=== PATIENT | female | born 1930 | race Caucasian/White ===

== ENCOUNTER 2018-03-07 09:37 | Inpatient (IN) | payer OTHER ==
--- OUTSIDE RECORDS SUMMARY | 2018-03-07 09:40 | XMS REPORT | Clinical Summary ---
:[address] [facility] Address [address] [place] [address] Phone Care Team Providers Name Role Phone Unavailable Primary Care Provider Unavailable Allergies Active Allergy Reactions Severity Noted Date Comments Codeine 03/01/2016 Current Medications Prescription Sig. Disp. Refills Start Date End Date Status gabapentin (NEURONTIN) Take 300 mg by Active 300 MG capsule mouth 2 (two) times daily. metoprolol (LOPRESSOR) Take 100 mg by Active 100 MG tablet mouth daily. simvastatin (ZOCOR) 20 Take 20 mg by Active MG tablet mouth nightly. furosemide (LASIX) 40 Take 40 mg by Active MG tablet mouth daily. rivaroxaban (XARELTO) Take 15 mg by Active 15 mg Tab tablet mouth daily with dinner. levothyroxine Take 1 tablet 30 tablet 1 03/06/2016 03/06/2017 (SYNTHROID, (125 mcg total) LEVOTHROID) 125 MCG by mouth Every tablet morning on an empty stomach. Active Problems Problem Noted Date Cat bite 03/01/2016 Hypertension Hyperlipidemia Immunizations Name Dates Previously Given Next Due Tdap 03/03/2016 Family History Medical History Relation Name Comments Asthma Daughter Relation Name Status Comments Daughter Social History Tobacco Use Types Packs/Day Years Used Date Never Smoker Alcohol Use Drinks/Week oz/Week Comments No Sex Assigned at Date Recorded Not on file Last Filed Vital Signs Not on file Plan of Treatment Not on file Results Not on fileafter 03/06/2017
--- OUTSIDE RECORDS SUMMARY | 2018-03-07 09:42 | XMS REPORT | Continuity of Care Document ---
:1930 Author Organization Interface Problems Problem Status Onset Classification Date Comments Source Date Reported S06.5X9A - TRAUM Active 02/29/20 OPID SUBDR HEM W LOC 17 [place] OF [facility]SP SUBDURAL HEMATOMA Active 02/16/[address] TRAUMATIC SAH Active 02/16/[address] ARCELIA BILLING Active 02/16/20 [facility] LFLT #[id number] [place] [address] Atrial Resolved Problem 03/25/2017 OPID fibrillation [place],[facility] CHF (<span Resolved Problem 03/25/2017 OPID ID="[id number]" [facility] >Confirmed</span> [place] ) [facility] CVA (<span Resolved Problem 03/25/2017 OPID ID="[id number]" [facility] >Confirmed</span> [place] ) [facility] Gout Resolved Problem 03/25/2017 JOSÉ MIGUEL [place],[facility] Hyperlipidemia Resolved Problem 03/25/2017 JOSÉ MIGUEL [place],[facility] Hypertension [facility] Simple obesity Active Problem 03/25/2017 JOSÉ MIGUEL [place] NONTRAUMATIC Active [facility] SUBDURAL [facility] HEMORRHAGE, Center UNSPEC Medications Medication Details Route Status Patient Ordering Order Source Instructions Provider Date Simvastatin 20 mg, 1 tab, Inactive [facility] Route: PO, Drug 2017 Medical form: TAB, [place] Bedtime, Dosing Weight 77.273, kg, Start date: 02/17/17 21:00:00 CDT, Duration: 30 day, Stop date: 03/18/17 21:00:00 CDTNotes: (Same as: Zocor) Levetiracetam 500 mg=1 tab, Active [facility] 500 MG Oral PO, BID, # 12 2017 Medical Tablet [Keppra] tab, 0 Center Refill(s) Thyroxine 137 microgram, Inactive [facility] 1 tab, Route: 2017 Medical PO, Drug form: Center TAB, Daily, Dosing Weight 77.273, kg, Start date: 02/17/17 9:00:00 CDT, Duration: 30 day, Stop date: 03/18/17 9:00:00 CDTNotes: Take 1 hour before or 2 hours after meal; Enteral feeds may interefere with the absorption of this medication. (Same as:Levothroid) Furosemide 20 MG 20 mg, 1 tab, Inactive [facility] Oral Tablet Route: PO, Drug 2016 Medical form: TAB, BID, Center Dosing Weight 77.273, kg, Start date: 02/17/17 9:00:00 CDT, Duration: 30 day, Stop date: 03/18/17 17:00:00 CDTNotes: (Same as: Lasix) May cause GI upset. Give with food or milk. gabapentin 300 300 mg, 1 cap, Inactive [place] MG Oral Capsule Route: PO, Drug 2016 Medical form: CAP, TID, Center Dosing Weight 77.273, kg, Start date: 02/17/17 9:00:00 CDT, Duration: 30 day, Stop date: 03/18/17 17:00:00 CDTNotes: (Same as: Neurontin) potassium 20 mEq, 1 tab, Inactive [facility] chloride 20 mEq Route: PO, 2017 Medical oral tablet, ONCE, Dosing Center extended release Weight 77.273, kg, Start date: 02/17/17 8:23:00 CDT, Stop date: 02/17/17 8:23:00 CDT Cipro 250 mg, 1 tab, Inactive [facility] Route: PO, Drug 2016 Medical form: TAB, Center [id number], Dosing Weight 77.273, kg, Priority: NOW, Start date: 02/17/17 0:50:00 CDT, Duration: 3 day, Stop date: 02/19/17 12:50:00 CDT, ABX Indication: Urinary Tract InfectionNotes: May interfere w/enteral feedings - Take 1 hr before or 2 hrs after antacids, dairy pdt & minerals. On empty stomach. Melatonin 3 mg, 1 tab, Inactive [facility] Route: PO, Drug 2016 Medical form: TAB, Center ONCE, Dosing Weight 77.273, kg, Priority: NOW, Start date: 02/17/17 0:44:00 CDT, Stop date: 02/17/17 0:44:00 CDT, ..Notes: (Same as: Melatonin) Albuterol 0.833 3 mL, Route: Inactive [place] MG/ML / NEB, Drug Form: 2017 Medical Ipratropium SOLN, Dosing Center [place] 0.167 Weight 77.273, MG/ML Inhalant kg, RQID, PRN Solution Shortness of [DuoNeb] breath, NOW, Start date: 02/17/17 0:44:00 CDT, Duration: 30 day, Stop date: 03/19/17 0:43:00 CDTNotes: (Same as: Duoneb) Metoprolol 2.5 mg, 2.5 mL, Inactive [place] Route: IV, Drug 2016 Medical form: INJ, Center ONCE, Dosing Weight 77.273, kg, Start date: 02/17/17 0:43:00 CDT, Stop date: 02/17/17 0:43:00 CDTNotes: (Same as: Lopressor) Push over 2 minutes heparin 5,000 unit, 1 No Longer [place] mL, Route: Active 2017 Medical SUB-Q, Drug Center form: INJ, Q8H, Dosing Weight 77.273, kg, Start date: 02/16/17 16:00:00 CDT, Duration: 30 day, Stop date: 03/18/17 8:00:00 CDTNotes: porcine heparin Simethicone 80 mg, 1 tab, No Longer [facility] Route: PO, Drug Active 2016 Medical form: [place], Center Q6H, Dosing Weight 77.273, kg, PRN Gas, Start date: 02/16/17 9:22:00 CDT, Duration: 30 day, Stop date: 03/18/17 9:21:00 CDTNotes: (Same as: Mylicon) Zofran 4 mg, 2 mL, No Longer [facility] Route: IVP, Active 2017 Medical Drug form: INJ, Center Q8H, Dosing Weight 77.273, kg, PRN Nausea, Start date: 02/16/17 9:10:00 CDT, Duration: 30 day, Stop date: 03/18/17 9:09:00 CDTNotes: (Same as: Sebas) MEDICATION WASTE Product Size: 4 mg Product Wasted: ___ mg metoprolol 50 mg, 1 tab, No Longer [place] tartrate Route: PO, Drug Active 2016 Medical form: TAB, Q6H, Center Dosing Weight 77.273, kg, Priority: NOW, Start date: 02/16/17 6:59:00 CDT, Duration: 30 day, Stop date: 03/18/17 6:00:00 CDTNotes: (Same as: Lopressor) rivaroxaban 15 15 mg=1 tab, No Longer [place] MG Oral Tablet PO, Daily, # 90 Active 2017 Medical [Xarelto] tab, 3 Center Refill(s) simvastatin 20 20 mg=1 tab, Active [place] mg oral tablet PO, Bedtime, # 2017 Medical 30 tab, 1 Center Refill(s) Colchicine 0.6 0.6 mg=1 cap, No Longer [place] MG Oral Capsule PO, Daily, PRN Active 2017 Medical pain, 0 Center Refill(s) levothyroxine 137 microgram=1 Active [place] 137 mcg (0.137 tab, PO, Daily, 2017 Medical mg) oral tablet # 90 tab, 0 Center Refill(s) gabapentin 300 300 mg=1 cap, Active [place] MG Oral Capsule PO, TID, # 90 2017 Medical cap, 1 Center Refill(s) Furosemide 20 MG 20 mg=1 tab, Active [place] Oral Tablet PO, BID, # 90 2017 Medical tab, 0 Center Refill(s) metoprolol 100 100 mg=1 tab, Active [place] mg oral tablet, PO, Daily, # 30 2017 Medical extended release tab, 0 Center Refill(s) Levetiracetam 500 mg, 1 tab, No Longer [place] 500 MG Oral Route: PO, Drug Active 2017 Medical Tablet [Keppra] form: TAB, BID, Center Dosing Weight 77.273, kg, Start date: 02/15/17 21:00:00 CDT, Duration: 30 day, Stop date: 03/17/17 9:00:00 CDTNotes: (Same as:Ketaera) Saline Flush 10 ml, Route: No Longer [place] 0.9% IVP, Drug Form: Active 2017 Medical INJ, Dosing Center Weight 77.273, kg, Q12H, Start date: 02/15/17 21:00:00 CDT, Duration: 30 day, Stop date: 03/17/17 9:00:00 CDTNotes: (Same as: BD Posiflush) Labetalol 10 mg, 2 mL, No Longer [place] Route: IVP, Active 2016 Medical Drug form: INJ, Center Q10Min, Dosing Weight 77.273, kg, PRN Other -See Comment, Start date: 02/15/17 20:03:00 CDT, Duration: 30 day, Stop date: 03/17/17 20:02:00 CDT Hydralazine 10 mg, 0.5 mL, No Longer [place] Route: IVP, Active 2016 Medical Drug form: INJ, Center Q2H, Dosing Weight 77.273, kg, PRN Hypertension, Start date: 02/15/17 20:02:00 CDT, Duration: 30 day, Stop date: 03/17/17 20:01:00 CDTNotes: (Same as: Apresoline) Push over 5 minutes Vitamin K1 + 10 mg, 1 mL, No Longer [place] sodium chloride Route: IVPB, Active 2016 Medical 0.9% INJ 50 mL Daily, Dosing Center Weight 77.273, kg, Priority: NOW, Start date: 02/15/17 19:59:00 CDT, Duration: 3 doses or times, Stop date: 02/17/17 9:00:00 CDTNotes: (Same as: Aqua-Mephyton, Vitamin K) MEDICATION WASTE Product Size: 10 mg Product Wasted: ___ mg Docusate 50 mg, 1 cap, No Longer [place] Route: PO, Drug Active 2016 Medical form: CAP, BID, Center Dosing Weight 77.273, kg, PRN Constipation, Start date: 02/15/17 17:04:00 CDT, Duration: 30 day, Stop date: 03/17/17 17:03:00 CDTNotes: (Same as: Colace) Tylenol 325 mg, 1 tab, No Longer [place] Route: PO, Drug Active 2016 Medical form: TAB, Q4H, Center Dosing Weight 77.273, kg, PRN Pain Score 1-3, Start date: 02/15/17 16:31:00 CDT, Duration: 30 day, Stop date: 03/17/17 16:30:00 CDTNotes: Do not exceed 4 gm/day. (Same as: Tylenol) Tylenol 1,000 mg, 2 Inactive [place] tab, Route: PO, 2016 Medical Drug form: TAB, Center ONCE, Dosing Weight 77.273, kg, Start date: 02/15/17 16:30:00 CDT, Stop date: 02/15/17 16:30:00 CDTNotes: Max acetaminophen 4000 mg/day (4 gm/day). (Same as: Tylenol Extra Strength) Calcium 1,000 mg, 2 No Longer [place] Carbonate 500 MG tab, Route: PO, Active 2016 Medical Chewable Tablet Drug form: Center [place], PRN, Dosing Weight 77.273, kg, PRN Abnormal Lab Result, FOR ICU USE ONLY, Start date: 02/15/17 16:09:00 CDT, Duration: 30 day, Stop date: 03/17/17 16:08:00 CDTNotes: (Same As: Tums) Calcium Carbonate 500 tp=684 mg elemental calcium Dose= mg calcium carbonate ( mg elemental calcium) Calcium 1 gm, 10 mL, No Longer [place] Gluconate Route: IVPB, Active 2016 Medical PRN, Dosing Center Weight 77.273, kg, PRN Abnormal Lab Result, Start date: 02/15/17 16:09:00 CDT, Duration: 30 day, Stop date: 03/17/17 16:08:00 CDT, FOR ICU USE ONLYNotes: WASTE: F/P - Sink; E - Municipal Trash Bin Magnesium Oxide 800 mg, 2 tab, No Longer [place] Route: PO, Drug Active 2016 Medical form: TAB, PRN, Center Dosing Weight 77.273, kg, PRN Abnormal Lab Result, FOR ICU USE ONLY, Start date: 02/15/17 16:09:00 CDT, Duration: 30 day, Stop date: 03/17/17 16:08:00 CDTNotes: (Same as: Mag-Ox 400) Magnesium oxide [id number] elemental magnesium Dose=____mg magnesium oxide (___mg elemental magnesium) sodium phosphate 45 mmol, 15 mL, No Longer [place] Route: IVPB, Active 2016 Medical PRN, Dosing Center Weight 77.273, kg, PRN Abnormal Lab Result, Start date: 02/15/17 16:09:00 CDT, Duration: 30 day, Stop date: 03/17/17 16:08:00 CDT, FOR ICU USE ONLY potassium 30 mmol, 10 mL, No Longer [place] phosphate Route: IVPB, Active 2016 Medical PRN, Dosing Center Weight 77.273, kg, PRN Abnormal Lab Result, Start date: 02/15/17 16:09:00 CDT, Duration: 30 day, Stop date: 03/17/17 16:08:00 CDT, FOR ICU USE ONLYNotes: (Same as: K Phosphate.) 1 mMol phoshate has 1.47 mEq potassium Infuse over 4 hours Magnesium 2 gm, 50 mL, No Longer [place] Sulfate Route: IVPB, Active 2016 Medical Drug form: INJ, Center PRN, Dosing Weight 77.273, kg, PRN Abnormal Lab Result, Start date: 02/15/17 16:09:00 CDT, Duration: 30 day, Stop date: 03/17/17 16:08:00 CDT, FOR ICU USE ONLYNotes: WASTE: F/P - Sink; E - Municipal Trash Bin potassium 2 pkt, Route: No Longer [place] phosphate-sodium PO, Drug Form: Active 2017 Medical phosphate 250 PDR/REC, Dosing Center mg-280 mg-160 mg Weight 77.273, oral powder for kg, PRN, PRN reconstitution Abnormal Lab Result, FOR ICU USE ONLY, Start date: 02/15/17 16:09:00 CDT, Duration: 30 day, Stop date: 03/17/17 16:08:00 CDTNotes: (Same as: Phos-NaK) Each 1.5 gm pkt has 250mg phosphorous. Mix w/2.5oz water and stir. Potassium 10 mEq, 50 mL, No Longer [place] Chloride Route: IVPB, Active 2016 Medical Drug form: INJ, Center PRN, Dosing Weight 77.273, kg, PRN Abnormal Lab Result, Via peripheral line, Start date: 02/15/17 16:09:00 CDT, Duration: 30 day, Stop date: 03/17/17 16:08:00 CDT, FOR ICU USE ONLYNotes: (Same as: KCL) Infuse over 2 hours. chlorhexidine 15 mL, Route: Inactive [facility] gluconate 1.2 Swab Mouth, 2017 Medical MG/ML Mouthwash Q4H, Drug form: Center LIQ, Start date: 02/15/17 16:00:00 CDT, Duration: 30 day, Stop date: 03/17/17 12:00:00 CDTNotes: (Same As: Peridex) Insulin regular 10 unit, 0.1 No Longer [place] mL, Route: Active 2016 Medical SUB-Q, Drug Center form: SOLN, Sliding Scale, Dosing Weight 77.273, kg, PRN Blood Glucose Results, Start date: 02/15/17 13:27:00 CDT, Duration: 30 day, Stop date: 03/17/17 13:26:00 CDTNotes: (Same as: Humulin R) Roll in palms of hands gently; Do not shake vigorously. "single patient use only" (Restricted to patients requiring a dose > 60 units) WASTE: F/P - Black; E - Municipal Trash Bin Stable for 28 days at room temperature Expires in days from D ate Saline Flush 10 ml, Route: No Longer [place] 0.9% IVP, Drug Form: Active 2016 Medical INJ, Dosing Center Weight 77.273, kg, PRN, PRN Line Flush, Start date: 02/15/17 13:27:00 CDT, Duration: 30 day, Stop date: 03/17/17 13:26:00 CDTNotes: (Same as: BD Posiflush) sodium chloride 1,000 mL, Rate: No Longer [place] 0.9% 1000 ml INJ 75 ml/hr, Active 2017 Medical 1,000 mL Infuse over: Center 13.3 hr, Route: IV, Dosing Weight 77.273 kg, Total Volume: 1,000, Start date: 02/15/17 13:27:00 CDT, Duration: 30 day, Stop date: 03/17/17 13:26:00 CDT Levetiracetam 1,000 mg, 2 Inactive [facility] 1000 MG Oral tab, Route: PO, 2017 Medical Tablet [Keppra] Drug form: TAB, Center ONCE, Dosing Weight 77.273, kg, Start date: 02/15/17 12:56:00 CDT, Stop date: 02/15/17 12:56:00 CDTNotes: (Same as:Ilianara) metoprolol 25 mg, Route: Inactive [facility] tartrate PO, Drug form: 2016 Medical TAB, ONCE, Center Dosing Weight 77.273, kg, Priority: STAT, Start date: 02/15/17 12:26:00 CDT, Stop date: 02/15/17 12:26:00 CDT Ondansetron 4 mg, Route: Inactive [facility] IVP, Drug form: 2016 Medical INJ, ONCE, Center Dosing Weight 77.273, kg, Priority: STAT, Start date: 02/15/17 12:25:00 CDT, Stop date: 02/15/17 12:25:00 CDT Fentanyl 50 microgram, Inactive [facility] Route: IVP, 2017 Medical ONCE, Dosing Center Weight 77.273, kg, Priority: STAT, Start date: 02/15/17 12:25:00 CDT, Stop date: 02/15/17 12:25:00 CDT Factor 2-7-9-10 Route: IVPB, Inactive [facility] Prothrombin Drug form: INJ, 2017 Medical Complex ONCE, kg, ; Use Center Concentrate 100kg max 2,707 unit + IV dosing weight bag 1 ea for pt >100kg. Max. cumulative dose=50 units/kg/day., Priority: STAT, Start date: 02/15/17 12:24:00 CDT, Stop date: 02/15/17 12:24:00 CDTNotes: Same as: Saima WASTE: F/P - Red; E -Red Maximum giho=2494 units; Round down dose to the nearest vial size Hematology clinical pharmacist consult required Factor 2-7-9-10 Route: IVPB, Inactive [facility] Prothrombin Drug form: INJ, 2017 Medical Complex ONCE, kg, ; Use Center Concentrate 100kg max 2,700 unit + IV dosing weight bag 1 ea for pt >100kg. Max. cumulative dose=50 units/kg/day., Priority: STAT, Start date: 02/15/17 12:22:00 CDT, Stop date: 02/15/17 12:22:00 CDTNotes: Same as: Kcentra WASTE: F/P - Red; E -Red Maximum lguh=5785 units; Round down dose to the nearest vial size Hematology clinical pharmacist consult required Potassium 40 mEq, Route: Inactive [facility] Chloride PO, Drug form: 2016 Medical LIQ, ONCE, Center Dosing Weight 77.273, kg, Priority: STAT, Start date: 02/15/17 12:09:00 CDT, Stop date: 02/15/17 12:09:00 CDT Factor 2-7-9-10 Route: IVPB, Inactive [facility] Prothrombin Drug form: INJ, 2017 Medical Complex ONCE, kg, ; Use Center Concentrate 100kg max 2,700 unit + IV dosing weight bag 1 ea for pt >100kg. Max. cumulative dose=50 units/kg/day., Priority: STAT, Start date: 02/15/17 11:07:00 CDT, Stop date: 02/15/17 11:07:00 CDTNotes: Same as: Kcentra WASTE: F/P - Red; E -Red Maximum notd=5700 units; Round down dose to the nearest vial size Hematology clinical pharmacist consult required Saline Flush 10 mL, Route: No Longer [facility] 0.9% MISC, Drug Active 2016 Medical Form: INJ, kg, Center PRN, PRN Line Flush, Start date: 02/15/17 11:05:00 CDT, Duration: 30 day, Stop date: 03/17/17 11:04:00 CDTNotes: (Same as: BD Posiflush) Allergies, Adverse Reactions, Alerts Substance Category Reaction Severity Reaction Status Date Comments Source type Reported Codeine Assertion Drug Active OPID Sulfate allergy Sharif eucalyptus Assertion Drug Active OPID topical allergy Sharif NKDA Assertion Drug Active MH OPID allergy [place] Immunizations Immunization Date Given Site Status Last Updated Comments Source Results Order Name Results Value Reference Date Interpretation Comments Source Range Brain wo Brain wo EXAM: CT BRAIN WITHOUT CONTRAST 03/22 - OPID contrast CT contrast CT [place] DATE: 03/22/2017 1:29 PM CDT Read by: Larry Chavez MD Dictated Date/time: 03/22/17 14:01 Electronically Signed by: Larry Chavez MD 03/22/17 14:04 FINAL REPORT INDICATION: Subarachnoid hemorrhage COMPARISON: CT brain 02/15/2017 and 03/01/2017 TECHNIQUE: Noncontrast axial imaging of the brain was acquired from the vertex to the skull base. DLP: 1040mGy-cm FINDINGS: Subarachnoid hemorrhage has resolved with no acute intracranial hemorrhage. Stable ventricular size and appearance of the brain parenchyma. Imaged portions of the paranasal sinuses and tympanomastoid cavities are clear. IMPRESSION: Resolution of subarachnoid hemorrhage. Stable chronic changes. Brain wo Brain wo EXAM: CT BRAIN WITHOUT CONTRAST 03/01 - OPID contrast CT contrast CT This report was dictated by a Dye Tank Tender/Fellow. I have personally reviewed the images as well as the Resident's interpretation and agree with the findings. DATE: 03/01/2017 1046 AM CDT Read by: Helio Nettles MD Resident: Helio Nettles MD Dictated Date/time: 03/01/17 11:22 Electronically Signed by: Jose Elias Hickman MD 03/01/17 19:44 FINAL REPORT INDICATION: Follow-up intracranial hemorrhage. COMPARISON: CT brain without contrast from 02/15/2017. TECHNIQUE: Axial CT images of the brain were obtained. Sagittal and coronal reformats. IV contrast: None. DLP: 1040 mGy-cm FINDINGS: Encephalomalacia within the left basal ganglia is seen communicating with the frontal horn of the left lateral ventricle. The previously described subarachnoid hemorrhage along the left temporal lobe jenkins s almost resolved. No new hemorrhage or infarction is seen. Significant mucosal thickening of the right maxillary sinus and small left maxillary mucus retention cyst versus polyp. Global age-related volume loss. Bilateral atherosclerotic calcifications of the carotid siphons. Periventricular white matter hypodensities likely represent chronic microvascular ischemic changes. Senescent calcifications of the bilateral sclera. IMPRESSION: 1. Previously identified subarachnoid hemorrhage over the left temporal lobe has near completely resolved. 2. Encephalomalacia within the left basal ganglia causing compensatory dilation of the left lateral ventricle frontal horn. 3. Significant mucosal thickening of the right maxillary sinus. CHEM PANEL Phosphorus 2.6 mg/dL 2.5 - 4.5 02/[address] CHEM PANEL Magnesium Lvl 2.0 mg/dL 1.8 - 2.4 02/[address] ELECTROLYTE AGAP 12.3 meq/L 10.0 - 02/17 [facility] 20.0 [facility] ELECTROLYTE eGFR 75 02/17 Result Comment: The eGFR is calculated using the CKD-EPI formula. In most young, healthy individuals the eGFR will be >90 mL/ min/1.73m2. The eGFR declines with age. An eGFR of 60-89 may be normal in [facility] mL/min/1.7 some populations, particularly the elderly, for whom the CKD-EPI formula has not been extensively validated. Use of the eGFR is not recommended in the following populations: [address] Individuals with unstable creatinine concentrations, including patients and those with serious co-morbid conditions. Patients with extremes in muscle mass or diet. The data above are obtained from the National Kidney Disease Education Program (NKDEP) which additionally recommends that when the eGFR is used in patients with extremes of body mass index for purposes of drug dosing, the eGFR should be multiplied by the estimated BMI. ELECTROLYTE CO2 28 meq/L 24 - 32 02/[address] ELECTROLYTE Chloride Lvl 107 meq/L 95 - 109 02/[address] ELECTROLYTE Calcium Lvl 9.3 mg/dL 8.5 - 10.5 02/[address] ELECTROLYTE Potassium Lvl 4.3 meq/L 3.5 - 5.1 02/[address] ELECTROLYTE Sodium Lvl 143 meq/L 135 - 145 02/[address] ELECTROLYTE Creatinine 0.74 mg/dL 0.50 - 02/17 [facility] Lvl 1.[address] [place] [address] ELECTROLYTE BUN 10 mg/dL 7 - 22 02/[address] ELECTROLYTE Glucose Lvl 129 mg/dL 70 - 99 02/[address] HEMATOLOGY RDW 16.1 % 11.5 - 02/17 14.5 /2016 [facility] HEMATOLOGY Platelet 186 K/CMM 133 - 450 09 [facility] HEMATOLOGY MCHC 33.3 g/dL 32.0 - 02/17 36.0 [facility] HEMATOLOGY RBC 4.66 M/CMM 4.20 - 02/17 [facility] 5.40 /2016 [facility] HEMATOLOGY Hct 38.1 % 36.0 - 02/17 48.0 [facility] HEMATOLOGY Hgb 12.7 g/dL 12.0 - 02/17 [facility] 16.0 [facility] HEMATOLOGY MCH 27.3 pg 27.0 - 02/17 [facility] 31.0 [facility] HEMATOLOGY MCV 81.7 fL 80.0 - 02/17 [facility] 98.0 [facility] HEMATOLOGY MPV 10.3 fL 7.4 - 10.4 02/[address] [place] [address] HEMATOLOGY WBC 10.0 K/CMM 3.7 - 10.4 02/[address] [place] [address] HEMATOLOGY Segs 77.7 % 45.0 - 02/17 [facility] 75.0 [facility] HEMATOLOGY Lymphocytes 14.4 % 20.0 - 02/17 [facility] 40.0 [facility] HEMATOLOGY Monocytes 3.7 % 2.0 - 12.0 02/[address] [place] [address] HEMATOLOGY Lymphocytes # 1.4 K/CMM 1.0 - 5.5 02/[address] [place] [address] HEMATOLOGY Eosinophils # 0.4 K/CMM 0.0 - 0.5 02/[address] [place] [address] HEMATOLOGY Monocytes # 0.4 K/CMM 0.0 - 0.8 02/[address] [place] [address] HEMATOLOGY Eosinophils 3.8 % 0.0 - 4.0 02/[address] [place] [address] HEMATOLOGY Segs-Bands # 7.8 K/CMM 1.5 - 8.1 02/[address] [place] [address] HEMATOLOGY Basophils 0.4 % 0.0 - 1.0 02/[address] [place] [address] PARATHYROID Ca Norm WB 1.11 1.05 - 02/17 [facility] PROFILE mMol/L 1. [facility] PARATHYROID Ca Ion WB 1.16 1.05 - 02/17 [facility] PROFILE mMol/L 1. [facility] CARDIAC Troponin-T null 0.000 - 02/16 [facility] ENZYMES 0.100 /2017 [facility] CARDIAC Troponin-I null 0.00 - 02/16 [facility] ENZYMES 0.40 /2016 [facility] CARDIAC Total CK 47 unit/L - 02/16 [place] ENZYMES /2017 [facility] CARDIAC Total CK 51 unit/L 12 - 191 02/16 [facility] ENZYMES /2017 [facility] CARDIAC Troponin-I null 0.00 - 02/16 [facility] ENZYMES 0.40 /2016 [facility] CARDIAC Troponin-T null 0.000 - 02/16 [facility] ENZYMES 0.100 /2016 [facility] CHEM PANEL Lactic Acid 1.1 mMol/L 0.5 - 2.2 02/16 [facility] Lvl /2016 [facility] HEMATOLOGY D-Dimer 2.92 ug/mL 02/16 [facility] FEU [facility] HEMATOLOGY PTT 31.7 s 22.9 - 02/16 [facility] 35.8 /2016 [facility] HEMATOLOGY INR 1.23 0.85 - 02/16 [facility] 1.17 [facility] HEMATOLOGY PT 15.8 s 12.0 - 02/16 [facility] 14.7 /2016 [facility] Ext Upper & Ext Upper & EXAM: US BILATERAL UPPER EXTREMITY VENOUS DOPPLER 02/16 - [facility] Lower Lower Venous /2016 - [facility] Venous Doppler Viet EXAM: US BILATERAL LOWER EXTREMITY VENOUS DOPPLER This report was dictated by a Dye Tank Tender/Fellow. I have personally reviewed the images as Center Doppler Viet US well as the Resident's interpretation and agree with the findings. 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 TECHNIQUE: Multiplanar grayscale, color Doppler and spectral Doppler ultrasound of the bilateral upper and lower extremity veins. FINDINGS: Right Upper Extremity Veins: Internal Jugular: Patent. Subclavian: Patent. Axillary: Patent. Brachial: Patent. Basilic: Patent. Cephalic: Patent. Left Upper Extremity Veins: Internal Jugular: Patent. Subclavian: Patent. Axillary: Patent. Brachial: Patent. Basilic: Patent. Cephalic: Patent. Right Thigh Veins: Common Femoral: Patent. Femoral (SFV): Patent. Popliteal: Patent. Proximal Greater Saphenous: Patent. Deep Femoral Veins: Patent. Left Thigh Veins: Common Femoral: Patent. Femoral (SFV): Patent. Popliteal: Patent. Proximal Greater Saphenous: Patent. Deep Femoral Veins: Patent. Other: None. IMPRESSION: No deep venous thrombosis (DVT). CHEM PANEL Phosphorus 2.9 mg/dL 2.5 - 4.5 02/16 [facility] CHEM PANEL eGFR 73 02/16 Result Comment: The eGFR is calculated using the CKD-EPI formula. In most young, healthy individuals the eGFR will be >90 mL/ min/1.73m2. The eGFR declines with age. An eGFR of 60-89 may be normal in [facility] mL/min/1. some populations, particularly the elderly, for whom the CKD-EPI formula has not been extensively validated. Use of the eGFR is not recommended in the following populations: [address] Individuals with unstable creatinine concentrations, including patients and those with serious co-morbid conditions. Patients with extremes in muscle mass or diet. The data above are obtained from the National Kidney Disease Education Program (NKDEP) which additionally recommends that when the eGFR is used in patients with extremes of body mass index for purposes of drug dosing, the eGFR should be multiplied by the estimated BMI. CHEM PANEL Chloride Lvl 110 meq/L 95 - 109 02/[address] [place] [address] CHEM PANEL Potassium Lvl 3.4 meq/L 3.5 - 5.1 02/16 [facility] CHEM PANEL CO2 31 meq/L 24 - 32 02/16 [facility] CHEM PANEL Calcium Lvl 8.5 mg/dL 8.5 - 10.5 02/16 [facility]2016 [facility] CHEM PANEL Glucose Lvl 105 mg/dL 70 - 99 02/16 [facility] CHEM PANEL Sodium Lvl 147 meq/L 135 - 145 02/16 [facility]2016 [facility] CHEM PANEL Creatinine 0.75 mg/dL 0.50 - 02/16 [facility] Lvl 1.40 [facility] CHEM PANEL BUN 15 mg/dL 7 - 22 02/16 [facility] CHEM PANEL AGAP 9.4 meq/L 10.0 - 02/16 [facility] 20.0 [facility] CHEM PANEL Magnesium Lvl 1.9 mg/dL 1.8 - 2.4 02/16 [facility] HEMATOLOGY Segs 61.1 % 45.0 - 09/08 75.0 /2016 [facility] HEMATOLOGY Monocytes 4.8 % 2.0 - 12.0 02/16 [facility] HEMATOLOGY Lymphocytes 28.4 % 20.0 - 09/08 40.0 /2016 [facility] HEMATOLOGY Eosinophils 5.2 % 0.0 - 4.0 09 [facility] HEMATOLOGY Basophils 0.5 % 0.0 - 1.0 09 [facility] HEMATOLOGY Segs-Bands # 2.8 K/CMM 1.5 - 8.1 02/16 [facility] HEMATOLOGY Monocytes # 0.2 K/CMM 0.0 - 0.8 02/16 [facility] HEMATOLOGY Lymphocytes # 1.3 K/CMM 1.0 - 5.5 02/[address] [place] [address] HEMATOLOGY Eosinophils # 0.2 K/CMM 0.0 - 0.5 02/16 [facility] HEMATOLOGY WBC 4.5 K/CMM 3.7 - 10.4 02/16 [facility] HEMATOLOGY MCV 82.1 fL 80.0 - 02/16 [facility] 98.0 [facility] HEMATOLOGY Hct 33.8 % 36.0 - 02/16 48.0 [facility] HEMATOLOGY Hgb 11.1 g/dL 12.0 - 09 16.0 [facility] HEMATOLOGY RBC 4.11 M/CMM 4.20 - 02/16 5.40 [facility] HEMATOLOGY RDW 15.9 % 11.5 - 09 14.5 [facility] HEMATOLOGY MCHC 32.8 g/dL 32.0 - 09 36.0 [facility] HEMATOLOGY MCH 26.9 pg 27.0 - 02/16 31.0 [facility] HEMATOLOGY MPV 9.5 fL 7.4 - 10.4 02/[address] [place] [address] HEMATOLOGY Platelet 137 K/CMM 133 - [address] [place] [address] CHEM PANEL Magnesium Lvl 1.8 mg/dL 1.8 - 2.4 02/16 [facility] ELECTROLYTE Potassium l 3.2 meq/L 3.5 - 5.1 02/16 [facility] S /2016 [facility] HEMATOLOGY Anti-Xa Low 1.70 02/16 Result [facility] Molecular [iU]/mL /2016 Comment: Medical Heparin "Significant Center Findings called to miller munoz at 02/15/2017 22:27 [facility]. Read Back OK." HEMATOLOGY Fibrinogen 341 mg/dL 230 - 510 02/15 [facility] Lvl /2016 [facility] HEMATOLOGY PT 19.2 s 12.0 - 02/15 [place] 14.7 /2016 [facility] HEMATOLOGY INR 1.58 0.85 - 02/15 [place] 1. [facility] HEMATOLOGY PTT 34.9 s 22.9 - 02/15 [facility] 35.8 [facility] BACTERIAL - MRSA by PCR Negative 02/15 [facility] SEROLOGY [facility] (02/15/17 4:59 PM) Center DRUG SCREEN UDS Note See Note 02/15 [facility]* [place] (02/15/17 4:59 PM) DRUG SCREEN U Phencyc Scr Negative Negative 02/15 [facility] [place] (02/15/17 4:59 PM) DRUG SCREEN U Opiate Scr Negative Negative 02/15 [facility] [place] (02/15/17 4:59 PM) DRUG SCREEN U Cannab Scr Negative Negative 02/15 [facility] [place] (02/15/17 4:59 PM) DRUG SCREEN U Cocaine Scr Negative Negative 02/15 [facility] [place] (02/15/17 4:59 PM) DRUG SCREEN U Benzodia Negative Negative 02/15 [facility]* [place] (02/15/17 4:59 PM) DRUG SCREEN U Chantal Scr Negative Negative 02/15 [facility] [place] (02/15/17 4:59 PM) DRUG SCREEN U Amph Scr Negative Negative 02/15 [facility] [place] (02/15/17 4:59 PM) URINE AND UA <=1.0 0.1 - 1.0 02/15 [facility] STOOL Urobilinogen mg/dL /2016 [facility] URINE AND UA Ketones Negative Negative 02/15 [facility] STOOL mg/dL mg/dL /2016 [facility] URINE AND UA pH 5.5 5.0 - 8.0 02/15 [facility] URINE AND UA Protein 50 mg/dL Negative 02/15 [facility] mg/dL [facility] URINE AND UA Turbidity Marked Clear 02/15 [facility] *ABN* [place] (02/15/17 4:59 PM) URINE AND UA Spec Grav 1.020 <=1.030 02/[address] URINE AND UA Color Yellow Yellow 02/15 [facility] *NA* [place] (02/15/17 4:59 PM) URINE AND UA Mucus Few /LPF None Seen 02/15 [facility] /LPF /2016 [facility] URINE AND UA Bacteria Moderate None Seen 02/15 [facility] /HPF /HPF /2016 [facility] URINE AND UA Sq Epi Moderate Few /LPF 02/15 [facility] /LPF [facility] URINE AND UA RBC 4 /HPF 0 - 2 02/[address] URINE AND UA Blood Small Negative 02/15 [facility] *[facility]* [place] (02/15/17 4:59 PM) URINE AND UA Leuk Est Large Negative 02/15 [facility] *[facility] (02/15/17 4:59 PM) URINE AND UA WBC 58 /HPF 0 - 5 02/[address] URINE AND UA Glucose Negative Negative 02/15 [facility] mg/dL mg/dL [facility] URINE AND UA Bili Negative Negative 02/15 [facility] *NA* [place] (02/15/17 4:59 PM) URINE AND UA Nitrite Negative Negative 02/15 [facility] (02/15/17 4:59 PM) [place] Wrist Wrist EXAM: XR LEFT WRIST 3 VIEWS 02/15 - [facility] complete DX complete DX /2016 - Medical This report was dictated by a Dye Tank Tender/Fellow. I have personally reviewed the images as Center well as the Resident's interpretation and agree with the findings. DATE: 02/15/2017 9:43 PM CDT Read by: Devendra Baird DO Resident: Devendra Baird DO Dictated Date/time: 02/16/17 08:18 Electronically Signed by: Karen Fall MD 02/16/17 16:21 FINAL REPORT INDICATION: trauma, pain COMPARISON: Radiographs of the right wrist performed same day TECHNIQUE: PA, oblique and lateral view of left wrist FINDINGS: Diffuse osteopenia of the bone is present. Degenerative changes are noted at the left 1st carpometacarpal joint with narrowed joint space and osteophytes. No acute fracture or malalignment is identified. No soft tissue abnormality is identified. No radiopaque foreign bodies are present. IMPRESSION: 1. 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 2. Diffuse osteopenia of the bone. Wrist Wrist EXAM: XR RIGHT WRIST 3 VIEWS 02/15 - [facility] complete DX complete DX /2016 - [facility] This report was dictated by a Dye Tank Tender/Fellow. I have personally reviewed the images as Center well as the Resident's interpretation and agree with the findings. DATE: 02/15/2017 9:59 PM CDT Read by: Devendra Baird DO Resident: Devendra Baird DO Dictated Date/time: 02/16/17 08:13 Electronically Signed by: Karen Fall MD 02/16/17 16:21 FINAL REPORT INDICATION: Right wrist pain COMPARISON: None TECHNIQUE: PA, oblique and lateral views of right wrist UT SECTION: MSK FINDINGS: Diffuse osteopenia of the bone is present. Degenerative changes of the 1st carpometacarpal joint and intercarpal joints present. No acute fracture or malalignment is identified. No soft tissue abnormality is identified. No radiopaque foreign bodies are present. IMPRESSION: 1. Moderate osteoarthritis of the 1st carpometacarpal joint. 2. Diffuse osteopenia. 3. No acute fracture or malalignment. HEMATOLOGY PTT 38.5 s 22.9 - 02/15 [place] 35.8 /2017 [facility] HEMATOLOGY INR 1.71 0.85 - 02/15 [place] 1.17 [facility] HEMATOLOGY PT 20.4 s 12.0 - 02/15 [place] 14.7 /2017 [facility] BLOOD BANK ABO/Rh A POS 02/15 [place] RESULTS /2016 [facility] BLOOD BANK Antibody Scrn Negative 02/15 [facility] RESULTS /2016 Medical (02/15/17 11:10 AM) Center CHEM PANEL eGFR 55 02/15 Result Comment: The eGFR is calculated using the CKD-EPI formula. In most young, healthy individuals the eGFR will be >90 mL/ min/1.73m2. The eGFR declines with age. An eGFR of 60-89 may be normal in [facility] mL/min/1.7 /2016 some populations, particularly the elderly, for whom the CKD-EPI formula has not been extensively validated. Use of the eGFR is not recommended in the following populations: [address] Individuals with unstable creatinine concentrations, including patients and those with serious co-morbid conditions. Patients with extremes in muscle mass or diet. The data above are obtained from the National Kidney Disease Education Program (NKDEP) which additionally recommends that when the eGFR is used in patients with extremes of body mass index for purposes of drug dosing, the eGFR should be multiplied by the estimated BMI. CHEM PANEL CO2 30 meq/L 24 - 32 02/[address] CHEM PANEL Calcium Lvl 9.2 mg/dL 8.5 - 10.5 02/[address] CHEM PANEL AGAP 12.9 meq/L 10.0 - 09 [facility] 20.0 [facility] CHEM PANEL Creatinine 0.95 mg/dL 0.50 - 02/15 [facility] Lvl 1.40 [facility] CHEM PANEL Sodium Lvl 143 meq/L 135 - 145 02/[address] CHEM PANEL Chloride Lvl 103 meq/L 95 - 109 02/[address] CHEM PANEL Glucose Lvl 144 mg/dL 70 - 99 02/[address] CHEM PANEL BUN 16 mg/dL 7 - 22 02/[address] CHEM PANEL Lactic Acid 1.0 mMol/L 0.5 - 2.2 02/15 [facility] HEMATOLOGY Segs-Bands # 5.6 K/CMM 1.5 - 8.1 02/[address] HEMATOLOGY Lymphocytes # 1.4 K/CMM 1.0 - 5.5 02/[address] HEMATOLOGY Monocytes # 0.2 K/CMM 0.0 - 0.8 02/[address] HEMATOLOGY Eosinophils # 0.2 K/CMM 0.0 - 0.5 02/[address] HEMATOLOGY Basophils 0.3 % 0.0 - 1.0 02/[address] HEMATOLOGY Eosinophils 2.6 % 0.0 - 4.0 02/15 [facility] HEMATOLOGY Lymphocytes 18.7 % 20.0 - 02/15 40.0 [facility] HEMATOLOGY Segs 75.3 % 45.0 - 02/15 [facility] 75.0 [facility] HEMATOLOGY Monocytes 3.1 % 2.0 - 12.0 02/15 [facility] HEMATOLOGY G-value Rapid 12.4 K 5.0 - 11.6 02/15 [facility] d/sc /2016 [facility] HEMATOLOGY Estimated % 0.0 % 0.0 - 7.5 02/15 [facility] Lysis [facility] HEMATOLOGY Max Amplitude 71 mm 52 - 71 02/15 [facility] HEMATOLOGY Angle Rapid 80 degrees 64 - 80 02/15 [facility] HEMATOLOGY K-time Rapid 0.8 min 0.6 - 2.3 02/15 [facility] HEMATOLOGY [place] 0.6 min 02/15 [facility] HEMATOLOGY R-time Rapid 0.7 min 0.4 - 0.7 02/15 [facility] HEMATOLOGY ACT (TEG) 113 s 86 - 118 02/15 [facility] HEMATOLOGY MCHC 32.1 g/dL 32.0 - 02/15 36.0 [facility] HEMATOLOGY RDW 16.3 % 11.5 - 02/15 14.5 [facility] HEMATOLOGY Platelet 178 K/CMM 133 - 450 02/15 [facility] HEMATOLOGY MPV 9.3 fL 7.4 - 10.4 02/15 [facility] HEMATOLOGY RBC 4.62 M/CMM 4.20 - 02/15 5.40 [facility] HEMATOLOGY Hgb 12.1 g/dL 12.0 - 02/15 [facility] 16.0 [facility] HEMATOLOGY Hct 37.6 % 36.0 - 02/15 48.0 [facility] HEMATOLOGY WBC 7.4 K/CMM 3.7 - 10.4 02/15 [facility] HEMATOLOGY MCV 81.5 fL 80.0 - 02/15 [facility] 98.0 [facility] HEMATOLOGY MCH 26.1 pg 27.0 - 02/15 31.0 [facility] Brain wo Brain wo EXAM: CT BRAIN 02/15 - [facility] contrast CT contrast CT /2016 [facility] DATE: 02/15/2017 at 14:35 Read by: Hannah Quarles MD Dictated Date/time: 02/15/17 15:44 Electronically Signed by: Hannah Quarles MD 02/15/17 15:48 FINAL REPORT CLINICAL INFORMATION: - reevaluate hemorrhage COMPARISON: None TECHNIQUE: Axial images of the brain were obtained from the skull base through the vertex without contrast material administration. DLP: [id number] mGycm DISCUSSION: There is subarachnoid hemorrhage in the left temporoparietal region. No parenchymal hematoma. No intraventricular hemorrhage, hydrocephalus or midline shift. 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 Compensatory dilatation of the left lateral ventricle. No acute bony lesions; however, examination is limited by motion artifact. Air-fluid level within the right maxillary sinus. IMPRESSION: Subarachnoid hemorrhage in the left temporoparietal region. Volume loss and remote ischemic changes. Elbow 3 Elbow 3 views EXAM: XR RIGHT ELBOW 3 VIEWS 02/15 - [place] views DX DX [facility] DATE: 02/15/2017 2:14 PM CDT. Read by: Sapphire Obrien MD Dictated Date/time: 02/15/17 15:06 Electronically Signed by: Sapphire Obrien MD 02/15/17 15:07 FINAL REPORT INDICATION: Possible fx olecranon. COMPARISON: Same day right humerus radiograph at 1321 hours post TECHNIQUE: AP, lateral and oblique radiographs of the elbow. FINDINGS: No acute fracture or malalignment is identified. No elbow joint effusion is detected. No soft tissue abnormality is identified. IMPRESSION: No acute abnormality of the right elbow. Humerus 2 Humerus 2 EXAM: XR RIGHT HUMERUS 2 VIEWS 02/15 - [place] views DX views DX [facility] DATE: 02/15/2017 12:27 PM CDT. Read by: Sapphire Obrien MD Dictated Date/time: 02/15/17 13:48 Electronically Signed by: Sapphire Obrien MD 02/15/17 13:56 FINAL REPORT INDICATION: Right arm pain. COMPARISON: None. TECHNIQUE: AP and lateral radiographs of the right humerus. FINDINGS: No acute fracture or malalignment of the humerus is identified. However, a linear lucency overlies the medial aspect of the olecranon process. No focal soft tissue abnormality is identified. IMPRESSION: 1. However, a linear lucency overlies the medial aspect of the olecranon process. This is suspicious for a minimally displaced fracture versus overlying skinfold. Recommend further evaluation with a dedicated right elbow radiograph. 2. No acute fracture or malalignment of the right humerus. Findings were discussed with TAWANA Hood, via phone, on 02/15/2017 at 0149 hours. Torso-Outsi Torso-Outside EXAM: Torso-Outside Consult CT 02/15 [facility] de Consult Consult CT /2016 [facility] DATE: 02/15/2017 8:50 Read by: Hannah Quarles MD Dictated Date/time: 02/15/17 14:56 Electronically Signed by: Hannah Quarles MD 02/15/17 15:31 FINAL REPORT INDICATION: - outside study ct facial bones COMPARISON: None TECHNIQUE: Routine axial images of the face were obtained without contrast administration DISCUSSION: No fracture dislocation. No lytic or blastic lesions. Degenerative changes of the temporomandibular joints. Air-fluid level within the right maxillary sinus. Secretions within the nasopharynx. IMPRESSION: No acute fracture or dislocation. Air-fluid level within the right maxillary sinus presumably due to inflammatory mucosal disease. Soft tissue injury in the right cheek. Right lower lid swelling Spine-Outsi Spine-Outside EXAM: CT CERVICAL SPINE WITHOUT CONTRAST 2ND OPINION INTERPRETATION 02/15 - [facility] de Consult Consult CT [facility] CT [place] DATE: 02/15/2017 12:00 PM CDT Read by: Nish Hope MD Dictated Date/time: 02/15/17 15:29 Electronically Signed by: Nish Hope MD 02/15/17 15:39 FINAL REPORT INDICATION: Trip, fall. COMPARISON: None available TECHNIQUE: Axial images through the cervical spine were obtained. Sagittal and coronal reformatted images were performed. Second opinion interpretation of CT cervical spine obtained at [facility] 02/15/2017 0850 hours FINDINGS: Atherosclerotic calcifications of the carotid bulbs and proximal internal carotid arteries present. Blood present within the right maxillary sinus. Grade 1 degenerative anterolisthesis present at C3-C4, C4-C5. Vertebral body heights are normal. No cervical spine fracture is identified. No prevertebral soft tissue edema or hematoma is observed. Mild degenerative disease present at C3-C4, C4-C5. Moderate degenerative disc disease present at C5-C6, C6-C7. Disc osteophyte complex bulge and uncovertebral joint hypertrophy present at C3-C4, C4-C5, C5-C6, C6-C7. Mild-moderate right-sided facet arthropathy present most pronounced at C3- C4. Mild left-sided facet arthropathy present. Right-sided neural frontal stenosis present at C3-C4, C4-C5, C5-C6. Left-sided neural foraminal stenosis present at C5-C6. IMPRESSION: No cervical spine fracture is identified. Grade 1 degenerative anterolisthesis at C3-C4, C4-C5. Multilevel degenerative disc disease, uncovertebral joint hypertrophy, disc -osteophyte complex bulge, and facet joint arthropathy with central canal and neural foraminal stenosis as described. Blood within the right maxillary sinus. Chest 1view Chest 1view EXAM: XR CHEST 1 VIEW 02/15 - [facility] /2016 - [facility] DATE: 02/15/2017 11:05 AM CDT. Read by: Sapphire Obrien MD Dictated Date/time: 02/15/17 12:24 Electronically Signed by: Sapphire Obrien MD 02/15/17 12:29 FINAL REPORT INDICATION: Fall. COMPARISON: Same day, outside chest radiograph at 0916 hours. TECHNIQUE: AP chest. FINDINGS: Lines, tubes and hardware: None. Lungs and pleura: Linear atelectasis of the left midlung. No focal consolidation, pleural effusion, or pneumothorax is clearly identified on this semierect portable radiograph. Mild diffuse interstitial prominence is again seen, nonspecific. Heart and mediastinum: The cardiomediastinal silhouette is accentuated by AP portable technique. The thoracic aorta is tortuous. There are mild atherosclerotic calcifications of the aortic arch. Bones: No acute skeletal abnormality is identified. There is evidence of prior vertebral body augmentation about the lower thoracic spine. IMPRESSION: No acute cardiopulmonary abnormality is identified. Vital Signs Vital Sign Value Date Comments Source Systolic (mm Hg) 147 02/17/2017 [facility] Diastolic (mm Hg) 88 02/17/2017 [facility] Respitory Rate 20 02/17/2017 [facility] Heart Rate 105 02/17/2017 [facility] Systolic (mm Hg) 144 02/17/2017 [facility] Diastolic (mm Hg) 91 02/17/2017 [facility] Heart Rate 98 02/17/2017 [facility] Respitory Rate 18 02/17/2017 [facility] Systolic (mm Hg) 146 02/17/2017 [facility] Diastolic (mm Hg) 84 02/17/2017 [facility] Respitory Rate 18 02/17/2017 [facility] Heart Rate 111 02/17/2017 [facility] Temperature Oral (F) 98.4 F 02/17/2017 [facility] Temperature Oral (F) 97.7 F 02/17/2017 [facility] Weight 77.273 02/15/2017 [facility] BMI Calculated 30.18 02/15/2017 [facility] Height 160.02 cm 02/15/2017 [facility] Temperature Oral (F) 98.0 F 02/15/2017 [facility] Weight 77.273 02/15/2017 [facility] BMI Calculated 28.35 02/15/2017 [facility] Height 165.1 cm 02/15/2017 [facility] Encounters Location Location Encounter Encounter Reason Attending ADM DC Status Source Details Type Number For Provider Date Date Visit [facility] [id number] [facility] 02/15 02/17 [facility] 7 [facility] Outpatient [id number] TRAUMA 03/[address] [facility] 0 [facility] Outpt Diag [id number] Juan 03/01 03/02 [facility] 0 [facility] [id number] TRAUMA 03/[address] [facility] 1 [facility] Outpt Diag [id number] Familia 03/22 03/23 [facility] 1 [facility] Procedure Code Date Perfomer Comments Source Cholecystostomy [id number] 06/11/2006 [facility] Cholecystostomy [id number] 06/11/2006 [facility] Tonsillectomy [id number] 06/11/1946 [facility] [place] Tonsillectomy [id number] 06/11/1946 [facility]
--- OUTSIDE RECORDS SUMMARY | 2018-03-07 09:42 | XMS REPORT | Summary of Care ---
:1930 Author Organization [facility] [place] Address [address] [place], [place] [address]- Encounter HQ Encntr_alias(FIN) [id number] Date(s): 03/22/17 - 03/22/17 [facility] [place] [address] [place] [address]- [phone] Discharge Disposition: Home or Self Care Attending Physician: Familia Celaya MD Vital Signs No data available for this section Problem List Condition Effective Dates Status Health Status Informant Atrial fibrillation(Confirmed) Resolved CHF (congestive heart Resolved failure)(Confirmed) CVA (cerebral vascular Resolved accident)(Confirmed) Gout(Confirmed) Resolved Hyperlipidemia(Confirmed) Resolved Hypertension(Confirmed) Resolved Simple obesity(Confirmed) Active Allergies, Adverse Reactions, Alerts Substance Reaction Severity Status Codeine Sulfate Active eucalyptus topical Active NKDA Active Medications No data available for this section Results No data available for this section Immunizations No data available for this section Procedures Procedure Date Related Diagnosis Body Site Cholecystostomy 2006 Tonsillectomy 194 Social History Social History Type Response Smoking Status Never smoker; Exposure to Tobacco Smoke None; Cigarette Smoking Last 365 Days No; Reg Smoking Cessation Counseling No Assessment and Plan No data available for this section
--- OUTSIDE RECORDS SUMMARY | 2018-03-07 09:43 | XMS REPORT | Summary of Care ---
:1930 Author Organization [facility] Address [address] [place] [id number] Encounter HQ Encntr_alikvng(FIN) [id number] Date(s): 02/15/17 - 02/17/17 [facility] [address] [place] [address] Professional Services provided by The [facility] [place] [address]- Discharge Disposition: Home or Self Care Attending Physician: Alexandra Cooper MD Admitting Physician: Fmailia Celaya MD Vital Signs Most recent to oldest [Reference 1 2 3 Range]: Height 160.02 cm 165.1 cm (02/15/17 4:11 PM) (02/15/17 11:10 AM) Temperature Oral [96.4-99.1 98.4 DegF 97.7 DegF 98.0 DegF DegF] (02/16/17 10:36 PM) (02/16/17 8:00 PM) (02/15/17 3:32 PM) Blood Pressure [90-140/60-90 147/88 mmHg 144/91 mmHg 146/84 mmHg mmHg] *HI* *HI* *HI* (02/17/17 12:00 PM) (02/17/17 7:00 AM) (02/17/17 6:28 AM) Respiratory Rate [14-20 BRMIN] 20 BRMIN 18 BRMIN 18 BRMIN (02/17/17 12:00 PM) (02/17/17 7:00 AM) (02/17/17 6:28 AM) Peripheral Pulse Rate [60-100 105 bpm 98 bpm 111 bpm bpm] *HI* (02/17/17 7:00 AM) *HI* (02/17/17 12:00 PM) (02/17/17 6:28 AM) Weight 77.273 kg 77.273 kg (02/15/17 4:11 PM) (02/15/17 11:10 AM) Body Mass Index 30.18 m2 28.35 m2 (02/15/17 4:11 PM) (02/15/17 11:10 AM) Problem List Condition Effective Dates Status Health Status Informant Atrial fibrillation(Confirmed) Resolved CHF (congestive heart Resolved failure)(Confirmed) CVA (cerebral vascular Resolved accident)(Confirmed) Gout(Confirmed) Resolved Hyperlipidemia(Confirmed) Resolved Hypertension(Confirmed) Resolved Allergies, Adverse Reactions, Alerts Substance Reaction Severity Status Codeine Sulfate Active eucalyptus topical Active NKDA Active Medications calcium carbonate 500 mg (200 mg elemental calcium) oral tablet 1,000 mg, 2 tab, Route: PO, Drug form: CHEWTAB, PRN, Dosing Weight 77.273, kg, PRN Abnormal Lab Result, FOR ICU USE ONLY, Start date: 02/15/17 16:09:00 CDT, Duration: 30 day, Stop date: 03/17/17 16:08:00 CDT Notes: (Same As: Tums)Calcium Carbonate 500 jb=464 mg elemental calcium Dose=_ mg calcium carbonate ( mg elemental calcium) Start Date: 02/15/17 Stop Date: 02/17/17 Status: Discontinuedcalcium carbonate 500 mg (200 mg elemental calcium) oral tablet 500 mg, 1 tab, Route: PO, Drug form: CHEWTAB, PRN, Dosing Weight 77.273, kg, PRN Abnormal Lab Result, FOR ICU USE ONLY, Start date: 02/15/17 16:09:00 CDT, Duration: 30 day, Stop date: 03/17/17 16:08:00CDT Notes: (Same As: Tums)Calcium Carbonate 500 ki=249 mg elemental calcium Dose=_ mg calcium carbonate ( mg elemental calcium) Start Date: 02/15/17 Stop Date: 02/17/17 Status: Discontinuedcalcium gluconate + sodium chloride 0.9% INJ 50 mL 1 gm, 10 mL, Route: IVPB, PRN, Dosing Weight 77.273, kg, PRN Abnormal Lab Result , Start date: 02/15/17 16:09:00 CDT, Duration: 30 day, Stop date: 03/17/17 16:08 :00 CDT, FOR ICU USE ONLY Notes: WASTE: F/P - Sink; E - Municipal Trash Bin Start Date: 02/15/17 Stop Date: 02/17/17 Status: Discontinuedchlorhexidine topical 0.12% liquid 15 mL, Route: Swab Mouth, Q4H, Drug form: LIQ, Start date: 02/15/17 16:00:00 CDT , Duration: 30 day, Stop date: 03/17/17 12:00:00 CDT Notes: (Same As: Peridex) Start Date: 02/15/17 Stop Date: 02/15/17 Status: DiscontinuedCipro 250 mg, 1 tab, Route: PO, Drug form: TAB, [id number], Dosing Weight 77.273, kg, Priority: NOW, Start date: 02/17/17 0:50:00 CDT, Duration: 3 day, Stop date: 04/27 12:50:00 CDT, ABX Indication: Urinary Tract Infection Notes: May interfere w/enteral feedings - Take 1 hr before or 2 hrs after antacids, dairy pdt &minerals. On empty stomach. Start Date: 02/17/17 Stop Date: 02/17/17 Status: Discontinuedcolchicine 0.6 mg oral capsule 0.6 mg=1 cap, PO, Daily, PRN pain, 0 Refill(s) Start Date: 02/15/17 Stop Date: 02/17/17 Status: Discontinueddocusate 50 mg, 1 cap, Route: PO, Drug form: CAP, BID, Dosing Weight 77.273, kg, PRN Constipation, Start date: 02/15/17 17:04:00 CDT, Duration: 30 day, Stop date: 17:03:00 CDT Notes: (Same as: Colace) Start Date: 02/15/17 Stop Date: 02/17/17 Status: DiscontinuedDuoNeb inhalation solution 3 mL, Route: NEB, Drug Form: SOLN, Dosing Weight 77.273, kg, RQID, PRN Shortness of breath, NOW, Start date: 02/17/17 0:44:00 CDT, Duration: 30 day, Stop date: 03/19/17 0:43:00 CDT Notes: (Same as: Mariob) Start Date: 02/17/17 Stop Date: 02/17/17 Status: DiscontinuedFactor 2-7-9-10 Prothrombin Complex Concentrate 2,700 unit + IV bag 1 ea Route: IVPB, Drug form: INJ, ONCE, kg, ; Use 100kg max dosing weight for pt > 100kg. Max. cumulative dose=50 units/kg/day., Priority: STAT, Start date: 12:22:00 CDT, Stop date: 02/15/17 12:22:00 CDT Notes: Same as: ChinoE: F/P - Red; E -Red Maximum ucmw=4740 units; Round down dose to the nearest vial size Hematology clinical pharmacist consult required Start Date: 02/15/17 Stop Date: 02/15/17 Status: DeletedFactor 2-7-9-10 Prothrombin Complex Concentrate 2,700 unit + IV bag 1 ea Route: IVPB, Drug form: INJ, ONCE, kg, ; Use 100kg max dosing weight for pt > 100kg. Max. cumulative dose=50 units/kg/day., Priority: STAT, Start date: 11:07:00 CDT, Stop date: 02/15/17 11:07:00 CDT Notes: Same as: ChinoE: F/P - Red; E -Red Maximum rxqy=0102 units; Round down dose to the nearest vial size Hematology clinical pharmacist consult required Start Date: 02/15/17 Stop Date: 02/15/17 Status: DeletedFactor 2-7-9-10 Prothrombin Complex Concentrate 2,707 unit + IV bag 1 ea Route: IVPB, Drug form: INJ, ONCE, kg, ; Use 100kg max dosing weight for pt > 100kg. Max. cumulative dose=50 units/kg/day., Priority: STAT, Start date: 12:24:00 CDT, Stop date: 02/15/17 12:24:00 CDT Notes: Same as: MicSTE: F/P - Red; E -Red Maximum kwjj=0645 units; Round down dose to the nearest vial size Hematology clinical pharmacist consult required Start Date: 02/15/17 Stop Date: 02/15/17 Status: CompletedfentaNYL 50 microgram, Route: IVP, ONCE, Dosing Weight 77.273, kg, Priority: STAT, Start date: 02/15/17 12:25:00 CDT, Stop date: 02/15/17 12:25:00 CDT Start Date: 02/15/17 Stop Date: 02/15/17 Status: Completedfurosemide 20 mg oral tablet 20 mg, 1 tab, Route: PO, Drug form: TAB, BID, Dosing Weight 77.273, kg, Start date: 02/17/17 9:00:00CDT, Duration: 30 day, Stop date: 03/18/17 17:00:00 CDT Notes: (Same as: Lasix) May cause GI upset. Give with food or milk. Start Date: 02/17/17 Stop Date: 02/17/17 Status: Discontinuedfurosemide 20 mg oral tablet 20 mg=1 tab, PO, BID, # 90 tab, 0 Refill(s) Start Date: 02/15/17 Status: Orderedgabapentin 300 mg oral capsule 300 mg=1 cap, PO, TID, # 90 cap, 1 Refill(s) Start Date: 02/15/17 Status: Orderedgabapentin 300 mg oral capsule 300 mg, 1 cap, Route: PO, Drug form: CAP, TID, Dosing Weight 77.273, kg, Start date: 02/17/17 9:00:00 CDT, Duration: 30 day, Stop date: 03/18/17 17:00:00 CDT Notes: (Same as: Neurontin) Start Date: 02/17/17 Stop Date: 02/17/17 Status: Discontinuedheparin 5,000 unit, 1 mL, Route: SUB-Q, Drug form: INJ, Q8H, Dosing Weight 77.273, kg, Start date: 02/16/17 16:00:00 CDT, Duration: 30 day, Stop date: 03/18/17 8:00: 00 CDT Notes: porcine heparin Start Date: 02/16/17 Stop Date: 02/17/17 Status: DiscontinuedhydrALAZINE 10 mg, 0.5 mL, Route: IVP, Drug form: INJ, Q2H, Dosing Weight 77.273, kg, PRN Hypertension, Start date: 02/15/17 20:02:00 CDT, Duration: 30 day, Stop date: 20:01:00 CDT Notes: (Same as: Apresoline)Push over 5 minutes Start Date: 02/15/17 Stop Date: 02/17/17 Status: DiscontinuedInsulin regular 10 unit, 0.1 mL, Route: SUB-Q, Drug form: SOLN, Sliding Scale, Dosing Weight 77.273, kg, PRN Blood Glucose Results, Start date: 02/15/17 13:27:00 CDT, Duration: 30 day, Stop date: 03/17/17 13:26:00 CDT Notes: (Same as: Humulin R) Roll in palms of hands gently; Do not shake vigorously. "single patientuse only"(Restricted to patients requiring a dose > 60 units)WASTE: F/P - Black; E - Municipal Trash Bin Stable for 28 days at room temperatureExpires in days from Date Start Date: 02/15/17 Stop Date: 02/17/17 Status: DiscontinuedInsulin regular 8 unit, 0.08 mL, Route: SUB-Q, Drug form: SOLN, Sliding Scale, Dosing Weight 77.273, kg, PRN Blood Glucose Results, Start date: 02/15/17 13:27:00 CDT, Duration: 30 day, Stop date: 03/17/17 13:26:00 CDT Notes: (Same as: Humulin R) Roll in palms of hands gently; Do not shake vigorously. "single patientuse only"(Restricted to patients requiring a dose > 60 units)WASTE: F/P - Black; E - Municipal Trash Bin Stable for 28 days at room temperatureExpires in days from Date Start Date: 02/15/17 Stop Date: 02/17/17 Status: DiscontinuedInsulin regular 2 unit, 0.02 mL, Route: SUB-Q, Drug form: SOLN, Sliding Scale, Dosing Weight 77.273, kg, PRN Blood Glucose Results, Start date: 02/15/17 13:27:00 CDT, Duration: 30 day, Stop date: 03/17/17 13:26:00 CDT Notes: (Same as: Humulin R)(Restricted to patients requiring a dose > 60 units) Start Date: 02/15/17 Stop Date: 02/17/17 Status: DiscontinuedInsulin regular 4 unit, 0.04 mL, Route: SUB-Q, Drug form: SOLN, Sliding Scale, Dosing Weight 77.273, kg, PRN Blood Glucose Results, Start date: 02/15/17 13:27:00 CDT, Duration: 30 day, Stop date: 03/17/17 13:26:00 CDT Notes: (Same as: Humulin R) Roll in palms of hands gently; Do not shake vigorously. "single patientuse only"(Restricted to patients requiring a dose > 60 units)WASTE: F/P - Black; E - Municipal Trash Bin Stable for 28 days at room temperatureExpires in days from Date Start Date: 02/15/17 Stop Date: 02/17/17 Status: DiscontinuedInsulin regular 6 unit, 0.06 mL, Route: SUB-Q, Drug form: SOLN, Sliding Scale, Dosing Weight 77.273, kg, PRN Blood Glucose Results, Start date: 02/15/17 13:27:00 CDT, Duration: 30 day, Stop date: 03/17/17 13:26:00 CDT Notes: (Same as: Humulin R) Roll in palms of hands gently; Do not shake vigorously. "single patientuse only"(Restricted to patients requiring a dose > 60 units)WASTE: F/P - Black; E - Municipal Trash Bin Stable for 28 days at room temperatureExpires in days from Date Start Date: 02/15/17 Stop Date: 02/17/17 Status: DiscontinuedKeppra 1000 mg oral tablet 1,000 mg, 2 tab, Route: PO, Drug form: TAB, ONCE, Dosing Weight 77.273, kg, Start date: 02/15/17 12:56:00 CDT, Stop date: 02/15/17 12:56:00 CDT Notes: (Same as:Keppra) Start Date: 02/15/17 Stop Date: 02/15/17 Status: DiscontinuedKeppra 500 mg oral tablet 500 mg=1 tab, PO, BID, # 12 tab, 0 Refill(s) Start Date: 02/17/17 Stop Date: 02/23/17 Status: OrderedKeppra 500 mg oral tablet 500 mg, 1 tab, Route: PO, Drug form: TAB, BID, Dosing Weight 77.273, kg, Start date: 02/15/17 21:00:00 CDT, Duration: 30 day, Stop date: 03/17/17 9:00:00 CDT Notes: (Same as:Keppra) Start Date: 02/15/17 Stop Date: 02/17/17 Status: Discontinuedlabetalol 10 mg, 2 mL, Route: IVP, Drug form: INJ, Q10Min, Dosing Weight 77.273, kg, PRN Other -See Comment, Start date: 02/15/17 20:03:00 CDT, Duration: 30 day, Stop date: 03/17/17 20:02:00 CDT Start Date: 02/15/17 Stop Date: 02/17/17 Status: Discontinuedlevothyroxine 137 microgram, 1 tab, Route: PO, Drug form: TAB, Daily, Dosing Weight 77.273, kg , Start date: 02/17/17 9:00:00 CDT, Duration: 30 day, Stop date: 03/18/17 9:00: 00 CDT Notes: Take 1 hour before or 2 hours after meal; Enteral feeds may interefere with the absorption ofthis medication. (Same as:Levothroid) Start Date: 02/17/17 Stop Date: 02/17/17 Status: Discontinuedlevothyroxine 137 mcg (0.137 mg) oral tablet 137 microgram=1 tab, PO, Daily, # 90 tab, 0 Refill(s) Start Date: 02/15/17 Status: Orderedmagnesium oxide 800 mg, 2 tab, Route: PO, Drug form: TAB, PRN, Dosing Weight 77.273, kg, PRN Abnormal Lab Result, FOR ICU USE ONLY, Start date: 02/15/17 16:09:00 CDT, Duration: 30 day, Stop date: 03/17/17 16:08:00 CDT Notes: (Same as: Mag-Ox 400)Magnesium oxide 400vg=013iy elemental magnesiumDose= ____mg magnesium oxide (___mg elemental magnesium) Start Date: 02/15/17 Stop Date: 02/17/17 Status: Discontinuedmagnesium sulfate 2 gm, 50 mL, Route: IVPB, Drug form: INJ, PRN, Dosing Weight 77.273, kg, PRN Abnormal Lab Result, Start date: 02/15/17 16:09:00 CDT, Duration: 30 day, Stop date: 03/17/17 16:08:00 CDT, FOR ICU USE ONLY Notes: WASTE: F/P - Sink; E - Municipal Trash Bin Start Date: 02/15/17 Stop Date: 02/17/17 Status: Discontinuedmelatonin 3 mg, 1 tab, Route: PO, Drug form: TAB, ONCE, Dosing Weight 77.273, kg, Priority : NOW, Start date: 02/17/17 0:44:00 CDT, Stop date: 02/17/17 0:44:00 CDT, .. Notes: (Same as: Melatonin) Start Date: 02/17/17 Stop Date: 02/17/17 Status: Completedmetoprolol 100 mg oral tablet, extended release 100 mg=1 tab, PO, Daily, # 30 tab, 0 Refill(s) Start Date: 02/15/17 Status: Orderedmetoprolol 5 mg/5 ml INJ 2.5 mg, 2.5 mL, Route: IV, Drug form: INJ, ONCE, Dosing Weight 77.273, kg, Start date: 02/17/17 0:43:00 CDT, Stop date: 02/17/17 0:43:00 CDT Notes: (Same as: Lopressor)Push over 2 minutes Start Date: 02/17/17 Stop Date: 02/17/17 Status: Completedmetoprolol tartrate 25 mg, Route: PO, Drug form: TAB, ONCE, Dosing Weight 77.273, kg, Priority: STAT , Start date: 02/15/17 12:26:00 CDT, Stop date: 02/15/17 12:26:00 CDT Start Date: 02/15/17 Stop Date: 02/15/17 Status: Completedmetoprolol tartrate 50 mg, 1 tab, Route: PO, Drug form: TAB, Q6H, Dosing Weight 77.273, kg, Priority : NOW, Start date: 02/16/17 6:59:00 CDT, Duration: 30 day, Stop date: 03/18/17 6 :00:00 CDT Notes: (Same as: Lopressor) Start Date: 02/16/17 Stop Date: 02/17/17 Status: Discontinuedondansetron 4 mg, Route: IVP, Drug form: INJ, ONCE, Dosing Weight 77.273, kg, Priority: STAT , Start date: 02/15/17 12:25:00 CDT, Stop date: 02/15/17 12:25:00 CDT Start Date: 02/15/17 Stop Date: 02/15/17 Status: Completedpotassium chloride 40 mEq, Route: PO, Drug form: LIQ, ONCE, Dosing Weight 77.273, kg, Priority: STAT, Start date: 02/15/17 12:09:00 CDT, Stop date: 02/15/17 12:09:00 CDT Start Date: 02/15/17 Stop Date: 02/15/17 Status: Completedpotassium chloride 10 mEq, 50 mL, Route: IVPB, Drug form: INJ, PRN, Dosing Weight 77.273, kg, PRN Abnormal Lab Result, Via peripheral line, Start date: 02/15/17 16:09:00 CDT, Duration: 30 day, Stop date: 03/17/17 16:08:00 CDT, FOR ICU USE ONLY Notes: (Same as: KCL) Infuse over 2 hours. Start Date: 02/15/17 Stop Date: 02/17/17 Status: Discontinuedpotassium chloride 20 mEq, 100 mL, Route: IVPB, Drug form: INJ, PRN, Dosing Weight 77.273, kg, PRN Abnormal Lab Result,Via central line, Start date: 02/15/17 16:09:00 CDT, Duration: 30 day, Stop date: 03/17/17 16:08:00 CDT, FOR ICU USE ONLY Notes: (Same as: KCL) Infuse no faster than 10 mEq/hr if given peripherally. Start Date: 02/15/17 Stop Date: 02/17/17 Status: Discontinuedpotassium chloride 20 mEq, 15 mL, Route: NJ, Drug form: LIQ, PRN, Dosing Weight 77.273, kg, PRN Abnormal Lab Result, Start date: 02/15/17 16:09:00 CDT, Duration: 30 day, Stop date: 03/17/17 16:08:00 CDT, FOR ICU USE ONLY Notes: (Same as: Potassium Chloride) Start Date: 02/15/17 Stop Date: 02/17/17 Status: Discontinuedpotassium chloride 20 mEq, 1 tab, Route: PO, Drug form: ERTAB, PRN, Dosing Weight 77.273, kg, PRN Abnormal Lab Result, Start date: 02/15/17 16:09:00 CDT, Duration: 30 day, Stop date: 03/17/17 16:08:00 CDT, FOR ICU USE ONLY Notes: (Same as: K-Dur 20)"Do Not Crush" With food and full glass of water Start Date: 02/15/17 Stop Date: 02/17/17 Status: Discontinuedpotassium chloride 20 mEq oral tablet, extended release 20 mEq, 1 tab, Route: PO, ONCE, Dosing Weight 77.273, kg, Start date: 02/17/17 8 :23:00 CDT, Stop date: 02/17/17 8:23:00 CDT Start Date: 02/17/17 Stop Date: 02/17/17 Status: Discontinuedpotassium phosphate + sodium chloride 0.9% INJ 250 mL 30 mmol, 10 mL, Route: IVPB, PRN, Dosing Weight 77.273, kg, PRN Abnormal Lab Result, Start date: 02/15/17 16:09:00 CDT, Duration: 30 day, Stop date: 16:08:00 CDT, FOR ICU USE ONLY Notes: (Same as: K Phosphate.) 1 mMol phoshate has 1.47 mEq potassium Infuse over 4 hours Start Date: 02/15/17 Stop Date: 02/17/17 Status: Discontinuedpotassium phosphate + sodium chloride 0.9% INJ 250 mL 15 mmol, 5 mL, Route: IVPB, PRN, Dosing Weight 77.273, kg, PRN Abnormal Lab Result, Start date: 02/15/17 16:09:00 CDT, Duration: 30 day, Stop date: 16:08:00 CDT, FOR ICU USE ONLY Notes: (Same as: K Phosphate.) 1 mMol phoshate has 1.47 mEq potassium Infuse over 4 hours Start Date: 02/15/17 Stop Date: 02/17/17 Status: Discontinuedpotassium phosphate + sodium chloride 0.9% INJ 250 mL 45 mmol, 15 mL, Route: IVPB, PRN, Dosing Weight 77.273, kg, PRN Abnormal Lab Result, Start date: 02/15/17 16:09:00 CDT, Duration: 30 day, Stop date: 16:08:00 CDT, FOR ICU USE ONLY Notes: (Same as: K Phosphate.) 1 mMol phoshate has 1.47 mEq potassium Infuse over 4 hours Start Date: 02/15/17 Stop Date: 02/17/17 Status: Discontinuedpotassium phosphate-sodium phosphate 250 mg-280 mg-160 mg oral powder for reconstitution 2 pkt, Route: PO, Drug Form: PDR/REC, Dosing Weight 77.273, kg, PRN, PRN Abnormal Lab Result, FOR ICU USE ONLY, Start date: 02/15/17 16:09:00 CDT, Duration: 30 day, Stop date: 03/17/17 16:08:00 CDT Notes: (Same as: Phos-NaK) Each 1.5 gm pkt has 250mg phosphorous. Mix w/2.5oz water and stir. Start Date: 02/15/17 Stop Date: 02/17/17 Status: DiscontinuedSaline Flush 0.9% 10 mL, Route: MISC, Drug Form: INJ, kg, PRN, PRN Line Flush, Start date: 11:05:00 CDT, Duration: 30 day, Stop date: 03/17/17 11:04:00 CDT Notes: (Same as: BD Posiflush) Start Date: 02/15/17 Stop Date: 02/17/17 Status: DiscontinuedSaline Flush 0.9% 10 ml, Route: IVP, Drug Form: INJ, Dosing Weight 77.273, kg, Q12H, Start date: 02/15/17 21:00:00 CDT, Duration: 30 day, Stop date: 03/17/17 9:00:00 CDT Notes: (Same as: BD Posiflush) Start Date: 02/15/17 Stop Date: 02/17/17 Status: DiscontinuedSaline Flush 0.9% 10 ml, Route: IVP, Drug Form: INJ, Dosing Weight 77.273, kg, PRN, PRN Line Flush , Start date: 02/15/17 13:27:00 CDT, Duration: 30 day, Stop date: 03/17/17 13:26 :00 CDT Notes: (Same as: BD Posiflush) Start Date: 02/15/17 Stop Date: 02/17/17 Status: Discontinuedsimethicone 80 mg, 1 tab, Route: PO, Drug form: CHEWTAB, Q6H, Dosing Weight 77.273, kg, PRN Gas, Start date: 02/16/17 9:22:00 CDT, Duration: 30 day, Stop date: 03/18/17 9: 21:00 CDT Notes: (Same as: Mylicon) Start Date: 02/16/17 Stop Date: 02/17/17 Status: Discontinuedsimvastatin 20 mg, 1 tab, Route: PO, Drug form: TAB, Bedtime, Dosing Weight 77.273, kg, Start date: 02/17/17 21:00:00 CDT, Duration: 30 day, Stop date: 03/18/17 21:00: 00 CDT Notes: (Same as: Zocor) Start Date: 02/17/17 Stop Date: 02/17/17 Status: Canceledsimvastatin 20 mg oral tablet 20 mg=1 tab, PO, Bedtime, # 30 tab, 1 Refill(s) Start Date: 02/15/17 Status: Orderedsodium chloride 0.9% 1000 ml INJ 1,000 mL 1,000 mL, Rate: 75 ml/hr, Infuse over: 13.3 hr, Route: IV, Dosing Weight 77.273 kg, Total Volume: 1,000, Start date: 02/15/17 13:27:00 CDT, Duration: 30 day, Stop date: 03/17/17 13:26:00 CDT Start Date: 02/15/17 Stop Date: 02/17/17 Status: Discontinuedsodium phosphate + sodium chloride 0.9% INJ 250 mL 45 mmol, 15 mL, Route: IVPB, PRN, Dosing Weight 77.273, kg, PRN Abnormal Lab Result, Start date: 02/15/17 16:09:00 CDT, Duration: 30 day, Stop date: 16:08:00 CDT, FOR ICU USE ONLY Start Date: 02/15/17 Stop Date: 02/17/17 Status: Discontinuedsodium phosphate + sodium chloride 0.9% INJ 250 mL 30 mmol, 10 mL, Route: IVPB, PRN, Dosing Weight 77.273, kg, PRN Abnormal Lab Result, Start date: 02/15/17 16:09:00 CDT, Duration: 30 day, Stop date: 16:08:00 CDT, FOR ICU USE ONLY Start Date: 02/15/17 Stop Date: 02/17/17 Status: Discontinuedsodium phosphate + sodium chloride 0.9% INJ 250 mL 15 mmol, 5 mL, Route: IVPB, PRN, Dosing Weight 77.273, kg, PRN Abnormal Lab Result, Start date: 02/15/17 16:09:00 CDT, Duration: 30 day, Stop date: 16:08:00 CDT, FOR ICU USE ONLY Start Date: 02/15/17 Stop Date: 02/17/17 Status: DiscontinuedTylenol 325 mg, 1 tab, Route: PO, Drug form: TAB, Q4H, Dosing Weight 77.273, kg, PRN Pain Score 1-3, Start date: 02/15/17 16:31:00 CDT, Duration: 30 day, Stop date: 03/17/17 16:30:00 CDT Notes: Do not exceed 4 gm/day. (Same as: Tylenol) Start Date: 02/15/17 Stop Date: 02/17/17 Status: DiscontinuedTylenol 1,000 mg, 2 tab, Route: PO, Drug form: TAB, ONCE, Dosing Weight 77.273, kg, Start date: 02/15/17 16:30:00 CDT, Stop date: 02/15/17 16:30:00 CDT Notes: Max acetaminophen 4000 mg/day (4 gm/day). (Same as: Tylenol Extra Strength) Start Date: 02/15/17 Stop Date: 02/15/17 Status: CompletedVitamin K1 + sodium chloride 0.9% INJ 50 mL 10 mg, 1 mL, Route: IVPB, Daily, Dosing Weight 77.273, kg, Priority: NOW, Start date: 02/15/17 19:59:00 CDT, Duration: 3 doses or times, Stop date: 02/17/17 9: 00:00 CDT Notes: (Same as: Aqua-Mephyton, Vitamin K) MEDICATION WASTE Product Size : 10 mgProduct Wasted: ___ mg Start Date: 02/15/17 Stop Date: 02/16/17 Status: DiscontinuedXarelto 15 mg oral tablet 15 mg=1 tab, PO, Daily, # 90 tab, 3 Refill(s) Start Date: 02/15/17 Stop Date: 02/17/17 Status: DiscontinuedZofran 4 mg, 2 mL, Route: IVP, Drug form: INJ, Q8H, Dosing Weight 77.273, kg, PRN Nausea, Start date: 02/16/17 9:10:00 CDT, Duration: 30 day, Stop date: 03/18/17 9:09:00 CDT Notes: (Same as: Zofran) MEDICATION WASTE Product Size: 4 mgProduct Wasted: ___ mg Start Date: 02/16/17 Stop Date: 02/17/17 Status: Discontinued Results BLOOD BANK RESULTS Most recent to oldest [Reference Range]: 1 2 3 ABO/Rh A POS *Unknown* (02/15/17 11:10 AM) Antibody Scrn Negative (02/15/17 11:10 AM) ELECTROLYTES Most recent to oldest 1 2 3 [Reference Range]: Sodium Lvl [135-145 mEq/L] 143 mEq/L 147 mEq/L 143 mEq/L (02/17/17 2:47 AM) *HI* (02/15/17 11:10 AM) (02/16/17 1:25 AM) Potassium Lvl [3.5-5.1 mEq/L] 4.3 mEq/L 3.4 mEq/L 3.2 mEq/L (02/17/17 2:47 AM) *LOW* *LOW* (02/16/17 1:25 AM) (02/15/17 9:51 PM) Chloride Lvl [95-109 mEq/L] 107 mEq/L 110 mEq/L 103 mEq/L (02/17/17 2:47 AM) *HI* (02/15/17 11:10 AM) (02/16/17 1:25 AM) CO2 [24-32 mEq/L] 28 mEq/L 31 mEq/L 30 mEq/L (02/17/17 2:47 AM) (02/16/17 1:25 AM) (02/15/17 11:10 AM) AGAP [10.0-20.0 mEq/L] 12.3 mEq/L 9.4 mEq/L 12.9 mEq/L (02/17/17 2:47 AM) *LOW* (02/15/17 11:10 AM) (02/16/17 1:25 AM) CHEM PANEL Most recent to oldest 1 2 3 [Reference Range]: Creatinine Lvl [0.50-1.40 0.74 mg/dL 0.75 mg/dL 0.95 mg/dL mg/dL] (02/17/17 2:47 AM) (02/16/17 1:25 AM) (02/15/17 11:10 AM) eGFR 75 mL/min/1.73m2 1 73 mL/min/1.73m2 2 55 mL/min/1.73m2 3 *NA* *NA* *NA* (02/17/17 2:47 AM) (02/16/17 1:25 AM) (02/15/17 11:10 AM) BUN [7-22 mg/dL] 10 mg/dL 15 mg/dL 16 mg/dL (02/17/17 2:47 AM) (02/16/17 1:25 AM) (02/15/17 11:10 AM) Glucose Lvl [70-99 mg/dL] 129 mg/dL 105 mg/dL 144 mg/dL *HI* *HI* *HI* (02/17/17 2:47 AM) (02/16/17 1:25 AM) (02/15/17 11:10 AM) Calcium Lvl [8.5-10.5 mg/dL] 9.3 mg/dL 8.5 mg/dL 9.2 mg/dL (02/17/17 2:47 AM) (02/16/17 1:25 AM) (02/15/17 11:10 AM) Phosphorus [2.5-4.5 mg/dL] 2.6 mg/dL 2.9 mg/dL (02/17/17 2:47 AM) (02/16/17 1:25 AM) Magnesium Lvl [1.8-2.4 2.0 mg/dL 1.9 mg/dL 1.8 mg/dL mg/dL] (02/17/17 2:47 AM) (02/16/17 1:25 AM) (02/15/17 9:51 PM) Lactic Acid Lvl [0.5-2.2 1.1 mMol/L 1.0 mMol/L mMol/L] (02/16/17 7:49 AM) (02/15/17 11:10 AM) 1Result Comment: The eGFR is calculated using the CKD-EPI formula. In most young , healthy individualsthe eGFR will be >90 mL/min/1.73m2. The eGFR declines with age. An eGFR of 60-89 may be normal in some populations, particularly the elderly, for whom the CKD-EPI formula has not been extensively validated. Use of the eGFR is not recommended in the following populations: Individuals with unstable creatinine concentrations, including patients and those with serious co-morbid conditions. Patients with extremes in muscle mass or diet. The data above are obtained from the [employer] ( [employer]) which additionally recommends that when the eGFR is used in patients with extremes of body mass index for purposesof drug dosing, the eGFR should be multiplied by the estimated BMI.2Result Comment: The eGFR is calculated using the CKD-EPI formula. In most young, healthy individualsthe eGFR will be >90 mL/ min/1.73m2. The eGFR declines with age. An eGFR of 60-89 may be normal in some populations, particularly the elderly, for whom the CKD-EPI formula has not been extensively validated. Use of the eGFR is not recommended in the following populations: Individuals with unstable creatinine concentrations, including patients and those with serious co-morbid conditions. Patients with extremes in muscle mass or diet. The data above are obtained from the National Kidney Disease Education Program ( NKDEP) which additionally recommends that when the eGFR is used in patients with extremes of body mass index for purposesof drug dosing, the eGFR should be multiplied by the estimated BMI.3Result Comment: The eGFR is calculated using the CKD-EPI formula. In most young, healthy individualsthe eGFR will be >90 mL/ min/1.73m2. The eGFR declines with age. An eGFR of 60-89 may be normal in some populations, particularly the elderly, for whom the CKD-EPI formula has not been extensively validated. Use of the eGFR is not recommended in the following populations: Individuals with unstable creatinine concentrations, including patients and those with serious co-morbid conditions. Patients with extremes in muscle mass or diet. The data above are obtained from the National Kidney Disease Education Program ( NKDEP) which additionally recommends that when the eGFR is used in patients with extremes of body mass index for purposesof drug dosing, the eGFR should be multiplied by the estimated BMI.CARDIAC ENZYMES Most recent to oldest [Reference Range]: 1 2 3 Total CK [12-191 unit/L] 47 unit/L 51 unit/L (02/16/17 11:33 AM) (02/16/17 7:49 AM) Troponin-T [0.000-0.100 ng/mL] <0.010 ng/mL <0.010 ng/mL (02/16/17 11:33 AM) (02/16/17 7:49 AM) Troponin-I [0.00-0.40 ng/mL] <0.02 ng/mL <0.02 ng/mL (02/16/17 11:33 AM) (02/16/17 7:49 AM) PARATHYROID PROFILE Most recent to oldest [Reference Range]: 1 2 3 Ca Ion WB [1.05-1.25 mMol/L] 1.16 mMol/L (02/17/17 2:47 AM) Ca Norm WB [1.05-1.25 mMol/L] 1.11 mMol/L (02/17/17 2:47 AM) DRUG SCREEN Most recent to oldest [Reference Range]: 1 2 3 U Amph Scr [Negative] Negative *NA* (02/15/17 4:59 PM) U Chantal Scr [Negative] Negative *NA* (02/15/17 4:59 PM) U Benzodia Scr [Negative] Negative *NA* (02/15/17 4:59 PM) U Cocaine Scr [Negative] Negative *NA* (02/15/17 4:59 PM) U Opiate Scr [Negative] Negative *NA* (02/15/17 4:59 PM) U Phencyc Scr [Negative] Negative *NA* (02/15/17 4:59 PM) U Cannab Scr [Negative] Negative *NA* (02/15/17 4:59 PM) UDS Note See Note *NA* (02/15/17 4:59 PM) TOXICOLOGY Most recent to oldest [Reference Range]: 1 2 3 Etoh (%) <.003 % *NA* (02/15/17 11:10 AM) Ethanol Lvl <3 mg/dL *NA* (02/15/17 11:10 AM) URINE AND STOOL Most recent to oldest [Reference Range]: 1 2 3 UA Turbidity [Clear] Marked *ABN* (02/15/17 4:59 PM) UA Color [Yellow] Yellow *NA* (02/15/17 4:59 PM) UA pH [5.0-8.0] 5.5 (02/15/17 4:59 PM) UA Spec Grav [<=1.030] 1.020 (02/15/17 4:59 PM) UA Glucose [Negative mg/dL] Negative mg/dL *NA* (02/15/17 4:59 PM) UA Blood [Negative] Small *ABN* (02/15/17 4:59 PM) UA Ketones [Negative mg/dL] Negative mg/dL *NA* (02/15/17 4:59 PM) UA Protein [Negative mg/dL] 50 mg/dL *ABN* (02/15/17 4:59 PM) UA Urobilinogen [0.1-1.0 mg/dL] <=1.0 mg/dL *NA* (02/15/17 4:59 PM) UA Bili [Negative] Negative *NA* (02/15/17 4:59 PM) UA Leuk Est [Negative] Large *ABN* (02/15/17 4:59 PM) UA Nitrite [Negative] Negative (02/15/17 4:59 PM) UA WBC [0-5 /HPF] 58 /HPF *HI* (02/15/17 4:59 PM) UA RBC [0-2 /HPF] 4 /HPF *HI* (02/15/17 4:59 PM) UA Bacteria [None Seen /HPF] Moderate /HPF *ABN* (02/15/17 4:59 PM) UA Sq Epi [Few /LPF] Moderate /LPF *ABN* (02/15/17 4:59 PM) UA Mucus [None Seen /LPF] Few /LPF *NA* (02/15/17 4:59 PM) HEMATOLOGY Most recent to oldest 1 2 3 [Reference Range]: WBC [3.7-10.4 K/CMM] 10.0 K/CMM 4.5 K/CMM 7.4 K/CMM (02/17/17 2:47 AM) (02/16/17 1:25 AM) (02/15/17 11:10 AM) RBC [4.20-5.40 M/CMM] 4.66 M/CMM 4.11 M/CMM 4.62 M/CMM (02/17/17 2:47 AM) *LOW* (02/15/17 11:10 AM) (02/16/17 1:25 AM) Hgb [12.0-16.0 g/dL] 12.7 g/dL 11.1 g/dL 12.1 g/dL (02/17/17 2:47 AM) *LOW* (02/15/17 11:10 AM) (02/16/17 1:25 AM) Hct [36.0-48.0 %] 38.1 % 33.8 % 37.6 % (02/17/17 2:47 AM) *LOW* (02/15/17 11:10 AM) (02/16/17 1:25 AM) MCV [80.0-98.0 fL] 81.7 fL 82.1 fL 81.5 fL (02/17/17 2:47 AM) (02/16/17 1:25 AM) (02/15/17 11:10 AM) MCH [27.0-31.0 pg] 27.3 pg 26.9 pg 26.1 pg (02/17/17 2:47 AM) *LOW* *LOW* (02/16/17 1:25 AM) (02/15/17 11:10 AM) MCHC [32.0-36.0 g/dL] 33.3 g/dL 32.8 g/dL 32.1 g/dL (02/17/17 2:47 AM) (02/16/17 1:25 AM) (02/15/17 11:10 AM) RDW [11.5-14.5 %] 16.1 % 15.9 % 16.3 % *HI* *HI* *HI* (02/17/17 2:47 AM) (02/16/17 1:25 AM) (02/15/17 11:10 AM) Platelet [133-450 K/CMM] 186 K/CMM 137 K/CMM 178 K/CMM (02/17/17 2:47 AM) (02/16/17 1:25 AM) (02/15/17 11:10 AM) MPV [7.4-10.4 fL] 10.3 fL 9.5 fL 9.3 fL (02/17/17 2:47 AM) (02/16/17 1:25 AM) (02/15/17 11:10 AM) Segs [45.0-75.0 %] 77.7 % 61.1 % 75.3 % *HI* (02/16/17 1:25 AM) *HI* (02/17/17 2:47 AM) (02/15/17 11:10 AM) Lymphocytes [20.0-40.0 %] 14.4 % 28.4 % 18.7 % *LOW* (02/16/17 1:25 AM) *LOW* (02/17/17 2:47 AM) (02/15/17 11:10 AM) Monocytes [2.0-12.0 %] 3.7 % 4.8 % 3.1 % (02/17/17 2:47 AM) (02/16/17 1:25 AM) (02/15/17 11:10 AM) Eosinophils [0.0-4.0 %] 3.8 % 5.2 % 2.6 % (02/17/17 2:47 AM) *HI* (02/15/17 11:10 AM) (02/16/17 1:25 AM) Basophils [0.0-1.0 %] 0.4 % 0.5 % 0.3 % (02/17/17 2:47 AM) (02/16/17 1:25 AM) (02/15/17 11:10 AM) Segs-Bands # [1.5-8.1 K/CMM] 7.8 K/CMM 2.8 K/CMM 5.6 K/CMM (02/17/17 2:47 AM) (02/16/17 1:25 AM) (02/15/17 11:10 AM) Lymphocytes # [1.0-5.5 K/CMM] 1.4 K/CMM 1.3 K/CMM 1.4 K/CMM (02/17/17 2:47 AM) (02/16/17 1:25 AM) (02/15/17 11:10 AM) Monocytes # [0.0-0.8 K/CMM] 0.4 K/CMM 0.2 K/CMM 0.2 K/CMM (02/17/17 2:47 AM) (02/16/17 1:25 AM) (02/15/17 11:10 AM) Eosinophils # [0.0-0.5 K/CMM] 0.4 K/CMM 0.2 K/CMM 0.2 K/CMM (02/17/17 2:47 AM) (02/16/17 1:25 AM) (02/15/17 11:10 AM) PT [12.0-14.7 seconds] 15.8 seconds 19.2 seconds 20.4 seconds *HI* *HI* *HI* (02/16/17 7:49 AM) (02/15/17 6:54 PM) (02/15/17 1:40 PM) INR [0.85-1.17] 1.23 1.58 1.71 *HI* *HI* *HI* (02/16/17 7:49 AM) (02/15/17 6:54 PM) (02/15/17 1:40 PM) Fibrinogen Lvl [230-510 341 mg/dL mg/dL] (02/15/17 6:54 PM) D-Dimer 2.92 ug/mL FEU *NA* (02/16/17 7:49 AM) PTT [22.9-35.8 seconds] 31.7 seconds 34.9 seconds 38.5 seconds (02/16/17 7:49 AM) (02/15/17 6:54 PM) *HI* (02/15/17 1:40 PM) Anti-Xa Low Molecular Heparin 1.70 IU/mL 1 *NA* (02/15/17 9:51 PM) ACT (TEG) Rapid [86-118 113 seconds seconds] (02/15/17 11:10 AM) Split Point Rapid 0.6 minutes *NA* (02/15/17 11:10 AM) R-time Rapid [0.4-0.7 0.7 minutes minutes] (02/15/17 11:10 AM) K-time Rapid [0.6-2.3 0.8 minutes minutes] (02/15/17 11:10 AM) Angle Rapid [64-80 degrees] 80 degrees (02/15/17 11:10 AM) Max Amplitude Rapid [52-71 71 mm mm] (02/15/17 11:10 AM) G-value Rapid [5.0-11.6 K 12.4 K d/sc d/sc] *HI* (02/15/17 11:10 AM) Estimated % Lysis Rapid 0.0 % [0.0-7.5 %] (02/15/17 11:10 AM) 1Result Comment: "Significant Findings called to miller munoz at 02/15/2017 22:27 by [facility]. Read Back OK."BACTERIAL - SEROLOGY Most recent to oldest [Reference Range]: 1 2 3 MRSA by PCR Negative (02/15/17 4:59 PM) Immunizations No data available for this section Procedures Procedure Date Related Diagnosis Body Site Cholecystostomy 2006 Tonsillectomy 1947 Social History Social History Type Response Smoking Status Never smoker; Exposure to Tobacco Smoke None; Cigarette Smoking Last 365 Days No; Reg Smoking Cessation Counseling No Assessment and Plan No data available for this section
--- OUTSIDE RECORDS SUMMARY | 2018-03-07 09:43 | XMS REPORT | Summary of Care ---
:1930 Author Organization [facility] [place] Address [address] [place], [place] [address]- Encounter HQ Encntr_alias(FIN) [id number] Date(s): 03/01/17 - 03/01/17 [facility] [place] [address] [place] [address]- [phone] Discharge Disposition: Home or Self Care Attending Physician: Juan Valenzuela MD Vital Signs No data available for [...]
--- OUTSIDE RECORDS SUMMARY | 2018-03-07 09:43 | XMS REPORT ---
:1930 [facility] Address [address] [place] [address] Care Team Providers Name Role Phone VANE SINGH Primary Care Provider Unavailable VANE SINGH Unavailable Unavailable Problems This patient has no known problems. Allergies, Adverse Reactions, Alerts This patient has no known allergies or adverse reactions. Medications This patient has no known medications. Results Test Description Test Time Test Comments Text Results Atomic Results Result Comments Basic Metabolic Panel 2017-01-10 20:44:00 Test Item Value Reference Range Comments Sodium (test code=NA) 144 mmol/L 135-145 Potassium (test code=K) 3.8 mmol/L 3.5-5.1 Chloride (test code=CL) 103 mmol/L 98-105 Carbon Dioxide (test 28 mmol/L 22-29 code=CO2) Glucose (test code=GLU) 110 mg/dL 70-115 Blood Urea Nitrogen (test 19 mg/dL 8-23 code=BUN) Creatinine (test code=CREAT) 1.2 mg/dL 0.5-0.9 Calcium (test code=CA) 9.4 mg/dL 8.3-10.5 BUN/Creatinine Ratio (test 15.8 code=BCRATIO) Anion Gap (test code=AGAP) 13 mmol/L 7-16 Estimated GFR (test 45 mL/min/1.73m2 eGFR (estimated Glomerular code=GFR) Filtration Rate) is an estimated value,calculated from the patient's serum creatinine using the MDRD equation.It is NOT the patient's actual GFR. The eGFR provides a more clinicallyuseful measure of kidney disease than serum creatinine alone.This calculation takes sex and race into account, if the informationis provided. If the race is not provided, and the patient isAfrican-Bangladeshi, multiply by 1.212. If sex is not provided, and thepatient is female, multiply by 0.742. Results for patients <18 years ofage have not been validated by the MDRD study and should be interpretedwith caution.eGFR Result Interpretation:eGFR > or=60 is in the Normal RangeeGFR < 60 may mean kidney diseaseeGFR < 15 may mean kidney failureRanges recommended by the National Kidney Foundation,http://nkdep.nih.gov [id number] 20:38:00 Test Item Value Reference Range Comments NT ProBnp (test code=PBNP) 775 pg/mL 0-449
[2018-03-07] MEDS ORDERED: NA CHLORIDE 0.9% 0 ML ONE (10:15)
[2018-03-07] MEDS ORDERED: LEVALBUTEROL 1.25 MG/3 ML NEB ONE ×2 (10:15→10:16)
[2018-03-07] MEDS ORDERED: METHYLPREDNISOLONE 125 MG INJ ONE (10:15)
[2018-03-07] MEDS ORDERED: IPRATROPIUM BROM 0.5MG/2.5ML ONE (10:16)
[2018-03-07 10:26] LABS: Absolute Lymphocytes (CBC) 1.6 K/uL (0.7-4.9); Absolute Monocytes 0.4 K/uL (0.1-1.3); Absolute Neutrophil 9.3 K/uL (1.8-8.0); Basophils % 0.6 % (0-1.3); Eosinophils % 2.4 % (0-4.4); Hematocrit 41.3 % (36.0-45.0); Lymphocytes % 13.6 % (15.3-44.8); MCH 27.6 pg (27.0-35.0); MCV 84.3 fL (80-100); MPV 9.7 fL (7.6-11.3); Monocytes % 3.8 % (3.3-12.3)
[2018-03-07 10:34] LABS: BUN Blood Urea Nitrogen 19 mg/dL (7-18); Bicarbonate 33 mmol/L (21-32); Glucose Level 153 mg/dL (74-106); NT PRO-BNP 924 pg/mL (<450); Potassium 3.5 mmol/L (3.5-5.1); Sodium Level 142 mmol/L (136-145); Troponin (Emerg Dept Use Only) < 0.02 ng/mL (0.0-0.045)
--- NOTE | 2018-03-07 11:42 | RAD REPORT ---
EXAM DESCRIPTION: [facility] Single View03/07/2018 11:30 am CLINICAL HISTORY: Cough October 2016 COMPARISON: none FINDINGS: Bilateral interstitial opacities are without obvious change and probably are chronic. The heart is borderline enlarged
--- NOTE | 2018-03-07 12:02 | ER ---
Nurse's Notes [facility] Name: Rowan Pompa Age: 87 yrs Sex: Female : 1930 Arrival Date: 03/07/2018 Time: 09:41 Bed 5 Private MD: Elliott Harrison Diagnosis: Chronic obstructive pulmonary disease with acute lower respiratory infection;Unspecified atrial fibrillation Presentation: 03/07 09:45 Presenting complaint: Patient states: productive cough, chest congestion and shortness ss of breath x 2-3 days. Transition of care: patient was not received from another setting of care. Onset of symptoms was March 04, 2018. Risk Assessment: Do you want to hurt yourself or someone else? Patient reports no desire to harm self or others. Initial Sepsis Screen: Does the patient meet any 2 criteria? RR > 20 per min. HR > 90 bpm. Does the patient have a suspected source of infection? Yes: Productive cough/pneumonia. Care prior to arrival: None. 09:45 Method Of Arrival: Ambulatory ss 09:45 Acuity: EUFEMIA 2 ss Triage Assessment: 10:00 Respiratory: the patient has mild shortness of breath. sv Historical: - Allergies: 09:47 Codeine; ss 09:47 EUCALYPTUS CONTAINING PRODUCTS; ss - PMHx: 09:47 Atrial Fib; CHF; COPD; CVA; Gout; Hyperlipidemia; Hypertension; ss - Immunization history:: Adult Immunizations up to date, Flu vaccine status is unknown. - Social history:: Smoking status: Patient/guardian denies using tobacco. - Ebola Screening: : Patient denies exposure to infectious person Patient denies travel to an Ebola-affected area in the 21 days before illness onset. - Family history:: not pertinent. - Hospitalizations: : No recent hospitalization is reported. Screenin:00 Abuse screen: Denies threats or abuse. Denies injuries from another. Nutritional sv screening: No deficits noted. Tuberculosis screening: No symptoms or risk factors identified. Fall Risk None identified. Assessment: 10:00 General: Appears in no apparent distress. comfortable, Behavior is calm, cooperative, sv appropriate for age. Pain: Complains of pain in chest Pain currently is 9 out of 10 on a pain scale. Pain began 2-3 days ago. Is intermittent. Neuro: Level of Consciousness is awake, alert, obeys commands, Oriented to person, place, time, situation, Moves all extremities. Full function. Cardiovascular: Patient's skin is warm and dry. Pulses are 3+ in right radial artery and left radial artery Rhythm is atrial fibrillation. Respiratory: Airway is patent Respiratory effort is even, unlabored, Respiratory pattern is regular, symmetrical. Respiratory: Reports shortness of breath on exertion cough that is productive. Derm: Skin is normal. 11:45 Reassessment: Patient appears in no apparent distress at this time. Patient and/or sv family updated on plan of care and expected duration. Pain level reassessed. Patient is alert, oriented x 3, equal unlabored respirations, skin warm/dry/pink. Patient states symptoms have improved. 13:15 Reassessment: Patient appears in no apparent distress at this time. Patient and/or sv family updated on plan of care and expected duration. Pain level reassessed. Patient is alert, oriented x 3, equal unlabored respirations, skin warm/dry/pink. Patient states symptoms have improved. Vital Signs: 09:44 BP 156 / 88; Pulse 111; Resp 27; Temp 98.3(O); Pulse Ox 94% on R/A; Weight 81.65 kg; Height 5 ft. 3 in. (160.02 cm); Pain 9/10; 10:33 BP 144 / 57; Pulse 102; Resp 21; Pulse Ox 99% ; sv 11:00 BP 132 / 61; Pulse 111; Resp 21; Pulse Ox 98% ; sv 13:08 BP 125 / 70; Pulse 105; Resp 20; Pulse Ox 95% on 3 lpm NC; sv 09:44 Body Mass Index 31.89 (81.65 kg, 160.02 cm) ED Course: 09:41 Patient arrived in ED. sb2 09:42 Elliott Harrison DO is Private Physician. sb2 09:44 Arm band placed on right wrist. ss 09:46 Triage completed. ss 09:48 Garcia Julian MD is Attending Physician. rn 09:50 Pramod Stafford, KEMAR is Primary Nurse. sg 10:00 Patient has correct armband on for positive identification. Placed in gown. Bed in low sv position. Call light in reach. Side rails up X2. Adult w/ patient. biofuels production technician on. Pulse ox on. NIBP on. Door closed. Warm blanket given. Head of bed elevated. 10:00 Initial lab(s) drawn, by nd, sent to lab. First set of blood cultures drawn by me. sv Inserted saline lock: 20 gauge in right antecubital area, using aseptic technique. Blood collected. Flushed right antecubital with 5 ml normal saline. 10:11 EKG done, by surgical technology instructor. reviewed by Garcia Julian MD. at1 10:15 Second set of blood cultures drawn by me. sv 10:21 Primary Nurse role handed off by Pramod Stafford, KEMAR sv 10:21 Lolis Sanchez, KEMAR is Primary Nurse. sv 11:20 Assisted to bathroom. via wheelchair. sg 11:29 X-ray completed. Portable x-ray completed in exam room. Patient tolerated procedure mh1 well. 11:30 XRAY CXR (1 view) In Process Unspecified. EDMS 12:01 Lia Dent MD is Hospitalizing Provider. rn 13:15 No provider procedures requiring assistance completed. Patient admitted, IV remains in sv place. intact. 19:20 Primary Nurse role handed off by Lolis Sanchez RN sv Administered Medications: 10:20 Drug: SOLU-Medrol 125 mg Route: IVP; Site: right antecubital; sg 10:20 Drug: Xopenex (3) 1.25 mg Route: Inhalation; sg 10:21 Drug: AtroVENT Aerosol 0.5 mg Route: Inhalation; sg Outcome: 12:01 Decision to Hospitalize by Provider. rn 13:15 Admitted to Tele accompanied by tech, family with patient, via stretcher, room 425, sv with oxygen, with chart, Report called to Eric RN 13:15 Condition: stable 13:15 Instructed on the need for admit. 13:33 Patient left the ED. sv Signatures: Dispatcher [employer] EDMS Lolis Sanchez, RN KEMAR Pramod Stafford, RN RN Lyric Dykes 1 Garcia Julian MD MD rn Smirch, Shelby, RN RN ss Gonzales, Amanda, [place] EKG Tat1 Solange Meade sb2
--- NOTE | 2018-03-07 12:02 | EDPHYS ---
Physician Documentation [facility] Name: Rowan Pompa Age: 87 yrs Sex: Female : 1930 Arrival Date: 03/07/2018 Time: 09:41 Bed 5 Private MD: Elliott Harrison ED Physician Garcia Julian HPI: 03/07 10:00 This 87 yrs old Female presents to ER via Ambulatory with complaints of rn Cough, Shortness Of Breath. 10:00 The patient or guardian reports cough, that is intermittent, described as moderate, rn with productive sputum. Onset: The symptoms/episode began/occurred 2 day(s) ago. Severity of symptoms: At their worst the symptoms were moderate, in the emergency department the symptoms are unchanged. Modifying factors: The symptoms are alleviated by nothing, the symptoms are aggravated by exertion. The patient has experienced similar episodes in the past. Reports 2 days of cough and increased sob. no fever. family with similar symptoms minus the sob. . Historical: - Allergies: 09:47 Codeine; ss 09:47 EUCALYPTUS CONTAINING PRODUCTS; ss - PMHx: 09:47 Atrial Fib; CHF; COPD; CVA; Gout; Hyperlipidemia; Hypertension; ss - Immunization history:: Adult Immunizations up to date, Flu vaccine status is unknown. - Social history:: Smoking status: Patient/guardian denies using tobacco. - Ebola Screening: : Patient denies exposure to infectious person Patient denies travel to an Ebola-affected area in the 21 days before illness onset. - Family history:: not pertinent. - Hospitalizations: : No recent hospitalization is reported. ROS: 10:00 Constitutional: Negative for fever, chills, and weight loss, Eyes: Negative for injury, rn pain, redness, and discharge, Neck: Negative for injury, pain, and swelling, Cardiovascular: Negative for chest pain, palpitations, and edema, Respiratory: + sob and cough Abdomen/GI: Negative for abdominal pain, nausea, vomiting, diarrhea, and constipation, MS/Extremity: Negative for injury and deformity, Skin: Negative for injury, rash, and discoloration, Neuro: Negative for headache, numbness, tingling, and seizure. Exam: 10:00 Constitutional: This is a well developed, well nourished patient who is awake, alert, rn and in no acute distress. Head/Face: Normocephalic, atraumatic. Eyes: Pupils equal round and reactive to light, extra-ocular motions intact. Lids and lashes normal. Conjunctiva and sclera are non-icteric and not injected. Cornea within normal limits. Periorbital areas with no swelling, redness, or edema. ENT: MMM, no stridor Neck: Trachea midline, no thyromegaly or masses palpated, and no cervical lymphadenopathy. Supple, full range of motion without nuchal rigidity, or vertebral point tenderness. No Meningismus. Cardiovascular: tachycardic, no murmur Respiratory: mild tachypnea, no retractions, + wheezing bilateral Abdomen/GI: soft, non-tender MS/ Extremity: Pulses equal, no cyanosis. Neurovascular intact. Full, normal range of motion. Equal circumference. Neuro: Awake and alert, GCS 15, oriented to person, place, time, and situation. Cranial nerves II-XII grossly intact. Motor strength 5/5 in all extremities. Sensory grossly intact. Vital Signs: 09:44 BP 156 / 88; Pulse 111; Resp 27; Temp 98.3(O); Pulse Ox 94% on R/A; Weight 81.65 kg; ss Height 5 ft. 3 in. (160.02 cm); Pain 9/10; 10:33 BP 144 / 57; Pulse 102; Resp 21; Pulse Ox 99% ; sv 11:00 BP 132 / 61; Pulse 111; Resp 21; Pulse Ox 98% ; sv 13:08 BP 125 / 70; Pulse 105; Resp 20; Pulse Ox 95% on 3 lpm NC; sv 09:44 Body Mass Index 31.89 (81.65 kg, 160.02 cm) ss MDM: 09:48 Patient medically screened. rn 12:00 Differential Diagnosis: Bronchitis Upper Respiratory Infection Sinusitis Viral Syndrome rn Pneumonia. Data reviewed: vital signs, nurses notes, lab test result(s), EKG, radiologic studies, plain films, and as a result, I will admit patient. Counseling: I had a detailed discussion with the patient and/or guardian regarding: the historical points, exam findings, and any diagnostic results supporting the discharge/admit diagnosis, lab results, radiology results, the need for further work-up and treatment in the hospital. Response to treatment: the patient's symptoms have mildly improved after treatment, and as a result, I will admit patient. Admission orders: after a detailed discussion of the patient's condition and case, the admit orders are written by me. ED course: Will admit for COPD exacerbation, most likely viral syndrome, improved but not back to baseline, no change in CXR, HR elevated, still tachypneic, non-toxic. . 03/07 09:59 Order name: Blood Culture Adult (2) rn 03/07 09:59 Order name: BMP; Complete Time: 10:35 rn 03/07 09:59 Order name: CBC with Diff; Complete Time: 10:35 rn 03/07 09:59 Order name: NT PRO-BNP; Complete Time: 10:35 rn 03/07 09:59 Order name: Troponin (emerg Dept Use Only); Complete Time: 10:35 rn 03/07 12:38 Order name: Flu rn 03/07 09:59 Order name: XRAY CXR (1 view); Complete Time: 11:47 rn 03/07 09:59 Order name: EKG; Complete Time: 10:00 rn 03/07 09:59 Order name: Cardiac monitoring; Complete Time: 10:11 rn 03/07 09:59 Order name: EKG - Nurse/Tech; Complete Time: 10:11 rn 03/07 09:59 Order name: IV Saline Lock; Complete Time: 10:11 rn 03/07 09:59 Order name: Labs collected and sent; Complete Time: 10:11 rn 03/07 09:59 Order name: O2 Per Protocol; Complete Time: 10:11 rn 03/07 09:59 Order name: O2 Sat Monitoring; Complete Time: 10:12 rn Administered Medications: 10:20 Drug: SOLU-Medrol 125 mg Route: IVP; Site: right antecubital; sg 10:20 Drug: Xopenex (3) 1.25 mg Route: Inhalation; sg 10:21 Drug: AtroVENT Aerosol 0.5 mg Route: Inhalation; sg Disposition: 03/07/18 12:01 Hospitalization ordered by Lia Dent for Inpatient Admission. Preliminary diagnosis are Chronic obstructive pulmonary disease with acute lower respiratory infection, Unspecified atrial fibrillation. - Bed requested for Telemetry/MedSurg (Inpatient). - Status is Inpatient Admission. sv - Condition is Stable. - Problem is new. - Symptoms have improved. UTI on Admission? No Signatures: Dispatcher [employer] EDMS Lolis Sanchez, RN RN sv Lindsey Hernandez, RN KEMAR dw Pramod Stafford, Garcia Corbett RN, MD MD rn Smirch, Shelby, RN RN ss Botello, Elizabeth eb Corrections: (The following items were deleted from the chart) 12: 12:01 Hospitalization Ordered by Lia Dent MD for Inpatient Admission. Preliminary eb diagnosis is Chronic obstructive pulmonary disease with acute lower respiratory infection; Unspecified atrial fibrillation. Bed requested for Telemetry/MedSurg (Inpatient). Status is Inpatient Admission. Condition is Stable. Problem is new. Symptoms have improved. UTI on Admission? No. rn 13:03 12:27 03/07/2018 12:01 Hospitalization Ordered by Lia Dent MD for Inpatient dw Admission. Preliminary diagnosis is Chronic obstructive pulmonary disease with acute lower respiratory infection; Unspecified atrial fibrillation. Bed requested for Telemetry/MedSurg (Inpatient). Status is Inpatient Admission. Condition is Stable. Problem is new. Symptoms have improved. UTI on Admission? No. eb 13:33 13:03 03/07/2018 12:01 Hospitalization Ordered by Lia Dent MD for Inpatient sv Admission. Preliminary diagnosis is Chronic obstructive pulmonary disease with acute lower respiratory infection; Unspecified atrial fibrillation. Bed requested for Telemetry/MedSurg (Inpatient). Status is Inpatient Admission. Condition is Stable. Problem is new. Symptoms have improved. UTI on Admission? No. dw
[2018-03-07] MEDS ORDERED: ONDANSETRON 4 MG/2 ML VIAL IV PRN (13:06)
[2018-03-07] MEDS ORDERED: METOPROLOL TARTRATE 5 MG/5 ML INJ IV PRN (13:06)
[2018-03-07] MEDS ORDERED: ACETAMINOPHEN 500 MG TAB PO PRN (13:06)
[2018-03-07] MEDS ORDERED: Levofloxacin 750mg IV 750 MG/150 ML BAG IV SCH (14:00)
[2018-03-07] MEDS ORDERED: COLCHICINE 0.6 MG TAB PO PRN (14:12)
--- NOTE | 2018-03-07 14:32 | EKG ---
Test Date: 2018-03-07 Test Time: 10:10:47 Director Energy: AG/S MEASUREMENT RESULTS: Intervals: Rate: 99 AR: QRSD: 86 QT: 314 QTc: 402 [place]: P: AR: QRS: 32 T: 70 INTERPRETIVE STATEMENTS: Atrial fibrillation Nonspecific T wave abnormality, probably digitalis effect Abnormal ECG Compared to ECG 07/10/2017 00:03:14 T-wave abnormality now present ST (T wave) deviation no longer present Possible ischemia no longer present Electronically Signed On 03-07-18 14:31:12 CDT by Armando Villeda
[2018-03-07] MEDS ORDERED: INFLUENZA VACCINE (for 3y+) 0.5 ML DOSE IMVAC ONE (15:00)
[2018-03-07] MEDS: LEVALBUTEROL 0.63 MG/3 ML NEB NEB PRN (15:03)
[2018-03-07] MEDS: IPRATROPIUM BROM 0.5MG/2.5ML NEB PRN (15:03)
[2018-03-07] MEDS: METHYLPREDNISOLONE 40 MG INJ IV SCH (17:30)
[2018-03-07] MEDS: FUROSEMIDE 40 MG TABLET PO SCH (17:30)
[2018-03-07] MEDS: GABAPENTIN 300 MG CAP PO SCH (21:12)
[2018-03-07] MEDS: ATORVASTATIN 10 MG TAB PO SCH (21:13)
[2018-03-08 00:37] LABS: Urine Appearance CLEAR; Urine Bilirubin NEGATIVE (NEG); Urine Blood NEGATIVE (NEG); Urine Color YELLOW; Urine Glucose NEGATIVE (NEG); Urine Microscopic Reflex NO UMIC; Urine Protein NEGATIVE (NEG); Urine Urobilinogen 0.2 mg/dL (0.2-1.0)
[2018-03-08] MEDS: METHYLPREDNISOLONE 40 MG INJ IV SCH ×2 (00:47→10:16)
--- NOTE | 2018-03-08 01:06 | HP ---
Date of Admission: 03/07/2018 The patient's primary care physician is Dr. Harrison. Code status is full. Chief Complaint: Shortness of breath, cough. History Of Present Illness: The patient is an 87-year-old female with past medical history of conges tive heart failure; COPD, on oxygen at night; atrial fibrillation, on Xarelto; hypertension; history of CVA; gout; hyperlipidemia. Comes in with 2-day history of shortness of breath, worse than her bas mraia, having to use oxygen all the time, along with some cough and white clear sputum production. T he patient does report ill contacts, daughter who was also sick with similar symptoms. The patient h as not had the flu shot this year. The patient's symptoms are constant, moderate, progressively wors ening. Comes in for further evaluation. Upon arrival, her vital signs showed somewhat tachypneic, r espiratory rate 27. She was tachycardic in the 110s. Her workup revealed a white count of 11.6. He r chest x-ray did show some bilateral interstitial opacities, probably chronic. The patient was then referred for admission. When seen in the ER, she was awake, alert, oriented x3, in some mild distre ss, cognitive female. Past Medical History: Hypertension, atrial fibrillation on Xarelto, CVA, CHF, gout, hyperlipidemia, COPD. Past Surgical History: Hysterectomy, cholecystectomy, tonsillectomy, right knee surgery. Allergies: TO CODEINE AND TO EUCALYPTUS. Medications: List reviewed. Social History: The patient is independent. Lives at home by herself. Does not use any assistive a mbulatory devices. She denies any smoking, alcohol, or illicit drug use. Family History: Mother had heart disease, hypertension, and diabetes. Review of Systems: An 11-point system reviewed, negative except as per HPI. Physical Examination: Vital Signs: Temperature 98.3, heart rate 111, respiratory rate 27, blood pressure 156/88, O2 94% on 2 L via nasal cannula. General: Awake, alert, oriented x3. Elderly female, ill appearing, in some mild respiratory distres s, obese. HEENT: Normocephalic, atraumatic. PERRLA. EOMI. Moist mucous membranes. Oropharynx is clear. Po or dentition. Conjunctivae anicteric. Neck: Supple. No JVD. Trachea midline. CV: S1, S2. Irregularly irregular. Peripheral pulses present. No murmurs. Respiratory: Diminished breath sounds bilateral bases. Some mild wheezing. No rhonchi. The patien t is tachypneic, using accessory muscles. GASTROINTESTINAL: Abdomen is soft, nontender, nondistended. Positive bowel sounds. No guarding, rig idity. Bowel sounds are positive. No hepatomegaly. Extremities: No clubbing, cyanosis, or edema. No calf tenderness. Neuro: Cranial nerves 2 through 12 intact grossly. No focal neurological deficit. Speech is normal . Skin: No rashes. Normal skin turgor. Psych: Mood is okay. Affect is full. Insight and judgment are good. Laboratory Data: Sodium 142, potassium 3.5, chloride 102, CO2 33, BUN 19, creatinine 1.1, glucose 12 3, calcium 9.1. Troponin less than 0.02. BNP 924. Procalcitonin pending. WBC 11.6, H and H 13.5/4 1.3, platelets 208, neutrophils 79%. Chest x-ray personally reviewed shows bilateral interstitial op acities without obvious change and probably chronic heart borderline enlarged. Influenza screen is n egative. Assessment: An 87-year-old female with: 1.Acute respiratory distress. The patient is tachypneic requiring supplemental oxygen, likely secon myron to chronic obstructive pulmonary disease, possible viral or bacterial bronchitis. We will sb nue with supplemental oxygen. Start on antibiotics and obtain blood cultures and sputum cultures emp irically. We will discontinue antibiotics once blood cultures negative. 2.Acute chronic obstructive pulmonary disease exacerbation. We will continue with IV steroids and n ebulizer treatment with Xopenex due to her atrial fibrillation. 3.Chronic respiratory failure. The patient uses home O2 at night due to her chronic obstructive pul monary disease and congestive heart failure. 4.Congestive heart failure, chronic. Last ejection fraction is 60% from 2017. 5.Mild pulmonary hypertension. 6.Atrial fibrillation chronic with controlled ventricular rate. We will continue home medications. 7.History of cerebrovascular accident. No residual weakness. 8.Gout. 9.Hyperlipidemia. 10.We will continue statin. 11.Essential hypertension. Resume home medications. 12.Gastrointestinal and deep venous thrombosis prophylaxis with PPI and patient is already on Xarelt o for atrial fibrillation. Plan: Admit the patient to Med-Surg, place as inpatient. Daughter is medical power of patent prosecution attorney. Co de status is full. /NELLY Voice ID: [id number]
[2018-03-08 05:16] LABS: Absolute Lymphocytes (CBC) 0.9 K/uL (0.7-4.9); Absolute Monocytes 0.1 K/uL (0.1-1.3); Absolute Neutrophil 12.2 K/uL (1.8-8.0); Basophils % 0.1 % (0-1.3); Hematocrit 37.9 % (36.0-45.0); Lymphocytes % 6.7 % (15.3-44.8); MCH 27.6 pg (27.0-35.0); MCV 83.9 fL (80-100); MPV 10.2 fL (7.6-11.3); Monocytes % 0.9 % (3.3-12.3); RBC Red Blood Cell Count 4.51 M/uL (3.86-4.86)
[2018-03-08 05:45] LABS: Potassium 3.5 mmol/L (3.5-5.1)
[2018-03-08] MEDS: LEVOTHYROXINE SOD 0.025 MG TAB PO SCH (05:45)
[2018-03-08] MEDS: LEVOTHYROXINE SOD 0.112 MG TAB PO SCH (05:45)
[2018-03-08] MEDS ORDERED: HOME MED 1 EA UNK (Levothyroxine Sodium [Levothyroxine Sodium] 137 MCG) PO SCH (09:00)
[2018-03-08 09:25] LABS: Platelet Estimate ADEQ
[2018-03-08 09:26] LABS: Blood Morphology Comment NOT SEEN (NOT SEEN)
[2018-03-08] MEDS: VITAMIN D 1000 UNIT TAB PO SCH (10:10)
[2018-03-08] MEDS: GABAPENTIN 300 MG CAP PO SCH ×2 (10:10→21:09)
[2018-03-08] MEDS: RIVAROXABAN 15 MG TABLET PO SCH (10:16)
[2018-03-08] MEDS ORDERED: GUAIFENESIN/CODEINE 5ML UCUP PO PRN (10:31)
[2018-03-08] MEDS ORDERED: ZOLPIDEM TARTRATE 5 MG TABLET PO PRN (10:34)
[2018-03-08] MEDS: METOPROLOL TAR 50 MG TAB PO SCH (10:53)
[2018-03-08] MEDS: FUROSEMIDE 40 MG TABLET PO SCH ×2 (10:53→17:32)
[2018-03-08] MEDS ORDERED: BENZONATATE 100 MG CAP PO PRN (10:58)
[2018-03-08] MEDS: GUAIFENESIN/DM 5 ML UCUP PO PRN ×2 (11:53→21:09)
[2018-03-08] MEDS: predniSONE 20 MG TAB PO SCH (21:09)
[2018-03-08] MEDS: ATORVASTATIN 10 MG TAB PO SCH (21:10)
[2018-03-08] MEDS: IPRATROPIUM BROM 0.5MG/2.5ML NEB PRN (21:24)
[2018-03-08] MEDS: LEVALBUTEROL 0.63 MG/3 ML NEB NEB PRN (21:24)
--- NOTE | 2018-03-08 21:30 | PN ---
Date of Progress Note: 03/08/2018 Subjective: The patient seen and examined. Chart reviewed and case discussed with RN. The patient is still having some shortness of breath and productive cough. Review of Systems: Negative except as above. Medications: List reviewed. Physical Examination: Vital Signs: Temperature 99, heart rate 109, blood pressure 129/73, respirations 20, O2 93% on 2 L v ia nasal cannula. General: Awake, alert, oriented x3, elderly female, obese, somewhat ill-appearing. CV: S1, S2. Irregularly irregular. Peripheral pulses present. Respiratory: Diminished breath sounds. No wheezing. No crackles. Gastrointestinal: Abdomen is soft, nontender, nondistended. Positive bowel sounds. Extremities: No clubbing, cyanosis. Trace pedal edema. Neurologic: Nonfocal. Laboratory Data: Sodium 138, potassium 3.5, chloride 102, CO2 28, BUN 27, creatinine 1.1, glucose 20 1, calcium 8.6. WBC 13.3, H and H 12.5/37.9, platelets 195, neutrophils 92%. UA negative. Blood cu ltures, no growth to date. Influenza screen is negative. Sputum cultures are pending as is a urine culture. Assessment: An 87-year-old female with: 1.Acute respiratory distress, improving, still on supplemental oxygen. The patient normally uses ox ygen at night due to her chronic obstructive pulmonary disease. 2.Acute chronic obstructive pulmonary disease exacerbation. Continue steroids. We will wean as opal erated and continue Xopenex inhaled and Atrovent. 3.Chronic respiratory failure. The patient on home oxygen at night and sometimes during the day. 4.Congestive heart failure, chronic. Ejection fraction is 60%. Diastolic dysfunction. 5.Mild pulmonary hypertension. 6.Atrial fibrillation with controlled ventricular rate. We will continue home medications. 7.History of cerebrovascular accident, no residual weakness, stable. 8.Gout, stable. 9.Mixed hyperlipidemia. Continue statin. 10.Essential hypertension, stable. Continue current treatment. 11.Gastrointestinal and deep venous thrombosis prophylaxis with PPI. The patient already on Xarelto for atrial fibrillation. Plan: Repeat chest x-ray in a.m. If continues to improve, we will discharge. Cultures were no grow th to date. We will add cough suppressant. Continue IV antibiotics. /MODWil Voice ID: [id number] Report ID: [id number]
[2018-03-09] MEDS: LEVOTHYROXINE SOD 0.112 MG TAB PO SCH (06:10)
[2018-03-09] MEDS: LEVOTHYROXINE SOD 0.025 MG TAB PO SCH (06:10)
[2018-03-09 06:33] LABS: Absolute Lymphocytes (CBC) 0.9 K/uL (0.7-4.9); Absolute Monocytes 0.4 K/uL (0.1-1.3); Absolute Neutrophil 14.4 K/uL (1.8-8.0); Basophils % 0.1 % (0-1.3); Hematocrit 37.4 % (36.0-45.0); Lymphocytes % 5.9 % (15.3-44.8); MCH 27.9 pg (27.0-35.0); MCV 82.8 fL (80-100); MPV 9.8 fL (7.6-11.3); Monocytes % 2.4 % (3.3-12.3); RBC Red Blood Cell Count 4.51 M/uL (3.86-4.86)
[2018-03-09 06:55] LABS: Albumin 3.2 g/dL (3.4-5.0); Bilirubin Total 0.3 mg/dL (0.2-1.0); Potassium 3.9 mmol/L (3.5-5.1)
--- NOTE | 2018-03-09 07:48 | RAD REPORT ---
EXAM DESCRIPTION: RAD - Chest Pa And Lat (2 Views) - 03/09/2018 6:50 am CLINICAL HISTORY: Shortness of breath COMPARISON: March 07, July 09 TECHNIQUE: PA and lateral views of the chest were obtained. FINDINGS: The lungs are normal volume. Chronic interstitial lung disease is present and stable from comparison. No focal consolidation, mass or significant failure finding. Heart size is normal and c entral vasculature is within normal limits. No pleural effusion or pneumothorax seen. No acute bony finding noted. No aortic abnormality. IMPRESSION: Chronic interstitial lung disease. No new or progressive finding.
[2018-03-09] MEDS: RIVAROXABAN 15 MG TABLET PO SCH (08:31)
[2018-03-09] MEDS: VITAMIN D 1000 UNIT TAB PO SCH (08:32)
[2018-03-09] MEDS: FUROSEMIDE 40 MG TABLET PO SCH (08:32)
[2018-03-09] MEDS: METOPROLOL TAR 50 MG TAB PO SCH (08:33)
[2018-03-09] MEDS: GABAPENTIN 300 MG CAP PO SCH (08:33)
[2018-03-09] MEDS: predniSONE 20 MG TAB PO SCH (08:34)
--- NOTE | 2018-03-09 16:33 | P.DS ---
Admission Date: 03/07/18 Discharge Date: 03/09/18 Disposition: ROUTINE DISCHARGE Discharge Condition: FAIR - Problems (1) COPD with acute exacerbation Onset Date: 07/10/17 Status: Acute (2) Chronic congestive heart failure Status: Acute Qualifiers: Heart failure type: diastolic Qualified Code(s): I50.32 - Chronic diastolic (congestive) heart failure (3) Chronic a-fib Onset Date: 10/23/16 Status: Chronic (4) Hypoxemia Status: Acute (5) COPD (chronic obstructive pulmonary disease) Status: Acute (6) Respiratory failure Status: Acute Qualifiers: Chronicity: acute on chronic Respiratory failure complication: hypoxia and hypercapnia Qualified Code(s): J96.21 - Acute and chronic respiratory failure with hypoxia; J96.22 - Acute and chronic respiratory failure with hypercapnia Brief History of Present Illness: The patient is an 87-year-old female with past medical history of congestive heart failure; COPD, on oxygen at night; atrial fibrillation, on Xarelto; hypertension; history of CVA; gout; hyperlipidemia. Comes in with 2-day history of shortness of breath, worse than her baseline, having to use oxygen all the time, along with some cough and white clear sputum production. The patient does report ill contacts, daughter who was also sick with similar symptoms. The patient has not had the flu shot this year. The patient's symptoms are constant, moderate, progressively worsening. Comes in for further evaluation. Upon arrival, her vital signs showed somewhat tachypneic, respiratory rate 27. She was tachycardic in the 110s. Her workup revealed a white count of 11.6. Her chest x-ray did show some bilateral interstitial opacities, probably chronic. The patient was then referred for admission. When seen in the ER, she was awake, alert, oriented x3, in some mild distress, cognitive female. Hospital Course: She was admitted to hospital. She was treated with steroid, nebs. No evidence of infection, She is much better. Baseline hypoxemia. Vital Signs/Physical Exam: Temp Pulse Resp BP Pulse Ox 97.5 F 96 H 18 124/67 96 03/09/18 12:00 03/09/18 12:00 03/09/18 12:00 03/09/18 12:00 03/09/18 12:00 General: Alert, In no apparent distress HEENT: Atraumatic, PERRLA, EOMI Neck: Supple, JVD not distended Respiratory: Clear to auscultation bilaterally, Normal air movement Cardiovascular: Regular rate/rhythm, Normal S1 S2 Gastrointestinal: Normal bowel sounds, No tenderness Musculoskeletal: No tenderness Integumentary: No rashes Neurological: Normal speech, Normal tone, Normal affect Lymphatics: No axilla or inguinal lymphadenopathy Laboratory Data at Discharge: WBC 15.7 K/uL (4.3-10.9) H D 03/09/18 06:05 Hgb 12.6 g/dL (12.0-15.0) 03/09/18 06:05 Hct 37.4 % (36.0-45.0) 03/09/18 06:05 Plt Count 211 K/uL (152-406) 03/09/18 06:05 Sodium 142 mmol/L (136-145) 03/09/18 06:05 Potassium 3.9 mmol/L (3.5-5.1) 03/09/18 06:05 BUN 43 mg/dL (7-18) H 03/09/18 06:05 Creatinine 1.10 mg/dL (0.55-1.3) 03/09/18 06:05 Glucose 190 mg/dL (74-106) H 03/09/18 06:05 Total Bilirubin 0.3 mg/dL (0.2-1.0) 03/09/18 06:05 AST 19 U/L (15-37) 03/09/18 06:05 ALT 22 U/L (12-78) 03/09/18 06:05 Alkaline Phosphatase 90 U/L (45-117) 03/09/18 06:05 Home Medications: Colchicine 0.6 mg PO DAILY PRN 10/21/16 Gabapentin [Neurontin*] 300 mg PO BID 10/21/16 Levothyroxine Sodium 137 mcg PO DAILY 10/21/16 Metoprolol Tartrate 100 mg PO DAILY 10/21/16 Rivaroxaban [Xarelto*] 15 mg PO DAILY 10/21/16 Simvastatin 20 mg PO BEDTIME 10/21/16 Cholecalciferol (Vitamin D3) [Vitamin D 5,000 IU Cap*] 2,000 iu PO DAILY Furosemide [Lasix] 40 mg PO BID 03/07/18 Benzonatate [Tessalon Perle*] 100 mg PO TIDP PRN #30 cap 03/09/18 predniSONE [Prednisone*] 20 mg PO BID #20 tab 03/09/18 New Medications: Benzonatate [Tessalon Perle*] 100 mg PO TIDP PRN #30 cap PRN Reason: Cough predniSONE [Prednisone*] 20 mg PO BID #20 tab Diet: Low sodium Activity: Ad jerry Followup: Elliott Harrison DO [Primary Care Provider] - 1-2 Weeks (Call to schedule an appointment) Time spent managing pt's care (in minutes): 35
== END 2018-03-09 12:50 | disposition home or self-care (01) | DRG 190 ==
LOC: ER 09:37 → ERHOLD 12:40 → 4TH 13:19
PROVIDERS: ADMIT Family Medicine; ATTEND Family Medicine
DX: J44.1 Chronic obstructive pulmonary disease with (acute) exacerbation (principal); J96.22 Acute and chronic respiratory failure with hypercapnia; J96.21 Acute and chronic respiratory failure with hypoxia; I50.32 Chronic diastolic (congestive) heart failure; I11.0 Hypertensive heart disease with heart failure; I27.20 Pulmonary hypertension, unspecified; E78.2 Mixed hyperlipidemia; Z86.73 Personal history of transient ischemic attack (TIA), and cerebral infarction without residual deficits; I48.91 Unspecified atrial fibrillation; Z79.01 Long term (current) use of anticoagulants; M10.9 Gout, unspecified
CPT/HCPCS: 36415; 71045; 71046; 80048; 80053; 81003; 83880; 84145; 84484; 85025; 87040; 87070; 87086; 87088; 87205; 87804; 93005; 94640; 94760; 96374; 99285; J2920; J2930; J7512; Q2035

== ENCOUNTER 2019-03-23 10:32 | Emergency (ER) | payer OTHER ==
--- NOTE | 2019-03-23 11:57 | RAD REPORT ---
EXAM DESCRIPTION: RAD - Humerus Right - 03/23/2019 11:40 am CLINICAL HISTORY: Fall, trauma, right arm pain COMPARISON: None. FINDINGS: No fracture is identified. There is no dislocation or periosteal reaction noted. No foreig n body or other soft tissue abnormality. Patient has mild degenerative change in the at the AC joint. IMPRESSION: Negative right humerus examination for fracture or acute finding.
[2019-03-23 12:26] LABS: Urine Blood NEGATIVE (NEG); Urine Glucose NEGATIVE (NEG); Urine Protein NEGATIVE (NEG); Urine Specific Gravity 1.015 (1.005-1.030); Urine pH 5.5 (5.0-7.0)
--- NOTE | 2019-03-23 12:33 | ER ---
Nurse's Notes [facility] Name: Rowan Pompa Age: 88 yrs Sex: Female : 1930 Arrival Date: 03/23/2019 Time: 10:35 Bed 7 Private MD: Elliott Harrison Diagnosis: Diarrhea, unspecified;Hematoma to right upper extremity Presentation: 03/23 10:43 Risk Assessment: Do you want to hurt yourself or someone else? Patient reports no ph desire to harm self or others. 10:43 Method Of Arrival: Ambulatory ph 10:47 Presenting complaint: Patient states: fell against her mailbox the other day, denies iw falling to ground, has bruising to right elbow area, on xarelto, also started having diarrhea last night, denies vomiting, denies abd pain or cramping. Transition of care: patient was not received from another setting of care. Onset of symptoms was March 22, 2019. Initial Sepsis Screen: Does the patient meet any 2 criteria? No. Patient's initial sepsis screen is negative. Does the patient have a suspected source of infection? No. Patient's initial sepsis screen is negative. Care prior to arrival: None. 10:47 Acuity: EUFEMIA 3 iw Historical: - Allergies: 10:43 Codeine; ph 10:43 EUCALYPTUS CONTAINING PRODUCTS; ph - Home Meds: 10:52 furosemide 40 mg Oral tab 1 tab 2 times per day [Active]; gabapentin 300 mg Oral cap 1 iw cap twice a day [Active]; metoprolol succinate 100 mg oral Tb24 1 tab once daily [Active]; Xarelto 15 mg Oral tab daily [Active]; simvastatin 20 mg Oral tab 1 tab once daily [Active]; - PMHx: 10:43 Atrial Fib; CHF; COPD; CVA; Gout; Hyperlipidemia; Hypertension; ph - PSHx: 10:45 Cholecystectomy; Hysterectomy; Knee surgery; Tonsillectomy; ph - Immunization history:: Adult Immunizations up to date. - Social history:: Smoking status: Patient/guardian denies using tobacco. - Ebola Screening: : No symptoms or risks identified at this time. Screenin:44 Abuse screen: Denies threats or abuse. Denies injuries from another. Nutritional ph screening: No deficits noted. Tuberculosis screening: No symptoms or risk factors identified. Fall Risk None identified. Assessment: 11:12 General: Appears in no apparent distress. comfortable, Behavior is calm, cooperative. ph Pain: Complains of pain in right elbow Quality of pain is described as pressure, Pain began 2-3 days ago. Neuro: Level of Consciousness is awake, alert, obeys commands, Oriented to person, place, time, situation. Cardiovascular: Capillary refill < 3 seconds Patient's skin is warm and dry. Respiratory: Airway is patent Respiratory effort is even, unlabored, Respiratory pattern is regular, symmetrical. GI: Abdomen is flat, non-distended, Abd is soft and non tender X 4 quads. Reports diarrhea, since last night Patient currently denies vomiting. EENT: No signs and/or symptoms were reported regarding the EENT system. Derm: Skin is intact, is healthy with good turgor, is fragile, Skin is pink, warm \T\ dry. Bruising that is dark purple, on right elbow. Musculoskeletal: Circulation, motion, and sensation intact. 12:00 Reassessment: Patient appears in no apparent distress at this time. Patient and/or ph family updated on plan of care and expected duration. Pain level reassessed. Patient is alert, oriented x 3, equal unlabored respirations, skin warm/dry/pink. Vital Signs: 10:49 BP 140 / 78; Pulse 94; Resp 16; Temp 97.5; Pulse Ox 93% on R/A; Weight 77.11 kg; Height iw 5 ft. 8 in. (172.72 cm); 11:27 BP 100 / 84; Pulse 95; Resp 18; Pulse Ox 91% on R/A; ph 12:30 BP 115 / 78; Pulse 87; Resp 18; Temp 97.6; Pulse Ox 94% on R/A; ph 10:49 Body Mass Index 25.85 (77.11 kg, 172.72 cm) iw ED Course: 10:35 Patient arrived in ED. mr 10:35 Elliott Harrison DO is Private Physician. mr 10:40 Kayley Chino, KEMAR is Primary Nurse. ph 10:44 Patient has correct armband on for positive identification. Placed in gown. Bed in low ph position. Call light in reach. Side rails up X 1. Pulse ox on. NIBP on. Door closed. Noise minimized. Warm blanket given. 10:45 Mel [facility]C [facility]. snw 10:45 Ced Cerrato MD is Attending Physician. snw 10:49 Triage completed. iw 10:49 Arm band placed on. iw 11:36 Humerus Right XRAY In Process Unspecified. EDMS 12:13 Urine collected: clean catch specimen, clear. kj1 12:31 Elliott Harrison DO is Referral Physician. snw 12:59 Lorenzo wrap to right elbow. ph 13:00 No provider procedures requiring assistance completed. Patient did not have IV access ph during this emergency room visit. Administered Medications: No medications were administered Outcome: 12:33 Discharge ordered by . snw 13:00 Patient left the ED. ph 13:00 Discharged to home ambulatory. ph 13:00 Condition: good 13:00 Discharge instructions given to patient, Instructed on discharge instructions, follow up and referral plans. Demonstrated understanding of instructions, follow-up care. Signatures: Dispatcher [employer] EDMA Mel Jain FNP-C GYM INSTRUCTOR-Csnw Jaimie Guerrero Irene, RN RN iw Kayley Chino RN RN Lizeth Roger kj1
--- NOTE | 2019-03-23 12:34 | EDPHYS ---
Physician Documentation [facility] Name: Rowan Pompa Age: 88 yrs Sex: Female : 1930 Arrival Date: 03/23/2019 Time: 10:35 Bed 7 Private MD: Elliott Harrison ED Physician Ced Cerrato HPI: 03/23 11:16 This 88 yrs old Female presents to ER via Ambulatory with complaints of snw Diarrhea, Arm Injury. 11:16 The patient presents to the emergency department with diarrhea, since last night. snw Onset: The symptoms/episode began/occurred suddenly. The symptoms are aggravated by nothing. The symptoms are alleviated by nothing. Severity of symptoms: At their worst the symptoms were moderate in the emergency department the symptoms have resolved. It is unknown whether or not the patient has had similar symptoms in the past. It is unknown whether or not the patient has recently seen a physician. Pt states she fell against the mailbox and struck her elbow, noted a bruise. Pt states she had diarrhea all through the night last pm. Historical: - Allergies: 10:43 Codeine; ph 10:43 EUCALYPTUS CONTAINING PRODUCTS; ph - Home Meds: 10:52 furosemide 40 mg Oral tab 1 tab 2 times per day [Active]; gabapentin 300 mg Oral cap 1 iw cap twice a day [Active]; metoprolol succinate 100 mg oral Tb24 1 tab once daily [Active]; Xarelto 15 mg Oral tab daily [Active]; simvastatin 20 mg Oral tab 1 tab once daily [Active]; - PMHx: 10:43 Atrial Fib; CHF; COPD; CVA; Gout; Hyperlipidemia; Hypertension; ph - PSHx: 10:45 Cholecystectomy; Hysterectomy; Knee surgery; Tonsillectomy; ph - Immunization history:: Adult Immunizations up to date. - Social history:: Smoking status: Patient/guardian denies using tobacco. - Ebola Screening: : No symptoms or risks identified at this time. ROS: 11:13 Constitutional: Negative for fever, chills, and weight loss, Eyes: Negative for injury, snw pain, redness, and discharge, ENT: Negative for injury, pain, and discharge, Neck: Negative for injury, pain, and swelling, Cardiovascular: Negative for chest pain, palpitations, and edema, Respiratory: Negative for shortness of breath, cough, wheezing, and pleuritic chest pain, Abdomen/GI: Negative for abdominal pain, nausea, vomiting, and constipation, + diarrhea x 12 hours Back: Negative for injury and pain, : Negative for injury, bleeding, discharge, and swelling, Skin: Negative for injury, rash, and discoloration, Neuro: Negative for headache, weakness, numbness, tingling, and seizure. 11:13 MS/extremity: Positive for injury or acute deformity, ecchymosis, tenderness, of the right arm. Exam: 11:13 Constitutional: This is a well developed, well nourished patient who is awake, alert, snw and in no acute distress. Head/Face: Normocephalic, atraumatic. Eyes: Pupils equal round and reactive to light, extra-ocular motions intact. Lids and lashes normal. Conjunctiva and sclera are non-icteric and not injected. Cornea within normal limits. Periorbital areas with no swelling, redness, or edema. ENT: Nares patent. No nasal discharge, no septal abnormalities noted. Tympanic membranes are normal and external auditory canals are clear. Oropharynx with no redness, swelling, or masses, exudates, or evidence of obstruction, uvula midline. Mucous membranes moist. Neck: Trachea midline, no thyromegaly or masses palpated, and no cervical lymphadenopathy. Supple, full range of motion without nuchal rigidity, or vertebral point tenderness. No Meningismus. Chest/axilla: Normal chest wall appearance and motion. Nontender with no deformity. No lesions are appreciated. Cardiovascular: Regular rate and rhythm with a normal S1 and S2. No gallops, murmurs, or rubs. Normal PMI, no JVD. No pulse deficits. Respiratory: Lungs have equal breath sounds bilaterally, clear to auscultation and percussion. No rales, rhonchi or wheezes noted. No increased work of breathing, no retractions or nasal flaring. Abdomen/GI: Soft, non-tender, with normal bowel sounds. No distension or tympany. No guarding or rebound. No evidence of tenderness throughout. Back: No spinal tenderness. No costovertebral tenderness. Full range of motion. MS/ Extremity: Pulses equal, no cyanosis. Neurovascular intact. Full, normal range of motion. Neuro: Awake and alert, GCS 15, oriented to person, place, time, and situation. Cranial nerves II-XII grossly intact. Motor strength 5/5 in all extremities. Sensory grossly intact. Cerebellar exam normal. Normal gait. Psych: Awake, alert, with orientation to person, place and time. Behavior, mood, and affect are within normal limits. 11:13 Skin: Appearance: normal except for affected area, injury, contusion(s), that are superficial, of the right antecubital area, Hematoma. Vital Signs: 10:49 BP 140 / 78; Pulse 94; Resp 16; Temp 97.5; Pulse Ox 93% on R/A; Weight 77.11 kg; Height iw 5 ft. 8 in. (172.72 cm); 11:27 BP 100 / 84; Pulse 95; Resp 18; Pulse Ox 91% on R/A; ph 12:30 BP 115 / 78; Pulse 87; Resp 18; Temp 97.6; Pulse Ox 94% on R/A; ph 10:49 Body Mass Index 25.85 (77.11 kg, 172.72 cm) iw MDM: 11:06 Patient medically screened. snw 12:34 Data reviewed: vital signs, nurses notes. Data interpreted: Pulse oximetry: on room air snw is 91 %. Interpretation: pt with hx of COPD, uses oxygen prn. 03/23 11:13 Order name: Urine Microscopic Only snw 03/23 12:22 Order name: Urine Dipstick--Ancillary (enter results); Complete Time: 12:28 eb 03/23 11:13 Order name: Humerus Right XRAY; Complete Time: 12:01 snw 03/23 11:13 Order name: Urine Dipstick-Ancillary (obtain specimen); Complete Time: 12:24 snw Administered Medications: No medications were administered Disposition: 16:38 Co-signature as Attending Physician, Ced Cerrato MD I agree with the assessment and kdr plan of care. Disposition: 03/23/19 12:33 Discharged to Home. Impression: Diarrhea, unspecified, Hematoma to right upper extremity. - Condition is Stable. - Discharge Instructions: Diarrhea, Adult, Hematoma, Food Choices to Help Relieve Diarrhea, Pediatric, [id number], Rehydration, Elderly. - Medication Reconciliation Form, Thank You Letter, Antibiotic Education, Prescription Opioid Use form. - Follow up: Elliott Harrison DO; When: 1 - 2 days; Reason: Recheck today's complaints, Continuance of care, Re-evaluation by your physician. Follow up: Emergency Department; When: As needed; Reason: Worsening of condition. Signatures: Dispatcher [employer] EDMS Ced Cerrato MD MD [facility] Mel Jain, PERFUME MAKER-C PERFUME MAKER-Csnw Rosanna Flores, KEMAR RN iw Kayley Chino RN RN ph Corrections: (The following items were deleted from the chart) 13:00 12:33 03/23/2019 12:33 Discharged to Home. Impression: Diarrhea, unspecified; Hematoma ph to right upper extremity. Condition is Stable. Forms are Medication Reconciliation Form, Thank You Letter, Antibiotic Education, Prescription Opioid Use. Follow up: Elliott Harrison; When: 1 - 2 days; Reason: Recheck today's complaints, Continuance of care, Re-evaluation by your physician. Follow up: Emergency Department; When: As needed; Reason: Worsening of condition. snw
[2019-03-23 12:58] LABS: Urine RBC <5 /HPF (NONE SEEN)
[2019-03-23 12:59] LABS: Urine Bacteria 20-50 /HPF (<20); Urine Culture Reflex Order REFLEXED
[2019-03-23 13:10] VITALS: BP 100/84; TEMP 97.5; O2SAT 91
== END 2019-03-23 13:00 | disposition home or self-care (01) ==
LOC: ER 10:32
DX: R19.7 Diarrhea, unspecified (principal); S50.01XA Contusion of right elbow, initial encounter; W22.8XXA Striking against or struck by other objects, initial encounter; Y93.89 Activity, other specified; Y92.9 Unspecified place or not applicable; Z88.6 Allergy status to analgesic agent
CPT/HCPCS: 81003; 81015; 87086; 87088; 99284

== ENCOUNTER 2019-09-09 09:19 | Observation (INO) | payer OTHER ==
--- NOTE | 2019-09-09 10:20 | RAD REPORT ---
EXAM DESCRIPTION: [facility] Single View09/09/2019 10:04 am CLINICAL HISTORY: Chest pain COMPARISON: 2017 FINDINGS: The lungs appear clear of acute infiltrate. The heart is mildly enlarged IMPRESSION: No acute abnormalities displayed
--- NOTE | 2019-09-09 10:28 | EKG ---
Test Date: 2019-09-09 Test Time: 09:18:36 Lingo Cleaner: MARGARETTE MEASUREMENT RESULTS: Intervals: Rate: 99 [place]: QRSD: 84 QT: 338 QTc: 433 [place]: P: [place]: QRS: 46 T: 117 INTERPRETIVE STATEMENTS: Atrial fibrillation with premature ventricular or aberrantly conducted complexes Septal infarct, age undetermined ST & T wave abnormality, consider lateral ischemia or digitalis effect Abnormal ECG Compared to ECG 03/07/2018 10:10:47 Ventricular premature complex(es) now present Myocardial infarct finding now present ST (T wave) deviation now present Possible ischemia now present T-wave abnormality no longer present Electronically Signed On 09-09-19 10:27:42 CDT by Armando Villeda
[2019-09-09 10:34] LABS: Absolute Lymphocytes (CBC) 1.5 K/uL (0.7-4.9); Hematocrit 40.3 % (36.0-45.0); Lymphocytes % 24.4 % (15.3-44.8); MPV 9.6 fL (7.6-11.3); RBC Red Blood Cell Count 4.74 M/uL (3.86-4.86)
[2019-09-09 10:38] LABS: Protime INR 2.04
[2019-09-09 11:02] LABS: ALT/SGPT 16 U/L (12-78); AST/SGOT 19 U/L (15-37); Albumin 3.5 g/dL (3.4-5.0); Alkaline Phosphatase 92 U/L (45-117); BUN Blood Urea Nitrogen 19 mg/dL (7-18); Bicarbonate 28 mmol/L (21-32); Bilirubin Direct 0.3 mg/dL (0-0.2); Bilirubin Total 1.2 mg/dL (0.2-1.0); Glucose Level 113 mg/dL (74-106); Lipase 138 U/L (73-393); Magnesium 2.1 mg/dL (1.8-2.4); NT PRO-BNP 1079 pg/mL (<450); Potassium 4.1 mmol/L (3.5-5.1); Protein, Total 7.7 g/dL (6.4-8.2); Sodium Level 140 mmol/L (136-145); Troponin (Emerg Dept Use Only) < 0.02 ng/mL (0.0-0.045)
[2019-09-09] MEDS ORDERED: LEVALBUTEROL 1.25 MG/3 ML NEB ONE (11:08)
[2019-09-09] MEDS ORDERED: IPRATROPIUM BROM 0.5MG/2.5ML ONE (11:08)
[2019-09-09] MEDS ORDERED: FUROSEMIDE 20 MG/ 2ML VIAL ONE (11:08)
[2019-09-09] MEDS ORDERED: METHYLPREDNISOLONE 125 MG INJ ONE (11:08)
[2019-09-09] MEDS ORDERED: FAMOTIDINE 20 MG/2 ML VIAL IV ONE (11:09)
--- NOTE | 2019-09-09 11:24 | ER ---
Nurse's Notes [facility] Name: Rowan Pompa Age: 88 yrs Sex: Female : 1930 Arrival Date: 09/09/2019 Time: 09:23 Bed 16 Private MD: Diagnosis: Chest pain, unspecified;Dyspnea;Atrial fibrillation and flutter;Urinary tract infection, site not specified Presentation: 09/08 09:11 Chief complaint: EMS states: Pt. is A \T\ O x 4, 88 yr. old c/o chest pressure, dull pain rb1 that radiates to the left shoulder and back x 2-3 days, today it got worse. History of A-Fib, COPD, HTN,CVA, and Brain bleed. Allergic to Eucalyptus. BP 160/90, P 100, A-Fib, 92% on RA, EMS administered 2 L NC increased to 94%, T 98.0. Coronavirus screen: Patient denies fever greater than 100.4F, cough, shortness of breath, or difficulty breathing. Ebola Screen: Patient negative for fever greater than or equal to 101.5 degrees Fahrenheit, and additional compatible Ebola Virus Disease symptoms. Initial Sepsis Screen: Does the patient meet any 2 criteria? No. Patient's initial sepsis screen is negative. Does the patient have a suspected source of infection? No. Patient's initial sepsis screen is negative. Risk Assessment: Do you want to hurt yourself or someone else? Patient reports no desire to harm self or others. 09:11 Method Of Arrival: EMS: [facility] 09:11 Acuity: EUFEMIA 3 rb1 09:11 Onset of symptoms was September 06, 2019. rb1 Triage Assessment: 09:11 General: Appears in no apparent distress. comfortable, Behavior is calm, cooperative, rb1 Denies fever. Pain: Complains of pain in anterior aspect of left upper chest Pain radiates to left shoulder and back Pain currently is 10 out of 10 on a pain scale. Quality of pain is described as dull, Pain began 2-3 days ago. Neuro: Level of Consciousness is awake, alert, obeys commands, Oriented to person, place, time, situation. Cardiovascular: Capillary refill < 3 seconds is brisk in bilateral fingers. Respiratory: Airway is patent Respiratory effort is even, unlabored, Respiratory pattern is regular, symmetrical. GI: No signs and/or symptoms were reported involving the gastrointestinal system. : No signs and/or symptoms were reported regarding the genitourinary system. Derm: Skin is pink, warm \T\ dry. Musculoskeletal: Range of motion: intact in all extremities. Historical: - Allergies: : Codeine; rb1 : EUCALYPTUS CONTAINING PRODUCTS; rb1 - Home Meds: : gabapentin 300 mg Oral cap 1 cap twice a day [Active]; metoprolol succinate 100 mg Oral rb1 Tb24 1 tab once daily [Active]; simvastatin 20 mg Oral tab 1 tab once daily [Active]; allopurinol 100 mg Oral tab 1 tab 2 times per day [Active]; Xarelto 15 mg Oral tab daily [Active]; levothyroxine 137 mcg oral tab 1 tab once daily [Active]; furosemide 40 mg Oral tab 1 tab 2 times per day [Active]; - PMHx: : Atrial Fib; CHF; COPD; CVA; Gout; Hyperlipidemia; Hypertension; rb1 - PSHx: : Cholecystectomy; Knee surgery; Hysterectomy; Tonsillectomy; rb1 - Immunization history:: Adult Immunizations up to date. - Social history:: Smoking status: Patient/guardian denies using. - Family history:: not pertinent. Screenin: Abuse screen: Denies threats or abuse. Nutritional screening: No deficits noted. rb1 Tuberculosis screening: No symptoms or risk factors identified. Fall Risk No fall in past 12 months (0 pts). Secondary diagnosis (15 points) CVA, IV access (20 points). Ambulatory Aid- None/Bed Rest/Nurse Assist (0 pts). Gait- Normal/Bed Rest/Wheelchair (0 pts) Mental Status- Oriented to own ability (0 pts). Total Wilson Fall Scale indicates Low Risk Score (25-44 pts). Fall prevention measures have been instituted. Side Rails Up X 2 Placed close to Nursing Station 1:1 attendant Assigned to Pt. Frequent Obs/Assesments occuring As available Patient and Family Educated on Fall Prevention Program and strategies. Assessment: 09:11 General: See triage assessment. rb1 10:11 Reassessment: Patient appears in no apparent distress at this time. No changes from rb1 previously documented assessment. 10:13 Reassessment: Lab is at the bedside drawing labs. rb1 11:11 Reassessment: Patient appears in no apparent distress at this time. Patient and/or rb1 family updated on plan of care and expected duration. Pain level reassessed. Patient is alert, oriented x 3, equal unlabored respirations, skin warm/dry/pink. Pt. c/o back pain. Provider notified. 12:04 Reassessment: CLAUDE Garcia at the pt bedside. rb1 13:00 Reassessment: Patient appears in no apparent distress at this time. No changes from rb1 previously documented assessment. 14:00 Reassessment: Patient appears in no apparent distress at this time. Patient and/or rb1 family updated on plan of care and expected duration. Pain level reassessed. Patient is alert, oriented x 3, equal unlabored respirations, skin warm/dry/pink. Pt. is watching TV. 15:00 Reassessment: Patient appears in no apparent distress at this time. No changes from rb1 previously documented assessment. 15:19 Reassessment: Pt. asked for something to eat and drink. Dr. Silva notified. Received rb1 verbal order to feed the pt. 15:22 Reassessment: Pt. was given a sandwich, chips and soda. rb1 16:20 Reassessment: Patient appears in no apparent distress at this time. Patient and/or rb1 family updated on plan of care and expected duration. Pain level reassessed. Patient is alert, oriented x 3, equal unlabored respirations, skin warm/dry/pink. Pt. is watching TV. 17:25 Reassessment: Patient appears in no apparent distress at this time. No changes from rb1 previously documented assessment. 18:25 Reassessment: Patient appears in no apparent distress at this time. Patient and/or rb1 family updated on plan of care and expected duration. Pain level reassessed. Patient is alert, oriented x 3, equal unlabored respirations, skin warm/dry/pink. Pt. is watching TV. 19:15 General: Appears in no apparent distress. Behavior is calm, cooperative, appropriate ea for age. Pain: Denies pain. Neuro: Level of Consciousness is awake, alert, obeys commands, Oriented to person, place, time. Respiratory: Airway is patent Respiratory effort is even, unlabored, Respiratory pattern is regular, symmetrical. Derm: Skin is pink, warm \T\ dry. 19:41 Reassessment: Report called to receiving nurse Almita REINOSO on second floor. ea 19:48 Reassessment: Patient and/or family updated on plan of care and expected duration. Pain ea level reassessed. Patient is alert, oriented x 3, equal unlabored respirations, skin warm/dry/pink. Pt admitted to second floor, pt left ED via wheelchair per tech. Pt tolerating well. Vital Signs: 09:11 BP 161 / 78; Pulse 94; Resp 19; Temp 98.0(O); Pulse Ox 97% on 2 lpm NC; Weight 72.57 kg rb1 (R); Height 5 ft. 3 in. (160.02 cm) (R); Pain 10/10; 11:11 BP 160 / 73; Pulse 98; Resp 19; Pulse Ox 97% on 2 lpm NC; Pain 10/10; rb1 12:05 BP 141 / 80; Pulse 93; Resp 20; Pulse Ox 96% on R/A; rb1 13:00 BP 116 / 57; Pulse 103; Resp 20; Pulse Ox 95% on 2 lpm NC; rb1 14:00 BP 148 / 77; Pulse 91; Resp 20; Pulse Ox 95% on 2 lpm NC; rb1 15:00 BP 148 / 75; Pulse 93; Resp 19; Pulse Ox 95% on 2 lpm NC; rb1 16:00 BP 128 / 74; Pulse 92; Resp 20; Pulse Ox 95% on 2 lpm NC; rb1 17:00 BP 134 / 80; Pulse 98; Resp 20; Pulse Ox 96% on 2 lpm NC; rb1 18:00 BP 134 / 80; Pulse 98; Resp 20; Pulse Ox 94% on 2 lpm NC; rb1 19:11 BP 158 / 95; Pulse 115; Resp 18; Pulse Ox 94% on 2 lpm NC; ea 19:45 BP 151 / 69; Pulse 104; Resp 18; Temp 97.8; Pulse Ox 96% on 2 lpm NC; ea 09:11 Body Mass Index 28.34 (72.57 kg, 160.02 cm) [facility] ED Course: 09:11 Arm band placed on right wrist. rb1 09:11 Patient has correct armband on for positive identification. Bed in low position. Call rb1 light in reach. Side rails up X2. awake overnight monitor on. Pulse ox on. NIBP on. Warm blanket given. 09:11 Maintain EMS IV. Dressing intact. Site clean \T\ dry. Gauge \T\ site: 22 G R AC, does not rb 1 give blood return. Oxygen administration via nasal cannula \T\ 2L/min. 09:18 EKG done, by spd tech. reviewed by Austen Silva MD. at1 09:23 Patient arrived in ED. rb1 09:28 Triage completed. rb1 09:45 Inserted Missed attempt(s): 22 gauge in right antecubital area. kj1 09:50 Austen Silva MD is Attending Physician. elda 09:57 Kylah Barth, KEMAR is Primary Nurse. rb1 10:05 XRAY Chest (1 view) In Process Unspecified. EDMS 10:10 Missed attempt(s): 22 gauge in right upper arm. Bleeding controlled, band aid applied, rb1 catheter tip intact. 10:38 Inserted saline lock: 22 gauge in right antecubital area, using aseptic technique. iw 11:23 Angus Valdivia DO is Hospitalizing Provider. elda 19:43 No provider procedures requiring assistance completed. Patient admitted, IV remains in ea place. Administered Medications: 11:11 Drug: Xopenex 1.25 mg Route: Inhalation; rb1 11:11 Drug: AtroVENT Aerosol 0.5 mg Route: Inhalation; rb1 11:11 Drug: Lasix 20 mg Route: IVP; Site: right antecubital; rb1 11:26 Follow up: Response: No adverse reaction rb1 11:11 Drug: SOLU-Medrol 125 mg Route: IVP; Site: right antecubital; rb1 11:26 Follow up: Response: No adverse reaction rb1 11:11 Drug: Pepcid 20 mg Route: IVP; Site: right antecubital; rb1 11:26 Follow up: Response: No adverse reaction rb1 13:45 Drug: Rocephin 1 grams Route: IV; Rate: per protocol; Site: right antecubital; rb1 14:00 Follow up: Response: No adverse reaction; IV Status: Completed infusion rb1 Outcome: 11:24 Decision to Hospitalize by Provider. elda 19:46 Instructed on the need for admit, Demonstrated understanding of instructions. ea 19:47 Admitted to Med/surg accompanied by tech, via wheelchair, room 216, with oxygen, with ea chart, Report called to Almita REINOSO 19:47 Condition: stable 19:56 Patient left the ED. ea Signatures: Dispatcher [employer] EDMS Austen Silva MD MD cha Williams, Irene, RN RN iw Skylar Boone, grain merchandiser EKG Tat1 Kylah Barth, RN RN rb1 Mary Chowdhury RN RN ea Jackson, Kandis kj1 Corrections: (The following items were deleted from the chart) 17:41 17:00 BP 134 / 80; Pulse 98bpm; Resp 20bpm; rb1 rb1 19:14 19:11 BP 158 / 95; Pulse 115bpm; Resp 18bpm; Pulse Ox 94%; tk frey
--- NOTE | 2019-09-09 11:25 | EDPHYS ---
Physician Documentation [facility] Name: Rowan Pompa Age: 88 yrs Sex: Female : 1930 Arrival Date: 09/09/2019 Time: 09:23 Bed 16 Private MD: ED Physician Austen Silva HPI: 09/08 10:32 This 88 yrs old Female presents to ER via EMS with complaints of Chest elda Pressure. 10:32 The patient or guardian reports chest pain that is located primarily in the substernal elda area, anterior chest wall, left. Onset: 3 day(s) ago. The pain radiates to left scapular area. Associated signs and symptoms: Pertinent positives: cough, shortness of breath. The chest pain is described as a pressure. Modifying factors: The symptoms are alleviated by nothing. the symptoms are aggravated by nothing. Severity of pain: At its worst the pain was mild moderate in the emergency department the pain is unchanged. The patient has experienced similar episodes in the past. Historical: - Allergies: 09:11 Codeine; rb1 09:11 EUCALYPTUS CONTAINING PRODUCTS; rb1 - Home Meds: 09:11 gabapentin 300 mg Oral cap 1 cap twice a day [Active]; metoprolol succinate 100 mg Oral rb1 Tb24 1 tab once daily [Active]; simvastatin 20 mg Oral tab 1 tab once daily [Active]; allopurinol 100 mg Oral tab 1 tab 2 times per day [Active]; Xarelto 15 mg Oral tab daily [Active]; levothyroxine 137 mcg oral tab 1 tab once daily [Active]; furosemide 40 mg Oral tab 1 tab 2 times per day [Active]; - PMHx: 09:11 Atrial Fib; CHF; COPD; CVA; Gout; Hyperlipidemia; Hypertension; rb1 - PSHx: 09:11 Cholecystectomy; Knee surgery; Hysterectomy; Tonsillectomy; rb1 - Immunization history:: Adult Immunizations up to date. - Social history:: Smoking status: Patient/guardian denies using. - Family history:: not pertinent. ROS: 10:32 Constitutional: Negative for fever, chills, and weight loss, Eyes: Negative for injury, elda pain, redness, and discharge, ENT: Negative for injury, pain, and discharge, Neck: Negative for injury, pain, and swelling, Abdomen/GI: Negative for abdominal pain, nausea, vomiting, diarrhea, and constipation, Back: Negative for injury and pain, : Negative for injury, bleeding, discharge, and swelling, MS/Extremity: Negative for injury and deformity, Skin: Negative for injury, rash, and discoloration, Neuro: Negative for headache, weakness, numbness, tingling, and seizure, Psych: Negative for depression, anxiety, suicide ideation, homicidal ideation, and hallucinations, Allergy/Immunology: Negative for hives, rash, and allergies, Endocrine: Negative for neck swelling, polydipsia, polyuria, polyphagia, and marked weight changes. 10:32 Cardiovascular: Positive for chest pain, of the left supraclavicular area, left clavicle and anterior aspect of left upper chest. 10:32 Respiratory: Positive for shortness of breath, at rest. Exam: 10:32 Constitutional: This is a well developed, well nourished patient who is awake, alert, elda and in no acute distress. Head/Face: Normocephalic, atraumatic. Eyes: Pupils equal round and reactive to light, extra-ocular motions intact. Lids and lashes normal. Conjunctiva and sclera are non-icteric and not injected. Cornea within normal limits. Periorbital areas with no swelling, redness, or edema. ENT: Nares patent. No nasal discharge, no septal abnormalities noted. Tympanic membranes are normal and external auditory canals are clear. Oropharynx with no redness, swelling, or masses, exudates, or evidence of obstruction, uvula midline. Mucous membranes moist. Neck: Trachea midline, no thyromegaly or masses palpated, and no cervical lymphadenopathy. Supple, full range of motion without nuchal rigidity, or vertebral point tenderness. No Meningismus. Chest/axilla: Normal chest wall appearance and motion. Nontender with no deformity. No lesions are appreciated. Cardiovascular: Regular rate and rhythm with a normal S1 and S2. No gallops, murmurs, or rubs. Normal PMI, no JVD. No pulse deficits. Abdomen/GI: Soft, non-tender, with normal bowel sounds. No distension or tympany. No guarding or rebound. No evidence of tenderness throughout. Back: No spinal tenderness. No costovertebral tenderness. Full range of motion. Skin: Warm, dry with normal turgor. Normal color with no rashes, no lesions, and no evidence of cellulitis. MS/ Extremity: Pulses equal, no cyanosis. Neurovascular intact. Full, normal range of motion. Neuro: Awake and alert, GCS 15, oriented to person, place, time, and situation. Cranial nerves II-XII grossly intact. Motor strength 5/5 in all extremities. Sensory grossly intact. Cerebellar exam normal. Normal gait. Psych: Awake, alert, with orientation to person, place and time. Behavior, mood, and affect are within normal limits. 10:32 Respiratory: Breath sounds: are clear throughout, decreased breath sounds, Respiratory rate: 22 10:32 Musculoskeletal/extremity: DVT Exam: No signs of deep vein thrombosis. no pain, no swelling, no tenderness, negative Homans' sign noted on exam, no appreciated bluish discoloration, no erythema, no increased warmth. Vital Signs: 09:11 BP 161 / 78; Pulse 94; Resp 19; Temp 98.0(O); Pulse Ox 97% on 2 lpm NC; Weight 72.57 kg rb1 (R); Height 5 ft. 3 in. (160.02 cm) (R); Pain 10/10; 11:11 BP 160 / 73; Pulse 98; Resp 19; Pulse Ox 97% on 2 lpm NC; Pain 10/10; rb1 12:05 BP 141 / 80; Pulse 93; Resp 20; Pulse Ox 96% on R/A; rb1 13:00 BP 116 / 57; Pulse 103; Resp 20; Pulse Ox 95% on 2 lpm NC; rb1 14:00 BP 148 / 77; Pulse 91; Resp 20; Pulse Ox 95% on 2 lpm NC; rb1 15:00 BP 148 / 75; Pulse 93; Resp 19; Pulse Ox 95% on 2 lpm NC; rb1 16:00 BP 128 / 74; Pulse 92; Resp 20; Pulse Ox 95% on 2 lpm NC; rb1 17:00 BP 134 / 80; Pulse 98; Resp 20; Pulse Ox 96% on 2 lpm NC; rb1 18:00 BP 134 / 80; Pulse 98; Resp 20; Pulse Ox 94% on 2 lpm NC; rb1 19:11 BP 158 / 95; Pulse 115; Resp 18; Pulse Ox 94% on 2 lpm NC; ea 19:45 BP 151 / 69; Pulse 104; Resp 18; Temp 97.8; Pulse Ox 96% on 2 lpm NC; ea 09:11 Body Mass Index 28.34 (72.57 kg, 160.02 cm) rb1 MDM: 09:50 Patient medically screened. [facility] 10:35 Data reviewed: vital signs, nurses notes, lab test result(s), EKG, radiologic studies, elda plain films. 09/08 09:51 Order name: Basic Metabolic Panel; Complete Time: 11:23 [facility] 09/08 09:51 Order name: CBC with Diff; Complete Time: 11:23 [facility] 09/08 09:51 Order name: LFT's; Complete Time: 11:23 [facility] 09/08 09:51 Order name: Magnesium; Complete Time: 11:23 [facility] 09/08 09:51 Order name: NT PRO-BNP; Complete Time: 11:23 [facility] 09/08 09:51 Order name: PT-INR; Complete Time: 11:23 [facility] 09/08 09:51 Order name: Troponin (emerg Dept Use Only); Complete Time: 11:23 [facility] 09/08 09:51 Order name: XRAY Chest (1 view); Complete Time: 11:23 [facility] 09/08 09:51 Order name: Lipase; Complete Time: 11:23 [facility] 09/08 09:51 Order name: TSH; Complete Time: 11:23 [facility] 09/08 09:51 Order name: Urine Culture [facility] 09/08 10:34 Order name: Urine Dipstick--Ancillary (enter results); Complete Time: 13:08 09/08 11:10 Order name: T4 Free; Complete Time: 11:23 EDMS 09/08 09:51 Order name: EKG; Complete Time: 09:53 [facility] 09/08 09:51 Order name: Cardiac monitoring; Complete Time: 11:19 [facility] 09/08 09:51 Order name: EKG - Nurse/Tech; Complete Time: 11:20 [facility] 09/08 09:51 Order name: IV Saline Lock; Complete Time: 11:20 [facility] 09/08 09:51 Order name: Labs collected and sent; Complete Time: 11:20 [facility] 09/08 09:51 Order name: O2 Per Protocol; Complete Time: 11:20 [facility] 09/08 09:51 Order name: O2 Sat Monitoring; Complete Time: 11:20 [facility] 09/08 09:51 Order name: Urine Dipstick-Ancillary (obtain specimen); Complete Time: 11:19 elda Administered Medications: 11:11 Drug: Xopenex 1.25 mg Route: Inhalation; rb1 11:11 Drug: AtroVENT Aerosol 0.5 mg Route: Inhalation; rb1 11:11 Drug: Lasix 20 mg Route: IVP; Site: right antecubital; rb1 11:26 Follow up: Response: No adverse reaction rb1 11:11 Drug: SOLU-Medrol 125 mg Route: IVP; Site: right antecubital; rb1 11:26 Follow up: Response: No adverse reaction rb1 11:11 Drug: Pepcid 20 mg Route: IVP; Site: right antecubital; rb1 11:26 Follow up: Response: No adverse reaction rb1 13:45 Drug: Rocephin 1 grams Route: IV; Rate: per protocol; Site: right antecubital; rb1 14:00 Follow up: Response: No adverse reaction; IV Status: Completed infusion rb1 Disposition: 09/09/19 11:24 Hospitalization ordered by Angus Valdivia for Observation. Preliminary diagnosis are Chest pain, unspecified, Dyspnea, Atrial fibrillation and flutter, Urinary tract infection, site not specified. - Bed requested for Telemetry/MedSurg (observation). - Status is Observation. ea - Condition is Fair. - Problem is new. - Symptoms have improved. Signatures: Dispatcher [employer] EDMS Susan Solis Corey, MD MD cha Barber, Rebecca, RN RN rb1 Mary Chowdhury RN RN ea Corrections: (The following items were deleted from the chart) 11:24 11:24 Hospitalization Ordered by Angus Valdivia DO for Observation. Preliminary elda diagnosis is Chest pain, unspecified; Dyspnea. Bed requested for Telemetry/MedSurg (observation). Status is Observation. Condition is Fair. Problem is new. Symptoms have improved. elda 13:09 11:24 09/09/2019 11:24 Hospitalization Ordered by Angus Valdivia DO for Observation. elda Preliminary diagnosis is Chest pain, unspecified; Dyspnea; Atrial fibrillation and flutter. Bed requested for Telemetry/MedSurg (observation). Status is Observation. Condition is Fair. Problem is new. Symptoms have improved. elda 17:31 13:09 09/09/2019 11:24 Hospitalization Ordered by Angus Valdivia DO for Observation. bd Preliminary diagnosis is Chest pain, unspecified; Dyspnea; Atrial fibrillation and flutter; Urinary tract infection, site not specified. Bed requested for Telemetry/MedSurg (observation). Status is Observation. Condition is Fair. Problem is new. Symptoms have improved. elda 19:56 17:31 09/09/2019 11:24 Hospitalization Ordered by Angus Valdivia DO for Observation. ea Preliminary diagnosis is Chest pain, unspecified; Dyspnea; Atrial fibrillation and flutter; Urinary tract infection, site not specified. Bed requested for Telemetry/MedSurg (observation). Status is Observation. Condition is Fair. Problem is new. Symptoms have improved. bd
[2019-09-09 12:53] LABS: Urine Blood NEGATIVE (NEG); Urine Glucose NEGATIVE (NEG); Urine Protein NEGATIVE (NEG); Urine Specific Gravity 1.025 (1.005-1.030)
[2019-09-09] MEDS ORDERED: CEFTRIAXONE/SWI 1gm 1 GM/10 ML SYR ONE (13:46)
--- NOTE | 2019-09-09 13:59 | P.HP ---
Certification for Inpatient Patient admitted to: Observation With expected LOS: <2 Midnights Patient will require the following post-hospital care: Home Health Services Practitioner: I am a practitioner with admitting privileges, knowledge of patient current condition, hospital course, and medical plan of care. Services: Services provided to patient in accordance with Admission requirements found in Title 42 Section 412.3 of the Code of Federal Regulations Patient History Date of Service: 09/09/19 Primary Care Provider: Dr. Harrison; Cardiology-Dr. Villeda Reason for admission: Chest pain, shortness of breath History of Present Illness: 88-year-old female with history of atrial fibrillation, diastolic CHF , chronic anti coagulation therapy. Patient reported chest pain and shortness of breath today. She has been having symptoms for the last 3 days. Symptoms are worse today. Some edema to the lower extremity also noted. She denies any fever, chills, nausea, vomiting. Patient has been taking her diuretic therapy. She is not on a specific fluid restriction. Patient came to the ER for further evaluation. In the ER patient evaluated. Patient had some evidence of mild acute on chronic diastolic CHF. Patient given IV Lasix in the emergency room. Patient appears stable this time. Lab reviewed. Cardiac enzymes unremarkable. Patient admitted for observation. When I saw the patient the ER, she is without significant distress. Patient uses home oxygen for CHF. Patient stable this time. Allergies codeine Allergy (Verified 07/10/17 01:12) Nausea/Vomiting EUCALYPTUS CONTAI Allergy (Mild, Uncoded 10/22/16 05:17) Hives/Rash EUCALYPTUS CONTAINING ND Allergy (Mild, Uncoded 10/22/16 05:17) Hives/Rash E Allergy (Uncoded 02/15/17 10:30) Unknown EUCALYPTUS CONT Allergy (Uncoded 07/10/17 00:18) Unknown EUCALYPTUS CONTAINING Allergy (Uncoded 03/09/17 11:15) Unknown Home medications list reviewed: Yes Home Medications: Colchicine 0.6 mg PO DAILY PRN 10/21/16 Gabapentin [Neurontin*] 300 mg PO BID 10/21/16 Levothyroxine Sodium 137 mcg PO DAILY 10/21/16 Metoprolol Tartrate 100 mg PO DAILY 10/21/16 Rivaroxaban [Xarelto*] 15 mg PO DAILY 05/13/17 Simvastatin 20 mg PO BEDTIME 10/21/16 Cholecalciferol (Vitamin D3) [Vitamin D 5,000 IU Cap*] 2,000 iu PO DAILY Furosemide [Lasix] 40 mg PO BID 03/07/18 Benzonatate [Tessalon Perle*] 100 mg PO TIDP PRN #30 cap 03/09/18 predniSONE [Prednisone*] 20 mg PO BID #20 tab 03/09/18 - Past Medical/Surgical History Diabetic: No -: HTN -: Atrial fibrillation on chronic anti coagulation -: History of hemorrhagic CVA -: Diastolic CHF -: Gout -: Hyperlipidemia -: hysterectomy -: cholecysectomy -: tonsilectomy -: Rt knee sx Psychosocial/ Personal History: Patient lives at home by herself. Uses walker - Family History Mother -: Heart disease, Hypertension, Diabetes - Social History Smoking Status: Never smoker Alcohol use: No CD- Drugs: No Caffeine use: Yes Place of Residence: Home Review of Systems General: As per HPI Eyes: Unremarkable ENT: Unremarkable Respiratory: Shortness of Breath, As per HPI Cardiovascular: Chest Pain, As per HPI Gastrointestinal: Unremarkable Genitourinary: Unremarkable Musculoskeletal: Pedal edema, As per HPI Integumentary: Unremarkable Neurological: Unremarkable Lymphatics: Unremarkable Physical Examination - Physical Exam General: Alert, In no apparent distress, Oriented x3, Cooperative HEENT: Atraumatic, Normocephalic, Mucous membr. moist/pink Neck: Supple Respiratory: Crackles/rales (Mild crackles to the left base) Cardiovascular: Irregular heart rate/rhythm (AFib rate around 100-110) Gastrointestinal: Normal bowel sounds, Soft and benign, Non-distended, No tenderness, No masses, No rebound, No guarding Musculoskeletal: No erythema, No tenderness, No warmth Integumentary: Tenderness/swelling (Mild edema to the lower extremities bilateral) Neurological: Normal speech, Normal strength at 5/5 x4 extr, Normal tone, Normal affect - Studies Laboratory Data (last 24 hrs) 09/09/19 10:18: PT 23.7 H, INR 2.04 09/09/19 10:18: WBC 6.1, Hgb 13.0, Hct 40.3, Plt Count 159 09/09/19 10:18: Sodium 140, Potassium 4.1, BUN 19 H, Creatinine 0.83, Glucose 113 H, Magnesium 2.1, Total Bilirubin 1.2 H, AST 19, ALT 16, Alkaline Phosphatase 92, Lipase 138 Assessment and Plan - Plan Impression: Chest pain, shortness of breath likely related to acute on chronic diastolic CHF on chronic oxygen Atrial fibrillation on chronic anti coagulation therapy Hypertension Hyperlipidemia Gout Hypothyroidism Plan: Chest pain, shortness of breath likely related to acute on chronic diastolic CHF on chronic oxygen: Patient will be admitted for observation. Will continue monitor cardiac enzymes and telemetry. Will obtain echocardiogram. Will consult cardiology for further recommendation. At this time. Will continue with IV Lasix 20 mg twice daily. Will teach and continue a 1500 cc per day fluid restriction and low-salt diet. Will monitor input and output closely along with daily weights. Anticipate improvement over the next 24 hr. Anticipate discharge likely tomorrow if clinically stable and cleared by cardiology. Patient will need to continue with home oxygen. Patient will also require home health and physical therapy at discharge. Atrial fibrillation on chronic anti coagulation therapy: Will continue with metoprolol and Xarelto. Hypertension: Continue metoprolol Hyperlipidemia: Continue medication Gout: Continue allopurinol Hypothyroidism: Continue medication at this time. Discharge Plan: Home Plan to discharge in: 24 Hours - Advance Directives Does patient have a Living Will: No Does patient have a Durable POA for Healthcare: No - Code Status/Comfort Care Code Status Assessed: Yes (Patient is full code) Time Spent Managing Pts Care (In Minutes): 55
--- OUTSIDE RECORDS SUMMARY | 2019-09-09 14:23 | XMS REPORT ---
:1930 [facility] Address [address] [place] [address] Care Team Providers Name Role Phone VANE [...] race is not provided, and the patient isAfrican-Tanzanian, multiply by 1.212. If sex is not provided, and thepatient is female, multiply by 0.742. Results for patients <18 years ofage have not been validated by the MDRD study and should be interpretedwith caution.eGFR Result Interpretation:eGFR > or=60 is in the Normal RangeeGFR < 60 may mean kidney diseaseeGFR < 15 may mean kidney failureRanges recommended by the National Kidney Foundation,http://nkdep.nih.gov [id number] 20:38:00 Test Item Value Reference Range Comments NT ProBnp (test code=PBNP) 775 pg/mL 0-449
[2019-09-09] MEDS ORDERED: FUROSEMIDE 20 MG/ 2ML VIAL IV SCH (19:54)
[2019-09-09] MEDS ORDERED: ACETAMINOPHEN 500 MG TAB PO PRN (19:54)
[2019-09-09] MEDS ORDERED: RIVAROXABAN 15 MG TABLET PO SCH (19:54)
[2019-09-09] MEDS ORDERED: ONDANSETRON 4 MG/2 ML VIAL IV PRN (19:54)
[2019-09-09 20:43] LABS: CKMB Creatine Kinase MB < 1.0 ng/mL (0.3-3.6); Creatine Phosphokinase 40 U/L (26-192); Troponin I < 0.02 ng/mL (0.0-0.045)
[2019-09-09] MEDS ORDERED: ATORVASTATIN 10 MG TAB PO SCH (21:00)
[2019-09-09] MEDS: GABAPENTIN 300 MG CAP PO SCH (21:20)
[2019-09-09] MEDS: allopurinoL 100 MG TAB PO SCH (21:20)
[2019-09-10 03:56] VITALS: BMI 29.4
[2019-09-10 04:33] VITALS: O2SAT 94
[2019-09-10 04:48] LABS: Magnesium 2.1 mg/dL (1.8-2.4); Potassium 3.9 mmol/L (3.5-5.1)
[2019-09-10 04:50] LABS: CKMB Creatine Kinase MB 1.8 ng/mL (0.3-3.6); Creatine Phosphokinase 60 U/L (26-192); Troponin I < 0.02 ng/mL (0.0-0.045)
[2019-09-10] MEDS ORDERED: LEVOTHYROXINE SOD 0.112 MG TAB PO SCH (06:30)
[2019-09-10] MEDS ORDERED: LEVOTHYROXINE SOD 0.025 MG TAB PO SCH (06:30)
--- NOTE | 2019-09-10 08:34 | RAD REPORT ---
EXAM DESCRIPTION: RAD - Chest Pa And Lat (2 Views) - 09/10/2019 6:55 am CLINICAL HISTORY: follow up CHF Chest pain. COMPARISON: Chest Single View dated 09/09/2019; Chest Pa And Lat (2 Views) dated 03/09/2018; Chest Sin gle View dated 03/07/2018; Chest Single View dated 07/09/2017 FINDINGS: Emphysematous changes are present with mild interstitial pulmonary edema noted. The heart is moderately enlarged. No displaced fractures. Vertebroplasty cement is noted in the lower thoracic level. IMPRESSION: Mild CHF, unchanged. Underlying COPD suspected.
[2019-09-10] MEDS ORDERED: METOPROLOL XL 100 MG TAB PO SCH (09:00)
[2019-09-10] MEDS ORDERED: FUROSEMIDE 40 MG TABLET PO SCH (09:00)
[2019-09-10] MEDS ORDERED: METOPROLOL TAR 50 MG TAB PO SCH (09:00)
[2019-09-10] MEDS: GABAPENTIN 300 MG CAP PO SCH (09:00)
[2019-09-10] MEDS: POTASSIUM 25 MEQ EFFERV TAB PO ONE ×2 (09:13→09:17)
[2019-09-10] MEDS: allopurinoL 100 MG TAB PO SCH (09:18)
--- NOTE | 2019-09-10 10:52 | P.DS ---
Admission Date: 09/09/19 Discharge Date: 09/10/19 Primary Care Provider: Dr. Harrison; Cardiology-Dr. Villeda Disposition: TRANSFER TO SENIOR CARE Discharge Condition: GOOD Reason for Admission: Chest pain, shortness of breath Consultations: Cardiology-Dr. Villeda Procedures: Follow up CXR: Medical problem list: Chest pain, shortness of breath likely related to acute on chronic diastolic CHF on chronic oxygen Atrial fibrillation on chronic anti coagulation therapy Hypertension Hyperlipidemia Gout Hypothyroidism Brief History of Present Illness: 88-year-old female with history of atrial fibrillation, diastolic CHF , chronic anti coagulation therapy. Patient reported chest pain and shortness of breath today. She has been having symptoms for the last 3 days. Symptoms are worse today. Some edema to the lower extremity also noted. She denies any fever, chills, nausea, vomiting. Patient has been taking her diuretic therapy. She is not on a specific fluid restriction. Patient came to the ER for further evaluation. In the ER patient evaluated. Patient had some evidence of mild acute on chronic diastolic CHF. Patient given IV Lasix in the emergency room. Patient appears stable this time. Lab reviewed. Cardiac enzymes unremarkable. Patient admitted for observation. When I saw the patient the ER, she is without significant distress. Patient uses home oxygen for CHF. Patient stable this time. Vital Signs/Physical Exam: Temp Pulse Resp BP Pulse Ox 97.5 F 92 H 14 147/79 H 94 09/10/19 04:00 09/10/19 09:13 09/10/19 04:00 09/10/19 09:13 09/10/19 04:00 General: Alert, In no apparent distress, Oriented x3, Cooperative HEENT: Atraumatic Neck: Supple Respiratory: Clear to auscultation bilaterally, Normal air movement Cardiovascular: Irregular heart rate/rhythm (Atrial fibrillation rate controlled ) Gastrointestinal: Normal bowel sounds, Soft and benign, Non-distended Musculoskeletal: No erythema, No tenderness, No warmth Integumentary: No tenderness/swelling, No erythema, No warmth, No cyanosis Neurological: Normal speech, Normal strength at 5/5 x4 extr, Normal tone, Normal affect Laboratory Data at Discharge: WBC 6.1 K/uL (4.3-10.9) 09/09/19 10:18 Hgb 13.0 g/dL (12.0-15.0) 09/09/19 10:18 Hct 40.3 % (36.0-45.0) 09/09/19 10:18 Plt Count 159 K/uL (152-406) 09/09/19 10:18 PT 23.7 SECONDS (9.5-12.5) H 09/09/19 10:18 INR 2.04 09/09/19 10:18 Sodium 140 mmol/L (136-145) 09/10/19 03:50 Potassium 3.9 mmol/L (3.5-5.1) 09/10/19 03:50 BUN 24 mg/dL (7-18) H 09/10/19 03:50 Creatinine 1.00 mg/dL (0.55-1.3) 09/10/19 03:50 Glucose 196 mg/dL (74-106) H 09/10/19 03:50 Magnesium 2.1 mg/dL (1.8-2.4) 09/10/19 03:50 Total Bilirubin 1.2 mg/dL (0.2-1.0) H 09/09/19 10:18 AST 19 U/L (15-37) 09/09/19 10:18 ALT 16 U/L (12-78) 09/09/19 10:18 Alkaline Phosphatase 92 U/L (45-117) 09/09/19 10:18 Troponin I < 0.02 ng/mL (0.0-0.045) 09/10/19 03:50 Triglycerides 53 mg/dL (<150) 09/10/19 03:50 Cholesterol 144 mg/dL (<200) 09/10/19 03:50 HDL Cholesterol 57 mg/dL (40-60) 09/10/19 03:50 Cholesterol/HDL Ratio 2.53 09/10/19 03:50 Lipase 138 U/L (73-393) 09/09/19 10:18 Home Medications: Allopurinol 100 mg PO BID 09/09/19 Furosemide [Lasix*] 40 mg PO BID 09/09/19 Gabapentin 300 mg PO BID 09/09/19 Levothyroxine Sodium 1 tab PO 0630 09/09/19 Metoprolol Succinate [Toprol Xl] 100 mg PO DAILY 09/09/19 Rivaroxaban [Xarelto*] 15 mg PO DAILY 09/09/19 Simvastatin 20 mg PO BEDTIME 09/09/19 Patient Discharge Instructions: 1. Recommend follow up with PCP in 1-2 weeks to follow up this hospitalization. 2. Patient presented with chest pain and shortness of breath. Patient with history of atrial fibrillation on chronic anti coagulation therapy, hypertension, chronic diastolic CHF on chronic oxygen , hyperlipidemia and hypothyroidism. Patient was admitted for further evaluation and treatment of acute on chronic diastolic CHF. Cardiac enzymes unremarkable. Echocardiogram obtained. Patient was treated with IV diuresis and fluid restriction. Patient has done well. No significant chest pain or shortness of breath at discharge. Chest x-ray shows improvement. At discharge patient will continue with a 1500 cc per day fluid restriction and low-salt diet. Recommend to monitor weight daily. If her weight increases by more than 5 lb she is to contact cardiology or her PCP to for further recommendation. Patient will continue with Lasix 40 mg twice daily. Medication may need to be further adjusted if weight increased. This can be further addressed by her PCP or cardiology. Recommend follow up with cardiology in 1-2 weeks to follow up this hospitalization. Prior to discharge social work will arrange for home health and physical therapy at discharge. Patient will continue with home oxygen to maintain sats above 93%. 3. Patient with atrial fibrillation on chronic anti coagulation therapy. This has remained stable. At discharge she will continue with Toprol-XL 100 mg daily and Xarelto 15 mg daily. 4. Patient with hypertension. This has remained stable. Patient will continue with Toprol -XL 100 mg daily. 5. Patient with hyperlipidemia. At discharge she will continue with Zocor 20 mg daily. 6. Patient with gout. Patient will continue with allopurinol. 7. Patient with hypothyroidism. Patient will continue with levothyroxine 137 mcg daily. Recommend to recheck tsh and free T4 in 1 month to further address and monitor. Diet: AHA Activity: Fall precautions Time spent managing pt's care (in minutes): 55
[2019-09-10 14:23] VITALS: BP 128/71; TEMP 97.8
--- NOTE | 2019-09-10 19:41 | CON ---
Date of Consultation: 09/10/2019 Reason For Consultation: Atrial fibrillation, chest pain, and congestive heart failure. History Of Present Illness: Ms. Pompa is an 88-year-old woman. She is a patient of Dr. Brown in t he past. She has had chronic atrial fibrillation, chronic diastolic congestive heart failure, COPD, CVA, hypertension, dyslipidemia, and gout. She came in with chest pain, rapid atrial fibrillation, a nd shortness of breath. Her EKG showed atrial fibrillation at rate of 99. Her chest x-ray was negat shannon. Her troponin was negative. She denied PND, orthopnea, pedal edema, palpitations, or syncope. Denied any fever or chills or cough. Allergies: SHE IS ALLERGIC TO CODEINE. Past Medical History: As stated above. Medications: At home include allopurinol, Synthroid, Neurontin, Xarelto, Zocor, metoprolol, and Lasi x. Review of Systems: Negative. Social History: Negative. Family History: Negative. Physical Examination: General: Ms. Pompa is pleasant. She is feeling a lot better compared to yesterday after diuresis a nd inhalers. Vital Signs: She was in atrial fibrillation at rate of 99. She was afebrile. HEENT: Negative. Neck: Supple with no bruit. Chest: Clear to auscultation and percussion. Cardiac: Irregularly irregular rhythm and rate. No murmurs, gallops, or rubs. Abdomen: Benign. Extremities: Revealed no clubbing, cyanosis, or edema. Diagnostic Data: Listed above. Her BNP was 1079. Impression And Plan: 1.I believe Ms. Pompa is having an acute exacerbation of diastolic congestive heart failure that jenkins s been relieved with Lasix. 2.Possible chronic obstructive pulmonary disease exacerbation. She does have a normal chest x-ray. 3.Chronic atrial fibrillation, relatively well controlled. She is on Xarelto. We will continue suni t. 4.Dyslipidemia, on Zocor. 5.Hypertension, well controlled. 6.History of cerebrovascular accident that is stable. 7.Gout. I agree with her present regimen for now. There is an echocardiogram pending. She can certainly go home whenever it is okay with Dr. Valdivia. She normally is a patient of Dr. Harrison. I would be happ y to see her in the office after she goes home, and I will set her up for an outpatient stress test. Meanwhile, while she is in the hospital, I will continue to follow her. CECILIA/NELLY Voice ID: [id number] Report ID: [id number]
--- NOTE | 2019-09-11 08:11 | ECHO ---
HEIGHT: 5 ft 3 in WEIGHT: 166 lb 0 oz DATE OF STUDY: 09/10/[address]: Angus Valdivia DO 2-DIMENSIONAL: YES M.MODE: YES DOPPLER: YES COLOR FLOW: YES TDS: PORTABLE: DEFINITY: BUBBLE STUDY: DIAGNOSIS: EVALUATE FOR CONGESTIVE HEART FAILURE CARDIAC HISTORY: CATHERIZATION: NO SURGERY: NO PROSTHETIC VALVE: NO PACEMAKER: NO MEASUREMENTS (cm) DIASTOLIC (NORMALS) SYSTOLIC (NORMALS) IVSd 0.9 (0.6-1.2) LA Diam 3.8 (1.9-4.0) LVEF 64% LVIDd 4.4 (3.5-5.7) LVIDs 2.9 (2.0-3.5) %FS 34% LVPWd 1.0 (0.6-1.2) Ao Diam 2.9 (2.0-3.7) 2 DIMENSIONAL ASSESSMENT: RIGHT ATRIUM: NORMAL LEFT ATRIUM: NORMAL RIGHT VENTRICLE: NORMAL LEFT VENTRICLE: NORMAL TRICUSPID VALVE: NORMAL MITRAL VALVE: MITRAL ANNULAR CALCIFICATION PULMONIC VALVE: NORMAL AORTIC VALVE: SCLEROSIS PERICARDIAL EFFUSION: NONE AORTIC ROOT: NORMAL LEFT VENTRICULAR WALL MOTION: NORMAL EJECTION FRACTION DOPPLER/COLOR FLOW: MILD TRICUSPID REGURGITATION COMMENTS: NORMAL LEFT VENTRICULAR SIZE AND EJECTION FRACTION. DECREASED LEFT VENTRICULAR COMPLIANCE. MITRAL ANNULAR CALCIFICATION. AORTIC SCLEROSIS NO STENOSIS. MILD TRICUSPID REGURGITATION. NORMAL RIGHT VENTRICULAR SYSTOLIC PRESSURE. TECHNOLOGIST: JOSIAS DUMAS
== END 2019-09-10 15:29 | disposition home health service (06) ==
LOC: ER 09:19 → ERHOLD 12:55 → 2ND 19:38
PROVIDERS: ADMIT Family Medicine; ATTEND Family Medicine
DX: I11.0 Hypertensive heart disease with heart failure (principal); I50.33 Acute on chronic diastolic (congestive) heart failure; I48.20 Chronic atrial fibrillation, unspecified; N39.0 Urinary tract infection, site not specified; E78.5 Hyperlipidemia, unspecified; E03.9 Hypothyroidism, unspecified; J44.9 Chronic obstructive pulmonary disease, unspecified; M10.9 Gout, unspecified; Z99.81 Dependence on supplemental oxygen; Z79.01 Long term (current) use of anticoagulants; Z88.6 Allergy status to analgesic agent; Z86.73 Personal history of transient ischemic attack (TIA), and cerebral infarction without residual deficits; Z82.49 Family history of ischemic heart disease and other diseases of the circulatory system; Z83.3 Family history of diabetes mellitus
CPT/HCPCS: 93005; 93306; 87088; 85025; 87086; 80048 ×2; 36415; 83735 ×2; 82550 ×2; 85610; 80061; 80076; 84443; 81003; 84484 ×3; 82553 ×2; 84439; 83690; 83880; 71045; 71046; 96375; 96374; 99285; J1940 ×2; J0696; J2930; G0378 ×3

== ENCOUNTER 2020-04-26 16:50 | Inpatient (IN) | payer OTHER ==
--- OUTSIDE RECORDS SUMMARY | 2020-04-26 16:54 | XMS REPORT | Clinical Summary ---
:1930 Author Organization [facility] Address [address] [place] [address] Care Team Providers Name Role Phone Zenon Primary Care Provider Allergies Active Allergy Reactions Severity Noted Date Comments Codeine 03/01/2016 Medications Medication Sig Dispensed Refills Start Date End Date Status gabapentin (NEURONTIN) Take 300 mg by 0 Active 300 MG capsule mouth 2 (two) times daily. metoprolol (LOPRESSOR) Take 100 mg by 0 Active 100 MG tablet mouth daily. simvastatin (ZOCOR) 20 Take 20 mg by 0 Active MG tablet mouth nightly. furosemide (LASIX) 40 Take 40 mg by 0 Active MG tablet mouth daily. rivaroxaban (XARELTO) Take 15 mg by 0 Active 15 mg Tab tablet mouth daily with dinner. Active Problems Problem Noted Date Cat bite 03/01/2016 Hypertension Hyperlipidemia Immunizations Name Administration Dates Next Due Tdap 03/03/2016 Family History Medical History Relation Name Comments Asthma Daughter Relation Name Status Comments Daughter Social History Tobacco Use Types Packs/Day Years Used Date Never Smoker Alcohol Use Drinks/Week oz/Week Comments No Sex Assigned at Date Recorded Not on file Last Filed Vital Signs Not on file Plan of Treatment Not on file Results Not on fileafter 04/26/2019 Advance Directives For more information, please contact: [phone] Code Status Date Activated Date Inactivated Comments Full Code 03/01/2016 5:29 AM 03/06/2016 5:31 PM This code status was determined by: Patient
--- OUTSIDE RECORDS SUMMARY | 2020-04-26 16:56 | XMS REPORT | Continuity of Care Document ---
:1930 Author Organization [facility] Information OROS Care Team Providers Name Role Phone [facility] Information OROS Unavailable Un available Problems Problem Status Onset Classification Date Comments Sourc e Date Reported S06.5X9A - TRAUM Active 02/29/20 [facility] SUBDR HEM W LOC OF [address] UNSP TRAUMATIC SAH Active 02/16/20 [place] [address] [place] [address] SUBDURAL HEMATOMA Active 02/16/[address] ARCELIA BILLING Active 02/16/20 [facility] L[facility]T #[id number] [place] [address] Atrial Resolved Problem 03/25/2017 [facility] fibrillation [facility] (disorder) [place], OPID Sharif 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) [facility], OPID [facility] 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 [facility] accident [facility] (disorder) [place], OPID [facility] Gout (disorder) Resolved Problem 03/25/2017 [facility], OPID [place] Hyperlipidemia Resolved Problem 03/25/2017 [place] (disorder) [facility], OPID [place] 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, 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 [place], (disorder) OPID [facility] Simple obesity Active Problem 03/25/2017 [place] [facility] (disorder) [place] NONTRAUMATIC [place] SUBDURAL Medical HEMORRHAGE, UNSPEC C enter Medications Medication Details Route Status Patient Ordering Order Source Instructions Provider Date Simvastatin Notes: (Same Inactive 02/18/ [place] as: Zocor) [address] [place] [address] Levetiracetam 500 mg = 1 tab, Active 02/17/ [place] 500 MG Oral PO, BID, # 12 2017 Medica l Tablet [Keppra] tab, 0 Center Refill(s) Thyroxine Notes: Take 1 Inactive 02[place]17/ [place] hour before or 2017 Medical 2 hours after Center meal; Enteral feeds may interefere with the absorption of this medication. (Same as:Levothroid) Furosemide 20 MG Notes: (Same Inactive 02/17/ H [place] Oral Tablet as: Lasix) October 2016 Medi myles cause GI upset. Center Give with food or milk. gabapentin 300 Notes: (Same Inactive [place] MG Oral Capsule as: Neurontin) 2016 edical Center potassium 20 mEq, 1 tab, Inactive [place] chloride 20 mEq Route: PO, 2017 Medic al oral tablet, ONCE, Dosing Center extended release Weight 77.273, kg, Start date: 02/17/17 8:23:00 CDT, Stop date: 02/17/17 8:23:00 CDT Cipro Notes: October Inactive [place] interfere 2017 Medical w/enteral Center feedings - Take 1 hr before or 2 hrs after antacids, dairy pdt & minerals. On empty stomach. Melatonin Notes: (Same Inactive [place] as: Melatonin) 2017 [facility] Albuterol 0.833 Notes: (Same Inactive [place] MG/ML / as: Duoneb) 2017 [facility] Ipratropium Center [place] 0.167 MG/ML Inhalant Solution [DuoNeb] Metoprolol Notes: (Same [place]active [place] as: Lopressor) 2017 Medical Push over 2 Center minutes heparin Notes: porcine [place] Longer [place] heparin Active 2017 [facility] Simethicone Notes: (Same [place] Longer [place] as: Mylicon) Active 2017 Medical Center Zofran Notes: (Same No Longer [place] as: Zofran) Active 2017 Medical MEDICATION Center WASTE Product Size: 4 mg Product Wasted: ___ mg metoprolol Notes: (Same No Longer [place] tartrate as: Lopressor) Active 2017 Medical [place] rivaroxaban 15 15 mg = 1 tab, No Longer [place] MG Oral Tablet PO, Daily, # 90 Active 2016 edical [Xarelto] tab, 3 Center Refill(s) simvastatin 20 20 mg = 1 tab, Active [place] mg oral tablet PO, Bedtime, # 2017 [place] dical 30 tab, 1 Center Refill(s) Colchicine 0.6 0.6 mg = 1 cap, No Longer [place] MG Oral Capsule PO, Daily, PRN Active 2016 edical pain, 0 Center Refill(s) levothyroxine 137 microgram = Active [place] 137 mcg (0.137 1 tab, PO, 2017 Medica l mg) oral tablet Daily, # 90 Cent er tab, 0 Refill(s) gabapentin 300 300 mg = 1 cap, Active [place] MG Oral Capsule PO, TID, # 90 2016 Me dical cap, 1 Center Refill(s) Furosemide 20 MG 20 mg = 1 tab, Active [place] Oral Tablet PO, BID, # 90 2016 Medica l tab, 0 Center Refill(s) metoprolol 100 100 mg = 1 tab, Active [place] mg oral tablet, PO, Daily, # 30 2016 Medical extended release tab, 0 Center Refill(s) Levetiracetam Notes: (Same No Longer [place] 500 MG Oral as:Keppra) Active 2016 Medical Tablet [Keppra] Center Saline Flush Notes: (Same No Longer [place] 0.9% as: BD Active 2016 Medical Posiflush) Center Labetalol 10 mg, 2 mL, [place] Longer [place] Route: IVP, Active 2016 Medical Drug form: INJ, Center Q10Min, Dosing Weight 77.273, kg, PRN Other -See Comment, Start date: 02/15/17 20:03:00 CDT, Duration: 30 day, Stop date: 03/17/17 20:02:00 CDT Hydralazine Notes: (Same [place] Longer [place] as: Apresoline) Active 2016 Medical Push over 5 Center minutes Vitamin K1 + Notes: (Same No Longer [place] sodium chloride as: Active 2016 Medical 0.9% INJ 50 mL Aqua-[place]phy[place], Ce nter Vitamin K) MEDICATION WASTE Product Size: 10 mg Product Wasted: ___ mg Docusate Notes: (Same No Longer [place] as: Colace) Active 2017 Medical Center Tylenol Notes: Do not No Longer [place] exceed 4 Active 2017 Medical gm/day. (Same Center as: Tylenol) Tylenol Notes: Max Inactive [place] acetaminophen 2017 Medical 4000 mg/day (4 Center gm/day). (Same as: Tylenol Extra Strength) Calcium Notes: (Same No Longer [place] Carbonate 500 MG As: Tums) Active 2017 Medic al Chewable Tablet Calcium Center Carbonate 500 mg = 200 mg elemental calcium Dose = mg calcium carbonate ( mg elemental calcium) Calcium Notes: WASTE: No Longer [place] Gluconate F/P - Sink; E - Active 2016 Medica l [facility] Bin Magnesium Oxide Notes: (Same No Longer [facility] as: Mag-Ox 400) Active 2017 [facility] Magnesium oxide Center [id number] elemental magnesium Dose=____mg magnesium oxide (___mg elemental magnesium) sodium phosphate 45 mmol, 15 mL, No Longer 02/15 [place] Route: IVPB, Active 2016 Medical PRN, Dosing Center Weight 77.273, kg, PRN Abnormal Lab Result, Start date: 02/15/17 16:09:00 CDT, Duration: 30 day, Stop date: 03/17/17 16:08:00 CDT, FOR ICU USE ONLY potassium Notes: (Same No Longer [facility] s phosphate as: K Active 2016 Medical Phosphate.) 1 Center mMol phoshate has 1.47 mEq potassium Infuse over 4 hours Magnesium Notes: WASTE: No Longer [place] Sulfate F/P - Sink; E - Active 2016 Medical [facility] Trash Center Bin potassium Notes: (Same No Longer [facility] s phosphate-sodium as: Phos-NaK) Active 2016 edical phosphate 250 Each 1.5 gm pkt Ce nter mg-280 mg-160 mg has 250mg oral powder for phosphorous. reconstitution Mix w/2.5oz water and stir. Potassium Notes: (Same No Longer [facility] s Chloride as: KCL) Active 2017 Medical Infuse over 2 Center hours. chlorhexidine Notes: (Same Inactive [place] gluconate 1.2 As: Peridex) 2017 Medic al MG/ML Mouthwash Center Insulin regular 60 units) No Longer [place] WASTE: F/P - Active 2017 Medical Black; E - Center Municipal Trash Bin Stable for 28 days at room temperature Expires in days from D ate Saline Flush Notes: (Same No Longer [place] 0.9% as: BD Active 2016 Medical Posiflush) Center sodium chloride 1,000 mL, Rate: No Longer [place] 0.9% 1000 ml INJ 75 ml/hr, Active 2016 Medic al 1,000 mL Infuse over: Center 13.3 hr, Route: IV, Dosing Weight 77.273 kg, Total Volume: 1,000, Start date: 02/15/17 13:27:00 CDT, Duration: 30 day, Stop date: 03/17/17 13:26:00 CDT Levetiracetam Notes: (Same Inactive [place] 1000 MG Oral as:Keppra) 2017 Medical Tablet [Keppra] Center metoprolol 25 mg, Route: Inactive [place] tartrate PO, Drug form: 2017 Medical TAB, ONCE, Center Dosing Weight 77.273, kg, Priority: STAT, Start date: 02/15/17 12:26:00 CDT, Stop date: 02/15/17 12:26:00 CDT Ondansetron 4 mg, Route: Inactive [place] IVP, Drug form: 2016 Medical INJ, ONCE, Center Dosing Weight 77.273, kg, Priority: STAT, Start date: 02/15/17 12:25:00 CDT, Stop date: 02/15/17 12:25:00 CDT Fentanyl 50 microgram, Inactive [place] Route: IVP, 2017 Medical ONCE, Dosing Center Weight 77.273, kg, Priority: STAT, Start date: 02/15/17 12:25:00 CDT, Stop date: 02/15/17 12:25:00 CDT Factor 2-7-9-10 Notes: Same as: Inactive [place] Prothrombin Kcentra WASTE: 2016 Medi myles Complex F/P - Red; E Center Concentrate -Red Maximum 2,707 unit + IV dose = 5000 bag 1 ea units; Round down dose to the nearest vial size Hematology clinical pharmacist consult required Factor 2-7-9-10 Notes: Same as: Inactive [place] Prothrombin Kcentra WASTE: 2016 Medi myles Complex F/P - Red; E Center Concentrate -Red Maximum 2,700 unit + IV dose = 5000 bag 1 ea units; Round down dose to the nearest vial size Hematology clinical pharmacist consult required Potassium 40 mEq, Route: Inactive [place] Chloride PO, Drug form: 2017 Medical LIQ, ONCE, Center Dosing Weight 77.273, kg, Priority: STAT, Start date: 02/15/17 12:09:00 CDT, Stop date: 02/15/17 12:09:00 CDT Factor 2-7-9-10 Notes: Same as: Inactive [place] Prothrombin Kcentra WASTE: 2017 Medi myles Complex F/P - Red; E Center Concentrate -Red Maximum 2,700 unit + IV dose = 5000 bag 1 ea units; Round down dose to the nearest vial size Hematology clinical pharmacist consult required Saline Flush Notes: (Same No Longer [place] 0.9% as: BD Active 2016 [facility] Posiflush) Center Allergies, Adverse Reactions, Alerts Substance Category Reaction Severity Reaction Status Date Comments S ource type Reported Codeine Assertion Drug Active OPI D Sulfate allergy [facility] eucalyptus Assertion Drug Active OPID topical allergy [facility] Immunizations No Data Provided for This Section Results Order Name Results Value Reference Date Interpretation Comments Sudha rce Range CHEM PANEL Phosphorus 2.6 2.5 - 4.5 02/17 [facility] CHEM PANEL Magnesium Lvl 2.0 1.8 - 2.4 02/17 [place] [facility] ELECTROLYTES AGAP 12.3 10.0 - 02/17 [facility] 20.0 [facility] ELECTROLYTES eGFR 75 02/17 Result Comment: The Medical eGFR is Center calculated using the CKD-EPI formula. In most young, healthy individuals the eGFR will be >90 mL/min/1.73m2 . The eGFR declines with age. An eGFR of 60-89 may be normal in some populations, particularly the elderly, for whom the CKD-EPI formula has not been extensively validated. Use of the eGFR is not recommended in the following populations:< br/>
Shantelle viduals with unstable creatinine concentration s, including patients and those with serious co-morbid conditions.<b r/>
Patie nts with extremes in muscle mass or diet.

The data above are obtained from the National Kidney Disease Education Program (NKDEP) which additionally recommends that when the eGFR is used in patients with extremes of body mass index for purposes of drug dosing, the eGFR should be multiplied by the estimated BMI. ELECTROLYTES CO2 28 24 - 32 02/[address] [place] [address] ELECTROLYTES Chloride Lvl 107 95 - 109 02/17 [facility] ELECTROLYTES Calcium Lvl 9.3 8.5 - 10.5 02/17 [place] [facility] ELECTROLYTES Potassium Lvl 4.3 3.5 - 5.1 02/[address] [place] [address] ELECTROLYTES Sodium Lvl 143 135 - 145 02/17 [facility] ELECTROLYTES Creatinine 0.74 0.50 - 02/17 [facility] Lvl 1.40 [facility] ELECTROLYTES BUN 10 7 - 22 02/[address] ELECTROLYTES Glucose Lvl 129 70 - 99 02/17 [facility] HEMATOLOGY RDW 16.1 11.5 - 02/17 [facility] 14.5 [facility] HEMATOLOGY Platelet 186 133 - 450 02/17 [facility] HEMATOLOGY MCHC 33.3 32.0 - 02/17 [facility] 36.0 [facility] HEMATOLOGY RBC 4.66 4.20 - 02/17 [place] 5.40 [facility] HEMATOLOGY Hct 38.1 36.0 - 02/17 [place] 48.0 [facility] HEMATOLOGY Hgb 12.7 12.0 - 02/17 [facility] 16.0 [facility] HEMATOLOGY MCH 27.3 27.0 - 02/17 [place] 31.0 [facility] HEMATOLOGY MCV 81.7 80.0 - 02/17 [place] 98.0 [facility] HEMATOLOGY MPV 10.3 7.4 - 10.4 02/17 [facility] HEMATOLOGY WBC 10.0 3.7 - 10.4 02/17 [facility] HEMATOLOGY Segs 77.7 45.0 - 02/17 [facility] 75.0 [facility] HEMATOLOGY Lymphocytes 14.4 20.0 - 02/17 [facility] 40.0 [facility] HEMATOLOGY Monocytes 3.7 2.0 - 12.0 02/17 [facility] [address] [place] [address] HEMATOLOGY Lymphocytes # 1.4 1.0 - 5.5 02/17 [facility] HEMATOLOGY Eosinophils # 0.4 0.0 - 0.5 02/17 [facility] [place] [facility] HEMATOLOGY Monocytes # 0.4 0.0 - 0.8 02/17 s [facility] HEMATOLOGY Eosinophils 3.8 0.0 - 4.0 02/17 [facility] HEMATOLOGY Segs-Bands # 7.8 1.5 - 8.1 02/17 [facility] HEMATOLOGY Basophils 0.4 0.0 - 1.0 02/17 [facility] PARATHYROID Ca Norm WB 1.11 1.05 - 02/17 [place] PROFILE 1. [facility] PARATHYROID Ca Ion WB 1.16 1.05 - 02/17 [facility] PROFILE 1. [facility] CARDIAC Troponin-T <0.010 0.000 - 02/16 [place] ENZYMES 0.100 [facility] CARDIAC Troponin-I <0.02 0.00 - 02/16 [facility] ENZYMES 0.40 [facility] CARDIAC Total CK 47 12 - 191 02/16 [facility] ENZYMES [facility] CARDIAC Total CK 51 12 - 191 02/16 [facility] ENZYMES [facility] CARDIAC Troponin-I <0.02 0.00 - 02/16 [place] ENZYMES 0.40 [facility] CARDIAC Troponin-T <0.010 0.000 - 02/16 [place] ENZYMES 0.100 [facility] CHEM PANEL Lactic Acid 1.1 0.5 - 2.2 02/16 [facility] Lvl [facility] HEMATOLOGY D-Dimer 2.92 02/16 [facility] HEMATOLOGY PTT 31.7 22.9 - 02/16 [place] 35.8 [facility] HEMATOLOGY INR 1.23 0.85 - 02/16 [place] 1.17 [facility] HEMATOLOGY PT 15.8 12.0 - 02/16 [place] 14.7 [facility] CHEM PANEL Phosphorus 2.9 2.5 - 4.5 02/16 [facility] CHEM PANEL eGFR 73 02/16 [facility] Comment: The Medical eGFR is Center calculated using the CKD-EPI formula. In most young, healthy individuals the eGFR will be >90 mL/min/1.73m2 . The eGFR declines with age. An eGFR of 60-89 may be normal in some populations, particularly the elderly, for whom the CKD-EPI formula has not been extensively validated. Use of the eGFR is not recommended in the following populations:< br/>
Shantelle viduals with unstable creatinine concentration s, including patients and those with serious co-morbid conditions.<b r/>
Patie nts with extremes in muscle mass or diet.

The data above are obtained from the National Kidney Disease Education Program (NKDEP) which additionally recommends that when the eGFR is used in patients with extremes of body mass index for purposes of drug dosing, the eGFR should be multiplied by the estimated BMI. CHEM PANEL Chloride Lvl 110 95 - 109 02/16 [facility] CHEM PANEL Potassium Lvl 3.4 3.5 - 5.1 02/16 [facility] CHEM PANEL CO2 31 24 - 32 02/[address] CHEM PANEL Calcium Lvl 8.5 8.5 - 10.5 02/16 [facility] CHEM PANEL Glucose Lvl 105 70 - 99 02/[address] CHEM PANEL Sodium Lvl 147 135 - 145 02/[address] CHEM PANEL Creatinine 0.75 0.50 - 02/16 [facility] Lvl 1.40 [facility] CHEM PANEL BUN 15 7 - 22 02/[address] CHEM PANEL AGAP 9.4 10.0 - 02/16 20.0 [facility] CHEM PANEL Magnesium Lvl 1.9 1.8 - 2.4 02/16 [facility] HEMATOLOGY Segs 61.1 45.0 - 02/16 75.0 [facility] HEMATOLOGY Monocytes 4.8 2.0 - 12.0 02/[address] HEMATOLOGY Lymphocytes 28.4 20.0 - 02/16 40.0 [facility] HEMATOLOGY Eosinophils 5.2 0.0 - 4.0 02/16 [facility] [place]2016 [facility] HEMATOLOGY Basophils 0.5 0.0 - 1.0 02/[address] HEMATOLOGY Segs-Bands # 2.8 1.5 - 8.1 02/16 [facility] HEMATOLOGY Monocytes # 0.2 0.0 - 0.8 02/16 [facility] HEMATOLOGY Lymphocytes # 1.3 1.0 - 5.5 02/16 [place] [facility] HEMATOLOGY Eosinophils # 0.2 0.0 - 0.5 02/16 [facility] [place] [facility] HEMATOLOGY WBC 4.5 3.7 - 10.4 02/16 [facility] HEMATOLOGY MCV 82.1 80.0 - 02/16 98.0 /2016 [facility] HEMATOLOGY Hct 33.8 36.0 - 02/16 [place] 48.0 [facility] HEMATOLOGY Hgb 11.1 12.0 - 02/16 [place] 16.0 /2016 [facility] HEMATOLOGY RBC 4.11 4.20 - 02/16 [place] 5.40 /2016 [facility] HEMATOLOGY RDW 15.9 11.5 - 02/16 14.5 [facility] HEMATOLOGY MCHC 32.8 32.0 - 02/16 36.0 /2016 [facility] HEMATOLOGY MCH 26.9 27.0 - 02/16 31.0 [facility] HEMATOLOGY MPV 9.5 7.4 - 10.4 02/16 [facility] HEMATOLOGY Platelet 137 133 - 450 02/16 [facility] CHEM PANEL Magnesium Lvl 1.8 1.8 - 2.4 02/16 [facility] ELECTROLYTES Potassium Lvl 3.2 3.5 - 5.1 02/16 [facility] HEMATOLOGY Anti-Xa Low 1.70 02/16 Result [facility] Comment: Medical Heparin "Significant Center Findings called to miller munoz at 02/15/2017 22:27 by [facility]. Read Back OK." HEMATOLOGY Fibrinogen 341 230 - 510 02/15 [facility] Lvl /2016 [facility] HEMATOLOGY PT 19.2 12.0 - 02/15 [place] 14.7 [facility] HEMATOLOGY INR 1.58 0.85 - 02/15 [place] 1.17 [facility] HEMATOLOGY PTT 34.9 22.9 - 02/15 [place] 35.8 [facility] BACTERIAL - MRSA by PCR Negative 02/15 [facility] SEROLOGY (02/15/17 4:59 PM) /2016 [facility] DRUG SCREEN UDS Note See Note 02/15 [facility] *NA* /2016 Medical (02/15/17 4:59 PM) Center DRUG SCREEN U Phencyc Scr Negative Negative 02/15 [place] *NA* Medical (02/15/17 4:59 PM) Center DRUG SCREEN U Opiate Scr Negative Negative 02/15 [place] *NA* Medical (02/15/17 4:59 PM) Center DRUG SCREEN U Cannab Scr Negative Negative 02/15 [place] *NA* Medical (02/15/17 4:59 PM) Center DRUG SCREEN U Cocaine Scr Negative Negative 02/15 [place] *NA* Medical (02/15/17 4:59 PM) Center DRUG SCREEN U Benzodia Negative Negative 02/15 [place] Sc[place] *NA* Medical (02/15/17 4:59 PM) Center DRUG SCREEN U Chantal Scr Negative Negative 02/15 [place] *NA* [place] (02/15/17 4:59 PM) Center DRUG SCREEN U Amph Scr Negative Negative 02/15 [place] *NA* [facility] (02/15/17 4:59 PM) [place] URINE AND UA <=1.0 0.1 - 1.0 02/15 [facility] Urobilinogen mg/dL /2016 [facility] URINE AND UA Ketones Negative Negative 02/15 [facility] STOOL mg/dL mg/dL /2016 [facility] URINE AND UA pH 5.5 5.0 - 8.0 02/15 [facility] /[address] [place] [address] URINE AND UA Protein 50 mg/dL Negative 02/15 [facility] STOOL mg/dL /2016 [facility] URINE AND UA Turbidity Marked Clear 02/15 [facility] STOOL *ABN* [facility] (02/15/17 4:59 PM) [place] URINE AND UA Spec Grav 1.020 <=1.030 02/15 [facility] /2016 [facility] URINE AND UA Color Yellow Yellow 02/15 [place] STOOL *NA* Medical (02/15/17 4:59 PM) Center URINE AND UA Mucus Few /LPF None Seen 02/15 [facility] STOOL /LPF /2016 [facility] URINE AND UA Bacteria Moderate None Seen 02/[place] ST[place] /HPF /HPF /2016 [facility] URINE AND UA Sq Epi Moderate Few /LPF 02/15 [facility] STOOL /LPF /2016 [facility] URINE AND UA RBC 4 0 - 2 02/15 [facility] URINE AND UA Blood Small Negative 02/15 [facility] STOOL *ABN* /2016 Medical (02/15/17 4:59 PM) [place] URINE AND UA Leuk Est Large Negative 02/15 [facility] STOOL *ABN* [facility] (02/15/17 4:59 PM) Center URINE AND UA WBC 58 0 - 5 02/15 [facility] URINE AND UA Glucose Negative Negative 02/15 [facility] STOOL mg/dL mg/dL /2016 [facility] URINE AND UA Bili Negative Negative 02/15 [facility] STOOL *NA* /2016 Medical (02/15/17 4:59 PM) [place] URINE AND UA Nitrite Negative Negative 02/15 [facility] (02/15/17 4:59 PM) /2016 [facility] HEMATOLOGY PTT 38.5 22.9 - 02/15 [place] 35.8 [facility] HEMATOLOGY INR 1.71 0.85 - 02/15 [facility] 1.17 [facility] HEMATOLOGY PT 20.4 12.0 - 02/15 [facility] 14.7 [facility] BLOOD BANK ABO/Rh A POS 02/15 [facility] RESULTS /2016 [facility] BLOOD BANK Antibody Scrn Negative 02/15 [facility] as RESULTS (02/15/17 11:10 AM) [facility] CHEM PANEL eGFR 55 02/15 Result Comment: The [facility] eGFR is Center calculated using the CKD-EPI formula. In most young, healthy individuals the eGFR will be >90 mL/min/1.73m2 . The eGFR declines with age. An eGFR of 60-89 may be normal in some populations, particularly the elderly, for whom the CKD-EPI formula has not been extensively validated. Use of the eGFR is not recommended in the following populations:< br/>
Shantelle viduals with unstable creatinine concentration s, including patients and those with serious co-morbid conditions.<b r/>
Patie nts with extremes in muscle mass or diet.

The data above are obtained from the National Kidney Disease Education Program (NKDEP) which additionally recommends that when the eGFR is used in patients with extremes of body mass index for purposes of drug dosing, the eGFR should be multiplied by the estimated BMI. CHEM PANEL CO2 30 24 - 32 02/15 [facility] CHEM PANEL Calcium Lvl 9.2 8.5 - 10.5 09 [facility] CHEM PANEL AGAP 12.9 10.0 - 09 20.0 [facility] CHEM PANEL Creatinine 0.95 0.50 - 09 [place] Lvl 1.40 /2016 [facility] CHEM PANEL Sodium Lvl 143 135 - 145 09 [facility] CHEM PANEL Chloride Lvl 103 95 - 109 02/15 [facility] CHEM PANEL Glucose Lvl 144 70 - 99 09 [facility] CHEM PANEL BUN 16 7 - 22 02/15 [facility] CHEM PANEL Lactic Acid 1.0 0.5 - 2.2 09 [place] Lvl /2016 [facility] HEMATOLOGY Segs-Bands # 5.6 1.5 - 8.1 02/15 [facility] HEMATOLOGY Lymphocytes # 1.4 1.0 - 5.5 02/15 [facility] [place] [facility] HEMATOLOGY Monocytes # 0.2 0.0 - 0.8 02/15 [facility] HEMATOLOGY Eosinophils # 0.2 0.0 - 0.5 02/15 [facility] HEMATOLOGY Basophils 0.3 0.0 - 1.0 02/15 [facility] HEMATOLOGY Eosinophils 2.6 0.0 - 4.0 02/15 [facility] HEMATOLOGY Lymphocytes 18.7 20.0 - 02/15 40.0 [facility] HEMATOLOGY Segs 75.3 45.0 - 02/15 75.0 [facility] HEMATOLOGY Monocytes 3.1 2.0 - 12.0 02/15 [facility] HEMATOLOGY G-value Rapid 12.4 5.0 - 11.6 02/15 [place] [facility] HEMATOLOGY Estimated % 0.0 0.0 - 7.5 02/15 [place] L[place] [facility] HEMATOLOGY Max Amplitude 71 52 - 71 02[place]15 [place] [facility] HEMATOLOGY Angle Rapid 80 64 - 80 02/15 [facility] HEMATOLOGY K-time Rapid 0.8 0.6 - 2.3 02/15 [facility] HEMATOLOGY [place] 0.6 02/15 [facility] HEMATOLOGY R-time Rapid 0.7 0.4 - 0.7 02/15 [place] [facility] HEMATOLOGY ACT (TEG) 113 86 - 118 02/15 [place] [facility] HEMATOLOGY MCHC 32.1 32.0 - 02/15 [facility] 36.0 /2016 [facility] HEMATOLOGY RDW 16.3 11.5 - 02/15 [place] 14.5 /2016 [facility] HEMATOLOGY Platelet 178 133 - 450 02/15 [facility] HEMATOLOGY MPV 9.3 7.4 - 10.4 02/15 [facility] HEMATOLOGY RBC 4.62 4.20 - 02/15 [place] 5.40 /2016 [facility] HEMATOLOGY Hgb 12.1 12.0 - 02/15 [facility] 16.0 [facility] HEMATOLOGY Hct 37.6 36.0 - 02/15 [facility] 48.0 [facility] Center HEMATOLOGY WBC 7.4 3.7 - 10.4 02/15 [facility] HEMATOLOGY MCV 81.5 80.0 - 02/15 [facility] 98.0 [facility] HEMATOLOGY MCH 26.1 27.0 - 02/15 [facility] 31.0 [facility] TOXICOLOGY Etoh (%) <0.003 02/15 [facility] TOXICOLOGY Ethanol Lvl <3 02/15 [facility] Pathology Reports No Data Provided for This Section Diagnostic Reports Report Value Date Source Brain wo contrast CT EXAM: [facility]RAIN [facility] DATE: 03/22/2017 1:29 PM CDT INDICATION: Subarachnoid hemorrhage COMPARISON: CT brain 02/15/2017 and 03/01/2017 TECHNIQUE: Noncontrast axial imaging of the brain was acquired from the vertex to the skull base. DLP: 1040mGy-cm FINDINGS: Subarachnoid hemorrhage has resolved with no acu te intracranial hemorrhage. Stable ventricular size and appearance of the br ain parenchyma. Imaged portions of the paran maninder sinuses and tympanomastoid cavities are clear. IMPRESSION: Resolution of subarachnoid hemorrha ge. Stable chronic changes. Brain wo contrast CT EXAM: CT BRAIN WITHOUT CONTRAST [facility]01[facility]2017 [facility] DATE: 03/01/2017 1046 AM CDT INDICATION: Follow-up intracranial hemorrhage. COMPARISON: CT brain without contrast from 02/15. TECHNIQUE: Axial CT images o f the brain were obtained. Sagittal and coronal reformats. IV contrast: None. DLP: 1040 mGy-cm FINDINGS: Encephalomalacia within the left basal ganglia is seen communicating with the frontal horn of the left lateral ventricle. The previously described subarachnoid hemorrhage along the left temporal lobe jenkins s almost resolved. No new hemorrhage or infarcti on is seen. Significant mucosal thickeni ng of the right maxillary sinus and small left maxillary mucus retention cyst versus polyp. Global age-related volume lo ss. Bilateral atherosclerotic calcifications of the carotid siphons. Periventricular white matter hypodensities likely represent chronic microvascular ischemic changes. Senescent calcifications of the bilateral sclera. IMPRESSION: 1. Previously identified avendaño barachnoid hemorrhage over the left temporal lobe has near completely resolved. 2. Encephalomalacia within the left basal ganglia causing compensatory dilation of the left lateral ventricle frontal horn. 3. Significant mucosal thickening of the right maxillary sinus. 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 TECHNIQUE: Multiplanar dede roxanne, color Doppler and spectral Doppler ultrasound of [...] None. IMPRESSION: No deep venous thrombosis (DVT). Wrist complete DX EXAM: XR LEFT WRIST 3 VIEWS 02/15/2017 [facility] DATE: 02/15/2017 9:43 PM CDT Cente r INDICATION: trauma, pain COMPARISON: Radiographs of the right wrist perfo rmed same day TECHNIQUE: PA, oblique and lateral view of left wrist FINDINGS: Diffuse osteopenia of the bone is present. Degenerative changes are not ed at the left 1st carpometacarpal joint with narrowed joint space and osteophytes. No acute fracture or malalignment is identified. No soft tissue abnormality is identified. No radiopaque foreign bodies are present. IMPRESSION: 1. 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 2. Diffuse osteopenia of the bone. Wrist complete DX EXAM: XR RIGHT WRIST 3 VIEWS 02/15/2017 [facility] DATE: 02/15/2017 9:59 PM CDT Cente r INDICATION: Right wrist pain COMPARISON: None TECHNIQUE: PA, oblique and lateral views of righ t wrist UT SECTION: MSK FINDINGS: Diffuse osteopenia of the bone is present. Degenerative changes of the 1st carpometacarpal joint and intercarpal joints present. No acute fracture or malalignment is identified. No soft tissue abnormality is identified. No radiopaque foreign bodies are present. IMPRESSION: 1. Moderate osteoarthritis of the 1st carpometa carpal joint. 2. Diffuse osteopenia. 3. No acute fracture or malalignment. Brain wo contrast CT EXAM: CT BRAIN 02/15/2017 [facility] DATE: 02/15/2017 at 14:35 Center CLINICAL INFORMATION: - reevaluate hemorrhage COMPARISON: None TECHNIQUE: Axial images of t he brain were obtained from the skull base through the vertex without contrast material administration. DLP: 713 mGycm DISCUSSION: There is subarachnoid hemorr zacarias in the left temporoparietal region. No parenchymal hematoma. No intraventricular hemorrhage, hydrocephalus or midline shift. 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 Compensatory dilatation of the left lateral ventricle. No acute bony lesions; however, examination is l imited by motion artifact. Air-fluid level within the right maxillary sinus . IMPRESSION: Subarachnoid hemorrhage in the left temporoparie kolby region. Volume loss and remote ischemic changes. Elbow 3 views DX EXAM: XR RIGHT ELBOW 3 VIEWS 02/15/2017 [facility] DATE: 02/15/2017 2:14 PM CDT. Cent er INDICATION: Possible fx olecranon. COMPARISON: Same day right humerus radiograph at 1321 hours post TECHNIQUE: AP, lateral and oblique radiographs of the elbow. FINDINGS: No acute fracture or malalignment is identified. No elbow joint effusion is detected. No soft tissue abnormality is identified. IMPRESSION: No acute abnormality of the right elbow. Humerus 2 views DX EXAM: XR RIGHT HUMERUS 2 VIEWS 02/15/2017 [facility] DATE: 02/15/2017 12:[address] INDICATION: Right arm pain. COMPARISON: None. TECHNIQUE: AP and lateral radiographs of the rig ht humerus. FINDINGS: No acute fracture or malalignment of the humerus is identified. However, a linear lucency overlies the m edial aspect of the olecranon process. No focal soft tissue abnormality is identified. IMPRESSION: 1. However, a linear lucenc y overlies the medial aspect of the olecranon process. This is suspicious for a minimally displaced fracture versus overlying skinfold. Recommend further evaluation with a dedicated right elbow radiograph. 2. No acute fracture or malalignment of the rig ht humerus. Findings were discussed with TAWANA Hood, via phone, on 02/15/2017 at 0149 hours. Torso-Outside Consult EXAM: Torso-Outside Consult CT 02/15/2017 [facility] CT DATE: 02/15/2017 8:50 Center INDICATION: - outside study ct facial bones COMPARISON: None TECHNIQUE: Routine axial marion ges of the face were obtained without contrast administration DISCUSSION: No fracture dislocation. No lytic or blastic lesions. Degenerative changes of the temporomandibular joints. Air-fluid level within the r ight maxillary sinus. Secretions within the nasopharynx. IMPRESSION: No acute fracture or dislocation. Air-fluid level within the r ight maxillary sinus presumably due to inflammatory mucosal disease. Soft tissue injury in the right cheek. Right low er lid swelling Spine-Outside Consult EXAM: CT CERVICAL SPINE WITH OUT CONTRAST 2ND OPINION INTERPRETATION 02/15/2017 [facility] CT DATE: 02/15/2017 12:[address] INDICATION: Trip, fall. COMPARISON: None available TECHNIQUE: Axial images through the cervical spine were obt ained. Sagittal and coronal reformatted images were per formed. Second opinion interpretatio n of CT cervical spine obtained at [facility] 02/15/2017 0850 hours FINDINGS: Atherosclerotic calcificatio ns of the carotid bulbs and proximal internal carotid arteries present. Blood present within the right maxillary sinus. Grade 1 degenerative anterolisthesis present at C3-C4, C4-C5. Vertebral body heights are normal. No cervical spine fracture is identified. No prevertebral soft tissue edema or hematoma is observed. Mild degenerative disease present at C3-C4, C4-C 5. Moderate degenerative disc disease present at C5 -C6, C6-C7. Disc osteophyte complex bulg e and uncovertebral joint hypertrophy present at C3-C4, C4-C5, C5-C6, C6-C7. Mild-moderate right-sided facet arthropathy pres ent most pronounced at C3-C4. Mild left-sided facet arthropathy present. Right-sided neural frontal stenosis present at C 3-C4, C4-C5, C5-C6. Left-sided neural foraminal stenosis present at C5-C6. IMPRESSION: No cervical spine fracture is identified. Grade 1 degenerative anterolisthesis at C3-C4, C 4-C5. Multilevel degenerative disc disease, uncovertebral joint hypertrophy, disc- osteophyte complex bulge, and facet joint arthropathy with central canal and neural foraminal stenosis as described. Blood within the right maxillary sinus. Chest 1view DX EXAM: XR CHEST 1 [facility]: 02/15/2017 11:[address] INDICATION: Fall. COMPARISON: Same day, outside chest radiograph a t 0916 hours. TECHNIQUE: AP chest. FINDINGS: Lines, tubes and hardware: None. Lungs and pleura: Linear ate lectasis of the left midlung. No focal consolidation, pleural effusion, or pneumothorax is clearly identified on this semierect portable radiograph. Mild diffuse interstitial prominence is again seen, nonspecific. Heart and mediastinum: The c ardiomediastinal silhouette is accentuated by AP portable technique. The thoracic aorta is tortuous. There are mild atherosclerotic calcifications of the aortic arch. Bones: No acute skeletal abn ormality is identified. There is evidence of prior vertebral body augmentation about the lower thoracic spine. IMPRESSION: No acute cardiopulmonary abnormality is identifi ed. Consultation Notes No Data Provided for This Section Discharge Summaries No Data Provided for This Section History and Physicals No Data Provided for This Section Vital Signs Vital Sign Value Date Comments Source Systolic (mm Hg) 147 02/17/2017 [facility] [place] Diastolic (mm Hg) 88 02/17/2017 [facility] Respitory Rate 20 02/17/2017 [facility] Heart Rate 105 02/17/2017 [facility] Systolic (mm Hg) 144 02/17/2017 [facility] Diastolic (mm Hg) 91 02/17/2017 [facility] Heart Rate 98 02/17/2017 [facility] [place] Respitory Rate 18 02/17/2017 [facility] Systolic (mm Hg) 146 02/17/2017 [facility] Center Diastolic (mm Hg) 84 02/17/2017 [facility] Respitory Rate 18 02/17/2017 [facility] Heart Rate 111 02/17/2017 [facility] Temperature Oral (F) 98.4 F 02/17/2017 [facility] Temperature Oral (F) 97.7 F 02/17/2017 [facility] Weight 77.273 02/15/2017 [facility] BMI Calculated 30.18 02/15/2017 [facility] Height 160.02 cm 02/15/2017 [facility] Temperature Oral (F) 98.0 F 02/15/2017 [facility] Weight 77.273 02/15/2017 [facility] BMI Calculated 28.35 02/15/2017 [facility] Height 165.1 cm 02/15/2017 [facility] Encounters Location Location Encounter Encounter Reason Attending ADM DC Stat us Source Details Type Number For Provider Date Date Visit [facility] [id number] Familia 02/15 02/17 [facility] Outpatient [id number] TRAUMA 03/01 [facility] 0 [facility] Out[facility] Diag [id number] Juan 03/01 03/02 [facility] [id number] TRAUMA 03/22 [facility] Out[facility] Diag [id number] Familia 03/22 03/23 [facility] Procedures Procedure Code Date Perfomer Comments Source Cholecystostomy [id number] 06/11/2006 [facility] Tonsillectomy [id number] 06/11/1946 [facility] Assessment and Plan No Data Provided for This Section Plan of Care No Data Provided for This Section Social History Social History Date Source Social History TypeResponse 03/22/2017 [facility] Smoking Status Never smoker; Exposure to Tobacco Smoke None; Cigarette Smoking Last 365 Days No; Reg Smoking Cessation Counseling No Social History TypeResponse 02/15/2017 [facility] Smoking Status Never smoker; Exposure to Tobacco Smoke None; Cigarette Smoking Last 365 Days No; Reg Smoking Cessation Counseling No Family History No Data Provided for This Section Advance Directives No Data Provided for This Section Functional Status No Data Provided for This Section
--- OUTSIDE RECORDS SUMMARY | 2020-04-26 16:57 | XMS REPORT | Continuity of Care Document ---
:1930 Author Organization [facility] t Address [address] [place] [address] Care Team Providers Name Role Phone SAMANTHA Primary Care Physician Unavailable Claudia Celaya Attending Clinician Cy Valenzuela Attending Clinician Kenneth Attending Clinician SAMANTHA Attending Clinician Unavailable Claudia Celaya Admitting Clinician SAMANTHA Admitting Clinician Unavailable Problems Condition Condition Condition Status Onset Resolution Last Treating Co mments Source Name Details Category Date Date Treatment Clinician Date S06.5X9A - Diagnosis Active 2017-03-01 Memoria TRAUM 02-28 10:36:00 l SUBDR HEM S06.5X9A 00:01: Her simpson W LOC OF - TRAUM 00 UNSP SUBDR HEM W LOC OF UNSP Active 02/28/2017 [facility] TRAUMATIC Diagnosis Active 2017-02-15 Memoria SAH 02-15 10:54:00 l 00:00: Success TRAUMATIC 00 SAH Active 02/15/2017 [facility] SUBDURAL Diagnosis Active 2017-02-23 M emoria HEMATOMA 02-15 14:13:00 l SUBDURAL 00:00: Reinaldo n HEMATOMA 00 Active 02/15/2017 [facility] ARCELIA Diagnosis Active 2017-02-15 Memoria BILLING 02-15 11:00:00 l ONLY LFLT 00:00: Success #4420 ARCELIA 00 BILLING ONLY LFLT #4420 Active 02/15/2017 [facility] Cat bite Cat bite Disease [facility] Atrial Problem Resolve 2017-03-25 Erik ioana fibrillati d 00:46:38 l on Atrial Sharif (disorder) fibrillati on (disorder) Resolved Problem 03/25/2017 [facility] Congestive Problem Resolve 2017-03-25 Memoria heart d 00:46:38 l failure Sharif (disorder) Congestive heart failure (disorder) Resolved Problem 03/25/2017 [facility] OPID Sharif Cerebrovas Problem Resolve 2017-03-25 Memoria cular d 00:46:38 l accident Sharif (disorder) Cerebrovas cular accident (disorder) Resolved Problem 03/25/2017 [facility] Success Gout Problem Resolve 2017-03-25 Erik ioana (disorder) d 00:46:38 l Gout Sharif (disorder) Resolved Problem 03/25/2017 [facility] Hyperlipid Problem Resolve 2017-03-25 Memoria emia d 00:46:38 l (disorder) Reinaldo n Hyperlipid emia (disorder) Resolved Problem 03/25/2017 [facility] Hypertensi Problem Resolve 2017-03-25 Memoria ve d 00:46:38 l disorder, Sharif systemic Hypertensi arterial ve (disorder) disorder, systemic arterial (disorder) Resolved Problem 03/25/2017 [facility] OPID Sharif Simple Problem Active 2017-03-25 Memor ia obesity 00:46:38 l (disorder) Simple Herm william obesity (disorder) Active Problem 03/25/2017 [facility] NONTRAUMAT Diagnosis Active 2017-02-23 Memoria IC 14:13:00 l SUBDURAL Success HEMORRHAGE NONTRAUMAT , UNSPEC IC SUBDURAL HEMORRHAGE , UNSPEC Active [facility] Allergies, Adverse Reactions, Alerts Allergy Allergy Status Severity Reaction(s) Onset Inactive Treating Comm ents Source Name Type Date Date Clinician Codeine Propensi Active [facility] adverse 00:[facility]: Medical reaction 00 [place] Codeine Codeine Active Memoria Sulfate Sulfate l Sharif eucalypt eucalypt Active Memori a us l topical topical Sharif Family History Family Member Diagnosis Comments Start Date Stop Date Source Natural daughter Asthma [facility] Social History Social Habit Start Date Stop Date Quantity Comments Source Sex Assigned At [facility] Alcohol intake 2016-03-01 2016-03-01 [facility]:00 non-drinker of Medical Ce nter alcohol (finding) Smoking Status Start Date Stop Date Source Social History [facility] Medications Ordered Filled Start Stop Current Ordering Indication Dosage Frequency Signature Comments Components Source Medication Medication Date Date Medication? Clinician (SIG) Name Name Simvastatin No Notes: Erik ioana 02-18 (Same as: l 02:00: Zocor) Levetiracet Yes 500 mg = 1 Memoria am 500 MG 02-17 tab, PO, l Oral Tablet 16:11: BID, # 12 H ermann [Keppra] 00 tab, 0 Refill(s) Thyroxine No Notes: Memori a 02-17 Take 1 l 14:00: hour 00 before or 2 hours after meal; Enteral feeds may interefere with the absorption of this medication . (Same as:Levothr oid) Furosemide No Notes: Memor ia 20 MG Oral 02-17 (Same as: l Tablet 14:00: Lasix) May cause GI upset. Give with food or milk. gabapentin No Notes: Memor ia 300 MG Oral 02-17 (Same as: l Capsule 14:00: Neurontin) potassium No 20 mEq, 1 Mem oria chloride 20 02-17 tab, l mEq oral 13:23: Route: PO, Her simpson tablet, 00 ONCE, extended Dosing release Weight 77.273, kg, Start date: 02/17/17 8:23:00 CDT, Stop date: 02/17/17 8:23:00 CDT Cipro No Notes: May Memori a 02-17 interfere l 05:50: w/enteral feedings - Take 1 hr before or 2 hrs after antacids, dairy pdt & minerals. On empty stomach. Melatonin No Notes: Memori a 02-17 (Same as: l 05:44: Melatonin) Albuterol No Notes: Memori a 0.833 MG/ML 02-17 (Same as: l / 05:44: Duoneb) Ipratropium 00 [place] 0.167 MG/ML Inhalant Solution [DuoNeb] Metoprolol No Notes: Memor ia 02-17 (Same as: l 05:43: Lopressor) Push over 2 minutes heparin No Notes: Memoria 02-16 porcine l 21:00: heparin Simethicone No Notes: Erik ioana 02-16 (Same as: l 14:22: Mylicon) Zofran No Notes: Memoria 02-16 (Same as: l 14:10: Zofran) MEDICATION WASTE Product Size: 4 mg Product Wasted: ___ mg metoprolol No Notes: Memor ia tartrate 02-16 (Same as: l 11:59: Lopressor) rivaroxaban No 15 mg = 1 M emoria 15 MG Oral 08 tab, PO, l Tablet 03:39: Daily, # Sharif [Xarelto] 00 90 tab, 3 Refill(s) simvastatin Yes 20 mg = 1 M emoria 20 mg oral -08 tab, PO, l tablet 03:39: Bedtime, # Amy nn 00 30 tab, 1 Refill(s) Colchicine No 0.6 mg = 1 M emoria 0.6 MG Oral 08 cap, PO, l Capsule 03:39: Daily, PRN Herm william 00 pain, 0 Refill(s) levothyroxi Yes 137 Memori a ne 137 mcg 02-16 microgram l (0.137 mg) 03:39: = 1 tab, Her simpson oral tablet 00 PO, Daily, # 90 tab, 0 Refill(s) gabapentin Yes 300 mg = 1 M emoria 300 MG Oral 08 cap, PO, l Capsule 03:39: TID, # 90 Amy nn 00 cap, 1 Refill(s) Furosemide Yes 20 mg = 1 Me moria 20 MG Oral -08 tab, PO, l Tablet 03:39: BID, # 90 Reinaldo n 00 tab, 0 Refill(s) metoprolol Yes 100 mg = 1 M emoria 100 mg oral 02-16 tab, PO, l tablet, 03:39: Daily, # Reinaldo n extended 00 30 tab, 0 release Refill(s) Levetiracet No Notes: Erik ioana am 500 MG 02-16 (Same l Oral Tablet 02:00: as:Keppra) Sharif [Keppra] 00 Saline No Notes: Memoria Flush 0.9% 02-16 (Same as: l 02:00: BD Sharif 00 Posiflush) Labetalol No 10 mg, 2 Erik ioana 02-16 mL, Route: l 01:03: IVP, Drug form: INJ, Q10Min, Dosing Weight 77.273, kg, PRN Other -See Comment, Start date: 02/15/17 20:03:00 CDT, Duration: 30 day, Stop date: 03/17/17 20:02:00 CDT Hydralazine No Notes: Erik ioana 02-16 (Same as: l 01:02: Apresoline ) Push over 5 minutes Vitamin K1 No Notes: Memor ia + sodium 02-16 (Same as: l chloride 00:59: Aqua-Mephy Her simpson 0.9% INJ 50 00 ton, mL Vitamin K) MEDICATION WASTE Product Size: 10 mg Product Wasted: ___ mg Docusate No Notes: Memoria 02-15 (Same as: l 22:04: Colace) Tylenol No Notes: Do Memor ia 02-15 not exceed l 21:31: 4 gm/day. Sharif (Same as: Tylenol) Tylenol No Notes: Max Erik ioana 02-15 acetaminop l 21:30: hen 4000 Success 00 mg/day (4 gm/day). (Same as: Tylenol Extra Strength) Calcium No Notes: Memoria Carbonate 02-15 (Same As: l 500 MG 21:09: Tums) Sharif Chewable 00 Calcium Tablet Carbonate 500 mg = 200 mg elemental calcium Dose = mg calcium carbonate ( mg elemental calcium) Calcium No Notes: Memoria Gluconate 02-15 WASTE: F/P l 21:09: - Sink; E Sharif - Municipal Trash Bin Magnesium No Notes: Memori a Oxide 02-15 (Same as: l 21:09: Mag-Ox Sharif 00 400) Magnesium oxide 550eg=915d g elemental magnesium Dose=____m g magnesium oxide (___mg elemental magnesium) sodium No 45 mmol, Memoria phosphate 02-15 15 mL, l 21:09: Route: Success 00 IVPB, PRN, Dosing Weight 77.273, kg, PRN Abnormal Lab Result, Start date: 02/15/17 16:09:00 CDT, Duration: 30 day, Stop date: 03/17/17 16:08:00 CDT, FOR ICU USE ONLY potassium No Notes: Memori a phosphate 02-15 (Same as: l 21:09: K Sharif 00 Phosphate. ) 1 mMol phoshate has 1.47 mEq potassium Infuse over 4 hours Magnesium No Notes: Memori a Sulfate 02-15 WASTE: F/P l 21:09: - Sink; E Sharif - Municipal Trash Bin potassium No Notes: Memori a phosphate-s 02-15 (Same as: l odium 21:09: Phos-NaK) Sharif phosphate 00 Each 1.5 250 mg-280 gm pkt has mg-160 mg 250mg oral powder phosphorou for s. Mix reconstitut w/2.5oz ion water and stir. Potassium No Notes: Memori a Chloride 02-15 (Same as: l 21:09: KCL) Sharif 00 Infuse over 2 hours. chlorhexidi No Notes: Erik ioana ne 02-15 (Same As: l gluconate 21:00: Peridex) Herm william 1.2 MG/ML 00 Mouthwash Insulin No 60 Memoria regular 02-15 units) l 18:27: WASTE: F/P Success 00 - Black; E - Municipal Trash Bin Stable for 28 days at room temperatur e Expires in days from ____Date Saline No Notes: Memoria Flush 0.9% 02-15 (Same as: l 18:27: BD Success Posiflush) sodium No 1,000 mL, Memori a chloride 02-15 Rate: 75 l 0.9% 1000 18:27: ml/hr, Reinaldo n ml INJ 00 Infuse 1,000 mL over: 13.3 hr, Route: IV, Dosing Weight 77.273 kg, Total Volume: 1,000, Start date: 02/15/17 13:27:00 CDT, Duration: 30 day, Stop date: 03/17/17 13:26:00 CDT Levetiracet No Notes: Erik ioana am 1000 MG 02-15 (Same l Oral Tablet 17:56: as:Keppra) Sharif [Kepp] metoprolol No 25 mg, Memor ia tartrate 02-15 Route: PO, l 17:26: Drug form: Sharif 00 TAB, ONCE, Dosing Weight 77.273, kg, Priority: STAT, Start date: 02/15/17 12:26:00 CDT, Stop date: 02/15/17 12:26:00 CDT Ondansetron No 4 mg, Memor ia 02-15 Route: l 17:25: IVP, Drug form: INJ, ONCE, Dosing Weight 77.273, kg, Priority: STAT, Start date: 02/15/17 12:25:00 CDT, Stop date: 02/15/17 12:25:00 CDT Fentanyl No 50 Memoria 02-15 microgram, l 17:25: Route: Success 00 IVP, ONCE, Dosing Weight 77.273, kg, Priority: STAT, Start date: 02/15/17 12:25:00 CDT, Stop date: 02/15/17 12:25:00 CDT Factor No Notes: Memoria 02-15 Same as: l Prothrombin 17:24: Kcentra Her simpson Complex 00 WASTE: F/P Concentrate - Red; E 2,707 unit -Red + IV bag 1 Maximum ea dose = 5000 units; Round down dose to the nearest vial size Hematolog y clinical pharmacist consult required Factor No Notes: Memoria 02-15 Same as: l Prothrombin 17:22: Kcentra Her simpson Complex 00 WASTE: F/P Concentrate - Red; E 2,700 unit -Red + IV bag 1 Maximum ea dose = 5000 units; Round down dose to the nearest vial size Hematolog y clinical pharmacist consult required Potassium No 40 mEq, Memor ia Chloride 02-15 Route: PO, l 17:09: Drug form: LIQ, ONCE, Dosing Weight 77.273, kg, Priority: STAT, Start date: 02/15/17 12:09:00 CDT, Stop date: 02/15/17 12:09:00 CDT Factor No Notes: Memoria 02-15 Same as: l Prothrombin 16:07: Kcentra Her simpson Complex 00 WASTE: F/P Concentrate - Red; E 2,700 unit -Red + IV bag 1 Maximum ea dose = 5000 units; Round down dose to the nearest vial size Hematolog y clinical pharmacist consult required Saline No Notes: Memoria Flush 0.9% 02-15 (Same as: l 16:05: BD Sharif Posiflush) gabapentin Yes 300mg Q.5D Take [address] (NEURONTIN) 9-26 [facility] by [facility] - 300 MG 15:31: mouth 2 Medical capsule 54 (two) Center times daily. metoprolol Yes 100mg QD Take [address] (LOPRESSOR) 9-26 mg by [facility] - 100 MG 15:31: mouth Medical tablet 54 daily. Center simvastatin Yes 20mg QD Take [address] [facility] (ZOCOR) 20 9-26 by mouth [facility] - MG tablet 15:31: nightly. Medi myles 54 Center furosemide 0 Yes 40mg QD Take [address] (LASIX) 40 9-26 by mouth [facility] - MG tablet 15:31: daily. Medica l 54 Center rivaroxaban Yes 15mg Take [address] [facility] (XARELTO) 9-26 by mouth [facility] - 15 mg Tab 15:31: daily with Me dical tablet 54 dinner. Center Immunizations Ordered Immunization Filled Immunization Date Status Commen ts Source Name Name Tdap 2016-03-[address] [facility] Vital Signs Vital Name Observation Time Observation Value Comments Source Systolic (mm Hg) 2017-02-17 17:00:00 Erik rial Success Diastolic (mm Hg) 2017-02-17 17:00:00 Mem orial Sharif Respitory Rate 2017-02-17 17:00:00 Memori al [facility] Heart Rate 2017-02-17 17:00:00 [facility] Sharif Systolic (mm Hg) 2017-02-17 12:00:00 Erik rial Sharif Diastolic (mm Hg) 2017-02-17 12:00:00 Mem orial Success Heart Rate 2017-02-17 12:00:00 [facility] Respitory Rate 2017-02-17 12:00:00 Memori al Sharif Systolic (mm Hg) 2017-02-17 11:28:00 Erik rial Success Diastolic (mm Hg) 2017-02-17 11:28:00 Mem orial Sharif Respitory Rate 2017-02-17 11:28:00 Memori al Success Heart Rate 2017-02-17 11:28:00 [facility] Temperature Oral (F) 2017-02-17 03:36:00 98.4 F [facility] Temperature Oral (F) 2017-02-17 01:00:00 97.7 F [facility] Sharif Weight 2017-02-15 21:11:00 [facility] Sharif BMI Calculated 2017-02-15 21:11:00 Memori al Success Height 2017-02-15 21:11:00 160.02 cm [facility] Sharif Temperature Oral (F) 2017-02-15 20:32:00 98.0 F [facility] Sharif Weight 2017-02-15 16:10:00 [facility] Sharif BMI Calculated 2017-02-15 16:10:00 Memori al Sharif Height 2017-02-15 16:10:00 165.1 cm [facility] Procedures Procedure Date / Time Performed Performing Clinician Viridiana riggins Cholecystostomy 2006-06-11 00:00:00 Karon simpson Tonsillectomy 1946-06[birth year]11 00:00:00 Karon simpson Encounters Start End Encounter Admission Attending Care Care Encounter Source Date/Time Date/Time Type Type Clinicians Facility Department ID 2017-03-22 2017-03-22 Outpatient Yomi SILVIA [facility] [id number] 13:13:00 23:59:00 Familia Taylor 2017-03-01 2017-03-01 [id number] 10:26:00 23:59:00 Juan Benoit 2017-02-15 2017-02-17 Outpatient Kenneth [facility] [id number] 10:56:00 13:10:00 Alexandra 67 Results Test Description Test Time Test Comments Results Result Comments Source CHEM PANEL 2017-02-17 2.6 [facility] Amy nn 07:47:00 CHEM PANEL 2017-02-17 2.0 [facility] Amy nn 07:47:00 ELECTROLYTES 2017-02-17 12.3 Memorial Her simpson 07:47:00 ELECTROLYTES 2017-02-17 75 [facility] Her simpson 07:47:00 ELECTROLYTES 2017-02-17 28 [facility] Her simpson 07:47:00 ELECTROLYTES 2017-02-17 107 [facility] Her simpson 07:47:00 ELECTROLYTES 2017-02-17 9.3 [facility] Her simpson 07:47:00 ELECTROLYTES 2017-02-17 4.3 [facility] Her simpson 07:47:00 ELECTROLYTES 2017-02-17 143 [facility] Her simpson 07:47:00 ELECTROLYTES 2017-02-17 0.74 [facility] Her simpson 07:47:00 ELECTROLYTES 2017-02-17 10 [facility] Her simpson 07:47:00 ELECTROLYTES 2017-02-17 129 [facility] Her simpson 07:47:00 HEMATOLOGY 2017-02-17 16.1 [facility] Amy nn 07:47:00 HEMATOLOGY 2017-02-17 186 [facility] Amy nn 07:47:00 HEMATOLOGY 2017-02-17 33.3 [facility] Amy nn 07:47:00 HEMATOLOGY 2017-02-17 4.66 [facility] Amy nn 07:47:00 HEMATOLOGY 2017-02-17 38.1 [facility] Amy nn 07:47:00 HEMATOLOGY 2017-02-17 12.7 Memorial Amy nn 07:47:00 HEMATOLOGY 2017-02-17 07:47:00 Test Item Value Reference Range Interpretation Comme nts MCH (test code = MCH) 27.3 pg 27.0-31.0 Memorial MdqcxebRAEBTZGAWM9746-29-18 07:47:0081.7[facility] HermannHEMATOLOGY 2017-02-17 07:47:0010.3[facility] OvzxqojVDIDWHUBSJ9039-44-46 07:47:0010.0[facility] AiizdbeSACLKQIKTW4933-00-24 07:47:0077.7[facility] FxjaignEWZKMDEQBV5756-92-93 07:47:0014.4[facility] OigqmboFVWKWBEPDT6635-02-42 07:47:003.7[facility] IAJZKJADTO3052-37-88 07:47:001.4[facility] ItwtyxvXKLYPXXUAS4073-99-55 07:47:000.4 [facility] NdgrzhvWFBWKFFGHM7224-24-41 07:47:000.4[facility] HermannHEMATOLOGY 2017-02-17 07:47:003.8[facility] JxakfydLZCDBWNMUR8872-49-07 07:47:007.8[facility] UjrrgdjLQPOHUGFIS8088-47-85 07:47:000.4[facility] HermannPARATHYROID PROFILE 2017-02-17 07:47:001.11[facility] HermannPARATHYROID QJFKTVR1253-03-24 07:47:00 1.16[facility] HermannCARDIAC SGLYGUR9439-78-97 16:33:00<0.010[facility] Sharif CARDIAC XKNUXTE8611-52-08 16:33:00<0.02[facility] HermannCARDIAC ENZYMES 2017-02-16 16:33:0047[facility] HermannCARDIAC ZSAKXCM5109-18-56 12:49:0051 [facility] HermannCARDIAC BYROPNB8106-44-08 12:49:00<0.02[facility] Sharif CARDIAC XWFTWRM5151-70-63 12:49:00<0.010[facility] HermannCHEM RAMEZ7401-10-14 12:49:001.1[facility] ZbfvxqrLQNIMLUEDL9536-66-83 12:49:002.92[facility] Sharif EMCQBCQYOA2342-53-55 12:49:00 Test Item Value Reference Range Interpretation Comments PTT (test code = PTT) 31.7 s 22.9-35.8 Memorial EtitseyBPASRZTESX3086-79-05 12:49:001.23[facility] HermannHEMATOLOGY 2017-02-16 12:49:00 Test Item Value Reference Range Interpretation Comments PT (test code = PT) 15.8 s 12.0-14.7 [facility] HermannCHEM YTDKZ3180-54-37 06:25:002.9[facility] HermannCHEM PANEL 2017-02-16 06:25:0073[facility] HermannCHEM HVOIP0419-24-90 06:25:71949Yqcsopdw HermannCHEM HVUEM2009-72-47 06:25:003.4[facility] HermannCHEM YRORP6236-91-66 06:25:0031[facility] HermannCHEM KRXUN8530-46-57 06:25:008.5[facility] HermannCHEM ZGGDU1016-19-75 06:25:40705Htkuilon HermannCHEM WALSL7340-24-37 06:25:67137 [facility] HermannCHEM XMLGN1311-97-91 06:25:000.75[facility] HermannCHEM PANEL 2017-02-16 06:25:0015[facility] HermannCHEM TXOEB3174-69-61 06:25:009.4[facility] HermannCHEM QTIWU6718-16-62 06:25:001.9[facility] DagpeizTYNESOQWVA9642-04-44 06:25:0061.1[facility] OgbfelqCAIJAYSKIQ4332-12-27 06:25:004.8[facility] WLTCJHRVTZ9500-90-47 06:25:0028.4[facility] WofxrotOGWTVVHUTG8558-77-47 06:25:00 5.2[facility] QcnkyflSRUJEOHHJE1356-65-32 06:25:000.5[facility] HermannHEMATOLOGY 2017-02-16 06:25:002.8[facility] DvjyyxqQSSBRYDSER1013-86-41 06:25:000.2[facility] DpxrgtcZCYDVVRFWX6731-39-99 06:25:001.3[facility] FzrzfmfBXYDUGFIBL6620-41-99 06:25:000.2[facility] FybpteaXXZQMCLBBQ2091-55-98 06:25:004.5[facility] BVKQBISNVL4910-64-96 06:25:0082.1[facility] AzdrmazIXTIIBEBXQ8046-60-67 06:25:00 33.8[facility] RebfnrzZIYDGSBLCC7916-79-43 06:25:0011.1[facility] HermannHEMATOLOGY 2017-02-16 06:25:004.11[facility] MrywjfmKYFRVFBPBQ0384-89-02 06:25:0015.9[facility] NntbuxoXUJCVQOBWD5023-52-30 06:25:0032.8[facility] UkwpprlHPBGYTIVJL4055-63-02 06:25:00 Test Item Value Reference Range Interpretation Comments MCH (test code = MCH) 26.9 pg 27.0-31.0 [facility] LpimxltNRYYZUSGAQ0190-27-96 06:25:009.5[facility] HermannHEMATOLOGY 2017-02-16 06:25:66974Lnjyawxs HermannCHEM ZNBJY5342-40-54 02:51:001.8[facility] MasgzcgQJQSBCMBIJDY8480-60-15 02:51:003.2[facility] CtsnmufBRFVKNOKUJ1009-42-37 02:51:001.70[facility] YwhblyeEFHHDBNAIO7525-33-06 23:54:23100Zsfaulrt Success PFUTQEDCZB1407-43-72 23:54:00 Test Item Value Reference Range Interpretation Comments PT (test code = PT) 19.2 s 12.0-14.7 [facility] OyqdercZFKSLUMTBB3874-51-99 23:54:001.58[facility] HermannHEMATOLOGY 2017-02-15 23:54:00 Test Item Value Reference Range Interpretation Comments PTT (test code = PTT) 34.9 s 22.9-35.8 [facility] HermannBACTERIAL - WIEPLDAN6636-14-07 21:59:00Negative (02/15/17 4:59 PM) [facility]annDRUG TCYCMZ3618-61-18 21:59:00See Note *NA*(02/15/17 4:59 PM) [facility]annDR[facility] ZEHFDO6231-87-47 21:59:00Negative *NA*(02/15/17 4:59 PM) [facility] TUMRBZ1189-65-27 21:59:00Negative *NA*(02/15/17 4:59 PM) [facility] FHQJZG7257-22-93 21:59:00Negative *NA*(02/15/17 4:59 PM) [facility] SXLQJJ0905-03-18 21:59:00Negative *NA*(02/15/17 4:59 PM) [facility] URZIWI2774-34-31 21:59:00Negative *NA*(02/15/17 4:59 PM) [facility] JMJTDM1400-07-96 21:59:00Negative *NA*(02/15/17 4:59 PM) [facility]annDR[facility] BHGREI0265-17-52 21:59:00Negative *NA*(02/15/17 4:59 PM) [facility]annUR[facility] AND WJMHU5201-61-95 21:59:005.5[facility]annUR[facility] AND ZHOYI7524-23-38 21:59:00Marked *ABN*(02/15/17 4:59 PM)[facility] AND YDJGH7742-76-72 21:59:001.020[facility]annUR[facility] AND LEKOI3016-99-18 21:59:00 Yellow *NA*(02/15/17 4:59 PM)[facility] AND YIVHX9116-11-75 21:59:004 [facility] AND HEMCA4281-85-74 21:59:00Small *ABN*(02/15/17 4:59 PM) [facility] RVKNG1418-98-99 21:59:00Large *ABN*(02/15/17 4:59 PM) [facility] TRLGD6193-35-42 21:59:0058[facility] AND OXJZT8897-07-55 21:59:00Negative *NA*(02/15/17 4:59 PM)[facility] AND GLVZR6243-53-43 21:59:00Negative (02/15/17 4:59 PM)[facility] HermannHEMATOLOGY 2017-02-15 18:40:00 Test Item Value Reference Range Interpretation Comments PTT (test code = PTT) 38.5 s 22.9-35.8 [facility] FcqualkNCTHRYRGWS6702-74-43 18:40:001.71[facility] HermannHEMATOLOGY 2017-02-15 18:40:00 Test Item Value Reference Range Interpretation Comments PT (test code = PT) 20.4 s 12.0-14.7 [facility] MUXIBSL0408[facility]43-08 16:10:00Negative (02/15/17 11:10 AM) [facility] HermannCHEM IDWRZ2634-84-45 16:10:0055[facility] HermannCHEM PANEL 2017-02-15 16:10:0030[facility] HermannCHEM TFGQB4290-21-11 16:10:009.2[facility] HermannCHEM PHGHZ8008-26-57 16:10:0012.9[facility] HermannCHEM ADVNQ3194-91-89 16:10:000.95[facility] HermannCHEM RDIBH3396-21-72 16:10:69864Lnqbggvf HermannCHEM DVBXT6696-56-80 16:10:89630[place] HermannCHEM LUGKY7965-92-95 16:10:05247 [facility] HermannCHEM YNYYC1675-61-74 16:10:0016[facility] HermannCHEM PANEL 2017-02-15 16:10:001.0[facility] PhhghqsEGNOLAZILF0981-56-52 16:10:005.6[facility] YaujarkQFCUDLBJCG1769-04-81 16:10:001.4[facility] TlmtxwuZBWCISKDRP2051-03-75 16:10:000.2[facility] JzdwmreGLQGFTKUEN9385-18-22 16:10:000.2[facility] ENBHLVQXKD8032-04-71 16:10:000.3[facility] TfiobemGJICJEGERM7234-00-39 16:10:002.6 [facility] XjunkpbQWGYDZWPUV5785-75-65 16:10:0018.7[facility] HermannHEMATOLOGY 2017-02-15 16:10:0075.3[facility] DjdsdysVPRUSGATGW3100-85-70 16:10:003.1[facility] EtordpiZWLDSEXAIS7742-25-52 16:10:0012.4[facility] VomisbiZSPNYDFAGU1796-71-85 16:10:000.0[facility] SfbksbiARMYNQAEMR0675-16-22 16:10:00 Test Item Value Reference Range Interpretation Comments Max Amplitude Rapid (test code = Max 71 mm 52-71 Amplitude Rapid) [facility] BrrrdubOMPBONIERJ2296-64-23 16:10:00 Test Item Value Reference Range Interpretation Comments Angle Rapid (test code = Angle 80 degrees 64-80 Rapid) [facility]EtgdjkvNRYELOQNCV7261-91-61 16:10:00 Test Item Value Reference Range Interpretation Comments K-time Rapid (test code = K-time 0.8 min 0.6-2.3 Rapid) [facility] HospitalSnnfafiXOVBIFEZJT8348-19-21 16:10:00 Test Item Value Reference Range Interpretation Comments Split Point Rapid (test code = Split 0.6 min Point Rapid) [facility] HospitalMwheziqTHTRJWQPMQ3017-60-09 16:10:00 Test Item Value Reference Range Interpretation Comments R-time Rapid (test code = R-time 0.7 min 0.4-0.7 Rapid) [facility] HospitalThtehlrTVHNIUGOAZ6123-25-87 16:10:00 Test Item Value Reference Range Interpretation Comments ACT (TEG) Rapid (test code = ACT (TEG) 113 s 86-118 Rapid) [facility]vineZzgtuqxVMUSHBMLVP9560-25-09 16:10:0032.1[facility] 16:10:0016.3[facility] LhvuekjHXRFPLTONG1153-21-52 16:10:68948Agenhkhc PndjqyqIZRQAHDBIE8234-22-27 16:10:009.3[facility] XfuvahiYCXZPZPGKO2975-85-93 16:10:004.62[facility] VivwqsqVCVRQRZCIG8387-71-39 16:10:0012.1[facility] GZVYEMJCLW5652-60-68 16:10:0037.6[facility] YwwvumlAAURLZCYHI6071-57-46 16:10:00 7.4[facility] ZuibjegKEMVREVIMZ9135-33-29 16:10:0081.5[facility] 2017-02-15 16:10:00 Test Item Value Reference Range Interpretation Comments MCH (test code = MCH) 26.1 pg 27.0-31.0 [facility]vineAjknstpNRQWRMNWLS6916-10-09 16:10:00<0.003[facility]annTOXICOLOGY 2017-02-15 16:10:00<3[facility]annBasic Metabolic Jiavt0810-85-00 20:44:00 Test Item Value Reference Range Interpretation Comments Sodium (test code = 144 mmol/L 135-145 N NA) Potassium (test 3.8 mmol/L 3.5-5.1 N code = K) Chloride (test code 103 mmol/L 98-105 N = CL) Carbon Dioxide 28 mmol/L 22-29 N (test code = CO2) Glucose (test code 110 mg/dL 70-115 N = GLU) Blood Urea Nitrogen 19 mg/dL 8-23 N (test code = BUN) Creatinine (test 1.2 mg/dL 0.5-0.9 H code = CREAT) Calcium (test code 9.4 mg/dL 8.3-10.5 N = CA) BUN/Creatinine 15.8 Ratio (test code = BCRATIO) Anion Gap (test 13 mmol/L 7-16 N code = AGAP) Estimated GFR (test 45 eGFR (es timated code = GFR) mL/min/1.73m2 Glomerular Jose Antonio tration Rate) is an est imated value,calculate d from the patient's s sarah creatinine usin g the MDRD equation.I t is NOT the patient 's actual GFR. The eGFR provides a more clinicallyusefu l measure of kidn ey disease than se rum creatinine alone.This calculation dougie es sex and race into account, if the informationis provided. If th e race is not provided , and the patient isAfrican-Ameri can, multiply by 1.2 12. If sex is not prov ided, and thepatient is female, multipl y by 0.742. Results for patients <18 ye ars ofage have not been validated by th e MDRD study and shoul d be interpretedwith caution.eGFR Re sult Interpretation: eGFR > or = 60 is in t he Normal RangeeGF R < 60 may mean kidney diseaseeGFR < 1 5 may mean kidney failureRange s recommended by the National Kidney Foundation,http ://nkd ep.nih.gov [id number] 20:38:00 Test Item Value Reference Range Interpretation Comments NT ProBnp (test code = PBNP) 775 pg/mL 0-449 H
[2020-04-26] MEDS ORDERED: ACETAMINOPHEN 500 MG TAB ONE (17:39)
[2020-04-26] MEDS ORDERED: METHYLPREDNISOLONE 125 MG INJ ONE (17:39)
[2020-04-26] MEDS ORDERED: NA CHLORIDE 0.9% 500 ML ONE (17:39)
[2020-04-26 17:50] LABS: Absolute Lymphocytes (CBC) 0.9 K/uL (0.7-4.9); Basophils % 0.5 % (0-1.3); Hematocrit 42.5 % (36.0-45.0); MPV 9.2 fL (7.6-11.3); RBC Red Blood Cell Count 5.01 M/uL (3.86-4.86)
[2020-04-26 18:01] LABS: Protime INR 1.58
[2020-04-26 18:13] LABS: Potassium 3.5 mmol/L (3.5-5.1); Troponin (Emerg Dept Use Only) 0.03 ng/mL (0.0-0.045)
--- NOTE | 2020-04-26 18:24 | RAD REPORT ---
EXAM DESCRIPTION: RAD - Chest Single View - 04/26/2020 5:41 pm CLINICAL HISTORY: Cough;COPD Chest pain. COMPARISON: Chest Pa And Lat (2 Views) dated 09/10/2019; Chest Single View dated 09/09/2019; Chest Pa A nd Lat (2 Views) dated 03/09/2018; Chest Single View dated 03/07/2018 FINDINGS: Portable technique limits examination quality. Bilateral pulmonary interstitial opacities are seen with moderate to large right basilar and right mi d lung infiltrate likely representing multifocal pneumonia. The heart is moderately enlarged. No disp laced fractures. IMPRESSION: Multifocal pneumonia pattern is seen, greater on the right.
--- NOTE | 2020-04-26 18:32 | ER ---
Nurse's Notes [facility] Name: Rowan Pompa Age: 89 yrs Sex: Female : 1930 Arrival Date: 04/26/2020 Time: 16:52 Bed 17 Private MD: Diagnosis: Pneumonia, unspecified organism;Chronic obstructive pulmonary disease with acute lower respiratory infection;Hypoxemia Presentation: 04/26 16:52 Chief complaint: EMS states: called out for shortness of breath that started today, on em scene was 83% RA, gave A\T\[employer], reports fever of 101.2, 95% 3 L. Coronavirus screen: Client denies travel out of the [place] in the last 14 days. Ebola Screen: Patient negative for fever greater than or equal to 101.5 degrees Fahrenheit, and additional compatible Ebola Virus Disease symptoms Patient denies exposure to infectious person. Patient denies travel to an Ebola-affected area in the 21 days before illness onset. No symptoms or risks identified at this time. Initial Sepsis Screen: Does the patient meet any 2 criteria? Temp <36.0*C (96.8*F)) or > 38.3*C (100.9*F). HR > 90 bpm. Yes Does the patient have a suspected source of infection? Yes: Productive cough/pneumonia If YES to both, name of provider notified: Garcia Julian MD. Risk Assessment: Do you want to hurt yourself or someone else? Patient reports no desire to harm self or others. Onset of symptoms was April 26, 2020. 16:52 Method Of Arrival: Ambulatory em 16:52 Acuity: EUFEMIA 2 em Triage Assessment: 19:15 Respiratory: Onset: The symptoms/episode began/occurred just prior to arrival, the patient reports symptoms have resolved. Historical: - Allergies: 16:58 Codeine; em 16:58 EUCALYPTUS CONTAINING PRODUCTS; em - Home Meds: 18:17 allopurinol 100 mg Oral tab 1 tab 2 times per day [Active]; acetaminophen 325 mg Oral em tab 1 tab every 4-6 hours [Active]; furosemide 40 mg Oral tab 1 tab 2 times per day [Active]; gabapentin 300 mg Oral cap 1 cap twice a day [Active]; levothyroxine 137 mcg tab 1 tab once daily [Active]; simvastatin 20 mg Oral tab 1 tab once daily [Active]; Xarelto 15 mg Oral tab daily [Active]; metoprolol succinate 100 mg Oral Tb24 1 tab once daily [Active]; spironolactone 25 mg Oral tab 1 tab once daily [Active]; - PMHx: 16:58 Atrial Fib; CHF; COPD; CVA; Gout; Hyperlipidemia; Hypertension; em - PSHx: 16:58 Cholecystectomy; Knee surgery; Hysterectomy; Tonsillectomy; em - Immunization history:: Adult Immunizations up to date. - Social history:: Smoking status: unknown. - Family history:: not pertinent. - Hospitalizations: : No recent hospitalization is reported. Screenin:52 Abuse screen: Denies threats or abuse. Nutritional screening: No deficits noted. em Tuberculosis screening: No symptoms or risk factors identified. Fall Risk None identified. Assessment: 16:52 General: Appears uncomfortable, ill, slender, Behavior is calm, cooperative. Pain:. em Pain: Denies pain. Neuro: Level of Consciousness is awake, alert, obeys commands, Oriented to person, place, time, situation. Cardiovascular: Rhythm is atrial fibrillation with rapid ventricular response. Respiratory: Reports cough that is productive, Airway is patent Respiratory effort is even, unlabored, Respiratory pattern is regular, symmetrical, Sputum is blood streaked, Breath sounds with wheezes bilaterally. Derm: Skin is intact, is fragile, is thin, Skin is pink, warm \T\ dry. Musculoskeletal: Range of motion: intact in all extremities. 19:00 General: Appears in no apparent distress. Behavior is calm, cooperative, appropriate wh for age. Pain: Denies pain. Neuro: Level of Consciousness is awake, alert, obeys commands, Oriented to person, place, time, situation, Appropriate for age. Cardiovascular: Heart tones S1 S2 Rhythm is atrial fibrillation. Respiratory: Reports shortness of breath cough that is productive, Airway is patent Respiratory effort is even, unlabored, Respiratory pattern is regular, symmetrical, Breath sounds with wheezes. GI: Abdomen is flat, non-distended. : No signs and/or symptoms were reported regarding the genitourinary system. EENT: No signs and/or symptoms were reported regarding the EENT system. Derm: Skin is intact, Skin is pink, warm \T\ dry. Musculoskeletal: Circulation, motion, and sensation intact. 20:00 Reassessment: Patient appears in no apparent distress at this time. No changes from previously documented assessment. Patient and/or family updated on plan of care and expected duration. Pain level reassessed. Patient is alert, oriented x 3, equal unlabored respirations, skin warm/dry/pink. 21:00 Reassessment: Provider at bedside explaining POC need for admit. 22:00 Reassessment: Patient is alert/active/playful, equal unlabored respirations, skin wh warm/dry/pink. Pt still hypotensive, spoke with Hospitalist Iggy to continue to monitor Pt and if BP goes up we can down grade Pt to regular bed, will cont to monitor. 23:00 Reassessment: Patient appears in no apparent distress at this time. Patient and/or family updated on plan of care and expected duration. Pain level reassessed. Patient is alert, oriented x 3, equal unlabored respirations, skin warm/dry/pink. Notified Pt we are out of ICU bed and that she will be admitted ER ICU Hold due to low blood pressure, spoke with daughter at bedside regarding POC. 04/27 00:30 Reassessment: Patient appears in no apparent distress at this time. Patient and/or family updated on plan of care and expected duration. Pain level reassessed. Patient is alert, oriented x 3, equal unlabored respirations, skin warm/dry/pink. Pt admitted to ER HOLD. Vital Signs: 04/26 16:52 BP 140 / 56; Pulse 110; Resp 20; Temp 102.4(O); Pulse Ox 91% on 4 lpm NC; em 16:52 Weight 70.31 kg (R); Height 5 ft. 4 in. (162.56 cm); em 18:30 BP 106 / 46; Pulse 116; Resp 15; Temp 100.6(O); Pulse Ox 98% on 4 lpm NC; em 19:30 BP 90 / 49; Pulse 87; Resp 22; Pulse Ox 98% on 2 lpm NC; 20:00 BP 90 / 51; Pulse 85; Resp 22; Pulse Ox 98% on 2 lpm NC; 20:30 BP 93 / 53; Pulse 79; Resp 20; Temp 98.8; Pulse Ox 98% on 2 lpm NC; 21:00 BP 100 / 59; Pulse 89; Resp 20; Pulse Ox 100% on 2 lpm NC; 21:30 BP 92 / 46; Pulse 77; Resp 18; Pulse Ox 98% on 2 lpm NC; wh 22:00 BP 99 / 61; Pulse 88; Resp 18; Pulse Ox 99% on 2 lpm NC; wh 22:30 BP 103 / 61; Pulse 102; Resp 20; Pulse Ox 97% 2 lpm ; wh 23:00 BP 94 / 55; Pulse 79; Resp 20; Pulse Ox 99% on 2 lpm NC; wh 23:30 BP 93 / 55; Pulse 88; Resp 18; Pulse Ox 99% on 2 lpm NC; 04/27 00:00 BP 90 / 49; Pulse 89; Resp 20; Pulse Ox 99% 2 lpm ; wh 00:30 BP 102 / 67; Pulse 97; Resp 20; Temp 97.7(O); Pulse Ox 100% on 2 lpm NC; 04/26 16:52 Body Mass Index 26.61 (70.31 kg, 162.56 cm) em ED Course: 04/26 16:52 Patient arrived in ED. em 16:52 Patient has correct armband on for positive identification. Placed in gown. Bed in low em position. Call light in reach. Side rails up X2. Adult w/ patient. 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 Pulse ox on. NIBP on. 16:56 Garcia Julian MD is Attending Physician. rn 16:56 Triage completed. em 16:58 Arm band placed on. em 17:15 Jayy Valverde, RN is Primary Nurse. em 17:25 EKG done, by ED staff, reviewed by Garcia Julian MD. 3 17:30 Initial lab(s) drawn, by mi, sent to lab. First set of blood cultures drawn by mi. 3 Inserted saline lock: 20 gauge in right antecubital area, using aseptic technique. Blood collected. 17:35 Second set of blood cultures drawn by mi. 3 17:41 XRAY CXR (1 view) In Process Unspecified. EDMS 18:31 Ad Rdz MD is Hospitalizing Provider. rn 18:34 Cy Bucio is Hospitalizing Provider. rn 18:42 Flu and/or RSV swab sent to lab. covid swab sent to lab. em 04/27 00:55 No provider procedures requiring assistance completed. Patient admitted, IV remains in place. 07:05 Primary Nurse role handed off by Jayy Valverde RN bd Administered Medications: 04/26 17:45 Drug: Tylenol 1000 mg Route: PO; em 18:40 Follow up: Response: No adverse reaction; Temperature is decreased em 17:50 Drug: NS 0.9% 500 ml Route: IV; Rate: bolus; Site: right antecubital; em 18:40 Follow up: IV Status: Completed infusion; IV Intake: 500ml em 17:53 Drug: SOLU-Medrol 125 mg Route: IVP; Site: right antecubital; em 18:40 Follow up: Response: No adverse reaction em 18:49 Drug: LevaQUIN 750 mg Volume: 150 ml; Route: IVPB; Infused Over: 90 mins; Site: right em antecubital; 21:17 Follow up: Response: No adverse reaction; IV Status: Completed infusion 19:09 Drug: NS 0.9% 500 ml Route: IV; Rate: bolus; Site: right antecubital; 21:16 Follow up: Response: No adverse reaction; IV Status: Completed infusion 19:45 Drug: NS 0.9% 1000 ml Route: IV; Rate: 75 ml/hr; Site: right antecubital; 21:17 Follow up: Response: No adverse reaction; IV Status: Infusion continued upon admission Intake: 18:40 IV: 500ml; Total: 500ml. em Outcome: 18:31 Decision to Hospitalize by Provider. kemar 04/27 00:55 Admitted to ER Hold. Please see [facility] for further documentation. Condition: stable Instructed on the need for admit. 13:02 Patient left the ED. Signatures: Dispatcher [employer] EDMS Susan Solis Edgar, KEMAR REINOSO Garcia Julian MD MD rn Smirch, Shelby, RN RN Lizeth Hull Morenita Rivas Corrections: (The following items were deleted from the chart) 00:56 04/26 19:15 Respiratory: Onset: The symptoms/episode began/occurred gradually, the patient reports symptoms have resolved
--- NOTE | 2020-04-26 18:32 | EDPHYS ---
Physician Documentation [facility] Name: Rowan Pompa Age: 89 yrs Sex: Female : 1930 Arrival Date: 04/26/2020 Time: 16:52 Bed 17 Private MD: ED Physician Garcia Julian HPI: 04/26 18:21 This 89 yrs old Female presents to ER via Ambulatory with complaints of rn Shortness Of Breath. 18:21 The patient has shortness of breath at rest, with light activity. rn 18:22 Onset: The symptoms/episode began/occurred today. Duration: The symptoms are rn continuous. The patient's shortness of breath is aggravated by coughing, is alleviated by nothing. Associated signs and symptoms: Pertinent positives: productive cough, fever, Pertinent negatives: loss of consciousness. Severity of symptoms: At their worst the symptoms were moderate in the emergency department the symptoms are unchanged. The patient has experienced a previous episode. The patient has not recently seen a physician. Historical: - Allergies: 16:58 Codeine; em 16:58 EUCALYPTUS CONTAINING PRODUCTS; em - Home Meds: 18:17 allopurinol 100 mg Oral tab 1 tab 2 times per day [Active]; acetaminophen 325 mg Oral em tab 1 tab every 4-6 hours [Active]; furosemide 40 mg Oral tab 1 tab 2 times per day [Active]; gabapentin 300 mg Oral cap 1 cap twice a day [Active]; levothyroxine 137 mcg tab 1 tab once daily [Active]; simvastatin 20 mg Oral tab 1 tab once daily [Active]; Xarelto 15 mg Oral tab daily [Active]; metoprolol succinate 100 mg Oral Tb24 1 tab once daily [Active]; spironolactone 25 mg Oral tab 1 tab once daily [Active]; - PMHx: 16:58 Atrial Fib; CHF; COPD; CVA; Gout; Hyperlipidemia; Hypertension; em - PSHx: 16:58 Cholecystectomy; Knee surgery; Hysterectomy; Tonsillectomy; em - Immunization history:: Adult Immunizations up to date. - Social history:: Smoking status: unknown. - Family history:: not pertinent. - Hospitalizations: : No recent hospitalization is reported. 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 Exam: 18:22 Constitutional: This is a well developed, well nourished patient who is awake, alert, rn tachypneic Head/Face: Normocephalic, atraumatic. ENT: dry MM, no stridor Cardiovascular: Tachycardic, regular Respiratory: + tachypnea, + wheezing with crackles at bases Abdomen/GI: soft, non-tender Skin: Warm, dry MS/ Extremity: Pulses equal, no cyanosis. Neuro: Awake and alert, GCS 15, oriented to person, place, time, and situation. Cranial nerves II-XII grossly intact. Motor strength 5/5 in all extremities. Sensory grossly intact. Cerebellar exam normal. Normal gait. Vital Signs: 16:52 BP 140 / 56; Pulse 110; Resp 20; Temp 102.4(O); Pulse Ox 91% on 4 lpm NC; em 16:52 Weight 70.31 kg (R); Height 5 ft. 4 in. (162.56 cm); em 18:30 BP 106 / 46; Pulse 116; Resp 15; Temp 100.6(O); Pulse Ox 98% on 4 lpm NC; em 19:30 BP 90 / 49; Pulse 87; Resp 22; Pulse Ox 98% on 2 lpm NC; wh 20:00 BP 90 / 51; Pulse 85; Resp 22; Pulse Ox 98% on 2 lpm NC; wh 20:30 BP 93 / 53; Pulse 79; Resp 20; Temp 98.8; Pulse Ox 98% on 2 lpm NC; wh 21:00 BP 100 / 59; Pulse 89; Resp 20; Pulse Ox 100% on 2 lpm NC; wh 21:30 BP 92 / 46; Pulse 77; Resp 18; Pulse Ox 98% on 2 lpm NC; wh 22:00 BP 99 / 61; Pulse 88; Resp 18; Pulse Ox 99% on 2 lpm NC; 22:30 BP 103 / 61; Pulse 102; Resp 20; Pulse Ox 97% 2 lpm ; 23:00 BP 94 / 55; Pulse 79; Resp 20; Pulse Ox 99% on 2 lpm NC; 23:30 BP 93 / 55; Pulse 88; Resp 18; Pulse Ox 99% on 2 lpm NC; 04/27 00:00 BP 90 / 49; Pulse 89; Resp 20; Pulse Ox 99% 2 lpm ; 00:30 BP 102 / 67; Pulse 97; Resp 20; Temp 97.7(O); Pulse Ox 100% on 2 lpm NC; 04/26 16:52 Body Mass Index 26.61 (70.31 kg, 162.56 cm) em MDM: 04/26 16:56 Patient medically screened. rn 18:28 Differential diagnosis: Chronic Obstructive Pulmonary Disease pneumonia. rn 18:29 Data reviewed: vital signs, nurses notes, lab test result(s), EKG, radiologic studies, rn plain films, and as a result, I will discharge patient. Counseling: I had a detailed discussion with the patient and/or guardian regarding: the historical points, exam findings, and any diagnostic results supporting the discharge/admit diagnosis, the presence of at least one elevated blood pressure reading (>120/80) during this emergency department visit, lab results, radiology results, the need for further work-up and treatment in the hospital. Response to treatment: the patient's symptoms have mildly improved after treatment, and as a result, I will admit patient. Admission orders: after a detailed discussion of the patient's condition and case, the admit orders are written by me. ED course: Pt with multifocal pneumonia, and COPD exacerbation. . 04/26 17:02 Order name: Blood Culture Adult (2) 04/26 17:02 Order name: BMP; Complete Time: 18:21 04/26 17:02 Order name: CBC with Diff; Complete Time: 18:21 04/26 17:02 Order name: Magnesium; Complete Time: 18:21 04/26 17:02 Order name: NT PRO-BNP; Complete Time: 18:21 04/26 17:02 Order name: PT-INR; Complete Time: 19:04 04/26 17:02 Order name: Ptt, Activated; Complete Time: 19:04 04/26 17:02 Order name: Troponin (emerg Dept Use Only); Complete Time: 18:21 rn 04/26 17:02 Order name: Flu rn 04/26 17:02 Order name: COVID-19 rn 04/26 17:44 Order name: Lactate: verbal order by Dr. Julian; Complete Time: 18:21 dh3 04/26 21:06 Order name: SARS-COV-2 RT PCR EDMS 04/26 21:16 Order name: Lactate wh 04/26 21:48 Order name: Lactate EDMS 04/26 17:02 Order name: XRAY CXR (1 view); Complete Time: 18:27 rn 04/27 02:03 Order name: Troponin I EDMS 04/27 02:20 Order name: Lactate EDMS 04/27 05:24 Order name: CBC with Automated Diff EDMS 04/27 05:38 Order name: Lactate Sepsis 2 HR Follow-up EDMS 04/27 05:45 Order name: Comprehensive Metabolic Panel EDMS 04/27 05:45 Order name: T4 Free EDMS 04/27 05:45 Order name: Magnesium EDMS 04/27 05:45 Order name: Thyroid Stimulating Hormone EDMS 04/27 06:12 Order name: Manual Differential EDMS 04/27 08:01 Order name: Troponin I EDMS 04/27 10:56 Order name: Lactate EDMS 04/26 17:02 Order name: EKG; Complete Time: 17:03 rn 04/26 17:02 Order name: Cardiac monitoring; Complete Time: 17:16 rn 04/26 17:02 Order name: EKG - Nurse/Tech; Complete Time: 17:44 rn 04/26 17:02 Order name: IV Saline Lock; Complete Time: 17:45 rn 04/26 17:02 Order name: Labs collected and sent; Complete Time: 17:45 rn 04/26 17:02 Order name: O2 Per Protocol; Complete Time: 17:16 rn 04/26 17:02 Order name: O2 Sat Monitoring; Complete Time: 17:16 rn 04/26 20:14 Order name: Misc. Order: Please repeat lactate at 2100; Complete Time: 21:17 la1 Administered Medications: 17:45 Drug: Tylenol 1000 mg Route: PO; em 18:40 Follow up: Response: No adverse reaction; Temperature is decreased em 17:50 Drug: NS 0.9% 500 ml Route: IV; Rate: bolus; Site: right antecubital; em 18:40 Follow up: IV Status: Completed infusion; IV Intake: 500ml em 17:53 Drug: SOLU-Medrol 125 mg Route: IVP; Site: right antecubital; em 18:40 Follow up: Response: No adverse reaction em 18:49 Drug: LevaQUIN 750 mg Volume: 150 ml; Route: IVPB; Infused Over: 90 mins; Site: right em antecubital; 21:17 Follow up: Response: No adverse reaction; IV Status: Completed infusion 19:09 Drug: NS 0.9% 500 ml Route: IV; Rate: bolus; Site: right antecubital; 21:16 Follow up: Response: No adverse reaction; IV Status: Completed infusion 19:45 Drug: NS 0.9% 1000 ml Route: IV; Rate: 75 ml/hr; Site: right antecubital; 21:17 Follow up: Response: No adverse reaction; IV Status: Infusion continued upon admission Disposition: 04/26/20 18:31 Hospitalization ordered by Cy Bucio for Inpatient Admission. Preliminary diagnosis are Pneumonia, unspecified organism, Chronic obstructive pulmonary disease with acute lower respiratory infection, Hypoxemia. - Bed requested for Telemetry/MedSurg (Inpatient). - Status is Inpatient Admission. ss - Condition is Stable. - Problem is new. - Symptoms have improved. Signatures: Dispatcher [employer] EDMS Susan Solis Edgar, RN RN Garcia Julian MD MD rn Smirch, Shelby, RN RN Iggy Garcia, MILLER APPRENTICE-C MILLER APPRENTICE-Cla1 Ally Sanchez RN RN cg Habalo, Winsy Corrections: (The following items were deleted from the chart) 18:28 18:22 Constitutional: This is a well developed, well nourished patient who is awake, rn alert, tachypneic Head/Face: Normocephalic, atraumatic. ENT: dry MM, no stridor Cardiovascular: Tachycardic, regular Respiratory: + tachypnea, + wheezing with crackles at bases Abdomen/GI: soft, non-tender Skin: Warm, dry MS/ Extremity: Pulses equal, no cyanosis. Neuro: Awake and alert, GCS 15, oriented to person, place, time, and situation. Cranial nerves II-XII grossly intact. Motor strength 5/5 in all extremities. Sensory grossly intact. Cerebellar exam normal. Normal gait. rn 18:34 18:31 Hospitalization Ordered by Ad Rdz MD for Inpatient Admission. Preliminary rn diagnosis is Pneumonia, unspecified organism; Chronic obstructive pulmonary disease with acute lower respiratory infection; Hypoxemia. Bed requested for Telemetry/MedSurg (Inpatient). Status is Inpatient Admission. Condition is Stable. Problem is new. Symptoms have improved. rn 04/27 00:10 [id number] 18:34 04/26/2020 18:31 Hospitalization Ordered by Cy Bucio for Inpatient cg Admission. Preliminary diagnosis is Pneumonia, unspecified organism; Chronic obstructive pulmonary disease with acute lower respiratory infection; Hypoxemia. Bed requested for Telemetry/MedSurg (Inpatient). Status is Inpatient Admission. Condition is Stable. Problem is new. Symptoms have improved. rn 04/27 11:38 00:10 04/26/2020 18:31 Hospitalization Ordered by Cy Bucio for Inpatient bd Admission. Preliminary diagnosis is Pneumonia, unspecified organism; Chronic obstructive pulmonary disease with acute lower respiratory infection; Hypoxemia. Bed requested for [facility] ER HOLD. Status is Inpatient Admission. Condition is Stable. Problem is new. Symptoms have improved. cg 13:02 11:38 04/26/2020 18:31 Hospitalization Ordered by Cy Bucio for Inpatient ss Admission. Preliminary diagnosis is Pneumonia, unspecified organism; Chronic obstructive pulmonary disease with acute lower respiratory infection; Hypoxemia. Bed requested for Telemetry/MedSurg (Inpatient). Status is Inpatient Admission. Condition is Stable. Problem is new. Symptoms have improved. bd
[2020-04-26] MEDS ORDERED: Levofloxacin 750mg IV 750 MG/150 ML BAG IV ONE (18:48)
[2020-04-26] MEDS ORDERED: NA CHLORIDE 0.9% 1,000 ML ONE ×2 (19:18→22:13)
--- NOTE | 2020-04-26 20:26 | P.HP ---
Certification for Inpatient Patient admitted to: Inpatient With expected LOS: >2 Midnights Patient will require the following post-hospital care: None Practitioner: I am a practitioner with admitting privileges, knowledge of patient current condition, hospital course, and medical plan of care. Services: Services provided to patient in accordance with Admission requirements found in Title 42 Section 412.3 of the Code of Federal Regulations <Iggy Garcia - Last Filed: 04/26/20 20:20> Patient History Date of Service: 04/26/20 Primary Care Provider: Dr. Harrison Reason for admission: Sepsis History of Present Illness: 81-year-old female with history of chronic diastolic congestive heart failure, atrial fibrillation on chronic anticoagulation therapy, hypertension, hypothyroidism presents emergency department for shortness of breath. Patient reports that she has had increasing shortness of breath, sputum production, fever over the course of the last 1 week. Upon presentation to the emergency department patient was hypoxic with saturations 83%. Chest x-ray shows multifocal pneumonia greater on the right. Labs remarkable for white blood cell count 12.1, elevated BNP 2627. ED provider wishes to admit patient for further evaluation and management of multifocal pneumonia. When I saw the patient in the emergency department she is awake, alert, oriented x3. Patient on nasal cannula oxygen saturating 93-94%. Patient was hypotensive when I was examining her blood pressures 80s over 40s. Patient had received 500 cc normal saline bolus, additional fluids ordered. Patient with diastolic CHF and elevated BNP, will need to closely monitor volume status. Patient be admitted to the ICU for now for close monitoring of blood pressures. - Past Medical/Surgical History Diabetic: No -: HTN -: Atrial fibrillation on chronic anti coagulation -: History of hemorrhagic CVA -: Diastolic CHF -: Gout -: Hyperlipidemia -: COPD -: hysterectomy -: cholecysectomy -: tonsilectomy -: Rt knee sx Psychosocial/ Personal History: Patient lives at home by herself. Uses walker - Family History Mother -: Heart disease, Hypertension, Diabetes - Social History Smoking Status: Never smoker Alcohol use: No CD- Drugs: No Caffeine use: Yes Place of Residence: Home <Iggy Garcia - Last Filed: 04/26/20 20:20> Date of Service: 04/27/20 <regino florence - Last Filed: 04/27/20 14:30> Allergies codeine Allergy (Verified 11/17/20 00:54) Nausea/Vomiting EUCALYPTUS CONTAINING Allergy (Uncoded 04/27/20 00:54) Unknown Home Medications: Allopurinol 100 mg PO BID 09/09/19 Furosemide [Lasix*] 40 mg PO BID 09/09/19 Gabapentin 300 mg PO BID 09/09/19 Levothyroxine Sodium 1 tab PO 0630 09/09/19 Metoprolol Succinate [Toprol Xl] 100 mg PO DAILY 09/09/19 Rivaroxaban [Xarelto*] 15 mg PO DAILY 09/09/19 Simvastatin 20 mg PO BEDTIME 09/09/19 Review of Systems 10-point ROS is otherwise unremarkable Respiratory: Cough, Shortness of Breath, Pleuritic Pain, Sputum <Iggy Garcia - Last Filed: 04/26/20 20:20> Physical Examination - Physical Exam General: Alert, In no apparent distress, Oriented x3 HEENT: Atraumatic, Normocephalic, PERRLA, Other (Mucous membranes dry) Neck: Supple Respiratory: Diminished (Bilaterally), Rhonchi/gurgles Cardiovascular: No edema, Irregular heart rate/rhythm (Atrial fibrillation, rate around 105) Capillary refill: <2 Seconds Gastrointestinal: Normal bowel sounds, No tenderness, No masses, No rebound, No guarding Musculoskeletal: No contractures, No erythema, No tenderness Integumentary: No significant lesion, No tenderness/swelling, No erythema Neurological: Normal speech, Normal tone, Sensation intact Lymphatics: No axilla or inguinal lymphadenopathy - Studies Laboratory Data (last 24 hrs) 04/26/20 17:35: PT 18.5 H, INR 1.58, APTT 30.1 04/26/20 17:35: WBC 12.1 H, Hgb 13.8, Hct 42.5, Plt Count 269 04/26/20 17:35: Sodium 143, Potassium 3.5, BUN 21 H, Creatinine 1.00, Glucose 168 H, Magnesium 2.0 Microbiology Data (last 24 hrs): 04/26/20 18:42 Nasopharnyx Influenza Type A Antigen Screen - Final 04/26/20 18:42 Nasopharnyx Influenza Type B Antigen Screen - Final <Iggy Garcia - Last Filed: 04/26/20 20:20> - Studies Laboratory Data (last 24 hrs) 04/26/20 17:35: PT 18.5 H, INR 1.58, APTT 30.1 04/26/20 17:35: WBC 12.1 H, Hgb 13.8, Hct 42.5, Plt Count 269 04/26/20 17:35: Sodium 143, Potassium 3.5, BUN 21 H, Creatinine 1.00, Glucose 168 H, Magnesium 2.0 Microbiology Data (last 24 hrs): 04/26/20 18:42 Nasopharnyx Influenza Type A Antigen Screen - Final 04/26/20 18:42 Nasopharnyx Influenza Type B Antigen Screen - Final <regino florence - Last Filed: 04/27/20 14:30> Assessment and Plan - Plan Assessment Severe sepsis secondary to multifocal pneumonia complicated by history of asthma/COPD Acute on chronic respiratory failure with hypoxia related to above Atrial fibrillation on chronic anticoagulation therapy Hypertension Hypothyroidism Plan Severe sepsis secondary to multifocal pneumonia complicated by history of asthma/COPD: Blood and sputum cultures obtained, continue Levaquin, nebs, IV steroids at this time. Urinalysis pending, COVID test pending. Patient mildly hypotensive blood pressure around 90/50, patient with diastolic heart failure and elevated BNP, getting IV fluids but in 500 cc bolus at a time. Will continue to monitor blood pressure closely, use additional fluids/vasopressors as necessary. Admit to the intensive care unit for now, possibly can downgrade if blood pressure remains stable. Continue Xarelto for DVT prophylaxis, pulmonology consult in place. Patient also lives at home alone and has difficulty keeping up with [facility]'s licensed social worker consult in place. Acute on chronic respiratory failure with hypoxia related to above: Continue with nasal cannula oxygen, daily room air saturations, respiratory therapy consult in place. Atrial fibrillation on chronic anticoagulation therapy: Continue Xarelto, rate controlled at this time. Hypertension: Hold medication Hypothyroidism: Check thyroid panel with morning labs, continue home meds. Discharge Plan: Home Plan to discharge in: 24 Hours - Advance Directives Does patient have a Living Will: No Does patient have a Durable POA for Healthcare: No - Code Status/Comfort Care Code Status Assessed: Yes (Full code) Critical Care: No Time Spent Managing Pts Care (In Minutes): 55 <Iggy Garcia - Last Filed: 04/26/20 20:20> - Problems (Diagnosis) (1) Community acquired pneumonia Current Visit: Yes Status: Acute Qualifiers: Laterality: right (2) Sepsis Current Visit: Yes Status: Acute (3) COPD (chronic obstructive pulmonary disease) Current Visit: No Status: Acute (4) Chronic respiratory failure with hypoxia Onset Date: 07/10/17 Current Visit: No Status: Chronic (5) Chronic diastolic heart failure Current Visit: Yes Status: Acute (6) Elevated troponin Current Visit: Yes Status: Acute Physician Review: Patient Assessed, Agree with Above Assessment and Plan Physician Review Additional Text: Sepsis. Pneumonia. Chronic atrial fibrillation. Plan: IV antibiotics. Check serial lactate. IV fluid. <regino florence - Last Filed: 04/27/20 14:30>
--- NOTE | 2020-04-27 00:11 | P.INFCA ---
Sepsis Focused Assessment - Focused Assessment Complete? Sepsis Focused Assessment Completed?: Yes - Sepsis Screen Result Severe Sepsis: Positive Septic Shock: Negative - Evaluation Current stage of sepsis: Severe sepsis - Vital Signs Reviewed: Yes - Examination Date exam was performed: 04/27/20 Time exam was performed: 00:10 Heart: Irregular rhythm, S1, S2 Lungs: Rhonchi, Wheezes Peripheral pulses: 3+ Normal Peripheral pulse location: Radial Capillary refill: <2 Seconds Skin examination: Normal turgor
[2020-04-27] MEDS ORDERED: Levofloxacin500mg IV 500 MG/100 ML BAG IV SCH ×2 (00:49→02:00)
[2020-04-27] MEDS ORDERED: NA CHLORIDE 0.9% 1,000 ML IV SCH (00:49)
[2020-04-27] MEDS ORDERED: ONDANSETRON 4 MG/2 ML VIAL IV PRN (00:49)
[2020-04-27] MEDS: METHYLPREDNISOLONE 40 MG INJ IV SCH ×3 (01:00→16:07)
[2020-04-27] MEDS: BENZONATATE 100 MG CAP PO PRN ×2 (01:22→21:35)
[2020-04-27] MEDS ORDERED: BENZONATATE 100 MG CAP PO ONE (01:30)
[2020-04-27] MEDS ORDERED: METHYLPREDNISOLONE 40 MG INJ ONE ×2 (01:31→09:53)
[2020-04-27] MEDS: ALBUTEROL 2.5 MG/3 ML NEB SOL NEB SCH ×4 (02:30→20:20)
[2020-04-27] MEDS: IPRATROPIUM BROM 0.5MG/2.5ML NEB SCH ×4 (02:30→20:20)
[2020-04-27] MEDS ORDERED: ALBUTEROL 2.5 MG/3 ML NEB SOL ONE ×2 (02:56→08:00)
[2020-04-27] MEDS ORDERED: IPRATROPIUM BROM 0.5MG/2.5ML ONE ×2 (02:56→08:00)
[2020-04-27 05:19] LABS: Absolute Lymphocytes (CBC) 0.5 K/uL (0.7-4.9); Basophils % 0.1 % (0-1.3); Hematocrit 36.8 % (36.0-45.0); Lymphocytes % 3.3 % (15.3-44.8); MPV 9.5 fL (7.6-11.3); RBC Red Blood Cell Count 4.33 M/uL (3.86-4.86)
[2020-04-27 05:44] LABS: Albumin 2.6 g/dL (3.4-5.0); Bilirubin Total 1.3 mg/dL (0.2-1.0); Magnesium 1.9 mg/dL (1.8-2.4); Potassium 3.4 mmol/L (3.5-5.1); Protein, Total 6.2 g/dL (6.4-8.2); Thyroid Stimulating Hormone 0.217 uIU/mL (0.360-3.740)
--- NOTE | 2020-04-27 06:00 | EKG ---
Test Date: 2020-04-26 Test Time: 17:22:09 Supervisor Channel Process: [place] MEASUREMENT RESULTS: Intervals: Rate: 101 VT: QRSD: 90 QT: 342 QTc: 443 [place]: P: VT: QRS: 46 T: 134 INTERPRETIVE STATEMENTS: Atrial fibrillation with rapid ventricular response with premature ventricular or aberrantly conducted complexes ST & T wave abnormality, consider inferolateral ischemia or digitalis effect Abnormal ECG Compared to ECG 09/09/2019 09:18:36 Myocardial infarct finding no longer present ST (T wave) deviation still present Possible ischemia still present Electronically Signed On 04-27-20 05:59:38 JAILOR by Armando Villeda
[2020-04-27] MEDS ORDERED: NA CHLORIDE 0.9% 500 ML IV ONE (06:06)
[2020-04-27 06:09] LABS: Platelet Estimate ADEQ
[2020-04-27] MEDS ORDERED: POTASSIUM 25 MEQ EFFERV TAB PO ONE (06:09)
[2020-04-27 06:10] LABS: Blood Morphology Comment NOT SEEN (NOT SEEN)
[2020-04-27] MEDS ORDERED: POTASSIUM CL SA 10 MEQ TAB PO ONE ×2 (06:11→06:34)
[2020-04-27] MEDS ORDERED: NA CHLORIDE 0.9% 1,000 ML ONE (06:34)
[2020-04-27] MEDS ORDERED: PNEUMOCOCCAL VACCINE 0.5 ML IMVAC ONE (09:00)
[2020-04-27] MEDS ORDERED: INFLUENZA VACCINE (for 3y+) 0.5 ML DOSE IMVAC ONE (09:00)
[2020-04-27] MEDS ORDERED: VANCOMYCIN 1 GM/VIAL IVPB ONE (11:01)
[2020-04-27] MEDS ORDERED: VANCOMYCIN 1.75 GM in NA CHLORIDE 0.9% 500 ML IVPB ONE (11:30)
--- NOTE | 2020-04-27 12:03 | P.CNS ---
Date of Consult: 04/27/20 Primary Care Provider: Dr. Harrison Chief Complaint: Sepsis History of Present Illness: Patient is 89 years of age has been sick for about 2 weeks complaining of chronic cough productive phlegm shortness of breath admitted from the emergency room with hypoxemia and done pneumonia still having problems with the lungs history of diastolic heart failure AFib Allergies codeine Allergy (Verified 04/27/20 00:54) Nausea/Vomiting EUCALYPTUS CONTAINING Allergy (Uncoded 04/27/20 00:54) Unknown Home Medications: Allopurinol 100 mg PO BID 09/09/19 Furosemide [Lasix*] 40 mg PO BID 09/09/19 Gabapentin 300 mg PO BID 09/09/19 Levothyroxine Sodium 1 tab PO 0630 09/09/19 Metoprolol Succinate [Toprol Xl] 100 mg PO DAILY 09/09/19 Rivaroxaban [Xarelto*] 15 mg PO DAILY 09/09/19 Simvastatin 20 mg PO BEDTIME 09/09/19 - Past Medical/Surgical History Diabetic: No -: HTN -: Atrial fibrillation on chronic anti coagulation -: History of hemorrhagic CVA -: Diastolic CHF -: Gout -: Hyperlipidemia -: COPD -: hysterectomy -: cholecysectomy -: tonsilectomy -: Rt knee sx Psychosocial/ Personal History: Patient lives at home by herself. Uses walker - Family History Mother Medical History: Heart disease, Hypertension, Diabetes - Social History Smoking Status: Unknown if ever smoked Alcohol use: No CD- Drugs: No Caffeine use: Yes Place of Residence: Home Review of Systems 10-point ROS is otherwise unremarkable General: Weakness Respiratory: Cough, Shortness of Breath Physical Examination Temp Pulse Resp BP Pulse Ox 98.2 F 124 H 20 122/70 95 04/27/20 07:00 04/27/20 07:00 04/27/20 07:00 04/27/20 07:00 04/27/20 07:00 General: Alert, Oriented x3, Mild distress Respiratory: Crackles/rales (Crackles on the right side), Expiratory wheezes Cardiovascular: No edema, Regular rate/rhythm Gastrointestinal: Normal bowel sounds, Soft and benign Laboratory Data (last 24 hrs) 04/26/20 17:35: PT 18.5 H, INR 1.58, APTT 30.1 04/26/20 17:35: WBC 12.1 H, Hgb 13.8, Hct 42.5, Plt Count 269 04/26/20 17:35: Sodium 143, Potassium 3.5, BUN 21 H, Creatinine 1.00, Glucose 168 H, Magnesium 2.0 - Problems (1) Community acquired pneumonia Current Visit: Yes Status: Acute Plan: Patient is 89 years of age admitted with a 2 week history of cough congestion shortness of breath she does have a community-acquired pneumonia right worse than the left patient has elevated white count predominance of neutrophils consistent with pneumonia cultures are all pending Dc levofloxacin continue with cefepime also blood cultures are negative can stop vancomycin vital signs oxygenation stable patient's oxygenation is satisfactory possible discharge tomorrow depending on patient's condition on levofloxacin and doxycycline Qualifiers: Laterality: right
[2020-04-27 14:10] VITALS: BMI 29.5
--- NOTE | 2020-04-27 14:21 | P.PN ---
Subjective Date of Service: 04/27/20 Primary Care Provider: Dr. Harrison Chief Complaint: Sepsis Patient is complaining of left shoulder pain. She is afebrile, does not appear to be in respiratory distress. Physical Examination - Vital Signs Temperature: 98.2 F Blood Pressure: 109/55 Pulse: 108 Respirations: 20 Pulse Ox (%): 95 - Physical Exam General: Alert, In no apparent distress HEENT: Mucous membr. moist/pink Neck: Supple, JVD not distended Respiratory: Crackles/rales (Right chest) Cardiovascular: No edema, Normal S1 S2, Other (Tachycardia) Capillary refill: <2 Seconds Gastrointestinal: Normal bowel sounds, Soft and benign, Non-distended, No tenderness Musculoskeletal: No swelling, No erythema Integumentary: No rashes, No breakdown Neurological: Normal speech, Normal strength at 5/5 x4 extr - Studies Laboratory Data (last 24 hrs) 04/26/20 17:35: PT 18.5 H, INR 1.58, APTT 30.1 04/26/20 17:35: WBC 12.1 H, Hgb 13.8, Hct 42.5, Plt Count 269 04/26/20 17:35: Sodium 143, Potassium 3.5, BUN 21 H, Creatinine 1.00, Glucose 168 H, Magnesium 2.0 Microbiology Data (last 24 hrs): 04/26/20 18:42 Nasopharnyx Influenza Type A Antigen Screen - Final 04/26/20 18:42 Nasopharnyx Influenza Type B Antigen Screen - Final Assessment And Plan - Current Problems (Diagnosis) (1) Community acquired pneumonia Current Visit: Yes Status: Acute Qualifiers: Laterality: right (2) Sepsis Current Visit: Yes Status: Acute (3) COPD (chronic obstructive pulmonary disease) Current Visit: No Status: Acute (4) Chronic respiratory failure with hypoxia Onset Date: 07/10/17 Current Visit: No Status: Chronic (5) Chronic diastolic heart failure Current Visit: Yes Status: Acute (6) Elevated troponin Current Visit: Yes Status: Acute - Plan Antibiotics changed from Levaquin to dual antibiotic therapy-IV cefepime and vanco given sepsis. Follow cultures. Obtain UA and reflex urine culture. Lactic acid peaked at 5. Elevated troponin likely secondary to sepsis. Continue IV hydration. Pulmonary input appreciated. Oxygen p.r.n. Chest physiotherapy.
[2020-04-27] MEDS: RIVAROXABAN 15 MG TABLET PO SCH (16:07)
[2020-04-27] MEDS: ACETAMINOPHEN 500 MG TAB PO PRN ×2 (18:47→23:22)
[2020-04-27] MEDS: CEFEPIME/SWI 1gm 10 ML IV SCH (21:00)
[2020-04-27] MEDS ORDERED: CEFEPIME 1 GM/VIAL IV SCH (21:00)
[2020-04-27] MEDS ORDERED: CEFEPIME 1 GM/100 ML BAG IV ONE (21:36)
[2020-04-28 00:15] LABS: Urine Appearance CLEAR; Urine Bilirubin NEGATIVE (NEG); Urine Blood NEGATIVE (NEG); Urine Color YELLOW; Urine Glucose 3+ (NEG); Urine Protein TRACE (NEG); Urine Specific Gravity 1.025 (1.005-1.030); Urine Urobilinogen 0.2 mg/dL (0.2-1.0); Urine pH 5.5 (5.0-7.0)
[2020-04-28 00:36] LABS: Urine Bacteria <20 /HPF (<20); Urine Culture Reflex Order NOT NEEDED; Urine RBC <5 /HPF (NONE SEEN)
[2020-04-28] MEDS: METHYLPREDNISOLONE 40 MG INJ IV SCH ×2 (00:45→09:19)
[2020-04-28] MEDS: IPRATROPIUM BROM 0.5MG/2.5ML NEB SCH (01:40)
[2020-04-28] MEDS: ALBUTEROL 2.5 MG/3 ML NEB SOL NEB SCH (01:40)
[2020-04-28 04:06] LABS: Absolute Lymphocytes (CBC) 0.4 K/uL (0.7-4.9); Basophils % 0.3 % (0-1.3); Hematocrit 36.2 % (36.0-45.0); MPV 10.1 fL (7.6-11.3); RBC Red Blood Cell Count 4.29 M/uL (3.86-4.86)
[2020-04-28 04:27] LABS: Albumin 2.7 g/dL (3.4-5.0); Bilirubin Total 0.7 mg/dL (0.2-1.0); Magnesium 2.3 mg/dL (1.8-2.4); Potassium 4.7 mmol/L (3.5-5.1); Protein, Total 6.7 g/dL (6.4-8.2)
[2020-04-28] MEDS: CEFEPIME/SWI 1gm 10 ML IV SCH (09:18)
[2020-04-28] MEDS: BENZONATATE 100 MG CAP PO PRN ×2 (09:22→22:47)
--- NOTE | 2020-04-28 12:05 | P.PN ---
Subjective Date of Service: 04/28/20 Primary Care Provider: Dr. Harrison Chief Complaint: Sepsis Patient reports poor sleep. Still complaining of shortness of breath and reports hand tremors. Physical Examination - Vital Signs Temperature: 97 F Blood Pressure: 142/80 Pulse: 123 Respirations: 24 Pulse Ox (%): 97 - Physical Exam General: Alert, Mild distress HEENT: Mucous membr. moist/pink Neck: Supple, JVD not distended Respiratory: Normal air movement, Crackles/rales (Right lung) Cardiovascular: No edema, Other (Tachycardia), Irregular heart rate/rhythm Gastrointestinal: Normal bowel sounds, Soft and benign, Non-distended, No tenderness Musculoskeletal: No swelling, No erythema Integumentary: No rashes Neurological: Other (Nonfocal) Assessment And Plan - Current Problems (Diagnosis) (1) Community acquired pneumonia Current Visit: Yes Status: Acute Qualifiers: Laterality: right (2) Sepsis Current Visit: Yes Status: Acute (3) COPD (chronic obstructive pulmonary disease) Current Visit: No Status: Acute (4) Chronic respiratory failure with hypoxia Onset Date: 07/10/17 Current Visit: No Status: Chronic (5) Chronic diastolic heart failure Current Visit: Yes Status: Acute (6) Elevated troponin Current Visit: Yes Status: Acute - Plan Continue current antibiotics. Scaled down IV steroid. UA: No evidence of UTI Blood cultures: No growth to date. Worsening leukocytosis could be steroid induced. Elevated troponin likely secondary to sepsis. Troponin trended down. Continue IV hydration. Pulmonary input appreciated. Oxygen p.r.n. Chest physiotherapy. Physician Review: Patient Assessed, Agree with Above Assessment and Plan
--- NOTE | 2020-04-28 12:06 | P.PN ---
Subjective Date of Service: 04/28/20 Primary Care Provider: Dr. Harrison Chief Complaint: Sepsis Subjective: Other (No change in patient's condition still feeling very weak final signs stable oxygenation satisfactory) Review of Systems General: Weakness Respiratory: Cough, Shortness of Breath Physical Examination - Vital Signs Temperature: 97 F Blood Pressure: 142/80 Pulse: 123 Respirations: 24 Pulse Ox (%): 97 - Physical Exam General: Alert, Oriented x3, Mild distress Respiratory: Crackles/rales Cardiovascular: No edema, Regular rate/rhythm Assessment & Plan - Problems (Diagnosis) (1) Community acquired pneumonia Current Visit: Yes Status: Acute Plan: Patient admitted with a community-acquired pneumonia condition stable vital signs satisfactory change to p.o. levofloxacin blood cultures are all negative white count is mildly elevated may be due side effect of steroids I have stopped the steroids physical therapy possible discharge in 1 or 2 days unable to sleep due to steroids Physician Review: Patient Assessed, Agree with Above Assessment and Plan Physician Review Additional Text: Sepsis. Pneumonia. Chronic atrial fibrillation. Plan: IV antibiotics. Check serial lactate. IV fluid.
[2020-04-28] MEDS: RIVAROXABAN 15 MG TABLET PO SCH (16:54)
[2020-04-28] MEDS ORDERED: LEVOFLOXACIN 750MG/D5W 150 ML IV SCH (18:00)
[2020-04-28] MEDS ORDERED: Levofloxacin500mg IV 500 MG/100 ML BAG IV SCH (18:00)
[2020-04-28] MEDS: ACETAMINOPHEN 500 MG TAB PO PRN (23:05)
[2020-04-29 05:51] LABS: Albumin 2.8 g/dL (3.4-5.0); Bilirubin Total 0.7 mg/dL (0.2-1.0); Magnesium 2.6 mg/dL (1.8-2.4); Protein, Total 6.7 g/dL (6.4-8.2)
[2020-04-29 06:02] LABS: Basophils % 0.5 % (0-1.3); Hematocrit 37.7 % (36.0-45.0); Lymphocytes % 6.2 % (15.3-44.8); MPV 10.4 fL (7.6-11.3); RBC Red Blood Cell Count 4.44 M/uL (3.86-4.86)
--- NOTE | 2020-04-29 07:35 | CON ---
Date of Consultation: 04/28/2020 Reason For Consultation: Atrial fibrillation with possible ventricular tachycardia. History Of Present Illness: Ms. Pompa is an 89-year-old, had an extensive past history including at rial fibrillation, diastolic congestive heart failure, history of stroke, COPD, gout, hypertension, a nd dyslipidemia. She was admitted to the hospital for pneumonia. She has chronic atrial fibrillatio n. She had an episode of what she thought as ventricular tachycardia, but is really atrial fibrillat ion with aberrancy. At that time, a potassium of 3.4, it was supplemented, now it is 4.7. The patie nt had no symptoms with her aberrancy. Denied any syncope, chest pain. Came in with shortness of br eath because of pneumonia and that still persist. She denied any nausea, vomiting, diaphoresis. She denied palpitation or syncope. Past Medical History: As stated above. Allergies: SHE IS ALLERGIC TO CODEINE AND EUCALYPTUS. Review of Systems: Negative. Social History: Negative. Medications: At home include metoprolol, Lasix, Synthroid, Zocor, allopurinol, Neurontin, and Aldact one. Physical Examination: General: She appeared her stated age. Vital Signs: She was in atrial fibrillation, rate of 80. Afebrile. Vital signs were stable otherwi se. HEENT: Negative. Neck: Supple with no bruit. Chest: Clear. Cardiac: Revealed atrial fibrillation. No murmurs, gallops, or rubs. She had an aortic sclerosis m urmur. Abdomen: Benign. Extremities: Revealed no clubbing, cyanosis, or edema. Diagnostic Data: Showed a white count of 18,000. Troponin of 0.06, glucose of 205, BNP of 2627. Impression And Plan: 1.The patient with atrial fibrillation, and a short run of atrial fibrillation with aberrancy, right bundle-branch block pattern. There is no specific treatment for this. Her potassium was supplement ed. Her magnesium is normal. If this continues to okay, we can always increase her beta-blockers, b ut for now, I would not change her medicine. She is already on metoprolol and Xarelto. 2.Pneumonia. She is on vancomycin and Maxipime. 3.Chronic obstructive pulmonary disease exacerbation. She is on steroid inhaler. 4.Chronic diastolic congestive heart failure. 5.History of cerebrovascular accident. 6.History of gout. 7.Hypertension, well controlled. 8.Dyslipidemia. Ms. Pompa at home takes metoprolol, Lasix, Synthroid, Zocor, allopurinol, Neurontin, and Aldactone. I will continue the present regimen when she goes home. Echocardiogram which was done in September 2019 showed an ejection fraction 64% with decreased left ventricular compliance. She does not need any f urther cardiac workup. CECILIA/NELLY Voice ID: [id number] Report ID: [id number]
[2020-04-29] MEDS ORDERED: levoFLOXacin 500 MG TAB PO SCH (09:00)
[2020-04-29 09:45] VITALS: O2SAT 96
[2020-04-29] MEDS ORDERED: TRAMADOL HCL 50 MG TAB PO PRN (10:56)
--- NOTE | 2020-04-29 10:58 | P.PN ---
Subjective Date of Service: 04/29/20 Primary Care Provider: Dr. Harrison Chief Complaint: Sepsis Patient noted to experience shortness of breath with speaking. She has been afebrile. She tolerated physical therapy yesterday. Physical Examination - Vital Signs Temperature: 97.5 F Blood Pressure: 130/72 Pulse: 102 Respirations: 16 Pulse Ox (%): 96 - Physical Exam General: Alert, Mild distress HEENT: Mucous membr. moist/pink Neck: Supple Respiratory: Normal air movement, Crackles/rales (Right lung) Cardiovascular: No edema, Normal S1 S2, Irregular heart rate/rhythm Capillary refill: <2 Seconds Gastrointestinal: Normal bowel sounds, Soft and benign, No tenderness Musculoskeletal: No swelling, No tenderness Integumentary: No rashes, No erythema Neurological: Normal speech, Normal strength at 5/5 x4 extr Assessment And Plan - Current Problems (Diagnosis) (1) Community acquired pneumonia Current Visit: Yes Status: Acute Qualifiers: Laterality: right (2) Sepsis Current Visit: Yes Status: Acute (3) COPD (chronic obstructive pulmonary disease) Current Visit: No Status: Acute (4) Chronic respiratory failure with hypoxia Onset Date: 07/10/17 Current Visit: No Status: Chronic (5) Chronic diastolic heart failure Current Visit: Yes Status: Acute (6) Elevated troponin Current Visit: Yes Status: Acute (7) Atrial fibrillation with rapid ventricular response Onset Date: 07/10/17 Current Visit: No Status: Acute - Plan Continue current antibiotics. Steroid discontinued. UA: No evidence of UTI Blood cultures: No growth to date. Steroid contributing to the leukocytosis Elevated troponin likely secondary to sepsis. Troponin trended down. Continue IV hydration. Pulmonary input appreciated. Oxygen p.r.n. Chest physiotherapy. Metoprolol for AFib resumed. She is on Xarelto for AFib anticoagulation. Physician Review: Patient Assessed, Agree with Above Assessment and Plan
--- NOTE | 2020-04-29 16:01 | P.DS ---
Admission Date: 04/26/20 Discharge Date: 04/29/20 Primary Care Provider: Dr. Harrison Disposition: TRANSFER TO INPATIENT REHAB Discharge Condition: FAIR Reason for Admission: Sepsis - Problems (1) Community acquired pneumonia Current Visit: Yes Status: Acute Qualifiers: Laterality: right (2) Sepsis Current Visit: Yes Status: Acute (3) COPD (chronic obstructive pulmonary disease) Current Visit: No Status: Acute (4) Chronic respiratory failure with hypoxia Onset Date: 07/10/17 Current Visit: No Status: Chronic (5) Chronic diastolic heart failure Current Visit: Yes Status: Acute (6) Elevated troponin Current Visit: Yes Status: Acute (7) Atrial fibrillation with rapid ventricular response Onset Date: 07/10/17 Current Visit: No Status: Acute Brief History of Present Illness: 89-year-old woman with a history of chronic diastolic heart failure, atrial fibrillation on Xarelto anticoagulation presented to the emergency department with a complaint of progressive shortness of breath of 1 day duration. Chest x- ray in the emergency department demonstrated multifocal pneumonia, worse on the right. She was hypoxic on room air with oxygen saturation of 83%. Patient was admitted for pneumonia with hypoxia. Hospital Course: Patient admitted to the medical floor and treated with IV cefepime and vancomycin. She was also treated for COPD exacerbation with IV steroid and scheduled bronchodilators. Patient was seen in consultation by Dr. Duval. She clinically improved with treatment and antibiotics was transitioned to oral Levaquin. Her oxygen saturation also improved. At baseline patient uses oxygen during sleep. Patient seen and evaluated by physical therapy. She will benefit from continued rehab as inpatient. Overall patient has clinically improved and deemed stable for discharge to inpatient rehab. Vital Signs/Physical Exam: Temp Pulse Resp BP Pulse Ox 97 F 112 H 18 159/86 H 96 04/29/20 12:00 04/29/20 12:00 04/29/20 12:00 04/29/20 12:00 04/29/20 12:00 General: Alert, In no apparent distress HEENT: Mucous membr. moist/pink Neck: Supple, JVD not distended Respiratory: Crackles/rales (Right lung) Cardiovascular: No edema, Normal S1 S2, Irregular heart rate/rhythm Gastrointestinal: Normal bowel sounds, Soft and benign, No tenderness Musculoskeletal: No swelling, No tenderness Integumentary: No rashes, No erythema Neurological: Normal speech, Normal strength at 5/5 x4 extr Laboratory Data at Discharge: WBC 16.0 K/uL (4.3-10.9) H 04/29/20 05:01 Hgb 12.3 g/dL (12.0-15.0) 04/29/20 05:01 Hct 37.7 % (36.0-45.0) 04/29/20 05:01 Plt Count 201 K/uL (152-406) 04/29/20 05:01 PT 18.5 SECONDS (9.5-12.5) H 04/26/20 17:35 INR 1.58 04/26/20 17:35 APTT 30.1 SECONDS (24.3-36.9) 04/26/20 17:35 Sodium 142 mmol/L (136-145) 04/29/20 05:01 Potassium 5.0 mmol/L (3.5-5.1) 04/29/20 05:01 BUN 36 mg/dL (7-18) H 04/29/20 05:01 Creatinine 0.90 mg/dL (0.55-1.3) 04/29/20 05:01 Glucose 174 mg/dL (74-106) H 04/29/20 05:01 Magnesium 2.6 mg/dL (1.8-2.4) H 04/29/20 05:01 Total Bilirubin 0.7 mg/dL (0.2-1.0) 04/29/20 05:01 AST 38 U/L (15-37) H 04/29/20 05:01 ALT 57 U/L (12-78) 04/29/20 05:01 Alkaline Phosphatase 95 U/L (45-117) 04/29/20 05:01 Troponin I 0.06 ng/mL (0.0-0.045) H 04/27/20 07:26 Home Medications: Allopurinol 1 tab PO BID 04/28/20 Furosemide 1 tab PO BID 04/28/20 Gabapentin 1 tab PO BID 04/28/20 Levothyroxine Sodium 137 mcg PO DAILY 04/28/20 Metoprolol Succinate [Toprol Xl] 1 tab PO DAILY 04/28/20 Rivaroxaban [Xarelto*] 1 tab PO DAILY 04/28/20 Simvastatin 20 mg PO DAILY 04/28/20 Spironolactone 1 tab PO DAILY 04/28/20 Tramadol HCl [Ultram] 1 tab PO Q6H PRN 04/28/20 Benzonatate [Tessalon Perle*] 100 mg PO TID PRN cap 04/29/20 levoFLOXacin [Levaquin*] 500 mg PO DAILY #7 tab 04/29/20 Followup: Elliott Harrison DO [Primary Care Provider] - Time spent managing pt's care (in minutes): 38
[2020-04-29] MEDS: RIVAROXABAN 15 MG TABLET PO SCH (16:26)
[2020-04-29] MEDS: BENZONATATE 100 MG CAP PO PRN (16:26)
[2020-04-29 16:33] VITALS: BP 140/80
[2020-04-29 17:09] VITALS: TEMP 97.7
[2020-04-29] MEDS ORDERED: ATORVASTATIN 10 MG TAB PO SCH (21:00)
[2020-04-29] MEDS ORDERED: allopurinoL 100 MG TAB PO SCH (21:00)
[2020-04-29] MEDS ORDERED: GABAPENTIN 300 MG CAP PO SCH (21:00)
[2020-04-30] MEDS ORDERED: LEVOTHYROXINE SOD 0.025 MG TAB PO SCH (06:30)
[2020-04-30] MEDS ORDERED: LEVOTHYROXINE SOD 0.112 MG TAB PO SCH (06:30)
[2020-04-30] MEDS ORDERED: METOPROLOL XL 100 MG TAB PO SCH (09:00)
[2020-04-30] MEDS ORDERED: SPIRONOLACTONE 25 MG TABLET PO SCH (09:00)
[2020-04-30] MEDS ORDERED: HOME MED 1 EA UNK (Levothyroxine Sodium [Levothyroxine Sodium] 137 MCG) PO SCH (09:00)
[2020-04-30] MEDS ORDERED: HOME MED 1 EA UNK (Simvastatin [Simvastatin] 20 MG) PO SCH (09:00)
== END 2020-04-29 17:46 | DRG 871 ==
LOC: ER 16:50 → ERHOLD 19:30 → 2ND 04-27 12:35
PROVIDERS: ADMIT Internal Medicine; ATTEND Internal Medicine
DX: A41.9 Sepsis, unspecified organism (principal); J18.9 Pneumonia, unspecified organism; I50.32 Chronic diastolic (congestive) heart failure; J44.0 Chronic obstructive pulmonary disease with (acute) lower respiratory infection; I48.20 Chronic atrial fibrillation, unspecified; J96.11 Chronic respiratory failure with hypoxia; L89.151 Pressure ulcer of sacral region, stage 1; I11.0 Hypertensive heart disease with heart failure; E03.9 Hypothyroidism, unspecified; E78.5 Hyperlipidemia, unspecified; M10.9 Gout, unspecified; R77.8 Other specified abnormalities of plasma proteins; R65.20 Severe sepsis without septic shock; Z88.5 Allergy status to narcotic agent; Z91.09 Other allergy status, other than to drugs and biological substances; Z79.890 Hormone replacement therapy; Z79.01 Long term (current) use of anticoagulants; Z60.2 Problems related to living alone; Z79.899 Other long term (current) drug therapy; Z86.73 Personal history of transient ischemic attack (TIA), and cerebral infarction without residual deficits; Z90.49 Acquired absence of other specified parts of digestive tract; Z90.710 Acquired absence of both cervix and uterus; Z20.828 Contact with and (suspected) exposure to other viral communicable diseases
CPT/HCPCS: 36415; 71045; 80048; 80053; 81001; 83605; 83735; 83880; 84132; 84439; 84443; 84484; 85025; 85610; 85730; 87040; 87804; 93005; 94010; 94640; 96361; 96365; 96366; 96375; 97112; 97116; 97161; 97530; 99285; J0692; J2920; J2930; J3370; J7030; J7040; U0003

== ENCOUNTER 2020-04-28 14:32 | Inpatient (IN) | payer OTHER ==
--- NOTE | 2020-04-28 16:21 | R.PREADM ---
PRE-ADMISSION SCREENING FORM SCREENING DATE AND TIME 04/28/2020 14:41 (MOUNTAIN BIKE GUIDE) ANTICIPATED REHAB ADMISSION DATE 04/30/[address] [facility] REFERRAL DATE AND TIME 04/28/2020 14:41 (MOUNTAIN BIKE GUIDE) REFERRAL ROOM# [id number] ACUTE ADMIT DATE 04/26/2020 Previous Rehabilitation(s): No. ACUTE EXPENSE CLERK/DC HOOP MAKER Marti REFERRING PHYSICIAN Dr Bucio REHAB FACILITY [facility] CLINICAL LIAISON Otilio Keller PHYSICIAN REVIEWER Dr. Dino Mccartney M.D. MR# [id number] NAME WILMER CUEVAS ADDRESS [address] [facility] [place]IP [address] DATE OF 1930 AGE 89 SSN# [id number] GENDER female MARITAL STATUS RACE white PREF. LANGUAGE (IF NON-SUDANESE) Greek ADMIT FROM 02 - [facility] PRE-HOSPITAL LIVING SETTING 01 - Home (private home/apt. board/care, assisted living, custodial, transitional living) HOME TYPE AND DETAILS Type of home: single family house # of levels in the residence: 1 # of steps to enter the residence: ramp # of steps within the residence: 0 Pt. lives alone in a 1 raul home, has a ramp to enter, normally ambulates w/o an A.D. , does have a straight cane that she uses at times and at night. She has a tub w/ overhead shower and tub seat. Cu rrently PT recommended a tub bench for safety during transfers in/out of tub, and use of a Walker w/ wheels. Family says pt. has one at home (walker). PRE-HOSPITAL LIVING WITH Alone FAMILY SUPPORT Yes PRIMARY FAMILY CONTACT NAME Kimberley Ruano PRIMARY FAMILY CONTACT PHONE PRIMARY FAMILY CONTACT RELATIONSHIP Daughter IS PRIMARY FAMILY CONTACT AUTH. REP.? no 1ST EMERGENCY CONTACT Kimberley Newsomemarija 1ST CONTACT PHONE 1ST CONTACT RELATIONSHIP Daughter IS 1ST CONTACT AUTH. REP.? no PHONE 2ND CONTACT ON ADM.? no PATIENT EMPLOYMENT STATUS Retired (for age) PATIENT EMPLOYER No Employer PAYOR INFORMATION: 1ST PAYOR NAME MEDICARE 1ST PAYOR PHONE 1ST PAYOR INJURY/ILLNESS DUE TO ACCIDENT? No ANOTHER LIBERTARIAN RESPONSIBLE? No PRIMARY REHAB/ACUTE DIAGNOSIS: Multifocal Pneumonia ONSET DATE 04/26/2020 REHAB IMPAIRMENT CATEGORY (NORMA): 20 Miscellaneous (Misc) does NOT meet 60% rule PRIMARY DIAGNOSIS-RELATED SURGERIES: No surgeries related to the primary diagnosis were performed. COMORBID REHAB/ACUTE DIAGNOSES: - Tier 3 Pneumonia, unspecified organism (J18.9) SUMMARY OF ACUTE HOSPITALIZATION: Pt. is a 89 yo Right-handed white female. On 04/26/2020 she was admitted to [facility] with diagnosis Multifocal Pneumonia. Her impairment category is Debility 16 - Debility (16). Pre-morbidly, Pt. was independent/mod-I in Transfers Control, Locomotion, Self-Care, Social Cognition , Sphincter Control, and Communications; and she had good Balance and Safety Awareness. Currently, she has deficits of Transfers Control, Balance, Locomotion, Safety Awareness, and Self-Car e. Pt. is now referred to [facility] for acute in-patient rehabilitation in order to maximize patient's functional independence in activities of daily living, strength, ROM, and mobi lity. Patient has realistic goal of being discharged at assistance level 6-Antony to reside at Home with Omar dequan. I PAST MEDICAL HISTORY Pneumonia, unspecified organism (J18.9) CHF AFIB HTN Hypothyroid HX OF CVA Chronic gout, unspecified, with tophus (tophi) ([id number]) COPD PAST SURGICAL HISTORY: HYSTERECTOMY Cholecystectomy Tonsillectomy R KNEE REPLACEMENT MEDICATION ALLERGIES: No Known Drug Allergies (NKDA) ENVIRONMENTAL ALLERGIES: None Known - Substance Allergies None Known - Other Allergies None Known CODE STATUS: Full code WEIGHT/HEIGHT/BMI: WEIGHT 167 lbs HEIGHT 5' 3" BMI 29.6 DIET: - Diet Type Regular - Diet - Solid Texture Regular - Diet - Liquid Texture Regular - Tube Feed N/A REVIEW OF SYSTEMS: - Gen Alert and awake Lying in bed No apparent distress Oriented to: person, time, and place - CVS RRR VITAL SIGNS Temperature: 97 F SBP/DBP: 142/80 Pulse: 123 Resp: 24 Vital signs stable, afebrile MEDICATIONS/TREATMENT: Other- See attached MAR (Medication Administration Record). CURRENT SPHINCTER CONTROL: Pre-hospital bladder status: unspecified Pre-hospital bowel status: unspecified CURRENT LOCOMOTION STATUS: distance walked 140 feet DETAILED CURRENT FUNCTIONAL STATUS: - Walking score based on distance walked: 2(5149ft) QI SCORES: - Self-Care A. Eating 05-Setup or clean-up assistance B. Oral hygiene 05-Setup or clean-up assistance C. Toileting hygiene 04-Supervision or touching assistance E. Shower/bathe self 03-Partial/moderate assistance F. Upper body dressing 05-Setup or clean-up assistance G. Lower body dressing 10-Not attempted due to environmental limitations H. Putting on/taking off footwear 10-Not attempted due to environmental limitations - Mobility A. Roll left and right 04-Supervision or touching assistance B. Sit to lying 04-Supervision or touching assistance C. Lying to sitting on side of bed 04-Supervision or touching assistance D. Sit to stand 04-Supervision or touching assistance E. Chair/[id number] transfer 04-Supervision or touching assistance F. Toilet transfer 04-Supervision or touching assistance G. Car transfer 88-Not attempted due to medical condition or safety concerns I. Walk 10 feet 04-Supervision or touching assistance J. Walk 50 feet with two turns 04-Supervision or touching assistance K. Walk 150 feet 04-Supervision or touching assistance L. Walking 10 feet on uneven surfaces 88-Not attempted due to medical condition or safety concerns M. 1 step (curb) 88-Not attempted due to medical condition or safety concerns N. 4 steps 88-Not attempted due to medical condition or safety concerns O. 12 steps 88-Not attempted due to medical condition or safety concerns P. Picking up object 88-Not attempted due to medical condition or safety concerns - Bladder and Bowel Bladder continence 0-Always continent Bowel continence 0-Always continent - Endurance Fair - Balance Poor - Safety Awareness Poor CURRENT FUNC. DEFICITS: Self-Care, Mobility, Endurance, Balance, and Safety Awareness CURRENT / PREVIOUS ASSISTIVE DEVICES: Rolling Walker Shower Chair Straight Cane HISTORY OF FALLS. HAS THE PATIENT HAD TWO OR MORE FALLS IN THE PAST YEAR OR ANY FALL WITH INJURY IN T HE PAST YEAR?: No PRIOR SURGERY. DID THE PATIENT HAVE MAJOR SURGERY DURING THE 100 DAYS PRIOR TO ADMISSION?: No THERAPY NOTES FROM ACUTE CARE: Attached. SPECIAL NEEDS: - Safety Concerns Skin breakdown precautions needed due to skin breakdown risk PATIENT NEEDS ACTIVE AND ONGOING THERAPEUTIC INTERVENTION OF MULTIPLE THERAPY DISCIPLINES, INCLUDING: - Dietary and Nutrition Adequate Nutrition. Nutritional Education. Nutritional Supplements. PATIENT NEEDS CLOSE MEDICAL SUPERVISION BY A REHABILITATION PHYSICIAN FOR: Coordination of Treatment Team Medical and Co-Morbidity Management PATIENT REQUIRES 24X7 REHAB NURSING FOR MEDICAL AND FUNCTIONAL MGT. OF THE FOLLOWING DEFICITS: Disease Management Medication Management Patient/Family Education Providing Safe Environment PATIENT REQUIRES INTENSIVE, COORDINATED INTERDISCIPLINARY APPROACH TO REHAB: Arranging Home Equipment/Services Discharge Planning Family Intervention/Training Ditch Digger/Case Management PATIENT REHAB POTENTIAL: Hayder CUEVAS is able and expected to receive 3 hours of individualized therapy daily on at least 5 of ev manuel 7 days Hayder CUEVAS's prognosis for significant practical improvement within a reasonable period of time appear s Good Expected level of measurable improvement will be of a practical value to Hayder CUEVAS's functional capac ity or adaptations to impairments Has a viable Discharge Plan Medically appropriate; condition is sufficiently stable to participate in intensive rehab program DISCHARGE PLAN: - Estimated Length of Stay (days) 13. - Consensus on plan Discharge plan has been discussed with primary caregiver. Patient/Family is in agreement with the snow n. Primary caregiver is in agreement with the plan. - Patient/Family Goals Return home with assistance. - Planned Living Setting Upon Discharge Home, to live alone. RECOMMENDED CARE LEVEL: IRF RECOMMENDATION DETAILS: Recommended Admission to Comprehensive Rehabilitation Program to Increase Functional [place] SCREENER'S COMPLETENESS CONFIRMATION: - Screening Confirmation The patient data collection on this preadmission screening form is finished PHYSICIANS REVIEW AND ADMISSION DETERMINATION Admit - Based on my review of the Pre-Admission Screening results, in my medical judgment and experie nce, I concur with the findings and recommend admission to [facility], as this patient requires an IRF level of care. SIGNATURE PANEL: Director Of Restaurants - [electronically] signed by Vivi Huitron Table Assembler Metal on 04/28/2020 at 15:09 (CS T) Director Of Restaurants - [electronically] signed by Stanley Keller PT on 04/28/2020 at 15:13 (MOUNTAIN BIKE GUIDE) Physician Reviewer - [electronically] signed by Dr. Dino Mccartney M.D. on 04/28/2020 at 16:20 (MOUNTAIN BIKE GUIDE )
--- OUTSIDE RECORDS SUMMARY | 2020-04-29 18:05 | XMS REPORT | Clinical Summary ---
:[id number] Author Organization [facility] Address [address] [place] [address] Care Team Providers Name Role Phone Zenon [...] Not on file Results Not on fileafter 04/29/2019 Advance Directives For more information, please contact: [phone] Code Status Date Activated Date Inactivated Comments Full Code 03/01/2016 5:29 AM 03/06/2016 5:31 PM This code status was determined by: Patient
--- OUTSIDE RECORDS SUMMARY | 2020-04-29 18:07 | XMS REPORT | Continuity of Care Document ---
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[facility] arterial [place], (disorder) OPID [place] Simple obesity Active Problem 03/25/2017 [place] (disorder[place] NONTRAUMATIC [place] SUBDURAL Medical HEMORRHAGE, UNSPEC C enter Medications Medication Details Route Status Patient Ordering Order Source Instructions Provider Date Simvastatin Notes: (Same Inactive 02/18/ [place] as: Zocor) [address] [place] [address] Levetiracetam 500 mg = 1 tab, Active [...] Notes: (Same Inactive [place] as: Melatonin) 2017 [facility] Albuterol 0.833 Notes: (Same Inactive [place] MG/ML / as: Duoneb) 2017 [facility] Ipratropium Center [place] 0.167 MG/ML Inhalant Solution [DuoNeb] Metoprolol Notes: (Same [place]active [place] as: Lopressor) 2017 Medical Push over 2 Center minutes heparin Notes: porcine [place] Longer [place] heparin Active 2017 [facility] Simethicone Notes: (Same [place] Longer [place] as: Mylicon) Active 2017 Medical Center Zofran Notes: (Same No Longer [place] as: Zofran) Active 2017 Medical MEDICATION Center WASTE Product Size: 4 mg Product Wasted: ___ mg metoprolol Notes: (Same No Longer [place] tartrate as: Lopressor) Active 2017 Medical [place] rivaroxaban 15 15 mg = 1 tab, No Longer [place] MG Oral Tablet PO, Daily, # 90 Active 2016 edical [Xarelto] tab, 3 Center Refill(s) simvastatin 20 20 mg = 1 tab, Active [place] mg oral tablet PO, Bedtime, # 2017 N[place] dical 30 tab, 1 Center Refill(s) Colchicine 0.6 0.6 mg = 1 cap, No Longer [place] MG Oral Capsule PO, Daily, PRN Active 2016 edical pain, 0 Center Refill(s) levothyroxine 137 microgram = Active [place] 137 mcg (0.137 1 tab, PO, 2017 Medica l mg) oral tablet Daily, # 90 Cent er tab, 0 Refill(s) gabapentin 300 300 mg = 1 cap, Active [place] MG Oral Capsule PO, TID, # 90 2016 Me dical cap, 1 Center Refill(s) Furosemide 20 MG 20 mg = 1 tab, Active [place] Oral Tablet PO, BID, # 90 2016 Medica l tab, 0 Center Refill(s) metoprolol 100 100 mg = 1 tab, Active [place] mg oral tablet, PO, Daily, # 30 2016 Medical extended release tab, 0 Center Refill(s) Levetiracetam Notes: (Same No Longer [place] 500 MG Oral as:Keppra) Active 2016 Medical [...] ___ mg Docusate Notes: (Same No Longer [place] as: Colace) Active 2017 Medical Center Tylenol Notes: Do not No Longer [place] exceed 4 Active 2017 Medical gm/day. (Same Center as: Tylenol) Tylenol Notes: Max Inactive [place] acetaminophen 2017 Medical 4000 mg/day (4 Center gm/day). (Same as: Tylenol Extra Strength) Calcium Notes: (Same No Longer [place] Carbonate 500 MG As: Tums) Active 2017 Medic al Chewable Tablet Calcium Center Carbonate 500 mg = 200 mg elemental calcium Dose = mg calcium carbonate ( mg elemental calcium) Calcium Notes: WASTE: No Longer [place] Gluconate F/P - Sink; E - Active 2016 [facility] Bin Magnesium Oxide Notes: (Same No Longer [facility] as: Mag-Ox 400) Active 2017 [facility] Magnesium oxide Center [id number] elemental magnesium Dose=____mg magnesium oxide (___mg elemental magnesium) sodium phosphate 45 mmol, 15 mL, No Longer 02/15 [place] Route: IVPB, Active 2016 Medical PRN, Dosing Center Weight 77.273, kg, PRN Abnormal Lab Result, Start date: 02/15/17 16:09:00 CDT, Duration: 30 day, Stop date: 03/17/17 16:08:00 CDT, FOR ICU USE ONLY potassium Notes: (Same No Longer [facility] s phosphate as: K Active 2016 Medical Phosphate.) 1 Center mMol phoshate has 1.47 mEq potassium Infuse over 4 hours Magnesium Notes: WASTE: No Longer [place] Sulfate F/P - Sink; E - Active 2016 Medical [facility] Bin potassium Notes: (Same No Longer [facility] s phosphate-sodium as: Phos-NaK) Active 2016 edical phosphate 250 Each 1.5 gm pkt Ce nter mg-280 mg-160 mg has 250mg oral powder for phosphorous. reconstitution Mix w/2.5oz water and stir. Potassium Notes: (Same No Longer [facility] s Chloride as: KCL) Active 2017 Medical [...] sodium chloride 1,000 mL, Rate: No Longer [place] 0.9% 1000 ml INJ 75 ml/hr, Active [...] 02/15/17 12:25:00 CDT Fentanyl 50 microgram, Inactive [place] Route: IVP, 2017 Medical ONCE, Dosing Center Weight 77.273, kg, Priority: STAT, Start date: 02/15/17 12:25:00 CDT, Stop date: 02/15/17 12:25:00 CDT Factor 2-7-9-10 Notes: Same as: Inactive [place] Prothrombin Kcentra WASTE: 2016 Medi myles Complex F/P - Red; E Center Concentrate -Red Maximum 2,707 unit + IV dose = 5000 bag 1 ea units; Round down dose to the nearest vial size Hematology clinical pharmacist consult required Factor 2-7-9-10 Notes: Same as: Inactive [place] Prothrombin Kcentra WASTE: 2016 Medi myles Complex [...] CDT Factor 2-7-9-10 Notes: Same as: Inactive [place] Prothrombin Kcentra WASTE: 2017 Medi myles Complex F/P - Red; E Center Concentrate -Red Maximum 2,700 unit + IV dose = 5000 bag 1 ea units; Round down dose to the nearest vial size Hematology clinical pharmacist consult required Saline Flush Notes: (Same No Longer [place] 0.9% as: BD Active 2016 [facility] Posiflush) Center Allergies, Adverse Reactions, Alerts Substance Category Reaction Severity Reaction Status Date Comments S ource type Reported Codeine Assertion Drug Active OPI D Sulfate allergy [place] eucalyptus Assertion Drug Active OPID topical allergy [place] Immunizations No Data Provided for This Section Results Order Name Results Value Reference Date Interpretation Comments Sudha rce Range CHEM PANEL Phosphorus 2.6 2.5 - 4.5 02/17 [facility] CHEM PANEL Magnesium Lvl 2.0 1.8 - 2.4 02/17 [place] [facility] ELECTROLYTES AGAP 12.3 10.0 - 02/17 [facility] 20.0 [facility] ELECTROLYTES eGFR 75 02/17 Result Comment: The [...] ELECTROLYTES CO2 28 24 - 32 02/[address] [place] [address] ELECTROLYTES Chloride Lvl 107 95 - 109 02/17 [facility] ELECTROLYTES Calcium Lvl 9.3 8.5 - 10.5 02/17 [place] [facility] ELECTROLYTES Potassium Lvl 4.3 3.5 - 5.1 02/[address] [place] [address] ELECTROLYTES Sodium Lvl 143 135 - 145 02/17 [facility] ELECTROLYTES Creatinine 0.74 0.50 - 02/17 [facility] Lvl 1.40 [facility] ELECTROLYTES BUN 10 7 - 22 02/[address] ELECTROLYTES Glucose Lvl 129 70 - 99 02/17 [facility] HEMATOLOGY RDW 16.1 11.5 - 02/17 [facility] 14.5 [facility] HEMATOLOGY Platelet 186 133 - 450 02/17 [facility] HEMATOLOGY MCHC 33.3 32.0 - 02/17 [facility] 36.0 [facility] HEMATOLOGY RBC 4.66 4.20 - 02/17 [place] 5.40 [facility] HEMATOLOGY Hct 38.1 36.0 - 02/17 [place] 48.0 [facility] HEMATOLOGY Hgb 12.7 12.0 - 02/17 [facility] 16.0 [facility] HEMATOLOGY MCH 27.3 27.0 - 02/17 [place] 31.0 [facility] HEMATOLOGY MCV 81.7 80.0 - 02/17 [place] 98.0 [facility] HEMATOLOGY MPV 10.3 7.4 - 10.4 02/17 [facility] HEMATOLOGY WBC 10.0 3.7 - 10.4 02/17 [facility] HEMATOLOGY Segs 77.7 45.0 - 02/17 [facility] 75.0 [facility] HEMATOLOGY Lymphocytes 14.4 20.0 - 02/17 [facility] 40.0 [facility] HEMATOLOGY Monocytes 3.7 2.0 - 12.0 02/17 [facility] [address] [place] [address] HEMATOLOGY Lymphocytes # 1.4 1.0 - 5.5 02/17 [facility] HEMATOLOGY Eosinophils # 0.4 0.0 - 0.5 02/17 [facility] [place] [facility] HEMATOLOGY Monocytes # 0.4 0.0 - 0.8 02/17 s [facility] HEMATOLOGY Eosinophils 3.8 0.0 - 4.0 02/17 [facility] HEMATOLOGY Segs-Bands # 7.8 1.5 - 8.1 02/17 [facility] HEMATOLOGY Basophils 0.4 0.0 - 1.0 02/17 [facility] PARATHYROID Ca Norm WB 1.11 1.05 - 02/17 [place] PROFILE 1. [facility] PARATHYROID Ca Ion WB 1.16 1.05 - 02/17 [facility] PROFILE 1. [facility] CARDIAC Troponin-T <0.010 0.000 - 02/16 [place] ENZYMES 0.100 [facility] CARDIAC Troponin-I <0.02 0.00 - 02/16 [facility] ENZYMES 0.40 [facility] CARDIAC Total CK 47 12 - 191 02/16 [facility] ENZYMES [facility] CARDIAC Total CK 51 12 - 191 02/16 [facility] ENZYMES [facility] CARDIAC Troponin-I <0.02 0.00 - 02/16 [place] ENZYMES 0.40 [facility] CARDIAC Troponin-T <0.010 0.000 - 02/16 [place] ENZYMES 0.100 [facility] CHEM PANEL Lactic Acid 1.1 0.5 - 2.2 02/16 [facility] s Lvl [facility] HEMATOLOGY D-Dimer 2.92 02/16 [facility] HEMATOLOGY PTT 31.7 22.9 - 02/16 [place] 35.8 [facility] HEMATOLOGY INR 1.23 0.85 - 02/16 [place] 1.17 [facility] HEMATOLOGY PT 15.8 12.0 - 02/16 [place] 14.7 [facility] CHEM PANEL Phosphorus 2.9 2.5 - 4.5 02/16 [facility] CHEM PANEL eGFR 73 02/16 [facility] Comment: The Medical eGFR is Center calculated [...] Chloride Lvl 110 95 - 109 02/16 [facility] CHEM PANEL Potassium Lvl 3.4 3.5 - 5.1 02/16 [facility] CHEM PANEL CO2 31 24 - 32 02/[address] CHEM PANEL Calcium Lvl 8.5 8.5 - 10.5 02/16 [facility] CHEM PANEL Glucose Lvl 105 70 - 99 02/[address] CHEM PANEL Sodium Lvl 147 135 - 145 02/[address] CHEM PANEL Creatinine 0.75 0.50 - 02/16 [facility] Lvl 1.40 [facility] CHEM PANEL BUN 15 7 - 22 02/[address] CHEM PANEL AGAP 9.4 10.0 - 02/16 20.0 [facility] CHEM PANEL Magnesium Lvl 1.9 1.8 - 2.4 02/16 [facility] HEMATOLOGY Segs 61.1 45.0 - 02/16 75.0 [facility] HEMATOLOGY Monocytes 4.8 2.0 - 12.0 02/[address] HEMATOLOGY Lymphocytes 28.4 20.0 - 02/16 40.0 [facility] HEMATOLOGY Eosinophils 5.2 0.0 - 4.0 02/16 [facility]2016 [facility] HEMATOLOGY Basophils 0.5 0.0 - 1.0 02/[address] HEMATOLOGY Segs-Bands # 2.8 1.5 - 8.1 02/16 [facility] HEMATOLOGY Monocytes # 0.2 0.0 - 0.8 02/16 [place] [facility] HEMATOLOGY Lymphocytes # 1.3 1.0 - 5.5 02/16 [place] [facility] HEMATOLOGY Eosinophils # 0.2 0.0 - 0.5 02/16 [facility] [place] [facility] HEMATOLOGY WBC 4.5 3.7 - 10.4 02/16 [facility] HEMATOLOGY MCV 82.1 80.0 - 02/16 98.0 /2016 [facility] HEMATOLOGY Hct 33.8 36.0 - 02/16 [place] 48.0 [facility] HEMATOLOGY Hgb 11.1 12.0 - 02/16 [place] 16.0 /2016 [facility] HEMATOLOGY RBC 4.11 4.20 - 02/16 [place] 5.40 /2016 [facility] HEMATOLOGY RDW 15.9 11.5 - 02/16 14.5 [facility] HEMATOLOGY MCHC 32.8 32.0 - 02/16 36.0 /2016 [facility] HEMATOLOGY MCH 26.9 27.0 - 02/16 31.0 [facility] HEMATOLOGY MPV 9.5 7.4 - 10.4 02/16 [facility] HEMATOLOGY Platelet 137 133 - 450 02/16 [facility] CHEM PANEL Magnesium Lvl 1.8 1.8 - 2.4 02/16 [facility] ELECTROLYTES Potassium Lvl 3.2 3.5 - 5.1 02/16 [facility] HEMATOLOGY Anti-Xa Low 1.70 02/16 Result [facility] Comment: Medical Heparin "Significant Center Findings called to miller munoz at 02/15/2017 22:27 by [facility]. Read Back OK." HEMATOLOGY Fibrinogen 341 230 - 510 02/15 [facility] Lvl /2016 [facility] HEMATOLOGY PT 19.2 12.0 - 02/15 [place] 14.7 [facility] HEMATOLOGY INR 1.58 0.85 - 02/15 [place] 1.17 [facility] HEMATOLOGY PTT 34.9 22.9 - 02/15 [place] 35.8 [facility] BACTERIAL - MRSA by PCR Negative 02/15 [facility] SEROLOGY (02/15/17 4:59 PM) /2016 [facility] DRUG SCREEN UDS Note See Note 02/15 [facility] *NA* /2016 Medical (02/15/17 4:59 PM) [...] Scr Negative Negative 02/15 [place] *NA* [facility] (02/15/17 4:59 PM) [place] URINE AND UA <=1.0 0.1 - 1.0 02/15 [facility] Urobilinogen mg/dL /2016 [facility] URINE AND UA Ketones Negative Negative 02/15 [facility] STOOL mg/dL mg/dL /2016 [facility] URINE AND UA pH 5.5 5.0 - 8.0 02/15 [facility] /[address] [place] [address] URINE AND UA Protein 50 mg/dL Negative 02/15 [facility] STOOL mg/dL /2016 [facility] URINE AND UA Turbidity Marked Clear 02/15 [facility] STOOL *ABN* [facility] (02/15/17 4:59 PM) [place] URINE AND UA Spec Grav 1.020 <=1.030 02/15 [facility] /2016 [facility] URINE AND UA Color Yellow Yellow 02/15 [place] STOOL *NA* Medical (02/15/17 4:59 PM) Center URINE AND UA Mucus Few /LPF None Seen 02/15 [facility] STOOL /LPF /2016 [facility] URINE AND UA Bacteria Moderate None Seen 02/15 [place] /HPF /HPF /2016 [facility] URINE AND UA Sq Epi Moderate Few /LPF 02/15 [facility] STOOL /LPF /2016 [facility] URINE AND UA RBC 4 0 - 2 02/15 [facility] URINE AND UA Blood Small Negative 02/15 [facility] STOOL *ABN* /2016 Medical (02/15/17 4:59 PM) [place] URINE AND UA Leuk Est Large Negative 02/15 [facility] STOOL *ABN* [facility] (02/15/17 4:59 PM) Center URINE AND UA WBC 58 0 - 5 02/15 [facility] URINE AND UA Glucose Negative Negative 02/15 [facility] STOOL mg/dL mg/dL /2016 [facility] URINE AND UA Bili Negative Negative 02/15 [facility] STOOL *NA* /2016 Medical (02/15/17 4:59 PM) [place] URINE AND UA Nitrite Negative Negative 02/15 [facility] (02/15/17 4:59 PM) /2016 [facility] HEMATOLOGY PTT 38.5 22.9 - 02/15 [place] 35.8 [facility] HEMATOLOGY INR 1.71 0.85 - 02/15 [facility] 1.17 [facility] HEMATOLOGY PT 20.4 12.0 - 02/15 [facility] 14.7 [facility] BLOOD BANK ABO/Rh A POS 02/15 [facility] RESULTS /2016 [facility] BLOOD BANK Antibody Scrn Negative 02/15 [facility] as RESULTS (02/15/17 11:10 AM) [facility] CHEM PANEL eGFR 55 02/15 Result Comment: The [facility] eGFR is Center calculated using the CKD-EPI [...] PANEL CO2 30 24 - 32 02/15 [facility] CHEM PANEL Calcium Lvl 9.2 8.5 - 10.5 09 [facility] CHEM PANEL AGAP 12.9 10.0 - 09 20.0 [facility] CHEM PANEL Creatinine 0.95 0.50 - 09 [place] Lvl 1.40 /2016 [facility] CHEM PANEL Sodium Lvl 143 135 - 145 09 [facility] CHEM PANEL Chloride Lvl 103 95 - 109 02/15 [facility] CHEM PANEL Glucose Lvl 144 70 - 99 09 [facility] CHEM PANEL BUN 16 7 - 22 02/15 [facility] CHEM PANEL Lactic Acid 1.0 0.5 - 2.2 09 [place] Lvl /2016 [facility] HEMATOLOGY Segs-Bands # 5.6 1.5 - 8.1 02/15 [facility] HEMATOLOGY Lymphocytes # 1.4 1.0 - 5.5 02/15 [facility] [place] [facility] HEMATOLOGY Monocytes # 0.2 0.0 - 0.8 02/15 [facility] HEMATOLOGY Eosinophils # 0.2 0.0 - 0.5 02/15 [facility] HEMATOLOGY Basophils 0.3 0.0 - 1.0 02/15 [facility] HEMATOLOGY Eosinophils 2.6 0.0 - 4.0 02/15 [facility] HEMATOLOGY Lymphocytes 18.7 20.0 - 02/15 40.0 [facility] HEMATOLOGY Segs 75.3 45.0 - 02/15 75.0 [facility] HEMATOLOGY Monocytes 3.1 2.0 - 12.0 02/15 [facility] HEMATOLOGY G-value Rapid 12.4 5.0 - 11.6 02/15 [place] [facility] HEMATOLOGY Estimated % 0.0 0.0 - 7.5 02/15 [place] [facility] HEMATOLOGY Max Amplitude 71 52 - 71 02/15 [place] [facility] HEMATOLOGY Angle Rapid 80 64 - 80 02/15 [facility] HEMATOLOGY K-time Rapid 0.8 0.6 - 2.3 02/15 [facility] HEMATOLOGY [place] 0.6 02/15 [facility] HEMATOLOGY R-time Rapid 0.7 0.4 - 0.7 02/15 [place] [facility] HEMATOLOGY ACT (TEG) 113 86 - 118 02/15 [place] [facility] HEMATOLOGY MCHC 32.1 32.0 - 02/15 [facility] 36.0 /2016 [facility] HEMATOLOGY RDW 16.3 11.5 - 02/15 [place] 14.5 /2016 [facility] HEMATOLOGY Platelet 178 133 - 450 02/15 [facility] HEMATOLOGY MPV 9.3 7.4 - 10.4 02/15 [facility] HEMATOLOGY RBC 4.62 4.20 - 02/15 [place] 5.40 /2016 [facility] HEMATOLOGY Hgb 12.1 12.0 - 02/15 [facility] 16.0 [facility] HEMATOLOGY Hct 37.6 36.0 - 02/15 [facility] 48.0 [facility] HEMATOLOGY WBC 7.4 3.7 - 10.4 02/15 [facility] HEMATOLOGY MCV 81.5 80.0 - 02/15 [facility] 98.0 [facility] HEMATOLOGY MCH 26.1 27.0 - 02/15 [facility] 31.0 [facility] TOXICOLOGY Etoh (%) <0.003 02/15 [facility] TOXICOLOGY Ethanol Lvl <3 02/15 [facility] Pathology Reports No Data Provided for This Section Diagnostic Reports Report Value Date Source Brain wo contrast CT EXAM: [facility] DATE: 03/22/2017 1:29 PM CDT INDICATION: [...] CT EXAM: CT BRAIN WITHOUT CONTRAST 03/01/2017 [facility] DATE: 03/01/2017 1046 AM CDT INDICATION: [...] BILATERAL UPPER EXTREMITY VENOUS DOPP LER 02/16/[address] [facility] Venous Doppler Viet US EXAM: US BILATERAL [...] EXAM: XR LEFT WRIST 3 VIEWS 02/15/[address] [facility] DATE: 02/15/2017 9:43 PM CDT Cente r [...] EXAM: XR RIGHT WRIST 3 VIEWS 02/15/2017 [facility] [place] [facility] DATE: 02/15/2017 9:59 PM CDT Cente r [...] wo contrast CT EXAM: CT BRAIN 02/15/2017 [facility] dical DATE: 02/15/2017 at 14:35 Center CLINICAL [...] EXAM: XR RIGHT ELBOW 3 VIEWS 02/15/[address] [facility] DATE: 02/15/2017 2:14 PM CDT. Cent er [...] EXAM: XR RIGHT HUMERUS 2 VIEWS 02/15/[address] [facility] DATE: 02/15/2017 12:[address] [...] Torso-Outside Consult EXAM: Torso-Outside Consult CT 02/15/[address] [facility] CT DATE: 02/15/2017 8:50 Center INDICATION: - [...] WITH OUT CONTRAST 2ND OPINION INTERPRETATION 02/15/[address] [facility] CT DATE: 02/15/2017 12:[address] INDICATION: Trip, fall. COMPARISON: None available TECHNIQUE: Axial images through the cervical spine were obt ained. Sagittal and coronal reformatted images were per formed. Second opinion interpretatio n of CT cervical spine obtained at [facility] 02/15/2017 0850 hours FINDINGS: Atherosclerotic calcificatio ns [...] DX EXAM: XR CHEST 1 [facility] [place] [facility]: [facility]15[facility]2017 11:05 AM CDT. [...] Comments Source Systolic (mm Hg) 147 02/17/2017 [facility] dical [place] Diastolic (mm Hg) 88 02/[facility]2017 [place] [facility] Resp[facility] Rate 20 02/17/2017 [facility] Heart Rate 105 02/17/2017 [facility] [place] [facility] Systolic (mm Hg) 144 02/17/2017 [facility] dical Center Diastolic (mm Hg) 91 02/17/2017 [facility] Heart Rate 98 02/17/2017 [facility] [place] Respitory Rate 18 02/17/2017 [facility] Systolic (mm Hg) 146 02/17/2017 [facility] dical Center Diastolic (mm Hg) 84 02/17/2017 [facility] Respitory Rate 18 02/17/2017 [facility] Heart Rate 111 02/17/2017 [facility] Temperature Oral (F) 98.4 F 02/17/2017 [facility] Temperature Oral (F) 97.7 F 02/17/2017 [facility] Weight 77.273 02/15/2017 [facility] BMI Calculated 30.18 02/15/2017 [facility] Height 160.02 cm 02/15/2017 [facility] Temperature Oral (F) 98.0 F 02/15/2017 [facility] Weight 77.273 02/15/2017 [facility] BMI Calculated 28.35 02/15/2017 [facility] Height 165.1 cm 02/15/2017 [facility] Encounters Location Location Encounter Encounter Reason Attending ADM DC Stat us Source Details Type Number For Provider Date Date Visit [facility] [id number] Familia 02/15 02/17 [facility] Sharif 7 [facility] [id number] TRAUMA 03/01 [facility] 0 [facility] Outpt Diag [id number] Juan 03/01 03/02 [facility] 0 [facility] [place] [facility] [id number] TRAUMA 03/22 [facility] Outpt Diag [id number] Familia 03/22 03/23 [facility] Procedures Procedure Code Date Perfomer Comments Source Cholecystostomy [id number] 06/11/2006 [facility] [place] Tonsillectomy [id number] 06/11/1946 [facility] [place] [facility]ICuco [place] Assessment and Plan No Data Provided for This Section Plan of Care No Data Provided for This Section Social History Social History Date Source Social History TypeResponse 03/22/2017 [facility] william Smoking Status Never smoker; Exposure to Tobacco Smoke None; Cigarette Smoking Last 365 Days No; Reg Smoking Cessation Counseling No Social History TypeResponse 02/15/2017 [facility] between [facility] Smoking Status Never smoker; Exposure to Tobacco Smoke None; Cigarette Smoking Last 365 Days No; Reg Smoking Cessation Counseling No Family History No Data Provided for This Section Advance Directives No Data Provided for This Section Functional Status No Data Provided for This Section
--- OUTSIDE RECORDS SUMMARY | 2020-04-29 18:09 | XMS REPORT | Continuity of Care Document ---
:1930 Author Organization [facility] t Address [address] [place] [address] Care Team Providers Name Role Phone SAMANTHA [...] W LOC OF UNSP Active 02/28/2017 [facility] [place] TRAUMATIC Diagnosis Active 2017-02-15 Memoria SAH 02-15 10:54:00 l 00:00: [place] TRAUMATIC 00 SAH Active 02/15/2017 [facility] SUBDURAL Diagnosis Active 2017-02-23 M emoria HEMATOMA 02-15 14:13:00 l SUBDURAL 00:00: Reinaldo n HEMATOMA 00 Active 02/15/2017 [facility] ARCELIA Diagnosis Active 2017-02-15 Memoria BILLING 02-15 11:00:00 l ONLY LFLT 00:00: Sharif #4420 ARCELIA 00 BILLING ONLY LFLT #4420 Active 02/15/2017 [facility] Cat bite Cat bite Disease [facility] Atrial Problem Resolve 2017-03-25 Erik ioana fibrillati d 00:46:38 l on Atrial Shar[place] (disorder) fibrillati on (disorder) Resolved Problem 03/25/2017 [facility] [place] Congestive Problem Resolve 2017-03-25 Memoria heart d 00:46:38 l failure Sharif (disorder) Congestive heart failure (disorder) Resolved Problem 03/25/2017 [facility] [place] Cerebrovas Problem Resolve 2017-03-25 Memoria cular d 00:46:38 l accident Shar[place] (disorder) Cerebrovas cular accident (disorder) Resolved Problem 03/25/2017 [facility] [place] Gout Problem Resolve 2017-03-25 Erik ioana (disorder) d 00:46:38 l Gout [place] (disorder) Resolved Problem 03/25/2017 [facility] [place] Hyperlipid Problem Resolve 2017-03-25 Memoria emia d 00:46:38 l (disorder) Reinaldo n Hyperlipid emia (disorder) Resolved Problem 03/25/2017 [facility] [place] Hypertensi Problem Resolve 2017-03-25 Memoria ve d 00:46:38 l disorder, Sharif systemic Hypertensi arterial ve (disorder) disorder, systemic arterial (disorder) Resolved Problem 03/25/2017 [facility] [place] Simple Problem Active 2017-03-25 Memor ia obesity 00:46:38 l (disorder) Simple Herm william obesity (disorder) Active Problem 03/25/2017 [facility] [place] NONTRAUMAT Diagnosis Active 2017-02-23 Memoria IC 14:13:00 l SUBDURAL [place] HEMORRHAGE NONTRAUMAT , UNSPEC IC SUBDURAL HEMORRHAGE , UNSPEC Active [facility] Allergies, Adverse Reactions, Alerts Allergy Allergy Status Severity Reaction(s) Onset Inactive Treating Comm ents Source Name Type Date Date Clinician Codeine Propensi Active [facility] adverse [facility]: Medical reaction 00 Chili s Codeine Codeine Active Memoria Sulfate Sulfate l [place] eucalypt eucalypt Active Memori a us l topical topical [place] Family History Family Member Diagnosis Comments Start Date Stop Date Source Natural daughter Asthma [facility] Social History Social Habit Start Date Stop Date Quantity Comments Source Sex Assigned At [facility] Alcohol intake 2016-03-01 2016[facility] non-drinker of Medical Ce nter alcohol (finding) Smoking Status Start Date Stop Date Source Social History [facility] Medications Ordered Filled Start Stop Current Ordering [...] as: l / 05:44: Duoneb) Ipratropium 00 [place] 0.167 MG/ML Inhalant Solution [DuoNeb] Metoprolol No [...] 0.9% 02-16 (Same as: l 02:00: BD [place] 00 Posiflush) Labetalol No 10 mg, 2 [...] ioana 02-15 acetaminop l 21:30: hen 4000 Sharif 00 mg/day (4 gm/day). (Same as: Tylenol Extra Strength) Calcium No Notes: Memoria Carbonate 02-15 (Same As: l 500 MG 21:09: Tums) [place] Chewable 00 Calcium Tablet Carbonate 500 mg = 200 mg elemental calcium Dose = mg calcium carbonate ( mg elemental calcium) Calcium No Notes: Memoria Gluconate 02-15 WASTE: F/P l 21:09: - Sink; E [place] - Municipal Trash Bin Magnesium No Notes: Memori a Oxide 02-15 (Same as: l 21:09: Mag-Ox [place] 00 400) Magnesium oxide 607wv=479u g elemental magnesium Dose=____m g magnesium oxide (___mg elemental magnesium) sodium No 45 mmol, Memoria phosphate 02-15 15 mL, l 21:09: Route: [place] 00 IVPB, PRN, Dosing Weight 77.273, kg, PRN Abnormal Lab Result, Start date: 02/15/17 16:09:00 CDT, Duration: 30 day, Stop date: 03/17/17 16:08:00 CDT, FOR ICU USE ONLY potassium No Notes: Memori a phosphate 02-15 (Same as: l 21:09: K [place] 00 Phosphate. ) 1 mMol phoshate has 1.47 mEq potassium Infuse over 4 hours Magnesium No Notes: Memori a Sulfate 02-15 WASTE: F/P l 21:09: - Sink; E [place] - [facility] Trash Bin potassium No Notes: [...] regular 02-15 units) l 18:27: WASTE: F/P Sharif 00 - Black; E - Municipal Trash Bin Stable for 28 days at room temperatur e Expires in days from ____Date Saline No Notes: Memoria Flush 0.9% 02-15 (Same as: l 18:27: BD [place] Posiflush) sodium No 1,000 mL, Memori a [...] 50 Memoria 02-15 microgram, l 17:25: Route: Shar[place] 00 IVP, ONCE, Dosing Weight 77.273, kg, [...] Systolic (mm Hg) 2017-02-17 17:00:00 Erik rial Shar[place] Diastolic (mm Hg) 2017-02-17 17:00:00 Mem orial [place] Respitory Rate 2017-02-17 17:00:00 Memori al Sharfi Heart Rate 2017-02-17 17:00:00 [facility] [place] Systolic (mm Hg) 2017-02-17 12:00:00 Erik rial Shar[place] Diastolic (mm Hg) 2017-02-17 12:00:00 Mem orial [place] Heart Rate 2017-02-17 12:00:00 [facility] [place] Respitory Rate 2017-02-17 12:00:00 Memori al [place] Systolic (mm Hg) 2017-02-17 11:28:00 Erik rial [place] Diastolic (mm Hg) 2017-02-17 11:28:00 Mem orial [place] Respitory Rate 2017-02-17 11:28:00 Memori al [place] Heart Rate 2017-02-17 11:28:00 [facility] [place] Temperature Oral (F) 2017-02-17 03:36:00 98.4 F [facility] Temperature Oral (F) 2017-02-17 01:00:00 97.7 F [facility] [place] Weight 2017-02-15 21:11:00 [facility] [place] BMI Calculated 2017-02-15 21:11:00 Memori al [place] Height 2017-02-15 21:11:00 160.02 cm [facility] [place] Temperature Oral (F) 2017-02-15 20:32:00 98.0 F [facility] Weight 2017-02-15 16:10:00 [facility] BMI Calculated 2017-02-15 16:10:00 Memori al [place] Height 2017-02-15 16:10:00 165.1 cm [facility] [place] Procedures Procedure Date / Time Performed Performing Clinician Viridiana riggins Cholecystostomy 2006-06-11 00:00:00 Karon simpson Tonsillectomy 1946-06-11 00:00:00 Karon simpson Encounters Start End Encounter Admission Attending Care Care Encounter Source Date/Time Date/Time Type Type Clinicians Facility Department ID 2017-03-22 2017-03-22 Outpatient Yomi [facility] [id number] 13:13:00 23:59:00 Familia Taylor 2017-03-01 2017-03-01 [id number] 10:26:00 23:59:00 Juan Benoit 2017-02-15 2017-02-17 Outpatient Kenneth [facility] [id number] 10:56:00 13:10:00 Alexandra 67 Results Test [...] code = MCH) 27.3 pg 27.0-31.0 [facility] OsldtweKWUBDPZMVK2664-05-38 07:47:0081.7[facility]OLOG[facility] 2017-02-17 07:47:0010.3[facility] YadpaxcEJGSQIFIBY0301-67-86 07:47:0010.0[facility] SsgmjioMQYHNGRVZA3858-90-12 07:47:0077.7[facility] SjiwmglYDQXKDGAGP8831-60-30 07:47:0014.4[facility] MuanzmnRAHLFMGRRK3742-91-97 07:47:003.7[facility] [place] GHOVJUBBEM1571-21-04 07:47:001.4[facility] ZnmvwvaCPWJUGGEEW9708-31-40 07:47:000.4 [facility] VfhjezjOHQDUVERDQ7009-31-97 07:47:000.4[facility]annHEMATOLOGY 2017-02-17 07:47:003.8[facility] HvbnmtcMESIDETPPU6393-32-14 07:47:007.8[facility] ApegzxjHHXXNZGZNW2144-46-85 07:47:000.4[facility] HermannPARATHYROID PROFILE 2017-02-17 07:47:001.11[facility] HermannPARATHYROID ICOWAUE6774-48-29 07:47:00 1.16[facility] HermannCARDIAC EJDLGNM4502-73-60 16:33:00<0.010[facility] CARDIAC EVFFAEX9106-46-86 16:33:00<0.02[facility] HermannCARDIAC ENZYMES 2017-02-16 16:33:0047[facility]annCARDIAC ZSNIAKM5051-69-86 12:49:0051 [facility]annCARDIAC ZKCKWDS8951-21-75 12:49:00<0.02[facility] CARDIAC TIPWGLB1236-24-04 12:49:00<0.010[facility] HermannCHEM AMEPP6234-67-92 12:49:001.1[facility] DttjihuSZRKWCQIIG2078-48-25 12:49:002.92[facility] EKYCCIMUKT9127-78-31 12:49:00 Test Item Value Reference Range Interpretation Comments PTT (test code = PTT) 31.7 s 22.9-35.8 Memorial PbbkkrfYQBNGKEYZN6085-86-86 12:49:001.23[facility] HermannHEMATOLOGY 2017-02-16 12:49:00 Test Item Value Reference Range Interpretation Comments PT (test code = PT) 15.8 s 12.0-14.7 [facility] HermannCHEM VQGQH5059-82-26 06:25:002.9[facility] HermannCHEM PANEL 2017-02-16 06:25:0073[facility] HermannCHEM QFPIE2809-39-58 06:25:10974Ohuprhvi HermannCHEM KNJPZ6538-12-69 06:25:003.4[facility] HermannCHEM QRUCY6863-11-03 06:25:0031[facility]annCHEM SJPPM6665-35-25 06:25:008.5[facility] HermannCHEM LJAXW7945-84-77 06:25:73783Xdytwmxl HermannCHEM LTHSW9517-78-81 06:25:58717 [facility]annCHEM CPQRU5704-15-68 06:25:000.75[facility] HermannCHEM PANEL 2017-02-16 06:25:0015[facility] HermannCHEM DMLMO0668-66-82 06:25:009.4[facility] HermannCHEM ONOFY3166-59-13 06:25:001.9[facility] MebpemgPMWYSKUDKE3911-64-63 06:25:0061.1[facility] LfylmbuVIGQEGOHOB0508-16-96 06:25:004.8[facility] ZIYPDKWGKK6908-07-42 06:25:0028.4[facility] TydvxikKWDBHTGAVZ0126-99-36 06:25:00 5.2[facility] HtwznnbZQMIBQSZLH0531-92-32 06:25:000.5[facility] HermannHEMATOLOGY 2017-02-16 06:25:002.8[facility] KtxrojyJHRSHPVGBA2737-07-37 06:25:000.2[facility] IqnxuruUOGNYNWQBI9649-01-22 06:25:001.3[facility] NdqmxpnZFQUZSSFVY0753-28-19 06:25:000.2[facility] EgyuscxWUGYTCIICR7181-92-37 06:25:004.5[facility] [place] RBEBYQUBFO7410-93-66 06:25:0082.1[facility] OedygweHLFDNADOXH0513-65-00 06:25:00 33.8[facility] XcicbvvUVWFVAPCHE2005-45-71 06:25:0011.1[facility] HermannHEMATOLOGY 2017-02-16 06:25:004.11[facility] XiykppjZFUSPTFYUR2559-63-94 06:25:0015.9[facility] NfvvhftPMLTIXXXYG8742-84-11 06:25:0032.8[facility] PxywcmzNJZIPLUYFM1672-92-60 06:25:00 Test Item Value Reference Range Interpretation Comments MCH (test code = MCH) 26.9 pg 27.0-31.0 [facility] QjcnxzlNANDFAVKNM2003-72-41 06:25:009.5[facility] HermannHEMATOLOGY 2017-02-16 06:25:87587Pgweavqz HermannCHEM ALWDE8287-12-60 02:51:001.8[facility] MavynlfEMBJOGXYJKEU3268-07-03 02:51:003.2[facility] DkjjuzaJSVEGRQPPF2318-43-51 02:51:001.70[facility] FqgmvjfJSVWDRITCO8535-72-29 23:54:44486Jzsglfmh Sharif ESWTOWAVFK0180-84-42 23:54:00 Test Item Value Reference Range Interpretation Comments PT (test code = PT) 19.2 s 12.0-14.7 [facility] UdzcvbmLRFJNOMEHG9248-96-99 23:54:001.58[facility] HermannHEMATOLOGY 2017-02-15 23:54:00 Test Item Value Reference Range Interpretation Comments PTT (test code = PTT) 34.9 s 22.9-35.8 [facility] HermannBACTERIAL - FPALNGAY3550-17-99 21:59:00Negative (02/15/17 4:59 PM) [facility]annDR[facility] ZQSQMV0691-78-14 21:59:00See Note *NA*(02/15/17 4:59 PM) [facility] XCWDCE0205-82-87 21:59:00Negative *NA*(02/15/17 4:59 PM) [facility] COGPDL0527-34-31 21:59:00Negative *NA*(02/15/17 4:59 PM) [facility] CFSZOY8586-59-72 21:59:00Negative *NA*(02/15/17 4:59 PM) [facility] QWIZPC7237-57-38 21:59:00Negative *NA*(02/15/17 4:59 PM) [facility] VTIGPP5367-54-91 21:59:00Negative *NA*(02/15/17 4:59 PM) [facility] TNLLDK8187-95-70 21:59:00Negative *NA*(02/15/17 4:59 PM) [facility]DR[facility] MFBYDR9768-72-23 21:59:00Negative *NA*(02/15/17 4:59 PM) [facility] AND RORTE2874-54-76 21:59:005.5[facility]annUR[facility] AND DBUIL4316-14-09 21:59:00Marked *ABN*(02/15/17 4:59 PM)[facility] AND OWFZB4548-60-60 21:59:001.020[facility]annUR[facility] AND VIWXE4539-35-01 21:59:00 Yellow *NA*(02/15/17 4:59 PM)[facility] FQNSQ3969-90-71 21:59:004 [facility] WDVSP0304-46-46 21:59:00Small *ABN*(02/15/17 4:59 PM) [facility] EMTKB5620-51-57 21:59:00Large *ABN*(02/15/17 4:59 PM) [facility] WZBFN0862-49-29 21:59:0058[facility] AND AYWBP0702-62-23 21:59:00Negative *NA*(02/15/17 4:59 PM)[facility] KVEZN9718-41-47 21:59:00Negative (02/15/17 4:59 PM)[facility] HermannHEMATOLOGY 2017-02-15 18:40:00 Test Item Value Reference Range Interpretation Comments PTT (test code = PTT) 38.5 s 22.9-35.8 [facility] TkxptuwORCGTRBSLT3565-91-44 18:40:001.71[facility] HermannHEMATOLOGY 2017-02-15 18:40:00 Test Item Value Reference Range Interpretation Comments PT (test code = PT) 20.4 s 12.0-14.7 [facility] TOSIQCY9119-86-29 16:10:00Negative (02/15/17 11:10 AM) [facility]annCHEM HBRZQ6317-66-29 16:10:0055[facility] HermannCHEM PANEL 2017-02-15 16:10:0030[facility] HermannCHEM TJEVA7801-54-19 16:10:009.2[facility] HermannCHEM JZYSE3400-17-86 16:10:0012.9[facility] HermannCHEM JHFSV5668-78-79 16:10:000.95[facility] HermannCHEM OBSWT9607-02-31 16:10:95918Pfksxins HermannCHEM YLUTA8394-15-36 16:10:79533Ybagiqok HermannCHEM EKCHE3435-84-16 16:10:60856 [facility]annCHEM UOKDV9442-52-75 16:10:0016[facility] HermannCHEM PANEL 2017-02-15 16:10:001.0[facility] QdfabpmHLERIXNUED3748-70-61 16:10:005.6[facility] XlrmpcyMEBSQNIJYG9584-85-37 16:10:001.4[facility] QtibldyTGOCFUMJNR5121-18-52 16:10:000.2[facility] NesbrgoBDRJILPBQN7236-83-27 16:10:000.2[facility] VYBOTPEMSB6533-32-18 16:10:000.3[facility] VjizgxuYQFZUPUYHB4284-08-56 16:10:002.6 [facility] QtuazhjZHMROCNJIJ9277-25-89 16:10:0018.7[facility] HermannHEMATOLOGY 2017-02-15 16:10:0075.3[facility] HqtqzteJAMHAARAHW4100-66-56 16:10:003.1[facility] UkmsjuaYYKLVJRSHP4650-37-54 16:10:0012.4[facility] FcsbogcZFJXTWKZME0426-61-45 16:10:000.0[facility] ZddmuwnWGGGZIDJUU9085-05-92 16:10:00 Test Item Value Reference Range Interpretation Comments Max Amplitude Rapid (test code = Max 71 mm 52-71 Amplitude Rapid) [facility] IvxwbvoIGVWJLQTPL4768-31-13 16:10:00 Test Item Value Reference Range Interpretation Comments Angle Rapid (test code = Angle 80 degrees 64-80 Rapid) [facility]JnerlujYKEVFTYGEX1186-34-43 16:10:00 Test Item Value Reference Range Interpretation Comments K-time Rapid (test code = K-time 0.8 min 0.6-2.3 Rapid) [facility]AjbjbjsGKLMJRPMTB5300-56-74 16:10:00 Test Item Value Reference Range Interpretation Comments Split Point Rapid (test code = Split 0.6 min Point Rapid) [facility] TempleBmjmdetSVRSZZYQMG7915-83-28 16:10:00 Test Item Value Reference Range Interpretation Comments R-time Rapid (test code = R-time 0.7 min 0.4-0.7 Rapid) [facility] TempleAcmbovyKPBYAEEHCB2932-54-20 16:10:00 Test Item Value Reference Range Interpretation Comments ACT (TEG) Rapid (test code = ACT (TEG) 113 s 86-118 Rapid) [facility] HospitalRkeosxgNMDYUWITJB3066-04-60 16:10:0032.1[facility] HermannHEMATOLOGY 2017-02-15 16:10:0016.3[facility] IkyxhntBLQVWXMMUL3969-07-45 16:10:61006Ncpyjtgk ZxedtelWTLOLCJYGU2284-63-08 16:10:009.3[facility] BatonrgUZFWJAFLKW3807-19-69 16:10:004.62[facility] WhphbjcFJEJUOWOYO2185-81-42 16:10:0012.1[facility] [place] MEOFUOXRLF6927-31-32 16:10:0037.6[facility] UmqsnohNHLPUGTFXL9774-68-98 16:10:00 7.4[facility] TwcdqboVFDFMMFOKQ9603-27-45 16:10:0081.5[facility] HermannHEMATOLOGY 2017-02-15 16:10:00 Test Item Value Reference Range Interpretation Comments MCH (test code = MCH) 26.1 pg 27.0-31.0 [facility] HospitalAqebotcRZRXVPTBGJ0179-11-66 16:10:00<0.003[facility] HermannTOXICOLOGY 2017-02-15 16:10:00<3[facility] HermannBasic Metabolic Hfono0747-79-41 20:44:00 Test Item Value Reference Range Interpretation [...] by the [employer] Kid[employer] Foundation,http ://nkd ep.nih.gov Ihh-Qrd6153-33-02 20:38:00 Test Item Value Reference Range Interpretation Comments NT ProBnp (test code = PBNP) 775 pg/mL 0-449 H
[2020-04-29 18:44] VITALS: BMI 29.5
[2020-04-29] MEDS ORDERED: allopurinoL 300 MG TAB PO SCH (20:00)
[2020-04-29] MEDS: MELATONIN 3 MG TABLET PO PRN (21:24)
[2020-04-29] MEDS: BENZONATATE 100 MG CAP PO PRN (21:24)
[2020-04-29] MEDS: GABAPENTIN 300 MG CAP PO SCH (21:24)
[2020-04-29] MEDS: ATORVASTATIN 10 MG TAB PO SCH (21:25)
[2020-04-29] MEDS: allopurinoL 100 MG TAB PO SCH (21:26)
[2020-04-29] MEDS: TRAMADOL HCL 50 MG TAB PO PRN (22:30)
[2020-04-30] MEDS: METOPROLOL XL 100 MG TAB PO SCH (05:39)
[2020-04-30 06:06] LABS: Urine Appearance CLEAR; Urine Bilirubin NEGATIVE (NEG); Urine Blood NEGATIVE (NEG); Urine Color YELLOW; Urine Glucose NEGATIVE (NEG); Urine Protein NEGATIVE (NEG); Urine Urobilinogen 0.2 mg/dL (0.2-1.0)
[2020-04-30 06:15] LABS: Absolute Lymphocytes (CBC) 1.1 K/uL (0.7-4.9); Basophils % 0.3 % (0-1.3); Hematocrit 35.2 % (36.0-45.0); Lymphocytes % 11.3 % (15.3-44.8); MPV 9.5 fL (7.6-11.3); RBC Red Blood Cell Count 4.18 M/uL (3.86-4.86)
[2020-04-30 06:29] LABS: Albumin 2.6 g/dL (3.4-5.0); Magnesium 2.2 mg/dL (1.8-2.4); Potassium 4.5 mmol/L (3.5-5.1); Prealbumin 20.6 mg/dL (20-40)
[2020-04-30] MEDS: LEVOTHYROXINE SOD 0.112 MG TAB PO SCH (06:35)
[2020-04-30] MEDS: LEVOTHYROXINE SOD 0.025 MG TAB PO SCH (06:35)
[2020-04-30 06:38] LABS: Urine Bacteria NONE SEEN /HPF (<20); Urine RBC NONE SEEN /HPF (NONE SEEN)
[2020-04-30 06:40] LABS: Urine Mucus SLIGHT /HPF (NONE SEEN)
[2020-04-30] MEDS: TRAMADOL HCL 50 MG TAB PO PRN (07:12)
[2020-04-30] MEDS: BENZONATATE 100 MG CAP PO PRN ×2 (07:12→16:41)
[2020-04-30] MEDS: ONDANSETRON 4 MG (ODT) TAB PO PRN ×3 (07:33→17:11)
[2020-04-30] MEDS: SPIRONOLACTONE 25 MG TABLET PO SCH (08:22)
[2020-04-30] MEDS: allopurinoL 100 MG TAB PO SCH ×2 (08:22→20:48)
[2020-04-30] MEDS: levoFLOXacin 500 MG TAB PO SCH (08:22)
[2020-04-30] MEDS: GABAPENTIN 300 MG CAP PO SCH ×2 (08:22→20:48)
[2020-04-30] MEDS: FUROSEMIDE 20 MG TABLET PO SCH ×2 (08:24→16:41)
--- NOTE | 2020-04-30 09:56 | P.RH.PN ---
Estimated Length of Stay: 14 Expected Discharge Date: 05/12/20 Discharge Disposition Plan: Home Family Support: Yes Jail Goal: Mobility, Transfers, Self Care Vital Signs: Last Vital Signs Temp 97.9 F 04/30/20 07:52 Pulse 74 04/30/20 08:24 Resp 14 04/30/20 07:52 BP 140/80 04/30/20 08:24 Pulse Ox 98 04/30/20 07:52 Laboratory: Laboratory Last Values WBC 10.2 K/uL (4.3-10.9) D 04/30/20 05:56 RBC 4.18 M/uL (3.86-4.86) 04/30/20 05:56 Hgb 11.7 g/dL (12.0-15.0) L 04/30/20 05:56 Hct 35.2 % (36.0-45.0) L 04/30/20 05:56 MCV 84.1 fL (80-100) 04/30/20 05:56 MCH 28.0 pg (27.0-35.0) 04/30/20 05:56 MCHC 33.3 g/dL (32.0-36.0) 04/30/20 05:56 RDW 17.3 % (12.1-15.2) H 04/30/20 05:56 Plt Count 191 K/uL (152-406) 04/30/20 05:56 MPV 9.5 fL (7.6-11.3) 04/30/20 05:56 Neutrophils % 83.6 % (41.7-73.7) H 04/30/20 05:56 Lymphocytes % 11.3 % (15.3-44.8) L 04/30/20 05:56 Monocytes % 4.0 % (3.3-12.3) 04/30/20 05:56 Eosinophils % 0.8 % (0-4.4) 04/30/20 05:56 Basophils % 0.3 % (0-1.3) 04/30/20 05:56 Absolute Neutrophils 8.5 K/uL (1.8-8.0) H 04/30/20 05:56 Absolute Lymphocytes 1.1 K/uL (0.7-4.9) 04/30/20 05:56 Absolute Monocytes 0.4 K/uL (0.1-1.3) 04/30/20 05:56 Absolute Eosinophils 0.1 K/uL (0-0.5) 04/30/20 05:56 Absolute Basophils 0.0 K/uL (0-0.5) 04/30/20 05:56 Sodium 145 mmol/L (136-145) 04/30/20 05:56 Potassium 4.5 mmol/L (3.5-5.1) 04/30/20 05:56 Chloride 112 mmol/L (98-107) H 04/30/20 05:56 Carbon Dioxide 31 mmol/L (21-32) 04/30/20 05:56 BUN 36 mg/dL (7-18) H 04/30/20 05:56 Creatinine 0.76 mg/dL (0.55-1.3) 04/30/20 05:56 Estimated GFR 72 mL/min (=/>90) L 04/30/20 05:56 Glucose 132 mg/dL (74-106) H 04/30/20 05:56 Calcium 8.9 mg/dL (8.5-10.1) 04/30/20 05:56 Magnesium 2.2 mg/dL (1.8-2.4) 04/30/20 05:56 Albumin 2.6 g/dL (3.4-5.0) L 04/30/20 05:56 Prealbumin 20.6 mg/dL (20-40) 04/30/20 05:56 Urine Color Yellow 04/30/20 04:30 Urine Appearance Clear 04/30/20 04:30 Urine pH 5.0 (5.0-7.0) 04/30/20 04:30 Ur Specific [place] 1.020 (1.005-1.030) 04/30/20 04:30 Glucose (UA)(Auto) Negative (NEG) 04/30/20 04:30 Urine Ketones Negative (NEG) 04/30/20 04:30 Urine Blood Negative (NEG) 04/30/20 04:30 Urine Nitrite Negative (NEG) 04/30/20 04:30 Urine Bilirubin Negative (NEG) 04/30/20 04:30 Urine Urobilinogen 0.2 mg/dL (0.2-1.0) 04/30/20 04:30 Ur Leukocyte Esterase Negative (NEG) 04/30/20 04:30 Urine RBC None seen /HPF (NONE SEEN) 04/30/20 04:30 Urine WBC 5-10 /HPF (<5) H 04/30/20 04:30 Ur Squamous Epith Cells <5 /HPF (NONE SEEN) 04/30/20 04:30 Urine Bacteria None seen /HPF (<20) 04/30/20 04:30 Hyaline Casts 0-5 /LPF (NONE SEEN) 04/30/20 04:30 Urine Mucus Slight /HPF (NONE SEEN) 04/30/20 04:30 Urine Culture Reflexed Not needed 04/30/20 04:30 Urine Total Protein Negative (NEG) 04/30/20 04:30 Weight: 167 lb Wound Present: No Closed Surgical Incision Present: No Physician Update: She is nauseated this morning. She is at contact guard level with transfers. She has a cough from her pneumonia. Her COVID-19 is negative. Her labs reviewed and are stable. She lives alone and is moderately debilitated. Functional Improvement: pt presents with mild <-> moderate strength deficits globally. pt demonstrates poor balance and stability during ambulation and functional transfers. pt exhibits trunk weakness. pt c/o significant nausea with some vomiting earlier. pt on 2L O2 nc. pt experiences poor tolerance to functional activity due to weakness, fatigue, SoB, and nausea. Skilled PT services are necessary to address the above mentioned impairments and functional limitations. Summary: Patient's care plan and snf goals have been reviewed and revised as necessary. Please see the Rehabilitation Signature page for all necessary signatures.
[2020-04-30] MEDS ORDERED: INFLUENZA VACCINE (for 3y+) 0.5 ML DOSE IMVAC ONE (10:00)
--- NOTE | 2020-04-30 13:13 | R.HP ---
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 board/care, assisted living, mcc, transitional living) PRE-HOSPITAL LIVING WITH Alone ENCOUNTER PHYSICIAN: Dr. Dino Mccartney M.D. 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 lives alone in a 1 raul home, has a ramp to enter, normally ambulates w/o an A.D. , does have a straight cane that she uses at times and at night. She has a tub w/ overhead shower and tub seat. Cu rrently PT recommended a tub bench for safety during transfers in/out of tub, and use of a Walker w/ wheels. Family says pt. has one at home (walker). ONSET DATE: 04/26/2020 PRIMARY DIAGNOSIS-RELATED SURGERIES: No surgeries related to the primary diagnosis were performed. SECONDARY/COMORBID DIAGNOSES (TIERED): - Tier 3 Pneumonia, unspecified organism (J18.9) HISTORY OF PRESENT ILLNESS (HPI): Pt. is a 89 yo Right-handed white female. On 04/26/2020 she was admitted to [facility] with diagnosis Multifocal Pneumonia. Her impairment category is Debility 16 - Debility (16). Pre-morbidly, Pt. was independent/mod-I in Transfers Control, Locomotion, Self-Care, Social Cognition , Sphincter Control, and Communications; and she had good Balance and Safety Awareness. Currently, she has deficits of Transfers Control, Balance, Locomotion, Safety Awareness, and Self-Car e. Pt. is now referred to [facility] for acute in-patient rehabilitation in order to maximize patient's functional independence in activities of daily living, strength, ROM, and mobi lity. Patient has realistic goal of being discharged at assistance level 6-Antony to reside at Home with Omar andrews I MEDICATION ALLERGIES: No Known Drug Allergies (NKDA) ENVIRONMENTAL ALLERGIES: None Known - Substance Allergies None Known - Other Allergies None Known PAST MEDICAL HISTORY: Pneumonia, unspecified organism (J18.9) CHF AFIB HTN Hypothyroid HX OF CVA Chronic gout, unspecified, with tophus (tophi) ([id number]) COPD PAST SURGICAL HISTORY: HYSTERECTOMY Cholecystectomy Tonsillectomy R KNEE REPLACEMENT SOCIAL HISTORY: - Home Living Alone REVIEW OF SYSTEMS: - Gen No Chills Fatigue No Fever - Eyes No Double Vision No itchiness - ENMT No Difficulty Swallowing - CVS No Chest Discomfort No Chest Pain Fatigue No Weight Gain - Resp No Cough No Shortness of Breath - GI Continent No Abdominal Pain No Constipation No Diarrhea Nausea - Continent No Kidney Pain No Painful Urination No Urinary Urgency - MSK No Joint Pain Muscle Cramps Stiffness - Skin No Itching No Rash No Suspicious Lesions - Neuro Coordination Difficulty No Difficulty with Concentration No Memory Loss No Seizures Weakness - Psych No Anxiety No Depression No HIV Exposure No Persistent Infections No Seasonal Allergies - Endo No Cold/Heat Intolerance No Excessive Hunger No Excessive Thirst No Excessive Urination PHYSICAL EXAM - Gen Alert and awake Lying in bed No apparent distress Oriented to: person, time, and place - Skin Mild bruising on the forearms and hands Normacephalic - Eyes No abnormalities - ENMT No abnormalities - Neck No abnormalities - CVS RRR - Chest Mildly decreased breath sounds bilaterally. - Resp No wheezing - Abd Soft - GI Non distended Deferred - No abnormalities - Ext No significant edema - MSK 4+/5 weakness in both lower extremities. - Neuro 4/5 strength bilaterally upper and lower extremities. - Psych No abnormalities VITAL SIGNS Temperature: 97.9 F SBP/DBP: 140/80 Pulse: 74 Resp: 14 NURSING: - Shower allowing shower ACTIVITIES OOB only with supervision QI SCORES: - Self-Care A. Eating 05-Setup or clean-up assistance B. Oral hygiene 05-Setup or clean-up assistance C. Toileting hygiene 04-Supervision or touching assistance E. Shower/bathe self 03-Partial/moderate assistance F. Upper body dressing 05-Setup or clean-up assistance G. Lower body dressing 10-Not attempted due to environmental limitations H. Putting on/taking off footwear 10-Not attempted due to environmental limitations - Mobility A. Roll left and right 04-Supervision or touching assistance B. Sit to lying 04-Supervision or touching assistance C. Lying to sitting on side of bed 04-Supervision or touching assistance D. Sit to stand 04-Supervision or touching assistance E. Chair/wom-bz-qwqkz transfer 04-Supervision or touching assistance F. Toilet transfer 04-Supervision or touching assistance G. Car transfer 88-Not attempted due to medical condition or safety concerns I. Walk 10 feet 04-Supervision or touching assistance J. Walk 50 feet with two turns 04-Supervision or touching assistance K. Walk 150 feet 04-Supervision or touching assistance L. Walking 10 feet on uneven surfaces 88-Not attempted due to medical condition or safety concerns M. 1 step (curb) 88-Not attempted due to medical condition or safety concerns N. 4 steps 88-Not attempted due to medical condition or safety concerns O. 12 steps 88-Not attempted due to medical condition or safety concerns P. Picking up object 88-Not attempted due to medical condition or safety concerns - Bladder and Bowel Bladder continence 0-Always continent Bowel continence 0-Always continent - Endurance Fair - Balance Poor - Safety Awareness Poor CURRENT FUNC. DEFICITS: Self-Care, Mobility, Endurance, Balance, and Safety Awareness MEDICATIONS: - Other See attached MAR (Medication Administration Record) ASSESSMENT: Pt. is a 89 yo Right-handed white female.On 04/26/2020 she was admitted to [facility] with diagno sis Multifocal Pneumonia.Her impairment category is Debility 16 - Debility (16).Pre-morbidly, Pt. wa s independent/mod-I in Transfers Control, Locomotion, Self-Care, Social Cognition, Sphincter Control, and Communications; and she had good Balance and Safety Awareness.Currently, she has deficits of Tra nsfers Control, Balance, Locomotion, Safety Awareness, and Self-Care.Pt. is now referred to [facility] for acute in-patient rehabilitation in order to maximize patient's functiona l independence in activities of daily living, strength, ROM, and mobility.- Rehab Goal Patient has realistic goal of being discharged at assistance level 6-Antony to reside at Home with Omar PENA PLAN: - Physical Therapy Gait dysfunction - to improve, our physical therapists will perform initial evaluation of pt's status upon admission and devise an individualized program for Gait Training, and Wheel Chair mobility Inability to transfer - to improve, our physical therapists will perform initial evaluation of pt's s tatus upon admission and devise an individualized program for Bed mobility Need for home safety evaluation - to improve, our physical therapists will perform initial evaluation of pt's status upon admission and devise an individualized program for Home Evaluation Need in caregiver upon discharge - to improve, our physical therapists will perform initial evaluatio n of pt's status upon admission and devise an individualized program for Caregiver Training Edema - to improve, our physical therapists will perform initial evaluation of pt's status upon admi ssion and devise an individualized program for Elevation Training, and Lymphedema Therapy New precaution - to improve, our physical therapists will perform initial evaluation of pt's status u [place] admission and devise an individualized program for Patient precaution education Poor balance - to improve, our physical therapists will perform initial evaluation of pt's status upo n admission and devise an individualized program for Balance Training Weakness - to improve, our physical therapists will perform initial evaluation of pt's status upon ad mission and devise an individualized program for Aquatic Therapy, Neuromuscular Reeducation, and Stre ngthening Achieving independence - to improve, our physical therapists will perform initial evaluation of pt's status upon admission and devise an individualized program for Community Reintegration Activities - Occupational Therapy ADL deficits - to improve, our occupation therapists will perform initial evaluation of pt's status u [place] admission and devise an individualized program for Bathing, Bed mobility, Community Reintegration , Cooking, Dressing, Eating, Fine Motor Skills, Grooming, Homemaking, Kitchen Mobility, Laundry, Vy ent Education, Safety Awareness, Splinting - Positioning, Transfers(Toilet, Tub, Shower), and Wheel C hair Management Need for day care worker - to improve, our occupation therapists will perform initial evaluation of pt's s tatus upon admission and devise an individualized program for Caregiver Training Weakness - to improve, our occupation therapists will perform initial evaluation of pt's status upon admission and devise an individualized program for Aquatic Therapy, Balance, Endurance, UE ROM, and U E strengthening MEDICAL PLAN: - Diet Type Start Regular - Diet - Liquid Texture Start Regular - Tube Feed Start N/A - Other See attached MAR (Medication Administration Record) - Diet - Solid Texture Regular - Shower shower DISCHARGE PLAN: - Estimated Length of Stay (days) 13. - Consensus on plan Discharge plan has been discussed with primary caregiver. Patient/Family is in agreement with the snow n. Primary caregiver is in agreement with the plan. - Patient/Family Goals Return home with assistance. - Planned Living Setting Upon Discharge Home, to live alone. 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
--- NOTE | 2020-04-30 13:15 | PAPE ---
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 Dino Mccartney M.D. ADMISSION DIAGNOSIS: Multifocal Pneumonia ONSET DATE 04/26/2020 SECONDARY/COMORBID DIAGNOSES TIERED: - Tier 3 Pneumonia, unspecified organism (J18.9) POST-ADMISSION FUNCTIONAL/MEDICAL STATUS: - Walking Same score based on distance walked: 2(2855ft) STATUS CHANGE EVALUATION: No change in Functional or Medical Status is identified compared with Pre-Admission screening. PATIENT NEEDS CLOSE MEDICAL SUPERVISION BY A REHABILITATION PHYSICIAN FOR: Coordination of Treatment Team Medical and Co-Morbidity Management PATIENT REQUIRES 24X7 REHAB NURSING FOR MEDICAL AND FUNCTIONAL MGT. OF THE FOLLOWING DEFICITS: Disease Management Medication Management Patient/Family Education Providing Safe Environment PATIENT REQUIRES INTENSIVE, COORDINATED INTERDISCIPLINARY APPROACH TO REHAB: Arranging Home Equipment/Services Discharge Planning Family Intervention/Training Emergency Communications Operator/Case Management LIST OF IDENTIFIED AND POTENTIAL PROBLEMS: Alteration in leisure activities Infection, Actual or Potential Mobility Impaired Pain, Alteration in Comfort Self Care Deficit Skin Integrity, Actual or Potential Urinary Tract Infection (UTI), Actual or Potential PATIENT COULD BE AT RISK FOR COMPLICATIONS FROM ADVERSE MEDICAL CONDITIONS DUE TO HIS/HER COMORBIDITI ES AND THE RIGORS OF THE INTENSIVE REHABILLITATION PROGRAM. METHODS OR INTERVENTIONS TO AVOID COMPLIC ATIONS INCLUDE: - Infection Clinical staff to assess and manage the signs and symptoms of infection including fever, redness, war mth, etc. - Urinary Tract Infection - Falls Patient will be evaluated for Fall Precautions and will be placed on Fall Precautions as indicated pe r protocol. - Skin Breakdown Nursing will assess skin daily using assessment tool and will place on Skin Breakdown Precautions as indicated per protocol. - Pain Clinical staff may employ non-medication methods such as massage, distraction, decrease stimulus, etc . as needed. Clinical staff will assess patient's pain level every shift per protocol to assess and e nsure pain management effectiveness. Medications will be given and the pain level re-assessed. PRELIMINARY PLAN OF CARE: - Physical Therapy Patient needs Physical Therapy for a daily minimum of 1.5 hours at least 5 out of 7 days, to improve: Mobility, Strengthening, Transfers, Stretching, ROM, Endurance, Ability to manage stairs, Gait, and Balance. - Speech Therapy Patient needs Speech Therapy for a daily minimum of 0.5 hours at least 5 out of 7 days, to improve: S wallowing, Cognition, Language Skills, and Compensatory Strategies. - Rehabilitation Nursing Patient requires 24x7 Rehabilitation Nursing for: Pain Issues, Identifying and preventing risk factor s, Monitoring and reporting current medical conditions, Assisting with ambulation and transfer, Ricardo ting with all ADL-s, Teaching patients about disease process and medications, Family teaching, Provid ing safe environment, Bowel and Bladder Issues, Skin Integrity, and Medication Management. Patient needs Emergency Communications Operator and/or Case Management for: Discharge Planning, Arranging Home Equipmen t or Services, and Family Interventions. - Dietary and Nutrition Services Patient needs Dietary and Nutrition Services for: Adequate Nutrition, Nutritional Supplements, and Nu tritional Education. - Occupational Therapy Patient needs Occupational Therapy for a daily minimum of 1.5 hours at least 5 out of 7 days, to impr ove Activities of Daily Living, including: Eating, Grooming, Bathing, Dressing, Toileting, Toilet Tra nsfers, Community Reintegration, Higher functional activities, Adaptive Equipment, Splinting, Househo ld Tasks, and Other activities as determined. QI SCORES: - Self-Care A. Eating 05-Setup or clean-up assistance B. Oral hygiene 05-Setup or clean-up assistance C. Toileting hygiene 04-Supervision or touching assistance E. Shower/bathe self 03-Partial/moderate assistance F. Upper body dressing 05-Setup or clean-up assistance G. Lower body dressing 10-Not attempted due to environmental limitations H. Putting on/taking off footwear 10-Not attempted due to environmental limitations - Mobility A. Roll left and right 04-Supervision or touching assistance B. Sit to lying 04-Supervision or touching assistance C. Lying to sitting on side of bed 04-Supervision or touching assistance D. Sit to stand 04-Supervision or touching assistance E. Chair/gbx-ri-rttxo transfer 04-Supervision or touching assistance F. Toilet transfer 04-Supervision or touching assistance G. Car transfer 88-Not attempted due to medical condition or safety concerns I. Walk 10 feet 04-Supervision or touching assistance J. Walk 50 feet with two turns 04-Supervision or touching assistance K. Walk 150 feet 04-Supervision or touching assistance L. Walking 10 feet on uneven surfaces 88-Not attempted due to medical condition or safety concerns M. 1 step (curb) 88-Not attempted due to medical condition or safety concerns N. 4 steps 88-Not attempted due to medical condition or safety concerns O. 12 steps 88-Not attempted due to medical condition or safety concerns P. Picking up object 88-Not attempted due to medical condition or safety concerns - Bladder and Bowel Bladder continence 0-Always continent Bowel continence 0-Always continent - Endurance Fair - Balance Poor - Safety Awareness Poor POTENTIAL FUNCTIONAL GOALS FOR PATIENT TO ACHIEVE BY DISCHARGE: - Safety Precaution Patient will remain free from falls or injury at time of discharge. - Bed Mobility Patient will perform bed mobility at 4-El level of assistance. - Transfers Patient will complete transfers from bed to chair at 4-El level of assistance. - Mobility Patient will ambulate 150 ft with 4-El level of assistance with RW. PATIENT REHAB POTENTIAL Hayder CUEVAS is able and expected to receive 3 hours of individualized therapy daily on at least 5 of ev manuel 7 days Hayder CUEVAS's prognosis for significant practical improvement within a reasonable period of time appear s Good Expected level of measurable improvement will be of a practical value to Hayder CUEVAS's functional capac ity or adaptations to impairments Has a viable Discharge Plan Medically appropriate; condition is sufficiently stable to participate in intensive rehab program DISCHARGE PLAN: - Estimated Length of Stay (days) 13. - Consensus on plan Discharge plan has been discussed with primary caregiver. Patient/Family is in agreement with the snow n. Primary caregiver is in agreement with the plan. - Patient/Family Goals Return home with assistance. - Planned Living Setting Upon Discharge Home, to live alone. CONCLUSION ON REHABILITATION NECESSITY: I have evaluated patient's pre-admission functional status and, comparing it to the patient's post-ad mission functional status now, I conclude that the pre-admission assessment was accurate. Patient's c ondition on admission supports the medical necessity of admission to [facility]. It is safe to proceed with patient's therapy program. 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
[2020-04-30] MEDS: LIDOCAINE 4% PATCH TOP SCH (14:26)
[2020-04-30] MEDS: RIVAROXABAN 15 MG TABLET PO SCH (16:42)
[2020-04-30] MEDS ORDERED: MAGNESIUM CHLORIDE 64 MG TAB PO SCH ×2 (17:00→20:00)
[2020-04-30] MEDS: ATORVASTATIN 10 MG TAB PO SCH (20:47)
[2020-04-30] MEDS: CRANBERRY FRUIT EXTRACT 200 MG CAP PO SCH (20:48)
[2020-05-01] MEDS: LEVOTHYROXINE SOD 0.112 MG TAB PO SCH (07:15)
[2020-05-01] MEDS: LEVOTHYROXINE SOD 0.025 MG TAB PO SCH (07:15)
[2020-05-01] MEDS: METOPROLOL XL 100 MG TAB PO SCH (07:55)
[2020-05-01] MEDS: LIDOCAINE 4% PATCH TOP SCH (10:02)
[2020-05-01] MEDS: levoFLOXacin 500 MG TAB PO SCH (10:03)
[2020-05-01] MEDS: CRANBERRY FRUIT EXTRACT 200 MG CAP PO SCH ×2 (10:03→19:53)
[2020-05-01] MEDS: GABAPENTIN 300 MG CAP PO SCH ×2 (10:03→19:53)
[2020-05-01] MEDS: FUROSEMIDE 20 MG TABLET PO SCH ×2 (10:04→16:31)
[2020-05-01] MEDS: MAGNESIUM CHLORIDE 64 MG TAB PO SCH ×2 (10:04→16:30)
[2020-05-01] MEDS: SPIRONOLACTONE 25 MG TABLET PO SCH (10:04)
[2020-05-01] MEDS: allopurinoL 100 MG TAB PO SCH ×2 (10:08→19:53)
--- NOTE | 2020-05-01 14:35 | FAST ---
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 Dino Mccartney M.D. ADMISSION DIAGNOSIS: - Debility 16 - Debility (16) Multifocal Pneumonia. EATING: EATING - STEP 1: Does the patient complete the activity by him/herself with no assistance (physical, verbal/nonverbal cueing, setup/clean-up)? No. EATING - STEP 2: Does the patient need only setup/clean-up assistance from one helper? Yes. 1. [id number] ADMISSION PERFORMANCE: Setup or clean-up assistance CODE: 05 ORAL HYGIENE: ORAL HYGIENE - STEP 1: Does the patient complete the activity by him/herself with no assistance (physical, verbal/nonverbal cueing, setup/clean-up)? No. ORAL HYGIENE - STEP 2: Does the patient need only setup/clean-up assistance from one helper? Yes. 1. [id number] ADMISSION PERFORMANCE: Setup or clean-up assistance CODE: 05 TOILETING HYGIENE: TOILETING HYGIENE - STEP 1: Does the patient complete the activity by him/herself with no assistance (physical, verbal/nonverbal cueing, setup/clean-up)? No. TOILETING HYGIENE - STEP 2: Does the patient need only setup/clean-up assistance from one helper? Yes. 1. [id number] ADMISSION PERFORMANCE: Setup or clean-up assistance CODE: 05 BATHING: Not assessed/no information CODE: - DRESSING - UPPER BODY: DRESSING - UPPER BODY - STEP 1: Does the patient complete the activity by him/herself with no assistance (physical, verbal/nonverbal cueing, setup/clean-up)? No. DRESSING - UPPER BODY - STEP 2: Does the patient need only setup/clean-up assistance from one helper? No. DRESSING - UPPER BODY - STEP 3: Does the patient need only verbal/nonverbal cueing or touching/steadying/contact guard assistance fro m one helper? Yes. 1. [id number] ADMISSION PERFORMANCE: Supervision or touching assistance CODE: 04 DRESSING - LOWER BODY: DRESSING - LOWER BODY - STEP 1: Does the patient complete the activity by him/herself with no assistance (physical, verbal/nonverbal cueing, setup/clean-up)? No. DRESSING - LOWER BODY - STEP 2: Does the patient need only setup/clean-up assistance from one helper? No. DRESSING - LOWER BODY - STEP 3: Does the patient need only verbal/nonverbal cueing or touching/steadying/contact guard assistance fro m one helper? Yes. 1. [id number] ADMISSION PERFORMANCE: Supervision or touching assistance CODE: 04 ROLL LEFT AND RIGHT: ROLL LEFT AND RIGHT - STEP 1: Does the patient complete the activity by him/herself with no assistance (physical, verbal/nonverbal cueing, setup/clean-up)? No. ROLL LEFT AND RIGHT - STEP 2: Does the patient need only setup/clean-up assistance from one helper? No. ROLL LEFT AND RIGHT - STEP 3: Does the patient need only verbal/nonverbal cueing or touching/steadying/contact guard assistance fro m one helper? Yes. 1. [id number] ADMISSION PERFORMANCE: Supervision or touching assistance CODE: 04 SIT TO LYING: SIT TO LYING - STEP 1: Does the patient complete the activity by him/herself with no assistance (physical, verbal/nonverbal cueing, setup/clean-up)? No. SIT TO LYING - STEP 2: Does the patient need only setup/clean-up assistance from one helper? No. SIT TO LYING - STEP 3: Does the patient need only verbal/nonverbal cueing or touching/steadying/contact guard assistance fro m one helper? Yes. 1. [id number] ADMISSION PERFORMANCE: Supervision or touching assistance CODE: 04 LYING TO SITTING: LYING TO SITTING ON SIDE OF BED - STEP 1: Does the patient complete the activity by him/herself with no assistance (physical, verbal/nonverbal cueing, setup/clean-up)? No. LYING TO SITTING ON SIDE OF BED - STEP 2: Does the patient need only setup/clean-up assistance from one helper? No. LYING TO SITTING ON SIDE OF BED - STEP 3: Does the patient need only verbal/nonverbal cueing or touching/steadying/contact guard assistance fro m one helper? Yes. 1. [id number] ADMISSION PERFORMANCE: Supervision or touching assistance CODE: 04 SIT TO STAND: SIT TO STAND - STEP 1: Does the patient complete the activity by him/herself with no assistance (physical, verbal/nonverbal cueing, setup/clean-up)? No. SIT TO STAND - STEP 2: Does the patient need only setup/clean-up assistance from one helper? No. SIT TO STAND - STEP 3: Does the patient need only verbal/nonverbal cueing or touching/steadying/contact guard assistance fro m one helper? Yes. 1. [id number] ADMISSION PERFORMANCE: Supervision or touching assistance CODE: 04 TRANSFERS: BED, CHAIR: CHAIR/[id number] TRANSFER - STEP 1: Does the patient complete the activity by him/herself with no assistance (physical, verbal/nonverbal cueing, setup/clean-up)? No. CHAIR/[id number] TRANSFER - STEP 2: Does the patient need only setup/clean-up assistance from one helper? No. CHAIR/[id number] TRANSFER - STEP 3: Does the patient need only verbal/nonverbal cueing or touching/steadying/contact guard assistance fro m one helper? Yes. 1. [id number] ADMISSION PERFORMANCE: Supervision or touching assistance CODE: 04 TRANSFER TOILET: TOILET TRANSFER - STEP 1: Does the patient complete the activity by him/herself with no assistance (physical, verbal/nonverbal cueing, setup/clean-up)? No. TOILET TRANSFER - STEP 2: Does the patient need only setup/clean-up assistance from one helper? No. TOILET TRANSFER - STEP 3: Does the patient need only verbal/nonverbal cueing or touching/steadying/contact guard assistance fro m one helper? Yes. 1. [id number] ADMISSION PERFORMANCE: Supervision or touching assistance CODE: 04 TRANSFERS: CAR: Not assessed/no information CODE: - WALK 10 FEET: Not assessed/no information CODE: - WALK 50 FEET: Not assessed/no information CODE: - WALK 150 FEET: Not assessed/no information CODE: - WALK 10 FEET UNEVEN: Not assessed/no information CODE: - 1 STEP (CURB): Not assessed/no information CODE: - 4 STEPS: Not assessed/no information CODE: - 12 STEPS: PICKING UP OBJECT: Not assessed/no information CODE: - DOES THE PATIENT USE A WHEELCHAIR/SCOOTER? Q1. DOES THE PATIENT USE A WHEELCHAIR/SCOOTER?: Yes CODE: 1 WHEEL 50 FEET WITH TWO TURNS: WHEEL 50 FEET WITH TWO TURNS - STEP 1: Does the patient complete the activity by him/herself with no assistance (physical, verbal/nonverbal cueing, setup/clean-up)? No. WHEEL 50 FEET WITH TWO TURNS - STEP 2: Does the patient need only setup/clean-up assistance from one helper? Yes. 1. [id number] ADMISSION PERFORMANCE: Setup or clean-up assistance CODE: 05 INDICATE THE TYPE OF WHEELCHAIR/SCOOTER USED: RR1. INDICATE THE TYPE OF WHEELCHAIR/SCOOTER USED.: Manual CODE: 1 WHEEL 150 FEET: Not assessed/no information CODE: - INDICATE THE TYPE OF WHEELCHAIR/SCOOTER USED: SS1. INDICATE THE TYPE OF WHEELCHAIR/SCOOTER USED.: Manual CODE: 1 BLADDER AND BOWEL: H350. BLADDER CONTINENCE (3-DAY ASSESSMENT PERIOD): Always continent (no documented incontinence) CODE: 0 H400. BOWEL CONTINENCE (3-DAY ASSESSMENT PERIOD): Always continent CODE: 0 SIGNATURE PANEL: The following modified sections: 1. [id number] Admission Performance, 1. [id number] Admission Performance, 1. [id number] Admission Performance, 1. [id number] Admission Performance, 1. [id number] Admission Performance, 1. [id number] Admission Performance, 1. [id number] Admission Performance, 1. [id number] Admission Performance , 1. [id number] Admission Performance, 1. [id number] Admission Performance, 1. [id number] Admission Performanc e, 1. [id number] Admission Performance, Q1. Does the patient use a wheelchair/scooter?, 1. [id number] Admis radha Performance, RR1. Indicate the type of wheelchair/scooter used., Code, SS1. Indicate the type of wheelchair/scooter used., H350. Bladder Continence (3-day assessment period), H400. Bowel Continence (3-day assessment period) were [electronically] signed by Radha Gar C.N.A. on SunMay 01 2020 14 :23:22 GMT-0600 (Central Standard Time)
[2020-05-01] MEDS: RIVAROXABAN 15 MG TABLET PO SCH (16:31)
[2020-05-01] MEDS: ATORVASTATIN 10 MG TAB PO SCH (19:54)
[2020-05-01] MEDS: ACETAMINOPHEN 325 MG TABLET PO PRN (23:01)
[2020-05-02] MEDS: METOPROLOL XL 100 MG TAB PO SCH (05:15)
[2020-05-02] MEDS: LEVOTHYROXINE SOD 0.112 MG TAB PO SCH (07:38)
[2020-05-02] MEDS: LEVOTHYROXINE SOD 0.025 MG TAB PO SCH (07:39)
[2020-05-02] MEDS: LIDOCAINE JELLY 2%- 5 ML TUBE TOP PRN (09:32)
[2020-05-02] MEDS: CRANBERRY FRUIT EXTRACT 200 MG CAP PO SCH ×2 (09:32→20:30)
[2020-05-02] MEDS: LIDOCAINE 4% PATCH TOP SCH (09:32)
[2020-05-02] MEDS: GABAPENTIN 300 MG CAP PO SCH ×2 (09:33→20:30)
[2020-05-02] MEDS: MAGNESIUM CHLORIDE 64 MG TAB PO SCH ×2 (09:33→16:21)
[2020-05-02] MEDS: FUROSEMIDE 20 MG TABLET PO SCH ×2 (09:34→16:21)
[2020-05-02] MEDS: allopurinoL 100 MG TAB PO SCH ×2 (09:34→20:31)
[2020-05-02] MEDS: levoFLOXacin 500 MG TAB PO SCH (09:35)
[2020-05-02] MEDS: SPIRONOLACTONE 25 MG TABLET PO SCH (09:35)
[2020-05-02] MEDS: RIVAROXABAN 15 MG TABLET PO SCH (16:21)
[2020-05-02] MEDS: ATORVASTATIN 10 MG TAB PO SCH (20:30)
[2020-05-02] MEDS: MELATONIN 3 MG TABLET PO PRN (20:30)
[2020-05-02] MEDS: BENZONATATE 100 MG CAP PO PRN (20:30)
[2020-05-02] MEDS: JUVEN PACKET PO SCH (20:32)
--- NOTE | 2020-05-03 02:07 | FAST ---
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 Dino Mccartney M.D. ADMISSION DIAGNOSIS: - Debility 16 - Debility (16) Multifocal Pneumonia. EATING: Not assessed/no information CODE: - ORAL HYGIENE: ORAL HYGIENE - STEP 1: Does the patient complete the activity by him/herself with no assistance (physical, verbal/nonverbal cueing, setup/clean-up)? No. ORAL HYGIENE - STEP 2: Does the patient need only setup/clean-up assistance from one helper? Yes. 1. [id number] ADMISSION PERFORMANCE: Setup or clean-up assistance CODE: 05 TOILETING HYGIENE: TOILETING HYGIENE - STEP 1: Does the patient complete the activity by him/herself with no assistance (physical, verbal/nonverbal cueing, setup/clean-up)? No. TOILETING HYGIENE - STEP 2: Does the patient need only setup/clean-up assistance from one helper? No. TOILETING HYGIENE - STEP 3: Does the patient need only verbal/nonverbal cueing or touching/steadying/contact guard assistance fro m one helper? Yes. 1. [id number] ADMISSION PERFORMANCE: Supervision or touching assistance CODE: 04 BATHING: Not assessed/no information CODE: - DRESSING - UPPER BODY: Not assessed/no information CODE: - DRESSING - LOWER BODY: Not assessed/no information CODE: - PUTTING ON/TAKING OFF FOOTWEAR: Not assessed/no information CODE: - ROLL LEFT AND RIGHT: ROLL LEFT AND RIGHT - STEP 1: Does the patient complete the activity by him/herself with no assistance (physical, verbal/nonverbal cueing, setup/clean-up)? No. ROLL LEFT AND RIGHT - STEP 2: Does the patient need only setup/clean-up assistance from one helper? No. ROLL LEFT AND RIGHT - STEP 3: Does the patient need only verbal/nonverbal cueing or touching/steadying/contact guard assistance fro m one helper? Yes. 1. [id number] ADMISSION PERFORMANCE: Supervision or touching assistance CODE: 04 SIT TO LYING: SIT TO LYING - STEP 1: Does the patient complete the activity by him/herself with no assistance (physical, verbal/nonverbal cueing, setup/clean-up)? No. SIT TO LYING - STEP 2: Does the patient need only setup/clean-up assistance from one helper? No. SIT TO LYING - STEP 3: Does the patient need only verbal/nonverbal cueing or touching/steadying/contact guard assistance fro m one helper? Yes. 1. [id number] ADMISSION PERFORMANCE: Supervision or touching assistance CODE: 04 LYING TO SITTING: LYING TO SITTING ON SIDE OF BED - STEP 1: Does the patient complete the activity by him/herself with no assistance (physical, verbal/nonverbal cueing, setup/clean-up)? No. LYING TO SITTING ON SIDE OF BED - STEP 2: Does the patient need only setup/clean-up assistance from one helper? No. LYING TO SITTING ON SIDE OF BED - STEP 3: Does the patient need only verbal/nonverbal cueing or touching/steadying/contact guard assistance fro m one helper? Yes. 1. [id number] ADMISSION PERFORMANCE: Supervision or touching assistance CODE: 04 SIT TO STAND: SIT TO STAND - STEP 1: Does the patient complete the activity by him/herself with no assistance (physical, verbal/nonverbal cueing, setup/clean-up)? No. SIT TO STAND - STEP 2: Does the patient need only setup/clean-up assistance from one helper? No. SIT TO STAND - STEP 3: Does the patient need only verbal/nonverbal cueing or touching/steadying/contact guard assistance fro m one helper? Yes. 1. [id number] ADMISSION PERFORMANCE: Supervision or touching assistance CODE: 04 TRANSFERS: BED, CHAIR: CHAIR/[id number] TRANSFER - STEP 1: Does the patient complete the activity by him/herself with no assistance (physical, verbal/nonverbal cueing, setup/clean-up)? No. CHAIR/[id number] TRANSFER - STEP 2: Does the patient need only setup/clean-up assistance from one helper? No. CHAIR/[id number] TRANSFER - STEP 3: Does the patient need only verbal/nonverbal cueing or touching/steadying/contact guard assistance fro m one helper? Yes. 1. [id number] ADMISSION PERFORMANCE: Supervision or touching assistance CODE: 04 TRANSFER TOILET: TOILET TRANSFER - STEP 1: Does the patient complete the activity by him/herself with no assistance (physical, verbal/nonverbal cueing, setup/clean-up)? No. TOILET TRANSFER - STEP 2: Does the patient need only setup/clean-up assistance from one helper? No. TOILET TRANSFER - STEP 3: Does the patient need only verbal/nonverbal cueing or touching/steadying/contact guard assistance fro m one helper? Yes. 1. [id number] ADMISSION PERFORMANCE: Supervision or touching assistance CODE: 04 TRANSFERS: CAR: Not assessed/no information CODE: - WALK 10 FEET: Not assessed/no information CODE: - 1 STEP (CURB): Not assessed/no information CODE: - PICKING UP OBJECT: Not assessed/no information CODE: - DOES THE PATIENT USE A WHEELCHAIR/SCOOTER? CODE: EXPR WHEEL 50 FEET WITH TWO TURNS: Not assessed/no information CODE: - INDICATE THE TYPE OF WHEELCHAIR/SCOOTER USED: CODE: EXPR WHEEL 150 FEET: Not assessed/no information CODE: - INDICATE THE TYPE OF WHEELCHAIR/SCOOTER USED: CODE: EXPR BLADDER AND BOWEL: H350. BLADDER CONTINENCE (3-DAY ASSESSMENT PERIOD): Stress incontinence only CODE: 1 H400. BOWEL CONTINENCE (3-DAY ASSESSMENT PERIOD): Always continent CODE: 0
[2020-05-03] MEDS: METOPROLOL XL 100 MG TAB PO SCH (05:16)
[2020-05-03 06:27] LABS: Potassium 4.2 mmol/L (3.5-5.1)
[2020-05-03] MEDS: ONDANSETRON 4 MG (ODT) TAB PO PRN (06:38)
[2020-05-03] MEDS: LEVOTHYROXINE SOD 0.112 MG TAB PO SCH (06:38)
[2020-05-03] MEDS: MAGNESIUM CHLORIDE 64 MG TAB PO SCH ×2 (06:38→16:55)
[2020-05-03] MEDS: BENZONATATE 100 MG CAP PO PRN ×2 (06:38→16:57)
[2020-05-03] MEDS: LEVOTHYROXINE SOD 0.025 MG TAB PO SCH (06:39)
[2020-05-03] MEDS: JUVEN PACKET PO SCH ×3 (08:00→19:42)
[2020-05-03] MEDS: GABAPENTIN 300 MG CAP PO SCH ×2 (08:37→19:41)
[2020-05-03] MEDS: CRANBERRY FRUIT EXTRACT 200 MG CAP PO SCH ×2 (08:37→19:41)
[2020-05-03] MEDS: SPIRONOLACTONE 25 MG TABLET PO SCH (08:37)
[2020-05-03] MEDS: levoFLOXacin 500 MG TAB PO SCH (08:37)
[2020-05-03] MEDS: FUROSEMIDE 20 MG TABLET PO SCH ×2 (08:38→16:55)
[2020-05-03] MEDS: allopurinoL 100 MG TAB PO SCH ×2 (08:38→19:41)
[2020-05-03] MEDS: LIDOCAINE 4% PATCH TOP SCH (09:18)
[2020-05-03] MEDS: RIVAROXABAN 15 MG TABLET PO SCH (16:55)
[2020-05-03] MEDS: ATORVASTATIN 10 MG TAB PO SCH (19:42)
[2020-05-03] MEDS: MELATONIN 3 MG TABLET PO PRN (19:42)
[2020-05-04] MEDS: METOPROLOL XL 100 MG TAB PO SCH (05:13)
[2020-05-04] MEDS: LEVOTHYROXINE SOD 0.025 MG TAB PO SCH (06:32)
[2020-05-04] MEDS: LEVOTHYROXINE SOD 0.112 MG TAB PO SCH (06:32)
[2020-05-04] MEDS: MAGNESIUM CHLORIDE 64 MG TAB PO SCH ×2 (07:21→16:41)
[2020-05-04] MEDS: LIDOCAINE 4% PATCH TOP SCH (07:22)
[2020-05-04] MEDS: JUVEN PACKET PO SCH ×2 (08:00→21:31)
[2020-05-04] MEDS: SPIRONOLACTONE 25 MG TABLET PO SCH (08:04)
[2020-05-04] MEDS: CRANBERRY FRUIT EXTRACT 200 MG CAP PO SCH ×2 (08:04→21:30)
[2020-05-04] MEDS: levoFLOXacin 500 MG TAB PO SCH ×2 (08:05→08:06)
[2020-05-04] MEDS: FUROSEMIDE 20 MG TABLET PO SCH ×2 (08:05→16:41)
[2020-05-04] MEDS: GABAPENTIN 300 MG CAP PO SCH ×2 (08:05→21:30)
[2020-05-04] MEDS: allopurinoL 100 MG TAB PO SCH ×2 (08:06→21:31)
[2020-05-04] MEDS: BENZONATATE 100 MG CAP PO PRN ×2 (10:10→21:30)
[2020-05-04] MEDS: RIVAROXABAN 15 MG TABLET PO SCH (16:41)
[2020-05-04] MEDS: ATORVASTATIN 10 MG TAB PO SCH (21:30)
[2020-05-04] MEDS: MELATONIN 3 MG TABLET PO PRN (21:31)
[2020-05-05] MEDS: METOPROLOL XL 100 MG TAB PO SCH (05:08)
[2020-05-05] MEDS: LEVOTHYROXINE SOD 0.112 MG TAB PO SCH (07:08)
[2020-05-05] MEDS: LEVOTHYROXINE SOD 0.025 MG TAB PO SCH (07:08)
[2020-05-05] MEDS: SPIRONOLACTONE 25 MG TABLET PO SCH ×2 (08:00→09:14)
[2020-05-05] MEDS: FUROSEMIDE 20 MG TABLET PO SCH (09:00)
[2020-05-05] MEDS: CRANBERRY FRUIT EXTRACT 200 MG CAP PO SCH ×2 (09:09→19:42)
[2020-05-05] MEDS: GABAPENTIN 300 MG CAP PO SCH ×2 (09:11→19:43)
[2020-05-05] MEDS: ACETAMINOPHEN 325 MG TABLET PO PRN (09:11)
[2020-05-05] MEDS: allopurinoL 100 MG TAB PO SCH ×2 (09:14→19:43)
[2020-05-05] MEDS: MAGNESIUM CHLORIDE 64 MG TAB PO SCH ×2 (09:15→16:08)
[2020-05-05] MEDS: JUVEN PACKET PO SCH ×2 (10:25→19:11)
[2020-05-05] MEDS: LIDOCAINE 4% PATCH TOP SCH (10:25)
--- NOTE | 2020-05-05 15:39 | R.PN ---
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 SUBJECTIVE: Pt denied any depression. Pt denied any Shortness of Breath. WBC 10.2, Hgb 11.7, Svp Programmatic Tv 0.86, prealbumin 20.6. Ambulated 950' with standby assistance using a rolling walker. VITAL SIGNS Temperature: 98.4 F SBP/DBP: 87 to 125/45 to 66 Pulse: 91 Resp: 16 MEDICATION ALLERGIES: No Known Drug Allergies (NKDA) ENVIRONMENTAL ALLERGIES: None Known - Substance Allergies None Known - Other Allergies None Known NURSING: - Shower allowing shower ACTIVITIES OOB only with supervision THERAPIES: - Dietary and Nutrition Adequate Nutrition. Nutritional Education. Nutritional Supplements. PHYSICAL EXAM - Gen Alert and awake Lying in bed No apparent distress Oriented to: person, time, and place - Skin Mild bruising on the forearms and hands Normacephalic - Eyes No abnormalities - ENMT No abnormalities - Neck No abnormalities - CVS RRR - Chest Mildly decreased breath sounds bilaterally. - Resp No wheezing - Abd Soft - GI Non distended Deferred - No abnormalities - Ext No significant edema - MSK 4+/5 weakness in both lower extremities. - Neuro 4/5 strength bilaterally upper and lower extremities. - Psych No abnormalities ASSESSMENT: Pt. is a 89 yo Right-handed white female.On 04/26/2020 she was admitted to [facility] with diagno sis Multifocal Pneumonia.Her impairment category is Debility 16 - Debility (16).Pre-morbidly, Pt. wa s independent/mod-I in Transfers Control, Locomotion, Self-Care, Social Cognition, Sphincter Control, and Communications; and she had good Balance and Safety Awareness.Currently, she has deficits of Tra nsfers Control, Balance, Locomotion, Safety Awareness, and Self-Care.Pt. is now referred to [facility] for acute in-patient rehabilitation in order to maximize patient's functiona l independence in activities of daily living, strength, ROM, and mobility.- Rehab Goal Patient has realistic goal of being discharged at assistance level 6-Antony to reside at Home with Omar baires. MDM/PLAN: - Physical Therapy Gait dysfunction - to improve, our physical therapists will perform initial evaluation of pt's statu s upon admission and devise an individualized program for Gait Training, and Wheel Chair mobility Inability to transfer - to improve, our physical therapists will perform initial evaluation of pt's status upon admission and devise an individualized program for Bed mobility Need for home safety evaluation - to improve, our physical therapists will perform initial evaluatio n of pt's status upon admission and devise an individualized program for Home Evaluation Need in caregiver upon discharge - to improve, our physical therapists will perform initial evaluati on of pt's status upon admission and devise an individualized program for Caregiver Training Edema - to improve, our physical therapists will perform initial evaluation of pt's status upon admis radha and devise an individualized program for Elevation Training, and Lymphedema Therapy New precaution - to improve, our physical therapists will perform initial evaluation of pt's status upon admission and devise an individualized program for Patient precaution education Poor balance - to improve, our physical therapists will perform initial evaluation of pt's status up on admission and devise an individualized program for Balance Training Weakness - to improve, our physical therapists will perform initial evaluation of pt's status upon a dmission and devise an individualized program for Aquatic Therapy, Neuromuscular Reeducation, and Str engthening Achieving independence - to improve, our physical therapists will perform initial evaluation of pt's status upon admission and devise an individualized program for Community Reintegration Activities - Occupational Therapy ADL deficits - to improve, our occupation therapists will perform initial evaluation of pt's status upon admission and devise an individualized program for Bathing, Bed mobility, Community Reintegratio n, Cooking, Dressing, Eating, Fine Motor Skills, Grooming, Homemaking, Kitchen Mobility, Laundry, Pat ient Education, Safety Awareness, Splinting - Positioning, Transfers(Toilet, Tub, Shower), and Wheel Chair Management Need for health care aide - to improve, our occupation therapists will perform initial evaluation of pt's status upon admission and devise an individualized program for Caregiver Training Weakness - to improve, our occupation therapists will perform initial evaluation of pt's status upon admission and devise an individualized program for Aquatic Therapy, Balance, Endurance, UE ROM, and UE strengthening - Other See attached MAR (Medication Administration Record) - Diet Type Continue Regular - Diet - Liquid Texture Continue Regular - Tube Feed Continue N/A - Diet - Solid Texture Continue Regular - Shower allowing shower FUNCTIONAL STATUS: UPDATED AT WEEKLY TEAM CONFERENCE - Walking Same score based on distance walked: 2(50-149ft) FUNCTIONAL STATUS: - Self-Care A. Eating Ind B. Grooming Antony C. Bathing sup D. Dressing - Upper El E. Dressing - Lower El F. Toileting El - Sphincter Control G. Bladder control Antony H. Bowel control Antony - Transfers Control I. Bed/Chair/Wheelchair El J. Toilet El K. Tub/Shower El - Locomotion L. Walk/Wheelchair (B) sup M. Stairs ADNO - Communication N. Comprehension (B) Antony O. Expression (B) Antony - Social Cognition P. Social Interaction Ind Q. Problem Solving sup R. Memory sup - Endurance Good - Balance Good - Safety Awareness Fair QI SCORES: - Self-Care A. Eating 05-Setup or clean-up assistance B. Oral hygiene 05-Setup or clean-up assistance C. Toileting hygiene 04-Supervision or touching assistance E. Shower/bathe self 03-Partial/moderate assistance F. Upper body dressing 05-Setup or clean-up assistance G. Lower body dressing 10-Not attempted due to environmental limitations H. Putting on/taking off footwear 10-Not attempted due to environmental limitations - Mobility A. Roll left and right 04-Supervision or touching assistance B. Sit to lying 04-Supervision or touching assistance C. Lying to sitting on side of bed 04-Supervision or touching assistance D. Sit to stand 04-Supervision or touching assistance E. Chair/pzl-[id number]-qhcry transfer 04-Supervision or touching assistance F. Toilet transfer 04-Supervision or touching assistance G. Car transfer 88-Not attempted due to medical condition or safety concerns I. Walk 10 feet 04-Supervision or touching assistance J. Walk 50 feet with two turns 04-Supervision or touching assistance K. Walk 150 feet 04-Supervision or touching assistance L. Walking 10 feet on uneven surfaces 88-Not attempted due to medical condition or safety concerns M. 1 step (curb) 88-Not attempted due to medical condition or safety concerns N. 4 steps 88-Not attempted due to medical condition or safety concerns O. 12 steps 88-Not attempted due to medical condition or safety concerns P. Picking up object 88-Not attempted due to medical condition or safety concerns - Bladder and Bowel Bladder continence 0-Always continent Bowel continence 0-Always continent - Endurance Fair - Balance Poor - Safety Awareness Poor CURRENT FUNC. 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
[2020-05-05] MEDS: RIVAROXABAN 15 MG TABLET PO SCH (16:08)
[2020-05-05] MEDS: ATORVASTATIN 10 MG TAB PO SCH (19:43)
[2020-05-06] MEDS: METOPROLOL XL 100 MG TAB PO SCH (05:05)
[2020-05-06 06:19] LABS: Absolute Lymphocytes (CBC) 1.3 K/uL (0.7-4.9); Hematocrit 35.1 % (36.0-45.0); RBC Red Blood Cell Count 4.14 M/uL (3.86-4.86)
[2020-05-06] MEDS: ACETAMINOPHEN 325 MG TABLET PO PRN (06:24)
[2020-05-06] MEDS: LEVOTHYROXINE SOD 0.025 MG TAB PO SCH (06:25)
[2020-05-06] MEDS: LEVOTHYROXINE SOD 0.112 MG TAB PO SCH (06:25)
[2020-05-06 06:43] LABS: Albumin 2.5 g/dL (3.4-5.0); Magnesium 1.9 mg/dL (1.8-2.4); Potassium 4.1 mmol/L (3.5-5.1); Prealbumin 19.6 mg/dL (20-40)
[2020-05-06] MEDS: JUVEN PACKET PO SCH ×2 (08:00→20:00)
[2020-05-06] MEDS: LIDOCAINE 4% PATCH TOP SCH (09:37)
[2020-05-06] MEDS: CRANBERRY FRUIT EXTRACT 200 MG CAP PO SCH ×2 (09:38→21:17)
[2020-05-06] MEDS: SPIRONOLACTONE 25 MG TABLET PO SCH (09:39)
[2020-05-06] MEDS: GABAPENTIN 300 MG CAP PO SCH ×2 (09:39→21:18)
[2020-05-06] MEDS: FUROSEMIDE 20 MG TABLET PO SCH (09:40)
[2020-05-06] MEDS: MAGNESIUM CHLORIDE 64 MG TAB PO SCH ×2 (09:41→16:50)
[2020-05-06] MEDS: allopurinoL 100 MG TAB PO SCH ×2 (09:41→21:17)
[2020-05-06] MEDS ORDERED: MAGNESIUM HYDROXIDE 8% 30 ML PO PRN (16:36)
[2020-05-06] MEDS: RIVAROXABAN 15 MG TABLET PO SCH (16:51)
[2020-05-06] MEDS: ATORVASTATIN 10 MG TAB PO SCH (21:18)
[2020-05-07] MEDS: METOPROLOL XL 100 MG TAB PO SCH (05:43)
[2020-05-07] MEDS: LEVOTHYROXINE SOD 0.112 MG TAB PO SCH (06:43)
[2020-05-07] MEDS: LEVOTHYROXINE SOD 0.025 MG TAB PO SCH (06:43)
[2020-05-07] MEDS: JUVEN PACKET PO SCH ×2 (08:00→19:22)
[2020-05-07] MEDS: LIDOCAINE 4% PATCH TOP SCH (08:10)
[2020-05-07] MEDS: GABAPENTIN 300 MG CAP PO SCH ×2 (08:11→19:44)
[2020-05-07] MEDS: allopurinoL 100 MG TAB PO SCH ×2 (08:12→19:42)
[2020-05-07] MEDS: SPIRONOLACTONE 25 MG TABLET PO SCH (08:12)
[2020-05-07] MEDS: DOCUSATE NA/SENNA CONC 1 TAB PO SCH (08:13)
[2020-05-07] MEDS: CRANBERRY FRUIT EXTRACT 200 MG CAP PO SCH ×2 (08:13→19:44)
[2020-05-07] MEDS: FUROSEMIDE 20 MG TABLET PO SCH (08:13)
[2020-05-07] MEDS: MAGNESIUM CHLORIDE 64 MG TAB PO SCH ×2 (08:22→17:42)
--- NOTE | 2020-05-07 09:59 | P.RH.PN ---
Estimated Length of Stay: 13 Expected Discharge Date: 05/11/20 Discharge Disposition Plan: Home Family Support: Yes Shelter Goal: Mobility, Transfers, Self Care Vital Signs: Last Vital Signs Temp 97.2 F 05/07/20 07:22 Pulse 74 05/07/20 08:13 Resp 16 05/07/20 07:22 BP 141/70 H 05/07/20 08:13 Pulse Ox 99 05/07/20 07:22 Laboratory: Laboratory Last Values WBC 6.7 K/uL (4.3-10.9) D 05/06/20 05:53 RBC 4.14 M/uL (3.86-4.86) 05/06/20 05:53 Hgb 11.5 g/dL (12.0-15.0) L 05/06/20 05:53 Hct 35.1 % (36.0-45.0) L 05/06/20 05:53 MCV 84.7 fL (80-100) 05/06/20 05:53 MCH 27.8 pg (27.0-35.0) 05/06/20 05:53 MCHC 32.9 g/dL (32.0-36.0) 05/06/20 05:53 RDW 17.3 % (12.1-15.2) H 05/06/20 05:53 Plt Count 220 K/uL (152-406) 05/06/20 05:53 MPV 9.0 fL (7.6-11.3) 05/06/20 05:53 Neutrophils % 66.7 % (41.7-73.7) 05/06/20 05:53 Lymphocytes % 20.0 % (15.3-44.8) 05/06/20 05:53 Monocytes % 6.5 % (3.3-12.3) 05/06/20 05:53 Eosinophils % 5.8 % (0-4.4) H 05/06/20 05:53 Basophils % 1.0 % (0-1.3) 05/06/20 05:53 Absolute Neutrophils 4.5 K/uL (1.8-8.0) 05/06/20 05:53 Absolute Lymphocytes 1.3 K/uL (0.7-4.9) 05/06/20 05:53 Absolute Monocytes 0.4 K/uL (0.1-1.3) 05/06/20 05:53 Absolute Eosinophils 0.4 K/uL (0-0.5) 05/06/20 05:53 Absolute Basophils 0.1 K/uL (0-0.5) 05/06/20 05:53 Sodium 140 mmol/L (136-145) 05/06/20 05:53 Potassium 4.1 mmol/L (3.5-5.1) 05/06/20 05:53 Chloride 102 mmol/L (98-107) 05/06/20 05:53 Carbon Dioxide 36 mmol/L (21-32) H 05/06/20 05:53 BUN 27 mg/dL (7-18) H 05/06/20 05:53 Creatinine 1.18 mg/dL (0.55-1.3) 05/06/20 05:53 Estimated GFR 43 mL/min (=/>90) L 05/06/20 05:53 Glucose 126 mg/dL (74-106) H 05/06/20 05:53 Calcium 9.1 mg/dL (8.5-10.1) 05/06/20 05:53 Magnesium 1.9 mg/dL (1.8-2.4) 05/06/20 05:53 Albumin 2.5 g/dL (3.4-5.0) L 05/06/20 05:53 Prealbumin 19.6 mg/dL (20-40) L 05/06/20 05:53 Urine Color Yellow 04/30/20 04:30 Urine Appearance Clear 04/30/20 04:30 Urine pH 5.0 (5.0-7.0) 04/30/20 04:30 Ur Specific [place] 1.020 (1.005-1.030) 04/30/20 04:30 Glucose (UA)(Auto) Negative (NEG) 04/30/20 04:30 Urine Ketones Negative (NEG) 04/30/20 04:30 Urine Blood Negative (NEG) 04/30/20 04:30 Urine Nitrite Negative (NEG) 04/30/20 04:30 Urine Bilirubin Negative (NEG) 04/30/20 04:30 Urine Urobilinogen 0.2 mg/dL (0.2-1.0) 04/30/20 04:30 Ur Leukocyte Esterase Negative (NEG) 04/30/20 04:30 Urine RBC None seen /HPF (NONE SEEN) 04/30/20 04:30 Urine WBC 5-10 /HPF (<5) H 04/30/20 04:30 Ur Squamous Epith Cells <5 /HPF (NONE SEEN) 04/30/20 04:30 Urine Bacteria None seen /HPF (<20) 04/30/20 04:30 Hyaline Casts 0-5 /LPF (NONE SEEN) 04/30/20 04:30 Urine Mucus Slight /HPF (NONE SEEN) 04/30/20 04:30 Urine Culture Reflexed Not needed 04/30/20 04:30 Urine Total Protein Negative (NEG) 04/30/20 04:30 Weight: 162 lb 3.2 oz Wound Present: No Closed Surgical Incision Present: No Negative Pressure Wound Therapy Present: No Physician Update: Labs reviewed and are stable. She is doing very well with therapy including occupation and physical therapy. Walking 250' x 8 at standby assistance. Up and down 25 stairs with standby assistance. She is doing well cognitively. Recalling her approaches to transfers and moblization. Functional Improvement: pt is demonstrating progress and has improved her functional performance. pt requires some verbal cues at times for safety and performance of proper technique. Skilled PT services continue to be necessary to reinforce her learned strategies and enhance safety. Speech Therapy Update: Patient presents with mild cognitive-linguistic deficits, particularly in short-term memory and verbal fluency. Patient is demonstrating progress in ST and has demonstrated the ability to recall up to 3 items with 100% accuracy from a significant delay (more than a day). 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 Please see the Rehabilitation Signature page for all necessary signatures.
[2020-05-07] MEDS: TRIAMCINOLONE 0.1% CREAM 15GM TOP SCH ×2 (13:52→19:51)
[2020-05-07] MEDS: POLYVINYL ALCOHOL 1.4% 15 ML EACH EYE PRN ×2 (13:53→19:51)
[2020-05-07] MEDS: RIVAROXABAN 15 MG TABLET PO SCH (17:42)
[2020-05-07] MEDS: ATORVASTATIN 10 MG TAB PO SCH (19:44)
[2020-05-07] MEDS ORDERED: TRIAMCINOLONE 0.1% CREAM 15GM TOP SCH (20:00)
[2020-05-08] MEDS: BENZONATATE 100 MG CAP PO PRN ×3 (04:54→17:22)
[2020-05-08] MEDS: METOPROLOL XL 100 MG TAB PO SCH (05:01)
[2020-05-08] MEDS: LEVOTHYROXINE SOD 0.112 MG TAB PO SCH (06:52)
[2020-05-08] MEDS: LEVOTHYROXINE SOD 0.025 MG TAB PO SCH (06:52)
[2020-05-08] MEDS: MAGNESIUM CHLORIDE 64 MG TAB PO SCH ×2 (07:42→16:37)
[2020-05-08] MEDS: LIDOCAINE 4% PATCH TOP SCH (07:43)
[2020-05-08] MEDS: POLYVINYL ALCOHOL 1.4% 15 ML EACH EYE PRN (07:44)
[2020-05-08] MEDS: TRIAMCINOLONE 0.1% CREAM 15GM TOP SCH ×3 (07:44→21:00)
[2020-05-08] MEDS: JUVEN PACKET PO SCH ×2 (08:00→20:00)
[2020-05-08] MEDS: CRANBERRY FRUIT EXTRACT 200 MG CAP PO SCH ×2 (09:02→21:14)
[2020-05-08] MEDS: allopurinoL 100 MG TAB PO SCH ×2 (09:02→21:14)
[2020-05-08] MEDS: SPIRONOLACTONE 25 MG TABLET PO SCH (09:02)
[2020-05-08] MEDS: FUROSEMIDE 20 MG TABLET PO SCH (09:02)
[2020-05-08] MEDS: GABAPENTIN 300 MG CAP PO SCH ×2 (09:02→21:14)
[2020-05-08] MEDS: DOCUSATE NA/SENNA CONC 1 TAB PO SCH (09:02)
[2020-05-08] MEDS: IPRATROPIUM BROM 0.5MG/2.5ML NEB PRN (14:45)
[2020-05-08] MEDS: RIVAROXABAN 15 MG TABLET PO SCH (16:37)
--- NOTE | 2020-05-08 21:08 | R.PN ---
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 SUBJECTIVE: Pt denied any depression. Pt denied any Shortness of Breath. WBC 6.7.2, Hgb 11.5, Agile Tester 1.18, prealbumin 19.6 Ambulated 1000' with standby assistance using a rolling walker. VITAL SIGNS Temperature: 97.7 F SBP/DBP: 109/55 Pulse: 74 Resp: 16 MEDICATION ALLERGIES: No Known Drug Allergies (NKDA) ENVIRONMENTAL ALLERGIES: None Known - Substance Allergies None Known - Other Allergies None Known NURSING: - Shower allowing shower ACTIVITIES OOB only with supervision THERAPIES: - Dietary and Nutrition Adequate Nutrition. Nutritional Education. Nutritional Supplements. PHYSICAL EXAM - Gen Alert and awake Lying in bed No apparent distress Oriented to: person, time, and place - Skin Mild bruising on the forearms and hands Normacephalic - Eyes No abnormalities - ENMT No abnormalities - Neck No abnormalities - CVS RRR - Chest Mildly decreased breath sounds bilaterally. - Resp No wheezing - Abd Soft - GI Non distended Deferred - No abnormalities - Ext No significant edema - MSK 4+/5 weakness in both lower extremities. - Neuro 4/5 strength bilaterally upper and lower extremities. - Psych No abnormalities ASSESSMENT: Pt. is a 89 yo Right-handed white female.On 04/26/2020 she was admitted to [facility] with diagno sis Multifocal Pneumonia.Her impairment category is Debility 16 - Debility (16).Pre-morbidly, Pt. wa s independent/mod-I in Transfers Control, Locomotion, Self-Care, Social Cognition, Sphincter Control, and Communications; and she had good Balance and Safety Awareness.Currently, she has deficits of Tra nsfers Control, Balance, Locomotion, Safety Awareness, and Self-Care.Pt. is now referred to [facility] for acute in-patient rehabilitation in order to maximize patient's functiona l independence in activities of daily living, strength, ROM, and mobility.- Rehab Goal Patient has realistic goal of being discharged at assistance level 6-Antony to reside at Home with Omar baires. MDM/PLAN: - Physical Therapy Gait dysfunction - to improve, our physical therapists will perform initial evaluation of pt's statu s upon admission and devise an individualized program for Gait Training, and Wheel Chair mobility Inability to transfer - to improve, our physical therapists will perform initial evaluation of pt's status upon admission and devise an individualized program for Bed mobility Need for home safety evaluation - to improve, our physical therapists will perform initial evaluatio n of pt's status upon admission and devise an individualized program for Home Evaluation Need in caregiver upon discharge - to improve, our physical therapists will perform initial evaluati on of pt's status upon admission and devise an individualized program for Caregiver Training Edema - to improve, our physical therapists will perform initial evaluation of pt's status upon admi ssion and devise an individualized program for Elevation Training, and Lymphedema Therapy New precaution - to improve, our physical therapists will perform initial evaluation of pt's status upon admission and devise an individualized program for Patient precaution education Poor balance - to improve, our physical therapists will perform initial evaluation of pt's status up on admission and devise an individualized program for Balance Training Weakness - to improve, our physical therapists will perform initial evaluation of pt's status upon a dmission and devise an individualized program for Aquatic Therapy, Neuromuscular Reeducation, and Str engthening Achieving independence - to improve, our physical therapists will perform initial evaluation of pt's status upon admission and devise an individualized program for Community Reintegration Activities - Occupational Therapy ADL deficits - to improve, our occupation therapists will perform initial evaluation of pt's status upon admission and devise an individualized program for Bathing, Bed mobility, Community Reintegratio n, Cooking, Dressing, Eating, Fine Motor Skills, Grooming, Homemaking, Kitchen Mobility, Laundry, Pat ient Education, Safety Awareness, Splinting - Positioning, Transfers(Toilet, Tub, Shower), and Wheel Chair Management Need for respiratory care instructor - to improve, our occupation therapists will perform initial evaluation of pt's status upon admission and devise an individualized program for Caregiver Training Weakness - to improve, our occupation therapists will perform initial evaluation of pt's status upon admission and devise an individualized program for Aquatic Therapy, Balance, Endurance, UE ROM, and UE strengthening - Other See attached MAR (Medication Administration Record) - Diet Type Continue Regular - Diet - Liquid Texture Continue Regular - Tube Feed Continue N/A - Diet - Solid Texture Continue Regular - Shower allowing shower FUNCTIONAL STATUS: UPDATED AT WEEKLY TEAM CONFERENCE - Walking Same score based on distance walked: 2(50-149ft) FUNCTIONAL STATUS: - Self-Care A. Eating Ind B. Grooming Antony C. Bathing sup D. Dressing - Upper El E. Dressing - Lower El F. Toileting El - Sphincter Control G. Bladder control Antony H. Bowel control Antony - Transfers Control I. Bed/Chair/Wheelchair El J. Toilet El K. Tub/Shower El - Locomotion L. Walk/Wheelchair (B) sup M. Stairs ADNO - Communication N. Comprehension (B) Antony O. Expression (B) Antony - Social Cognition P. Social Interaction Ind Q. Problem Solving sup R. Memory sup - Endurance Good - Balance Good - Safety Awareness Fair QI SCORES: - Self-Care A. Eating 05-Setup or clean-up assistance B. Oral hygiene 05-Setup or clean-up assistance C. Toileting hygiene 04-Supervision or touching assistance E. Shower/bathe self 03-Partial/moderate assistance F. Upper body dressing 05-Setup or clean-up assistance G. Lower body dressing 10-Not attempted due to environmental limitations H. Putting on/taking off footwear 10-Not attempted due to environmental limitations - Mobility A. Roll left and right 04-Supervision or touching assistance B. Sit to lying 04-Supervision or touching assistance C. Lying to sitting on side of bed 04-Supervision or touching assistance D. Sit to stand 04-Supervision or touching assistance E. Chair/[id number] transfer 04-Supervision or touching assistance F. Toilet transfer 04-Supervision or touching assistance G. Car transfer 88-Not attempted due to medical condition or safety concerns I. Walk 10 feet 04-Supervision or touching assistance J. Walk 50 feet with two turns 04-Supervision or touching assistance K. Walk 150 feet 04-Supervision or touching assistance L. Walking 10 feet on uneven surfaces 88-Not attempted due to medical condition or safety concerns M. 1 step (curb) 88-Not attempted due to medical condition or safety concerns N. 4 steps 88-Not attempted due to medical condition or safety concerns O. 12 steps 88-Not attempted due to medical condition or safety concerns P. Picking up object 88-Not attempted due to medical condition or safety concerns - Bladder and Bowel Bladder continence 0-Always continent Bowel continence 0-Always continent - Endurance Fair - Balance Poor - Safety Awareness Poor CURRENT [facility]. 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
[2020-05-08] MEDS: ATORVASTATIN 10 MG TAB PO SCH (21:14)
[2020-05-08] MEDS: MELATONIN 3 MG TABLET PO PRN (21:14)
[2020-05-08] MEDS: ACETAMINOPHEN 325 MG TABLET PO PRN (23:46)
[2020-05-09] MEDS: METOPROLOL XL 100 MG TAB PO SCH (05:04)
[2020-05-09] MEDS: IPRATROPIUM BROM 0.5MG/2.5ML NEB PRN (05:55)
[2020-05-09] MEDS: LEVOTHYROXINE SOD 0.025 MG TAB PO SCH (07:01)
[2020-05-09] MEDS: LEVOTHYROXINE SOD 0.112 MG TAB PO SCH (07:01)
[2020-05-09] MEDS: SPIRONOLACTONE 25 MG TABLET PO SCH (08:00)
[2020-05-09] MEDS: CRANBERRY FRUIT EXTRACT 200 MG CAP PO SCH ×2 (08:00→20:23)
[2020-05-09] MEDS: DOCUSATE NA/SENNA CONC 1 TAB PO SCH (08:00)
[2020-05-09] MEDS: FUROSEMIDE 20 MG TABLET PO SCH (08:00)
[2020-05-09] MEDS: JUVEN PACKET PO SCH ×2 (08:00→20:00)
[2020-05-09] MEDS: LIDOCAINE 4% PATCH TOP SCH (09:44)
[2020-05-09] MEDS: allopurinoL 100 MG TAB PO SCH ×2 (09:44→20:24)
[2020-05-09] MEDS: MAGNESIUM CHLORIDE 64 MG TAB PO SCH ×2 (09:45→17:14)
[2020-05-09] MEDS: GABAPENTIN 300 MG CAP PO SCH ×2 (09:46→20:24)
[2020-05-09] MEDS: POLYVINYL ALCOHOL 1.4% 15 ML EACH EYE PRN (09:55)
[2020-05-09] MEDS: TRIAMCINOLONE 0.1% CREAM 15GM TOP SCH ×3 (09:56→20:24)
[2020-05-09] MEDS: BENZONATATE 100 MG CAP PO PRN ×2 (11:51→20:24)
--- NOTE | 2020-05-09 13:03 | RAD REPORT ---
EXAM DESCRIPTION: RAD - Chest Single View - 05/09/2020 11:28 am CLINICAL HISTORY: increase coughing, pneumonia COMPARISON: April 26 TECHNIQUE: AP portable chest image was obtained 05/09/2020 11:28 am . FINDINGS: Interstitial markings remain diffusely prominent. Focal areas consolidation in each lung b ase and in the right upper lung field have substantially improved. There is infiltrate remaining. Hea rt size is stable. Central vasculature also stable. No measurable pleural effusion and no pneumothora x. No acute bony abnormality seen. No acute aortic findings suspected. IMPRESSION: Partial clearing of multifocal pneumonia. Underlying interstitial pattern remains promin ent.
[2020-05-09] MEDS: RIVAROXABAN 15 MG TABLET PO SCH (17:14)
[2020-05-09] MEDS: NYSTATIN PWDR 100000 UNIT/GM TOP SCH (20:00)
[2020-05-09] MEDS: ATORVASTATIN 10 MG TAB PO SCH (20:23)
[2020-05-09] MEDS: MELATONIN 3 MG TABLET PO PRN (20:23)
[2020-05-10] MEDS: METOPROLOL XL 100 MG TAB PO SCH (05:15)
[2020-05-10] MEDS: JUVEN PACKET PO SCH (08:00)
[2020-05-10] MEDS: TRIAMCINOLONE 0.1% CREAM 15GM TOP SCH ×3 (08:31→20:23)
[2020-05-10] MEDS: NYSTATIN PWDR 100000 UNIT/GM TOP SCH ×2 (08:31→19:31)
[2020-05-10] MEDS: SPIRONOLACTONE 25 MG TABLET PO SCH (08:32)
[2020-05-10] MEDS: MAGNESIUM CHLORIDE 64 MG TAB PO SCH ×2 (08:32→16:52)
[2020-05-10] MEDS: DOCUSATE NA/SENNA CONC 1 TAB PO SCH (08:33)
[2020-05-10] MEDS: LEVOTHYROXINE SOD 0.112 MG TAB PO SCH (08:33)
[2020-05-10] MEDS: LIDOCAINE 4% PATCH TOP SCH (08:33)
[2020-05-10] MEDS: LEVOTHYROXINE SOD 0.025 MG TAB PO SCH (08:33)
[2020-05-10] MEDS: CRANBERRY FRUIT EXTRACT 200 MG CAP PO SCH ×2 (08:33→19:30)
[2020-05-10] MEDS: allopurinoL 100 MG TAB PO SCH ×2 (08:33→19:31)
[2020-05-10] MEDS: FUROSEMIDE 20 MG TABLET PO SCH (08:34)
[2020-05-10] MEDS: GABAPENTIN 300 MG CAP PO SCH ×2 (08:35→19:31)
[2020-05-10] MEDS: RIVAROXABAN 15 MG TABLET PO SCH (16:52)
--- NOTE | 2020-05-10 18:09 | R.PN ---
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 SUBJECTIVE: Pt denied any depression. Pt denied any Shortness of Breath. WBC 6.7, Hgb 11.5, Gas Dispenser 1.18, prealbumin 19.6 Ambulated 2100' with independence using a rolling walker. Up and down 20 steps with standby assistanc e. VITAL SIGNS Temperature: 97.8 F SBP/DBP: 139/72 Pulse: 81 Resp: 16 MEDICATION ALLERGIES: No Known Drug Allergies (NKDA) ENVIRONMENTAL ALLERGIES: None Known - Substance Allergies None Known - Other Allergies None Known NURSING: - Shower allowing shower ACTIVITIES OOB only with supervision THERAPIES: - Dietary and Nutrition Adequate Nutrition. Nutritional Education. Nutritional Supplements. PHYSICAL EXAM - Gen Alert and awake Lying in bed No apparent distress Oriented to: person, time, and place - Skin Mild bruising on the forearms and hands Normacephalic - Eyes No abnormalities - ENMT No abnormalities - Neck No abnormalities - CVS RRR - Chest Mildly decreased breath sounds bilaterally. - Resp No wheezing - Abd Soft - GI Non distended Deferred - No abnormalities - Ext No significant edema - MSK 4+/5 weakness in both lower extremities. - Neuro 4/5 strength bilaterally upper and lower extremities. - Psych No abnormalities ASSESSMENT: Pt. is a 89 yo Right-handed white female.On 04/26/2020 she was admitted to [facility] with diagno sis Multifocal Pneumonia.Her impairment category is Debility 16 - Debility (16).Pre-morbidly, Pt. wa s independent/mod-I in Transfers Control, Locomotion, Self-Care, Social Cognition, Sphincter Control, and Communications; and she had good Balance and Safety Awareness.Currently, she has deficits of Tra nsfers Control, Balance, Locomotion, Safety Awareness, and Self-Care.Pt. is now referred to [facility] for acute in-patient rehabilitation in order to maximize patient's functiona l independence in activities of daily living, strength, ROM, and mobility.- Rehab Goal Patient has realistic goal of being discharged at assistance level 6-Antony to reside at Home with Omar baires. MDM/PLAN: - Physical Therapy Gait dysfunction - to improve, our physical therapists will perform initial evaluation of pt's statu s upon admission and devise an individualized program for Gait Training, and Wheel Chair mobility Inability to transfer - to improve, our physical therapists will perform initial evaluation of pt's status upon admission and devise an individualized program for Bed mobility Need for home safety evaluation - to improve, our physical therapists will perform initial evaluatio n of pt's status upon admission and devise an individualized program for Home Evaluation Need in caregiver upon discharge - to improve, our physical therapists will perform initial evaluati on of pt's status upon admission and devise an individualized program for Caregiver Training Edema - to improve, our physical therapists will perform initial evaluation of pt's status upon admi ssion and devise an individualized program for Elevation Training, and Lymphedema Therapy New precaution - to improve, our physical therapists will perform initial evaluation of pt's status upon admission and devise an individualized program for Patient precaution education Poor balance - to improve, our physical therapists will perform initial evaluation of pt's status up on admission and devise an individualized program for Balance Training Weakness - to improve, our physical therapists will perform initial evaluation of pt's status upon a dmission and devise an individualized program for Aquatic Therapy, Neuromuscular Reeducation, and Str engthening Achieving independence - to improve, our physical therapists will perform initial evaluation of pt's status upon admission and devise an individualized program for Community Reintegration Activities - Occupational Therapy ADL deficits - to improve, our occupation therapists will perform initial evaluation of pt's status upon admission and devise an individualized program for Bathing, Bed mobility, Community Reintegratio n, Cooking, Dressing, Eating, Fine Motor Skills, Grooming, Homemaking, Kitchen Mobility, Laundry, Pat ient Education, Safety Awareness, Splinting - Positioning, Transfers(Toilet, Tub, Shower), and Wheel Chair Management Need for manager progressive care - to improve, our occupation therapists will perform initial evaluation of pt's status upon admission and devise an individualized program for Caregiver Training Weakness - to improve, our occupation therapists will perform initial evaluation of pt's status upon admission and devise an individualized program for Aquatic Therapy, Balance, Endurance, UE ROM, and UE strengthening - Other See attached MAR (Medication Administration Record) - Diet Type Continue Regular - Diet - Liquid Texture Continue Regular - Tube Feed Continue N/A - Diet - Solid Texture Continue Regular - Shower allowing shower FUNCTIONAL STATUS: UPDATED AT WEEKLY TEAM CONFERENCE - Walking Same score based on distance walked: 2(50-149ft) FUNCTIONAL STATUS: - Self-Care A. Eating Ind B. Grooming Antony C. Bathing sup D. Dressing - Upper El E. Dressing - Lower El F. Toileting El - Sphincter Control G. Bladder control Antony H. Bowel control Antony - Transfers Control I. Bed/Chair/Wheelchair El J. Toilet El K. Tub/Shower El - Locomotion L. Walk/Wheelchair (B) sup M. Stairs ADNO - Communication N. Comprehension (B) Antony O. Expression (B) Antony - Social Cognition P. Social Interaction Ind Q. Problem Solving sup R. Memory sup - Endurance Good - Balance Good - Safety Awareness Fair QI SCORES: - Self-Care A. Eating 05-Setup or clean-up assistance B. Oral hygiene 05-Setup or clean-up assistance C. Toileting hygiene 04-Supervision or touching assistance E. Shower/bathe self 03-Partial/moderate assistance F. Upper body dressing 05-Setup or clean-up assistance G. Lower body dressing 10-Not attempted due to environmental limitations H. Putting on/taking off footwear 10-Not attempted due to environmental limitations - Mobility A. Roll left and right 04-Supervision or touching assistance B. Sit to lying 04-Supervision or touching assistance C. Lying to sitting on side of bed 04-Supervision or touching assistance D. Sit to stand 04-Supervision or touching assistance E. Chair/[id number] transfer 04-Supervision or touching assistance F. Toilet transfer 04-Supervision or touching assistance G. Car transfer 88-Not attempted due to medical condition or safety concerns I. Walk 10 feet 04-Supervision or touching assistance J. Walk 50 feet with two turns 04-Supervision or touching assistance K. Walk 150 feet 04-Supervision or touching assistance L. Walking 10 feet on uneven surfaces 88-Not attempted due to medical condition or safety concerns M. 1 step (curb) 88-Not attempted due to medical condition or safety concerns N. 4 steps 88-Not attempted due to medical condition or safety concerns O. 12 steps 88-Not attempted due to medical condition or safety concerns P. Picking up object 88-Not attempted due to medical condition or safety concerns - Bladder and Bowel Bladder continence 0-Always continent Bowel continence 0-Always continent - Endurance Fair - Balance Poor - Safety Awareness Poor CURRENT [facility]. 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
[2020-05-10] MEDS: LIDOCAINE JELLY 2%- 5 ML TUBE TOP PRN (19:34)
[2020-05-10] MEDS: ATORVASTATIN 10 MG TAB PO SCH (20:23)
[2020-05-10 21:14] VITALS: O2SAT 96
--- NOTE | 2020-05-11 02:19 | FAST ---
[employer] FORM SHIFT START DATE/TIME: 05/10/2020 19:00 (CLINICAL BIOCHEMIST) SHIFT END DATE/TIME: 05/11/2020 07:00 (CLINICAL BIOCHEMIST) NAME WILMER CUEVAS DATE OF : 1930 DATE OF ADMISSION: 04/29/2020 18:03 (CLINICAL BIOCHEMIST) PHONE: AGE: 89 N# [id number] GENDER: Female ENCOUNTER PHYSICIAN: Dr. Dino Mccartney M.D. ADMISSION DIAGNOSIS: - Debility 16 - Debility (16) Multifocal Pneumonia. EATING: Not assessed/no information CODE: - ORAL HYGIENE: ORAL HYGIENE - STEP 1: Does the patient complete the activity by him/herself with no assistance (physical, verbal/nonverbal cueing, setup/clean-up)? No. ORAL HYGIENE - STEP 2: Does the patient need only setup/clean-up assistance from one helper? Yes. 1. [id number] ADMISSION PERFORMANCE: Setup or clean-up assistance CODE: 05 TOILETING HYGIENE: TOILETING HYGIENE - STEP 1: Does the patient complete the activity by him/herself with no assistance (physical, verbal/nonverbal cueing, setup/clean-up)? No. TOILETING HYGIENE - STEP 2: Does the patient need only setup/clean-up assistance from one helper? No. TOILETING HYGIENE - STEP 3: Does the patient need only verbal/nonverbal cueing or touching/steadying/contact guard assistance fro m one helper? Yes. 1. [id number] ADMISSION PERFORMANCE: Supervision or touching assistance CODE: 04 BATHING: Not assessed/no information CODE: - DRESSING - UPPER BODY: Not assessed/no information CODE: - DRESSING - LOWER BODY: Not assessed/no information CODE: - PUTTING ON/TAKING OFF FOOTWEAR: Not assessed/no information CODE: - ROLL LEFT AND RIGHT: ROLL LEFT AND RIGHT - STEP 1: Does the patient complete the activity by him/herself with no assistance (physical, verbal/nonverbal cueing, setup/clean-up)? No. ROLL LEFT AND RIGHT - STEP 2: Does the patient need only setup/clean-up assistance from one helper? No. ROLL LEFT AND RIGHT - STEP 3: Does the patient need only verbal/nonverbal cueing or touching/steadying/contact guard assistance fro m one helper? Yes. 1. [id number] ADMISSION PERFORMANCE: Supervision or touching assistance CODE: 04 SIT TO LYING: SIT TO LYING - STEP 1: Does the patient complete the activity by him/herself with no assistance (physical, verbal/nonverbal cueing, setup/clean-up)? No. SIT TO LYING - STEP 2: Does the patient need only setup/clean-up assistance from one helper? Yes. 1. [id number] ADMISSION PERFORMANCE: Setup or clean-up assistance CODE: 05 LYING TO SITTING: LYING TO SITTING ON SIDE OF BED - STEP 1: Does the patient complete the activity by him/herself with no assistance (physical, verbal/nonverbal cueing, setup/clean-up)? No. LYING TO SITTING ON SIDE OF BED - STEP 2: Does the patient need only setup/clean-up assistance from one helper? No. LYING TO SITTING ON SIDE OF BED - STEP 3: Does the patient need only verbal/nonverbal cueing or touching/steadying/contact guard assistance fro m one helper? Yes. 1. [id number] ADMISSION PERFORMANCE: Supervision or touching assistance CODE: 04 SIT TO STAND: SIT TO STAND - STEP 1: Does the patient complete the activity by him/herself with no assistance (physical, verbal/nonverbal cueing, setup/clean-up)? No. SIT TO STAND - STEP 2: Does the patient need only setup/clean-up assistance from one helper? No. SIT TO STAND - STEP 3: Does the patient need only verbal/nonverbal cueing or touching/steadying/contact guard assistance fro m one helper? Yes. 1. [id number] ADMISSION PERFORMANCE: Supervision or touching assistance CODE: 04 TRANSFERS: BED, CHAIR: CHAIR/[id number] TRANSFER - STEP 1: Does the patient complete the activity by him/herself with no assistance (physical, verbal/nonverbal cueing, setup/clean-up)? No. CHAIR/[id number] TRANSFER - STEP 2: Does the patient need only setup/clean-up assistance from one helper? No. CHAIR/[id number] TRANSFER - STEP 3: Does the patient need only verbal/nonverbal cueing or touching/steadying/contact guard assistance fro m one helper? Yes. 1. [id number] ADMISSION PERFORMANCE: Supervision or touching assistance CODE: 04 TRANSFER TOILET: TOILET TRANSFER - STEP 1: Does the patient complete the activity by him/herself with no assistance (physical, verbal/nonverbal cueing, setup/clean-up)? No. TOILET TRANSFER - STEP 2: Does the patient need only setup/clean-up assistance from one helper? No. TOILET TRANSFER - STEP 3: Does the patient need only verbal/nonverbal cueing or touching/steadying/contact guard assistance fro m one helper? Yes. 1. [id number] ADMISSION PERFORMANCE: Supervision or touching assistance CODE: 04 TRANSFERS: CAR: Not assessed/no information CODE: - WALK 10 FEET: Not assessed/no information CODE: - 1 STEP (CURB): Not assessed/no information CODE: - PICKING UP OBJECT: Not assessed/no information CODE: - DOES THE PATIENT USE A WHEELCHAIR/SCOOTER? CODE: EXPR WHEEL 50 FEET WITH TWO TURNS: Not assessed/no information CODE: - INDICATE THE TYPE OF WHEELCHAIR/SCOOTER USED: CODE: EXPR WHEEL 150 FEET: Not assessed/no information CODE: - INDICATE THE TYPE OF WHEELCHAIR/SCOOTER USED: CODE: EXPR BLADDER AND BOWEL: H350. BLADDER CONTINENCE (3-DAY ASSESSMENT PERIOD): Always continent (no documented incontinence) CODE: 0 H400. BOWEL CONTINENCE (3-DAY ASSESSMENT PERIOD): Always continent CODE: 0
[2020-05-11] MEDS: METOPROLOL XL 100 MG TAB PO SCH (05:17)
[2020-05-11 07:15] VITALS: BP 119/75; TEMP 97.8
[2020-05-11] MEDS: NYSTATIN PWDR 100000 UNIT/GM TOP SCH (08:00)
[2020-05-11] MEDS: allopurinoL 100 MG TAB PO SCH (08:06)
[2020-05-11] MEDS: LEVOTHYROXINE SOD 0.025 MG TAB PO SCH (08:06)
[2020-05-11] MEDS: FUROSEMIDE 20 MG TABLET PO SCH (08:06)
[2020-05-11] MEDS: CRANBERRY FRUIT EXTRACT 200 MG CAP PO SCH (08:06)
[2020-05-11] MEDS: LIDOCAINE 4% PATCH TOP SCH (08:07)
[2020-05-11] MEDS: DOCUSATE NA/SENNA CONC 1 TAB PO SCH (08:07)
[2020-05-11] MEDS: GABAPENTIN 300 MG CAP PO SCH (08:07)
[2020-05-11] MEDS: LEVOTHYROXINE SOD 0.112 MG TAB PO SCH (08:07)
[2020-05-11] MEDS: MAGNESIUM CHLORIDE 64 MG TAB PO SCH (08:07)
[2020-05-11] MEDS: TRIAMCINOLONE 0.1% CREAM 15GM TOP SCH (08:07)
[2020-05-11] MEDS: SPIRONOLACTONE 25 MG TABLET PO SCH (08:07)
--- NOTE | 2020-06-03 14:00 | R.DS ---
DISCHARGE SUMMARY FACILITY [facility] MR# [id number] NAME WILMER CUEVAS ADDRESS [address] [facility] [place] [address] PHONE DATE OF 1930 AGE 89 SSN# [id number] GENDER Female DEXTERITY Right-handed MARITAL STATUS RACE White ENCOUNTER PHYSICIAN Dr. Dino Mccartney M.D. REFERRING DOCTOR Dr Bucio REFERRING FACILITY DISCHARGE DIAGNOSIS: - Debility 16 - Debility (16) Multifocal Pneumonia. DISCHARGE COMORBIDITIES: - Tier 3 Pneumonia, unspecified organism (J18.9) DATE OF ADMISSION 04/29/2020 18:03 (TIMEKEEPER) MEDICATION ALLERGIES: No Known Drug Allergies (NKDA) ENVIRONMENTAL ALLERGIES: None Known - Substance Allergies None Known - Other Allergies None Known DISCHARGE MEDICATIONS: Other- ContinueSee attached MAR (Medication Administration Record). NURSING: - Shower allowing shower ACTIVITIES OOB only with supervision THERAPIES: - Dietary and Nutrition Adequate Nutrition Nutritional Education Nutritional Supplements HISTORY OF PRESENT ILLNESS: Pt. is a 89 yo Right-handed white female.On 04/26/2020 she was admitted to with diagno sis Multifocal Pneumonia.Her impairment category is Debility 16 - Debility (16).Pre-morbidly, Pt. wa s independent/mod-I in Transfers Control, Locomotion, Self-Care, Social Cognition, Sphincter Control, and Communications; and she had good Balance and Safety Awareness.Currently, she has deficits of Tra nsfers Control, Balance, Locomotion, Safety Awareness, and Self-Care.Pt. is now referred to [facility] for acute in-patient rehabilitation in order to maximize patient's functiona l independence in activities of daily living, strength, ROM, and mobility.- Rehab Goal Patient has realistic goal of being discharged at assistance level 6-Antony to reside at Home with Omar baires. IHOSPITAL COURSE: DIET - LIQUID TEXTURE: On 04/28/2020 Pt was upgraded to Regular Diet - Liquid Texture. DIET - SOLID TEXTURE: On 04/28/2020 Pt was upgraded to Regular Diet - Solid Texture. DIET TYPE: On 04/28/2020 Pt was upgraded to Regular Diet Type. TUBE FEED: On 04/28/2020 Pt was changed to N/A Tube Feed. DISCHARGE PHYSICAL EXAM - Gen Alert and awake Lying in bed No apparent distress Oriented to: person, time, and place - Skin Mild bruising on the forearms and hands Normacephalic - Eyes No abnormalities - ENMT No abnormalities - Neck No abnormalities - CVS RRR - Chest Mildly decreased breath sounds bilaterally. - Resp No wheezing - Abd Soft - GI Non distended Deferred - No abnormalities - Ext No significant edema - MSK 4+/5 weakness in both lower extremities. - Neuro 4/5 strength bilaterally upper and lower extremities. - Psych No abnormalities FUNCTIONAL STATUS: - Self-Care A. Eating 7-Ind B. Grooming 6-Antony C. Bathing 6-Antony D. Dressing - Upper 6-Antony E. Dressing - Lower 6-Antony F. Toileting 6-Antony - Sphincter Control G. Bladder control 6-Antony H. Bowel control 6-Antony - Transfers Control I. Bed/Chair/Wheelchair 6-Antony J. Toilet 6-Antony K. Tub/Shower 6-Antony - Locomotion L. Walk/Wheelchair (B) 6-Antony M. Stairs 6-Antony - Communication N. Comprehension (B) 6-Antony O. Expression (B) 6-Antony - Social Cognition P. Social Interaction 7-Ind Q. Problem Solving 6-Antony R. Memory 6-Antony - Endurance Good - Balance Good - Safety Awareness Good QI SCORES: - Self-Care A. Eating 05-Setup or clean-up assistance B. Oral hygiene 05-Setup or clean-up assistance C. Toileting hygiene 04-Supervision or touching assistance E. Shower/bathe self 03-Partial/moderate assistance F. Upper body dressing 05-Setup or clean-up assistance G. Lower body dressing 10-Not attempted due to environmental limitations H. Putting on/taking off footwear 10-Not attempted due to environmental limitations - Mobility A. Roll left and right 04-Supervision or touching assistance B. Sit to lying 04-Supervision or touching assistance C. Lying to sitting on side of bed 04-Supervision or touching assistance D. Sit to stand 04-Supervision or touching assistance E. Chair/rdm-[id number] transfer 04-Supervision or touching assistance F. Toilet transfer 04-Supervision or touching assistance G. Car transfer 88-Not attempted due to medical condition or safety concerns I. Walk 10 feet 04-Supervision or touching assistance J. Walk 50 feet with two turns 04-Supervision or touching assistance K. Walk 150 feet 04-Supervision or touching assistance L. Walking 10 feet on uneven surfaces 88-Not attempted due to medical condition or safety concerns M. 1 step (curb) 88-Not attempted due to medical condition or safety concerns N. 4 steps 88-Not attempted due to medical condition or safety concerns O. 12 steps 88-Not attempted due to medical condition or safety concerns P. Picking up object 88-Not attempted due to medical condition or safety concerns - Bladder and Bowel Bladder continence 0-Always continent Bowel continence 0-Always continent - Endurance Fair - Balance Poor - Safety Awareness Poor DISCHARGE INSTRUCTIONS: - N/A Xarelto 15 mg daily. DISCHARGE PLAN, FOLLOW UP CARE PROVISIONS: - Estimated Length of Stay (days) 13. - Consensus on plan Discharge plan has been discussed with primary caregiver. Patient/Family is in agreement with the snow n. Primary caregiver is in agreement with the plan. - Patient/Family Goals Return home with assistance. - Planned Living Setting Upon Discharge Home, to live alone. SIGNATURE PANEL: (TIMEKEEPER)
== END 2020-05-11 15:40 | disposition home or self-care (01) | DRG 195 ==
LOC: 5TH 04-29 18:03
PROVIDERS: ADMIT Psychiatry & Neurology Neurology with Special Qualifications in Child Neurology; ATTEND Psychiatry & Neurology Neurology with Special Qualifications in Child Neurology
DX: J18.9 Pneumonia, unspecified organism (principal); R53.81 Other malaise; Z60.2 Problems related to living alone; Z20.828 Contact with and (suspected) exposure to other viral communicable diseases
CPT/HCPCS: 36415; 71045; 80048; 81001; 82040; 83735; 84134; 85025; 87086; 87088; 92523; 94640; 97110; 97112; 97116; 97127; 97161; 97530; 97542; U0002

== ENCOUNTER 2020-06-27 18:23 | Emergency (ER) | payer OTHER ==
--- OUTSIDE RECORDS SUMMARY | 2020-06-27 18:25 | XMS REPORT | Clinical Summary ---
:1930 Author Organization [facility] Address [address] [place] [address] Care Team Providers Name Role Phone Zenon [...] Not on file Results Not on fileafter 06/27/2019 Advance Directives For more information, please contact: [phone] Code Status Date Activated Date Inactivated Comments Full Code 03/01/2016 5:29 AM 03/06/2016 5:31 PM This code status was determined by: Patient
--- OUTSIDE RECORDS SUMMARY | 2020-06-27 18:26 | XMS REPORT | Continuity of Care Document ---
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/20 [place] [facility] [address] [place] [address] SUBDURAL HEMATOMA Active 02/16/[address] ARCELIA BILLING Active 02/16/20 [facility] LFLT #[id number] [place] [address] Atrial Resolved Problem 03/25/2017 [facility] fibrillation [facility] (disorder) [place], [facility] [place] 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) [facility], OPID [place] 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 [facility] accident [facility] (disorder) [place], OP[facility] [place] Gout (disorder) Resolved Problem 03/25/2017 [facility], OP[place] Hyperlipidemia Resolved Problem 03/25/[place] (disorder) [facility], [facility] [place] 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, 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 [place], (disorder) [facility] [place] Simple obesity Active Problem 03/25/2017 [facility] (disorder) [place] NONTRAUMATIC [place] SUBDURAL Medical HEMORRHAGE, UNSPEC C enter Medications Medication Details Route Status Patient Ordering Order Source Instructions Provider Date Simvastatin Notes: (Same Inactive 02/18/ [place] as: Zocor) [address] [place] [address] Levetiracetam 500 mg = 1 tab, Active 02/17/ [place] 500 MG Oral PO, BID, # 12 2017 Medica l Tablet [Keppra] tab, 0 Center Refill(s) Thyroxine Notes: Take 1 Inactive [place] hour before or 2017 Medical 2 hours after Center meal; Enteral feeds may interefere with the absorption of this medication. (Same as:Levothroid) Furosemide 20 MG Notes: (Same Inactive H [place] Oral Tablet as: Lasix) October [...] On empty stomach. Melatonin Notes: (Same Inactive [facility] as: Melatonin) 2017 [facility] Albuterol 0.833 Notes: (Same Inactive [place] MG/ML / as: Duoneb) 2017 [facility] Ipratropium Center [place] 0.167 MG/ML Inhalant Solution [DuoNeb] Metoprolol Notes: (Same Inactive [place] as: Lopressor) 2017 Medical Push over 2 Center minutes heparin Notes: porcine No Longer [place] heparin Active 2017 [facility] Simethicone Notes: (Same [place] Longer [place] as: Mylicon) Active 2017 Medical Center Zofran Notes: (Same No Longer [place] as: Zofran) Active 2017 Medical MEDICATION Center WASTE Product Size: 4 mg Product Wasted: ___ mg metoprolol Notes: (Same No Longer [place] tartrate as: Lopressor) Active 2017 Medical Center rivaroxaban 15 15 mg = 1 tab, No Longer [place] MG Oral Tablet PO, Daily, # 90 Active 2016 edical [Xarelto] tab, 3 Center Refill(s) simvastatin 20 20 mg = 1 tab, Active [place] mg oral tablet PO, Bedtime, # 2017 Dc dical 30 tab, 1 Center Refill(s) Colchicine 0.6 0.6 mg = 1 cap, No Longer [place] MG Oral Capsule PO, Daily, PRN Active 2016 edical pain, 0 Center Refill(s) levothyroxine 137 microgram = Active [place] 137 mcg (0.137 1 tab, PO, 2017 Medica l mg) oral tablet Daily, # 90 Cent er tab, 0 Refill(s) gabapentin 300 300 mg = 1 cap, Active [place] MG Oral Capsule PO, TID, # 90 2016 Me dical cap, 1 Center Refill(s) Furosemide 20 MG 20 mg = 1 tab, Active [place] Oral Tablet PO, BID, # 90 2016 Medica l tab, 0 Center Refill(s) metoprolol 100 100 mg = 1 tab, Active [place] mg oral tablet, PO, Daily, # 30 2016 Medical extended release tab, 0 Center Refill(s) Levetiracetam Notes: (Same No Longer [place] 500 MG Oral as:Keppra) Active 2016 Medical [...] ___ mg Docusate Notes: (Same No Longer [place] as: Colace) Active 2017 [facility] Center Tylenol Notes: Do not No Longer [place] exceed 4 Active 2017 Medical gm/day. (Same Center as: Tylenol) Tylenol Notes: Max Inactive [place] acetaminophen 2017 Medical 4000 mg/day (4 Center gm/day). (Same as: Tylenol Extra Strength) Calcium Notes: (Same No Longer [place] Carbonate 500 MG As: Tums) Active 2017 Medic al Chewable Tablet Calcium Center Carbonate 500 mg = 200 mg elemental calcium Dose = mg calcium carbonate ( mg elemental calcium) Calcium Notes: WASTE: No Longer [place] Gluconate F/P - Sink; E - Active 2016 [facility]ica [facility] Bin Magnesium Oxide Notes: (Same No Longer [facility] as: Mag-Ox 400) Active 2017 [facility] Magnesium oxide Center [id number] elemental magnesium Dose=____mg magnesium oxide (___mg elemental magnesium) sodium phosphate 45 mmol, 15 mL, No Longer 02/15 [place] Route: IVPB, Active 2016 Medical PRN, Dosing Center Weight 77.273, kg, PRN Abnormal Lab Result, Start date: 02/15/17 16:09:00 CDT, Duration: 30 day, Stop date: 03/17/17 16:08:00 CDT, FOR ICU USE ONLY potassium Notes: (Same No Longer [facility] s phosphate as: K Active 2016 Medical Phosphate.) 1 Center mMol phoshate has 1.47 mEq potassium Infuse over 4 hours Magnesium Notes: WASTE: No Longer [place] Sulfate F/P - Sink; E - Active 2016 Medical [facility] Bin potassium Notes: (Same No Longer [facility] phosphate-sodium as: Phos-NaK) Active 2016 edical phosphate 250 Each 1.5 gm pkt Ce nter mg-280 mg-160 mg has 250mg oral powder for phosphorous. reconstitution Mix w/2.5oz water and stir. Potassium Notes: (Same No Longer [facility] s Chloride as: KCL) Active 2016 Medical Infuse over 2 Center hours. chlorhexidine [...] sodium chloride 1,000 mL, Rate: No Longer [place] 0.9% 1000 ml INJ 75 ml/hr, Active [...] 02/15/17 12:25:00 CDT Fentanyl 50 microgram, Inactive [place] Route: IVP, 2017 Medical ONCE, Dosing Center Weight 77.273, kg, Priority: STAT, Start date: 02/15/17 12:25:00 CDT, Stop date: 02/15/17 12:25:00 CDT Factor 2-7-9-10 Notes: Same as: Inactive [place] Prothrombin Kcentra WASTE: 2016 Medi myles Complex F/P - Red; E Center Concentrate -Red Maximum 2,707 unit + IV dose = 5000 bag 1 ea units; Round down dose to the nearest vial size Hematology clinical pharmacist consult required Factor 2-7-9-10 Notes: Same as: Inactive [facility] Prothrombin Kcentra WASTE: 2016 Medi myles Complex [...] CDT Factor 2-7-9-10 Notes: Same as: Inactive [place] Prothrombin Kcentra WASTE: 2016 Medi myles Complex F/P - Red; E Center Concentrate -Red Maximum 2,700 unit + IV dose = 5000 bag 1 ea units; Round down dose to the nearest vial size Hematology clinical pharmacist consult required Saline Flush Notes: (Same No Longer [place] 0.9% as: BD Active 2016 [facility] Posiflush) Center Allergies, Adverse Reactions, Alerts Substance Category Reaction Severity Reaction Status Date Comments S ource type Reported Codeine Assertion Drug Active OPI D Sulfate allergy [place] eucalyptus Assertion Drug Active [facility] topical allergy [place] Immunizations No Data Provided for This Section Results Order Name Results Value Reference Date Interpretation Comments Sudha rce Range CHEM PANEL Phosphorus 2.6 2.5 - 4.5 02/17 [facility] CHEM PANEL Magnesium Lvl 2.0 1.8 - 2.4 02/17 [place] [facility] ELECTROLYTES AGAP 12.3 10.0 - 02/17 [facility] 20.0 [facility] ELECTROLYTES eGFR 75 02/17 Result Comment: [...] ELECTROLYTES CO2 28 24 - 32 02/[address] [place] [address] ELECTROLYTES Chloride Lvl 107 95 - 109 02/17 [facility] ELECTROLYTES Calcium Lvl 9.3 8.5 - 10.5 02/17 [place] [facility] ELECTROLYTES Potassium Lvl 4.3 3.5 - 5.1 02/[address] [place] [address] ELECTROLYTES Sodium Lvl 143 135 - 145 02/17 [facility] ELECTROLYTES Creatinine 0.74 0.50 - 02/17 [facility] Lvl 1.40 [facility] ELECTROLYTES BUN 10 7 - 22 02/[address] ELECTROLYTES Glucose Lvl 129 70 - 99 02/17 [facility] HEMATOLOGY RDW 16.1 11.5 - 02/17 [facility] 14.5 [facility] HEMATOLOGY Platelet 186 133 - 450 02/17 [facility] HEMATOLOGY MCHC 33.3 32.0 - 02/17 [facility] 36.0 [facility] HEMATOLOGY RBC 4.66 4.20 - 02/17 [place] 5.40 [facility] HEMATOLOGY Hct 38.1 36.0 - 02/17 [place] 48.0 [facility] HEMATOLOGY Hgb 12.7 12.0 - 02/17 16.0 [facility] HEMATOLOGY MCH 27.3 27.0 - 02/17 [place] 31.0 [facility] HEMATOLOGY MCV 81.7 80.0 - 02/17 [place] 98.0 [facility] HEMATOLOGY MPV 10.3 7.4 - 10.4 02/17 [facility] HEMATOLOGY WBC 10.0 3.7 - 10.4 02/17 [facility] HEMATOLOGY Segs 77.7 45.0 - 02/17 [facility] 75.0 [facility] HEMATOLOGY Lymphocytes 14.4 20.0 - 02/17 [place] 40.0 [facility] HEMATOLOGY Monocytes 3.7 2.0 - 12.0 02/17 [facility] [address] [place] [address] HEMATOLOGY Lymphocytes # 1.4 1.0 - 5.5 02/17 [facility] HEMATOLOGY Eosinophils # 0.4 0.0 - 0.5 02/17 [facility] [place] [facility] HEMATOLOGY Monocytes # 0.4 0.0 - 0.8 02/17 s [facility] HEMATOLOGY Eosinophils 3.8 0.0 - 4.0 02/17 [facility] HEMATOLOGY Segs-Bands # 7.8 1.5 - 8.1 02/17 [facility] HEMATOLOGY Basophils 0.4 0.0 - 1.0 02/17 [facility] PARATHYROID Ca Norm WB 1.11 1.05 - 02/17 [place] PROFILE 1. [facility] PARATHYROID Ca Ion WB 1.16 1.05 - 02/17 [facility] PROFILE 1. [facility] CARDIAC Troponin-T <0.010 0.000 - 02/16 [place] ENZYMES 0.100 [facility] CARDIAC Troponin-I <0.02 0.00 - 02/16 [facility] ENZYMES 0.40 [facility] CARDIAC Total CK 47 12 - 191 02/16 [facility] ENZYMES [facility] CARDIAC Total CK 51 12 - 191 02/16 [facility] ENZYMES [facility] CARDIAC Troponin-I <0.02 0.00 - 02/16 [place] ENZYMES 0.40 [facility] CARDIAC Troponin-T <0.010 0.000 - 02/16 [place] ENZYMES 0.100 [facility] CHEM PANEL Lactic Acid 1.1 0.5 - 2.2 02/16 [facility] s Lvl [facility] HEMATOLOGY D-Dimer 2.92 02/16 [facility] HEMATOLOGY PTT 31.7 22.9 - 02/16 [place] 35.8 [facility] HEMATOLOGY INR 1.23 0.85 - 02/16 [place] 1.17 [facility] HEMATOLOGY PT 15.8 12.0 - 02/16 [place] 14.7 [facility] CHEM PANEL Phosphorus 2.9 2.5 - 4.5 02/16 [facility] CHEM PANEL eGFR 73 02/16 [facility] Comment: The Medical eGFR is Center calculated [...] Chloride Lvl 110 95 - 109 02/16 [facility] CHEM PANEL Potassium Lvl 3.4 3.5 - 5.1 02/16 [facility] CHEM PANEL CO2 31 24 - 32 02/[address] CHEM PANEL Calcium Lvl 8.5 8.5 - 10.5 02/16 [facility] CHEM PANEL Glucose Lvl 105 70 - 99 02/[address] CHEM PANEL Sodium Lvl 147 135 - 145 02/[address] CHEM PANEL Creatinine 0.75 0.50 - 02/16 [facility] Lvl 1.40 [facility] CHEM PANEL BUN 15 7 - 22 02/[address] CHEM PANEL AGAP 9.4 10.0 - 02/16 20.0 [facility] CHEM PANEL Magnesium Lvl 1.9 1.8 - 2.4 02/16 [facility] HEMATOLOGY Segs 61.1 45.0 - 02/16 75.0 [facility] HEMATOLOGY Monocytes 4.8 2.0 - 12.0 02/16 2016 [facility] HEMATOLOGY Lymphocytes 28.4 20.0 - 02/16 40.0 [facility] HEMATOLOGY Eosinophils 5.2 0.0 - 4.0 02/16 [facility] HEMATOLOGY Basophils 0.5 0.0 - 1.0 02/[address] HEMATOLOGY Segs-Bands # 2.8 1.5 - 8.1 02/16 [facility] HEMATOLOGY Monocytes # 0.2 0.0 - 0.8 02/16 [facility] HEMATOLOGY Lymphocytes # 1.3 1.0 - 5.5 02/16 [place] [facility] HEMATOLOGY Eosinophils # 0.2 0.0 - 0.5 02/16 [facility] [place] [facility] HEMATOLOGY WBC 4.5 3.7 - 10.4 02/16 [facility] HEMATOLOGY MCV 82.1 80.0 - 02/16 98.0 /2016 [facility] HEMATOLOGY Hct 33.8 36.0 - 02/16 [place] 48.0 /2016 [facility] HEMATOLOGY Hgb 11.1 12.0 - 02/16 [place] 16.0 /2016 [facility] HEMATOLOGY RBC 4.11 4.20 - 02/16 [place] 5.40 /2016 [facility] HEMATOLOGY RDW 15.9 11.5 - 02/16 14.5 [facility] HEMATOLOGY MCHC 32.8 32.0 - 02/16 36.0 /2016 [facility] HEMATOLOGY MCH 26.9 27.0 - 02/16 31.0 [facility] HEMATOLOGY MPV 9.5 7.4 - 10.4 02/16 [facility] HEMATOLOGY Platelet 137 133 - 450 02/16 [facility] CHEM PANEL Magnesium Lvl 1.8 1.8 - 2.4 02/16 [facility] ELECTROLYTES Potassium Lvl 3.2 3.5 - 5.1 02/16 [facility] HEMATOLOGY Anti-Xa Low 1.70 02/16 Result [facility] Comment: Medical Heparin "Significant Center Findings called to miller munoz at 02/15/2017 22:27 by [facility]. Read Back OK." HEMATOLOGY Fibrinogen 341 230 - 510 02/15 [facility] Lvl /2016 [facility] HEMATOLOGY PT 19.2 12.0 - 02/15 [place] 14.7 [facility] HEMATOLOGY INR 1.58 0.85 - 02/15 [place] 1.17 [facility] HEMATOLOGY PTT 34.9 22.9 - 02/15 [place] 35.8 [facility] BACTERIAL - MRSA by PCR Negative 02/15 [facility] s SEROLOGY (02/15/17 4:59 PM) /2016 [facility] DRUG SCREEN UDS Note See Note 02/15 [facility] *NA* /2016 Medical (02/15/17 4:59 PM) [...] Scr Negative Negative 02/15 [place] *NA* [facility] (02/15/17 4:59 PM) [place] URINE AND UA <=1.0 0.1 - 1.0 02/15 [facility] Urobilinogen mg/dL /2016 [facility] URINE AND UA Ketones Negative Negative 02/15 [facility] STOOL mg/dL mg/dL /2016 [facility] URINE AND UA pH 5.5 5.0 - 8.0 02/15 [facility] /[address] [place] [address] URINE AND UA Protein 50 mg/dL Negative 02/15 [facility] STOOL mg/dL /2016 [facility] URINE AND UA Turbidity Marked Clear 02/15 [facility] STOOL *ABN* [facility] (02/15/17 4:59 PM) [place] URINE AND UA Spec Grav 1.020 <=1.030 02/15 [facility] /[address] [place] [address] URINE AND UA Color Yellow Yellow 02/15 [place] STOOL *NA* Medical (02/15/17 4:59 PM) [place] URINE AND UA Mucus Few /LPF None Seen 02/15 [facility] STOOL /LPF /2016 [facility] URINE AND UA Bacteria Moderate None Seen 02/15 [place] ST[place] /HPF /HPF /2016 [facility] URINE AND UA Sq Epi Moderate Few /LPF 02/15 [facility] STOOL /LPF /2016 [facility] URINE AND UA RBC 4 0 - 2 02/15 [facility] URINE AND UA Blood Small Negative 02/15 [facility] STOOL *ABN* /2016 Medical (02/15/17 4:59 PM) Center URINE AND UA Leuk Est Large Negative 02/15 [facility] STOOL *ABN* [facility] (02/15/17 4:59 PM) Center URINE AND UA WBC 58 0 - 5 02/15 [facility] URINE AND UA Glucose Negative Negative 02/15 [facility] STOOL mg/dL mg/dL [facility] URINE AND UA Bili Negative Negative 02/15 [facility] STOOL *NA* /2016 Medical (02/15/17 4:59 PM) [place] URINE AND UA Nitrite Negative Negative 02/15 [facility] (02/15/17 4:59 PM) /2016 [facility] HEMATOLOGY PTT 38.5 22.9 - 02/15 [place] 35.8 [facility] HEMATOLOGY INR 1.71 0.85 - 02/15 [facility] 1.17 [facility] HEMATOLOGY PT 20.4 12.0 - 02/15 [facility] 14.7 [facility] BLOOD BANK ABO/Rh A POS 02/15 [facility] RESULTS /2016 [facility] BLOOD BANK Antibody Scrn Negative 02/15 [facility] as RESULTS (02/15/17 11:10 AM) [facility] CHEM PANEL eGFR 55 02/15 Result Comment: The [facility] eGFR is Center calculated using the [...] PANEL CO2 30 24 - 32 02/15 [facility] CHEM PANEL Calcium Lvl 9.2 8.5 - 10.5 09 [facility] CHEM PANEL AGAP 12.9 10.0 - 09 20.0 [facility] CHEM PANEL Creatinine 0.95 0.50 - 09 [place] Lvl 1.40 /2016 [facility] CHEM PANEL Sodium Lvl 143 135 - 145 09 [facility] CHEM PANEL Chloride Lvl 103 95 - 109 02/15 [facility] CHEM PANEL Glucose Lvl 144 70 - 99 09 [facility] CHEM PANEL BUN 16 7 - 22 02/15 [facility] CHEM PANEL Lactic Acid 1.0 0.5 - 2.2 09 [place] Lvl /2016 [facility] HEMATOLOGY Segs-Bands # 5.6 1.5 - 8.1 02/15 [facility] HEMATOLOGY Lymphocytes # 1.4 1.0 - 5.5 02/15 [facility] HEMATOLOGY Monocytes # 0.2 0.0 - 0.8 02/15 [facility] HEMATOLOGY Eosinophils # 0.2 0.0 - 0.5 02/15 [facility] HEMATOLOGY Basophils 0.3 0.0 - 1.0 09 [facility] HEMATOLOGY Eosinophils 2.6 0.0 - 4.0 02/15 [facility] HEMATOLOGY Lymphocytes 18.7 20.0 - 02/15 40.0 [facility] HEMATOLOGY Segs 75.3 45.0 - 02/15 75.0 [facility] HEMATOLOGY Monocytes 3.1 2.0 - 12.0 02/15 [facility] HEMATOLOGY G-value Rapid 12.4 5.0 - 11.6 02/15 [place] [facility] HEMATOLOGY Estimated % 0.0 0.0 - 7.5 02/15 [place] [facility] HEMATOLOGY Max Amplitude 71 52 - 71 02/15 [place] [facility] HEMATOLOGY Angle Rapid 80 64 - 80 02/15 [facility] HEMATOLOGY K-time Rapid 0.8 0.6 - 2.3 02/15 [facility] HEMATOLOGY [place] 0.6 02/15 [facility] HEMATOLOGY R-time Rapid 0.7 0.4 - 0.7 02/15 [facility] HEMATOLOGY ACT (TEG) 113 86 - 118 02/15 [facility] HEMATOLOGY MCHC 32.1 32.0 - 02/15 [place] 36.0 [facility] HEMATOLOGY RDW 16.3 11.5 - 02/15 [place] 14.5 /2016 [facility] HEMATOLOGY Platelet 178 133 - 450 02/15 [facility] HEMATOLOGY MPV 9.3 7.4 - 10.4 02/15 [facility] HEMATOLOGY RBC 4.62 4.20 - 02/15 [place] 5.40 /2016 [facility] HEMATOLOGY Hgb 12.1 12.0 - 02/15 [facility] 16.0 [facility] HEMATOLOGY Hct 37.6 36.0 - 02/15 [facility] 48.0 [facility] HEMATOLOGY WBC 7.4 3.7 - 10.4 02/15 [facility] HEMATOLOGY MCV 81.5 80.0 - 02/15 [facility] 98.0 [facility] HEMATOLOGY MCH 26.1 27.0 - 02/15 [facility] 31.0 [facility] TOXICOLOGY Etoh (%) <0.003 02/15 [facility] TOXICOLOGY Ethanol Lvl <3 02/15 [facility] Pathology Reports No Data Provided for This Section Diagnostic Reports Report Value Date Source Brain wo contrast CT EXAM: CT BRAIN WITHOUT CONTRAST 03/22/2017 [facility] DATE: 03/22/2017 1:29 PM CDT INDICATION: Subarachnoid [...] CT EXAM: CT BRAIN WITHOUT CONTRAST 03/01/2017 [facility] DATE: 03/01/2017 1046 AM CDT INDICATION: Follow-up [...] BILATERAL UPPER EXTREMITY VENOUS DOPP LER 02/16/2017 [facility] Venous Doppler Viet US EXAM: US BILATERAL LOWER EXTREMITY VENOUS DOPPLER [place] DATE: 02/15/2017 5:09 PM CDT INDICATION: hx [...] EXAM: XR LEFT WRIST 3 VIEWS 02/15/2017 [facility] DATE: 02/15/2017 9:43 PM CDT Cente [...] EXAM: XR RIGHT WRIST 3 VIEWS 02/15/2017 [facility] DATE: 02/15/2017 9:59 PM CDT Cente r [...] wo contrast CT EXAM: CT BRAIN 02/15/2017 [facility] dical DATE: 02/15/2017 at 14:35 Center CLINICAL [...] EXAM: XR RIGHT ELBOW 3 VIEWS 02/15/2017 [facility] DATE: 02/15/2017 2:14 PM CDT. Cent [...] EXAM: XR RIGHT HUMERUS 2 VIEWS 02/15/2017 [facility] DATE: 02/15/2017 12:27 PM CDT. Romario [...] Torso-Outside Consult EXAM: Torso-Outside Consult CT 02/15/2017 [facility] CT DATE: 02/15/2017 8:50 Center INDICATION: [...] WITH OUT CONTRAST 2ND OPINION INTERPRETATION 02/15/2017 [facility] CT DATE: 02/15/2017 12:[address] INDICATION: Trip, fall. COMPARISON: None available TECHNIQUE: Axial images through the cervical spine were obt ained. Sagittal and coronal reformatted images were per formed. Second opinion interpretatio n of CT cervical spine obtained at [facility] 02/15/2017 0850 hours FINDINGS: Atherosclerotic calcificatio ns [...] DX EXAM: XR CHEST 1 VIEW 02/15/2017 [facility] edical DATE: 02/15/2017 11:[address] [...] Comments Source Systolic (mm Hg) 147 02/17/2017 [facility] dical [place] Diastolic (mm Hg) 88 02/17/2017 [facility] Respitory Rate 20 02/17/2017 [facility] [place] [facility] Heart Rate 105 02/17/2017 [facility] [place] [facility] Systolic (mm Hg) 144 02/17/2017 [facility] dical Center Diastolic (mm Hg) 91 02/17/2017 [facility] Heart Rate 98 02/17/[facility] [place] Respitory Rate 18 02/17/2017 [facility] [place] [facility] Systolic (mm Hg) 146 02/17/2017 [facility] dical Center Diastolic (mm Hg) 84 [facility] [place] Respitory Rate 18 02/17/2017 [facility] [place] [facility] Heart Rate 111 02/17/2017 [facility] [place] Temperature Oral (F) 98.4 F 02/17/2017 [facility] Temperature Oral (F) 97.7 F 02/17/2017 [facility] Weight 77.273 02/15/2017 [facility] [place] BMI Calculated 30.18 02/15/2017 [facility] [place] [facility] Height 160.02 cm 02/15/2017 [facility] [place] Temperature Oral (F) 98.0 F 02/15/2017 [facility] Weight 77.273 02/15/2017 [facility] [place] BMI Calculated 28.35 02/15/2017 [facility] [place] [facility] Height 165.1 cm 02/15/2017 [facility] [place] Encounters Location Location Encounter Encounter Reason Attending ADM DC Stat us Source Details Type Number For Provider Date Date Visit [facility] [id number] Familia 02/15 02/17 [facility] [place] 7 [facility] Outpatient [id number] TRAUMA 03/01 [facility] 0 [facility] Outpt Diag [id number] Juan 03/01 03/02 [facility] 0 [facility] [place] Outpatient [id number] TRAUMA 03/22 [facility] Out[facility] Diag [id number] Familia 03/22 03/23 [facility] Procedures Procedure Code Date Perfomer Comments Source Cholecystostomy [id number] 06/11/2006 [facility] OPICuco [place] Tonsillectomy [id number] 06/11/1946 [facility] Assessment and Plan No Data Provided for This Section Plan of Care No Data Provided for This Section Social History Social History Date Source Social History TypeResponse 03/22/2017 [facility] Smoking Status Never smoker; Exposure to Tobacco Smoke None; Cigarette Smoking Last 365 Days No; Reg Smoking Cessation Counseling No Social History TypeResponse 02/15/2017 [facility] Smoking Status Never smoker; Exposure to Tobacco Smoke None; Cigarette Smoking Last 365 Days No; Reg Smoking Cessation Counseling No Family History No Data Provided for This Section Advance Directives No Data Provided for This Section Functional Status No Data Provided for This Section
--- OUTSIDE RECORDS SUMMARY | 2020-06-27 18:28 | XMS REPORT | Continuity of Care Document ---
:1930 Author Organization [facility] t Address [address] [place] [address] Care Team Providers Name Role Phone SAMANTHA [...] W LOC OF UNSP Active 02/28/2017 [facility] TRAUMATIC Diagnosis Active 2017-02-15 Memoria SAH 02-15 10:54:00 l 00:00: [place] TRAUMATIC 00 SAH Active 02/15/2017 [facility] SUBDURAL Diagnosis Active 2017-02-23 M emoria HEMATOMA 02-15 14:13:00 l SUBDURAL 00:00: Reinaldo n HEMATOMA 00 Active 02/15/2017 [facility] ARCELIA Diagnosis Active 2017-02-15 Memoria BILLING 02-15 11:00:00 l ONLY LFLT 00:00: Sharif #4420 ARCELIA 00 BILLING ONLY LFLT #4420 Active 02/15/2017 [facility] Cat bite Cat bite Disease [facility] Atrial Problem Resolve 2017-03-25 Erik ioana fibrillati d 00:46:38 l on Atrial Sharif (disorder) fibrillati on (disorder) Resolved Problem 03/25/2017 [facility] OPID [facility] Congestive Problem Resolve 2017-03-25 Memoria heart d 00:46:38 l failure Sharif (disorder) Congestive heart failure (disorder) Resolved Problem 03/25/2017 [facility] OPID [place] Cerebrovas Problem Resolve 2017-03-25 Memoria cular d 00:46:38 l accident Sharif (disorder) Cerebrovas cular accident (disorder) Resolved Problem 03/25/2017 [facility] OPID [place] Gout Problem Resolve 2017-03-25 Erik ioana (disorder) d 00:46:38 l Gout [place] (disorder) Resolved Problem 03/25/2017 [facility] OPID [place] Hyperlipid Problem Resolve 2017-03-25 Memoria emia d 00:46:38 l (disorder) Reinaldo n Hyperlipid emia (disorder) Resolved Problem 03/25/2017 [facility] OPID [place] Hypertensi Problem Resolve 2017-03-25 Memoria ve d 00:46:38 l disorder, Sharif systemic Hypertensi arterial ve (disorder) disorder, systemic arterial (disorder) Resolved Problem 03/25/2017 [facility] OPID [place] Simple Problem Active 2017-03-25 Memor ia obesity 00:46:38 l (disorder) Simple Herm william obesity (disorder) Active Problem 03/25/2017 [facility] NONTRAUMAT Diagnosis Active 2017-02-23 Memoria IC 14:13:00 l SUBDURAL [place] HEMORRHAGE NONTRAUMAT , UNSPEC IC SUBDURAL HEMORRHAGE , UNSPEC Active [facility] Allergies, Adverse Reactions, Alerts Allergy Allergy Status Severity Reaction(s) Onset Inactive Treating Comm ents Source Name Type Date Date Clinician Codeine Propensi Active [facility] adverse [facility]: Medical reaction 00 [place] s Codeine Codeine Active Memoria Sulfate Sulfate l [place] eucalypt eucalypt Active Memori a us l topical topical [place] Family History Family Member Diagnosis Comments Start Date Stop Date Source Natural daughter Asthma [facility] Social History Social Habit Start Date Stop Date Quantity Comments Source Sex Assigned At [facility] Alcohol intake 2016-03-01 2016-03-[address] [facility] [place] es - 00:00:00 00:00:00 non-drinker of Medical Ce nter alcohol (finding) Smoking Status Start Date Stop Date Source Social History [facility] Medications Ordered Filled Start Stop Current [...] a 02-17 Take 1 l 14:00: hour [place] 00 before or 2 hours after meal; [...] as: l / 05:44: Duoneb) Ipratropium 00 [place] 0.167 MG/ML Inhalant Solution [DuoNeb] Metoprolol No [...] tab, PO, l Tablet 03:39: Daily, # [place] [Xarelto] 00 90 tab, 3 Refill(s) simvastatin Yes 20 mg = 1 M emoria 20 mg oral 08 tab, PO, l tablet 03:39: Bedtime, # Amy nn 00 30 tab, 1 Refill(s) Colchicine No 0.6 mg = 1 M emoria 0.6 MG Oral 02-16 cap, PO, l Capsule 03:39: Daily, PRN Herm william 00 pain, 0 Refill(s) levothyroxi Yes 137 Memori a ne 137 mcg 08 microgram l (0.137 mg) 03:39: = 1 tab, Her simpson oral tablet 00 PO, Daily, # 90 tab, 0 Refill(s) gabapentin Yes 300 mg = 1 M emoria 300 MG Oral 08 cap, PO, l Capsule 03:39: TID, # 90 Amy nn 00 cap, 1 Refill(s) Furosemide Yes 20 mg = 1 Me moria 20 MG Oral 08 tab, PO, l Tablet 03:39: BID, # 90 Reinaldo n 00 tab, 0 Refill(s) metoprolol Yes 100 mg = 1 M emoria 100 mg oral 02-16 tab, PO, l tablet, 03:39: Daily, # Reinaldo n extended 00 30 tab, 0 release Refill(s) Levetiracet No Notes: Erik ioana am 500 MG 02-16 (Same l Oral Tablet 02:00: as:Keppra) [place] [Keppra] 00 Saline No Notes: Memoria Flush [...] Memoria 02-15 (Same as: l 22:04: Colace) [place] Tylenol No Notes: Do Memor ia 02-15 not exceed l 21:31: 4 gm/day. Sharif (Same as: Tylenol) Tylenol No Notes: Max Erik ioana 02-15 acetaminop l 21:30: hen 4000 [place] 00 mg/day (4 gm/day). (Same as: Tylenol Extra Strength) Calcium No Notes: Memoria Carbonate 02-15 (Same As: l 500 MG 21:09: Tums) [place] Chewable 00 Calcium Tablet Carbonate 500 mg = 200 mg elemental calcium Dose = mg calcium carbonate ( mg elemental calcium) Calcium No Notes: Memoria Gluconate 02-15 WASTE: F/P l 21:09: - Sink; E Shar[facility] - [employer] [facility] Magnesium No Notes: Memori a Oxide 02-15 (Same as: l 21:09: Mag-Ox [place] 00 400) Magnesium oxide 088uw=258g g elemental magnesium Dose=____m g magnesium oxide (___mg elemental magnesium) sodium No 45 mmol, Memoria phosphate 02-15 15 mL, l 21:09: Route: Sharif 00 IVPB, PRN, Dosing Weight 77.273, kg, [...] WASTE: F/P l 21:09: - Sink; E [place] - [employer] [facility] potassium No Notes: [...] 02-15 (Same as: l 18:27: BD Sharif 00 Posiflush) sodium No 1,000 mL, Memori a [...] (Same l Oral Tablet 17:56: as:Keppra) Sharif [Keppra] metoprolol No 25 mg, Memor ia tartrate 02-15 Route: PO, l 17:26: Drug form: [place] 00 TAB, ONCE, Dosing Weight 77.273, kg, [...] 02/15/17 12:25:00 CDT Factor No Notes: Memoria 2-7-9-10 02-15 Same as: l Prothrombin 17:24: Kcentra [...] 0.9% 02-15 (Same as: l 16:05: BD Posiflush) gabapentin Yes 300mg Q.5D Take 300 [...] 15:31: [facility] furosemide Yes 40mg QD Take [address] (LASIX) 40 9-26 by mouth [facility] tablet 15:31: daily. [facility] l [facility] [place] rivaroxaban Yes 15mg Take [address] [facility] [address] (XARELTO) 9-26 by mouth [facility] - 15 mg Tab 15:31: daily with Me dical tablet 54 dinner. Center Immunizations Ordered Immunization Filled Immunization Date Status Commen ts Source Name Name Tdap 2016-03-[address] [facility]00 [facility] Vital Signs Vital Name Observation Time Observation Value Comments Source Systolic (mm Hg) 2017-02-17 17:00:00 Erik rial [place] Diastolic (mm Hg) 2017-02-17 17:00:00 Mem orial [place] Respitory Rate 2017-02-17 17:00:00 Memori al [place] Heart Rate 2017-02-17 17:00:00 [facility] [place] Systolic (mm Hg) 2017-02-17 12:00:00 Erik rial Shar[place] Diastolic (mm Hg) 2017-02-17 12:00:00 Mem orial [place] Heart Rate 2017-02-17 12:00:00 [facility] [place] Respitory Rate 2017-02-17 12:00:00 Memori al [place] Systolic (mm Hg) 2017-02-17 11:28:00 Erik rial [place] Diastolic (mm Hg) 2017-02-17 11:28:00 Mem orial [place] Respitory Rate 2017-02-17 11:28:00 Memori al [place] Heart Rate 2017-02-17 11:28:00 [facility] [place] Temperature Oral (F) 2017-02-17 03:36:00 98.4 F [facility] [place] Temperature Oral (F) 2017-02-17 01:00:00 97.7 F [facility] Weight 2017-02-15 21:11:00 [facility] BMI Calculated 2017-02-15 21:11:00 Memori al [place] Height 2017-02-15 21:11:00 160.02 cm [facility] Temperature Oral (F) 2017-02-15 20:32:00 98.0 F [facility] Weight 2017-02-15 16:10:00 [facility] BMI Calculated 2017-02-15 16:10:00 Memori al [place] Height 2017-02-15 16:10:00 165.1 cm [facility] [place] Procedures Procedure Date / Time Performed Performing Clinician Viridiana riggins Cholecystostomy 2006-06-11 00:00:00 Karon simpson Tonsillectomy 1946-06[birth year]11 00:00:00 Karon simpson Encounters Start End Encounter Admission Attending Care Care Encounter Source Date/Time Date/Time Type Type Clinicians Facility Department ID 2017-03-22 2017-03-22 Outpatient Yomi SILVIA [facility] [id number] 13:13:00 23:59:00 Familia Taylor 2017-03-01 2017-03-01 Outpatient SHIRA Valenzuela [facility] [id number] 10:26:00 23:59:00 Juan Benoit 2017-02-15 2017-02-17 Outpatient Kenneth [facility] [id number] 10:56:00 13:10:00 Alexandra Lujan Results Test Description Test Time Test Comments [...] code = MCH) 27.3 pg 27.0-31.0 [facility] ZezmexzQMGKJFNTUA1080-85-57 07:47:0081.7[facility]ann[facility]MATOLOGY 2017-02-17 07:47:0010.3[facility] LlrgbzmMFWHXSILXN3718-89-45 07:47:0010.0[facility] ZzzzptnZXMNORGYAN3824-57-68 07:47:0077.7[facility] YrqkmrqUSJJYVFBPT5974-59-91 07:47:0014.4[facility] LatilfvURPHSRPDZT5058-21-26 07:47:003.7[facility] IRSRLSOWNV6785-04-23 07:47:001.4[facility] OrfvnzkFZCHQBRFDG2305-52-63 07:47:000.4 [facility] TjywdztORLYNBVQJQ1901-96-78 07:47:000.4[facility] HermannHEMATOLOGY 2017-02-17 07:47:003.8[facility] ReixpneERRQVNJYEU7563-06-77 07:47:007.8[facility] ZuhobxzSHTYKCCNJX9220-15-35 07:47:000.4[facility] HermannPARATHYROID PROFILE 2017-02-17 07:47:001.11[facility] HermannPARATHYROID ATAKONM0056-11-86 07:47:00 1.16[facility] HermannCARDIAC XLIDQHC7812-10-43 16:33:00<0.010[facility] CARDIAC JAJVRXD5583-72-32 16:33:00<0.02[facility] HermannCARDIAC ENZYMES 2017-02-16 16:33:0047[facility] HermannCARDIAC PJLLTLK0938-20-34 12:49:0051 [facility]annCARDIAC SELGZJM7671-15-44 12:49:00<0.02[facility] [place] CARDIAC QFOMYKJ1993-92-95 12:49:00<0.010[facility] HermannCHEM FWIBS9061-24-95 12:49:001.1[facility] VnnmaejOIAZNCBGSO1039-10-71 12:49:002.92[facility] UKMAEIWWMK5255-16-72 12:49:00 Test Item Value Reference Range Interpretation Comments PTT (test code = PTT) 31.7 s 22.9-35.8 [facility] NuicxdsDRWOXUCLAC4886-27-66 12:49:001.23[facility] HermannHEMATOLOGY 2017-02-16 12:49:00 Test Item Value Reference Range Interpretation Comments PT (test code = PT) 15.8 s 12.0-14.7 [facility] HermannCHEM YUKRD8967-15-44 06:25:002.9[facility] HermannCHEM PANEL 2017-02-16 06:25:0073[facility] HermannCHEM IIUDK4617-09-94 06:25:40076Bnyagrhn HermannCHEM HEUYA2162-18-92 06:25:003.4[facility] HermannCHEM KXVIP4865-66-36 06:25:0031[facility] HermannCHEM HFAML6569-82-16 06:25:008.5[facility] HermannCHEM JBYEN0603-05-53 06:25:48540Lfzfraor HermannCHEM VLATH5056-66-00 06:25:60256 [facility]annCHEM WRTHW4574-74-76 06:25:000.75[facility] HermannCHEM PANEL 2017-02-16 06:25:0015[facility] HermannCHEM YSBZE4933-65-19 06:25:009.4[facility] HermannCHEM RNCGK7461-52-92 06:25:001.9[facility] HyqfjaxCFTBNHQKLW5966-53-26 06:25:0061.1[facility] RoertwvAATWXZAOXF7312-44-50 06:25:004.8[facility] [place] TTPOVKHBZV7919-06-71 06:25:0028.4[facility] SmhwtjkMMNKDFGHWR3948-49-09 06:25:00 5.2[facility] JharfzyAZCFFWIQZS4585-93-16 06:25:000.[facility] HermannHEMATOLOGY 2017-02-16 06:25:002.8[facility] XrvqxtrWWOUJHYHMG3415-42-39 06:25:000.2[facility] JsbjgkwZQIMMMHHZF1699-28-46 06:25:001.3[facility] PbnyjrtVOZJARHIWZ5991-12-43 06:25:000.2[facility] WhmjiocVXXAGACJYH2946-08-44 06:25:004.5[facility] [place] KHLHMUZLDP2864-44-73 06:25:0082.1[facility] SfeyesdQPFWWITEVH3860-84-87 06:25:00 33.8[facility] PrzuaboWYIKPLOYDN0965-63-23 06:25:0011.1[facility] HermannHEMATOLOGY 2017-02-16 06:25:004.11[facility] TbwbcviFVCHMQOLVN1036-37-93 06:25:0015.9[facility] JwewhanKLVQUINHJR9433-05-27 06:25:0032.8[facility] BgifffhEKMCFVGBMD9582-75-52 06:25:00 Test Item Value Reference Range Interpretation Comments MCH (test code = MCH) 26.9 pg 27.0-31.0 [facility] EmjjepbQUXDOKQOMR7434-22-02 06:25:009.5[facility] HermannHEMATOLOGY 2017-02-16 06:25:86880Zcyvgaqc HermannCHEM QRZYD7761-97-42 02:51:001.8[facility] XshuakqBIBYCJSYZJTM9021-16-57 02:51:003.2[facility] BdtnitkARLQHMFSYO7858-20-59 02:51:001.70[facility] BdfgvciXSCHHRLUXB3801-60-87 23:54:12617Pmrfuezu Sharif IWMSYEYBGV6529-76-70 23:54:00 Test Item Value Reference Range Interpretation Comments PT (test code = PT) 19.2 s 12.0-14.7 [facility] EdheyovRHTJJTILMU7337-03-75 23:54:001.58[facility] HermannHEMATOLOGY 2017-02-15 23:54:00 Test Item Value Reference Range Interpretation Comments PTT (test code = PTT) 34.9 s 22.9-35.8 [facility] HermannBACTERIAL - LYUFYXRN6057-13-86 21:59:00Negative (02/15/17 4:59 PM) [facility]annDRUG ETMDVI0962-76-73 21:59:00See Note *NA*(02/15/17 4:59 PM) [facility]annDR[facility] GLTFJI6944-30-75 21:59:00Negative *NA*(02/15/17 4:59 PM) [facility] NLFLIW9657-68-07 21:59:00Negative *NA*(02/15/17 4:59 PM) [facility] FQPNRD8886-16-44 21:59:00Negative *NA*(02/15/17 4:59 PM) [facility]annDR[facility] AVPAUH0705-97-38 21:59:00Negative *NA*(02/15/17 4:59 PM) [facility]DR[facility] VGMILV7149-16-72 21:59:00Negative *NA*(02/15/17 4:59 PM) [facility]DR[facility] GUWUDG4104-39-05 21:59:00Negative *NA*(02/15/17 4:59 PM) [facility]DR[facility] OTJFWR6224-83-78 21:59:00Negative *NA*(02/15/17 4:59 PM) [facility] AND UIVND3212-38-46 21:59:005.5[facility]annUR[facility] AND FJMSW3512-30-39 21:59:00Marked *ABN*(02/15/17 4:59 PM)[facility] AND YJIEZ1927-96-14 21:59:001.020[facility]annUR[facility] AND ESYRS8141-51-82 21:59:00 Yellow *NA*(02/15/17 4:59 PM)[facility] DTRWY1870-02-79 21:59:004 [facility] QERLB3556-58-36 21:59:00Small *ABN*(02/15/17 4:59 PM) [facility] PEMUQ5855-29-69 21:59:00Large *ABN*(02/15/17 4:59 PM) [facility] VDRXX1563-25-67 21:59:0058[facility]annUR[facility] AND VVMMC2747-74-84 21:59:00Negative *NA*(02/15/17 4:59 PM)[facility] AND JXOWB3494-63-47 21:59:00Negative (02/15/17 4:59 PM)[facility] HermannHEMATOLOGY 2017-02-15 18:40:00 Test Item Value Reference Range Interpretation Comments PTT (test code = PTT) 38.5 s 22.9-35.8 [facility] EiofujbENMGSAVBKH1422-63-69 18:40:001.71[facility] HermannHEMATOLOGY 2017-02-15 18:40:00 Test Item Value Reference Range Interpretation Comments PT (test code = PT) 20.4 s 12.0-14.7 [facility] BANK CNTWNGY4797-50-02 16:10:00Negative (02/15/17 11:10 AM) [facility] HermannCHEM JHTVJ9715-11-85 16:10:0055[facility] HermannCHEM PANEL 2017-02-15 16:10:0030[facility] HermannCHEM VKLWN8325-55-30 16:10:009.2[facility] HermannCHEM GLTIR2709-81-79 16:10:0012.9[facility] HermannCHEM KNFRZ3816-56-18 16:10:000.95[facility] HermannCHEM MVYVX7202-35-06 16:10:35559Lwacduop HermannCHEM XUVLK4623-60-53 16:10:93952Pbafafkv HermannCHEM UZUBR8371-49-20 16:10:34545 [facility] HermannCHEM UUVDM4369-92-44 16:10:0016[facility] HermannCHEM PANEL 2017-02-15 16:10:001.0[facility] AjrodvpMBWJLFBWZG8374-54-08 16:10:005.6[facility] OqtmwreCGTWWTWKXM9551-54-68 16:10:001.4[facility] KfxpgauZRDTXGBQMO3611-59-61 16:10:000.2[facility] GomlmyrBLBASYPYYV2478-47-50 16:10:000.2[facility] [place] CGWUALBZEB0001-38-14 16:10:000.3[facility] FthmezxKQSCKZHQGZ4930-58-09 16:10:002.6 [facility] WmsiilnBTIAMKACMX5000-60-17 16:10:0018.7[facility] HermannHEMATOLOGY 2017-02-15 16:10:0075.3[facility] ZkettqhCCKTVUMJNV3296-59-51 16:10:003.1[facility] IjemmggRXCDSBROEJ0000-14-64 16:10:0012.4[facility] MqajclbRGNWWLDEZH0200-86-38 16:10:000.0[facility] JttnjevREDFMIXSTI9935-00-52 16:10:00 Test Item Value Reference Range Interpretation Comments Max Amplitude Rapid (test code = Max 71 mm 52-71 Amplitude Rapid) [facility]ChkqhdkAMVNSONRFO5283-75-94 16:10:00 Test Item Value Reference Range Interpretation Comments Angle Rapid (test code = Angle 80 degrees 64-80 Rapid) [facility] CenterIahkozzHCCXZQUZHW3097-44-93 16:10:00 Test Item Value Reference Range Interpretation Comments K-time Rapid (test code = K-time 0.8 min 0.6-2.3 Rapid) [facility]ovdOPRLVGFGFN0305-46-47 16:10:00 Test Item Value Reference Range Interpretation Comments Split Point Rapid (test code = Split 0.6 min Point Rapid) [facility] HospitalQodbpueSNLQMWUQMD5238-18-08 16:10:00 Test Item Value Reference Range Interpretation Comments R-time Rapid (test code = R-time 0.7 min 0.4-0.7 Rapid) [facility] HospitalTnlrghxIGGGKBQDQK5712-87-08 16:10:00 Test Item Value Reference Range Interpretation Comments ACT (TEG) Rapid (test code = ACT (TEG) 113 s 86-118 Rapid) [facility] CenterTyfrzkqYSITTBPNYO0232-01-14 16:10:0032.1[facility] HermannHEMATOLOGY 2017-02-15 16:10:0016.3[facility] IzfntlaUCMFJSJKQY1425-65-96 16:10:64400Qxywxedj OcfsedsDMGUGYQTKK0835-39-95 16:10:009.3[facility] LfasfpcYWTPGCJSJA3833-57-46 16:10:004.62[facility] HwccbsgEYZEQQPKOX4529-22-85 16:10:0012.1[facility] LEIPDLGKFI9946-99-89 16:10:0037.6[facility] RklhlqjZYGWIMHIKT9191-54-19 16:10:00 7.4[facility] IrvhbqkDIMCNKKRIN6918-89-90 16:10:0081.5[facility] HermannHEMATOLOGY 2017-02-15 16:10:00 Test Item Value Reference Range Interpretation Comments MCH (test code = MCH) 26.1 pg 27.0-31.0 [facility] CenterDgzeclgOTNIULDJJC7026-48-63 16:10:00<0.003[facility] HermannTOXICOLOGY 2017-02-15 16:10:00<3[facility] HermannBasic Metabolic Nenpq1601-37-14 20:44:00 Test Item Value Reference Range Interpretation [...] by the [employer],http ://nkd ep.nih.gov Vty-Wyk7945-45-02 20:38:00 Test Item Value Reference Range Interpretation Comments NT ProBnp (test code = PBNP) 775 pg/mL 0-449 H
--- NOTE | 2020-06-27 19:45 | RAD REPORT ---
EXAM DESCRIPTION: RAD - Humerus Right - 06/27/2020 7:21 pm CLINICAL HISTORY: PAIN COMPARISON: Ankle Left 3 View dated 05/16/2018Humerus Right dated 03/23/2019None. FINDINGS: No fracture is identified. There is no dislocation or periosteal reaction noted. Calcifica tion present in the triceps tendon attachment to the olecranon. AC joint degenerative changes are pre sent. Glenohumeral joint space is slightly narrowed. No air or foreign body in the soft tissues. IMPRESSION: Degenerative changes are present as detailed. No acute right humerus bone or joint findi ng.
[2020-06-27] MEDS ORDERED: FENTANYL CITR 100 MCG/2 ML ONE (19:51)
--- NOTE | 2020-06-27 20:26 | RAD REPORT ---
EXAM DESCRIPTION: CT - CTHCSPWOC - 06/27/2020 7:53 pm CLINICAL HISTORY: PAIN COMPARISON: Head C Spine Mpr Wo Con dated 02/15/2017 TECHNIQUE: Axial 5 mm thick images of the head were obtained. Axial 2 mm thick images of the cervic al spine were obtained with sagittal and coronal reconstruction images generated and reviewed. All CT scans are performed using dose optimization technique as appropriate and may include automated exposure control or mA/KV adjustment according to patient size. FINDINGS: No intracranial hemorrhage, mass, edema or acute intracranial finding. No suspicion for ac soledad infarction. No cortical edema or sulcal effacement. Moderate atrophy changes are present. 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 Ventricles are in proportion to volume loss. Chronic ischemic changes seen throughout the cerebral white matter. Mastoid air cells and paranasal sinuses are clear. No globe or orbit abnormal ity seen. Cervical bodies are normal in height. Very slight anterior subluxation of C3 on C4 secondary to facet degenerative change. All disc levels except C2-3 show loss in height. Advanced degenerative change p resent at the dens anterior arch C1 level. Prominent facet joint degenerative changes are present. Mi ld bilateral foraminal stenosis at C4-5 with moderate C5-6 foraminal stenosis. No fracture or acute b tiffanie abnormality. Central canal detail is inherently limited. No paraspinal mass or hematoma. IMPRESSION: No hemorrhage, edema or acute CT Head finding. 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 Cervical spine degenerative change similar to comparison. No acute finding.
--- NOTE | 2020-06-27 20:32 | RAD REPORT ---
EXAM DESCRIPTION: CT - Pelvis Wo Cont - 06/27/2020 7:53 pm CLINICAL HISTORY: PAIN, fall, pelvic and hip pain COMPARISON: No comparisons TECHNIQUE: Axial 2 millimeter thick images the pelvis were obtained with sagittal and coronal reform atted images generated and reviewed. The CT scan was performed using dose optimization techniques as appropriate to a performed exam incl uding one or more of the following: Automated exposure control, adjustment of the mA and/or kV accord ing to patient size (this includes techniques or standardized protocols for targeted exams where dose is matched to indication/reason for exam) and use of iterative reconstruction technique. FINDINGS: Lower lumbar degenerative changes are present. Canal is borderline stenotic at L3-4 primar matthias facet degenerative change and ligamentous thickening. Patient has significant central spinal sten osis at L4-5 from facet degenerative change, ligamentous thickening and bulging disc material. No fracture of the bony pelvis is identified. No fracture of either proximal femur. Soft tissues of the pelvis show prominent colonic diverticulosis without diverticulitis. No soft tiss ue hematoma or mass. SI joint degenerative changes are present. Arterial tree calcifications are present. Uterus is absent. Pelvic floor laxity is present. IMPRESSION: No fracture of the bony pelvis or either proximal femur. Advanced degenerative change in the lower lumbar spine with clinically significant central spinal shamir nosis in the central canal at L4-5.
--- NOTE | 2020-06-27 20:39 | EDPHYS ---
Physician Documentation [facility] Name: Rowan Pompa Age: 89 yrs Sex: Female : 1930 Arrival Date: 06/27/2020 Time: 18:38 Bed 2 Private MD: ED Physician Ad Angeles HPI: 06/27 21:36 This 89 yrs old Female presents to ER via Wheelchair with complaints of Leg kb Injury. 21:41 Details of fall: The patient fell from an upright position, while walking. Onset: The kb symptoms/episode began/occurred just prior to arrival. Associated injuries: The patient sustained injury to the head, pain, right upper arm, painful injury, right hip, painful injury. Severity of symptoms: At their worst the symptoms were mild, moderate, in the emergency department the symptoms are unchanged. The patient has not experienced similar symptoms in the past. The patient has not recently seen a physician. Pt reports she was walking out of the [employer] store and fell in the parking lot. States someone helped her up and she got into her car and drove home. Told daughter that she fell and she thought pt should come get x-rays just to be safe. Historical: - Allergies: 18:39 Codeine; ll1 18:39 EUCALYPTUS CONTAINING PRODUCTS; ll1 - PMHx: 18:39 COPD; Hypertension; CVA; Hyperlipidemia; CHF; Atrial Fib; Gout; ll1 - PSHx: 18:39 Cholecystectomy; Knee surgery; Hysterectomy; Tonsillectomy; ll1 - Immunization history:: Flu vaccine status is unknown. - Social history:: Smoking status: Patient denies any tobacco usage or history of. ROS: 21:34 Constitutional: Negative for fever, chills, and weight loss, Cardiovascular: Negative kb for chest pain, palpitations, and edema, Respiratory: Negative for shortness of breath, cough, wheezing, and pleuritic chest pain, Abdomen/GI: Negative for abdominal pain, nausea, vomiting, diarrhea, and constipation, Skin: Negative for injury, rash, and discoloration. 21:34 MS/extremity: Positive for pain, of the right upper arm and pelvis. 21:34 Neuro: Positive for headache. Exam: 21:34 Constitutional: This is a well developed, well nourished patient who is awake, alert, kb and in no acute distress. Head/Face: Normocephalic, atraumatic. Chest/axilla: Normal chest wall appearance and motion. Nontender with no deformity. No lesions are appreciated. Cardiovascular: Regular rate and rhythm with a normal S1 and S2. No gallops, murmurs, or rubs. Normal PMI, no JVD. No pulse deficits. Respiratory: Lungs have equal breath sounds bilaterally, clear to auscultation and percussion. No rales, rhonchi or wheezes noted. No increased work of breathing, no retractions or nasal flaring. Abdomen/GI: Soft, non-tender, with normal bowel sounds. No distension or tympany. No guarding or rebound. No evidence of tenderness throughout. Skin: Warm, dry with normal turgor. Normal color with no rashes, no lesions, and no evidence of cellulitis. Neuro: Awake and alert, GCS 15, oriented to person, place, time, and situation. Cranial nerves II-XII grossly intact. Motor strength 5/5 in all extremities. Sensory grossly intact. Cerebellar exam normal. Normal gait. 21:34 Musculoskeletal/extremity: Extremities: grossly normal except: noted in the right hip and right upper arm: pain, ROM: intact in all extremities, Circulation is intact in all extremities. Sensation intact. Weight bearing: able to fully bear weight. Vital Signs: 18:39 BP 94 / 75; Pulse 69; Resp 18; Temp 98.1; Pulse Ox 96% ; Weight 72.57 kg; Height 5 ft. ll1 3 in. (160.02 cm); Pain 10/10; 19:30 BP 115 / 89; Pulse 69; Resp 16; Pulse Ox 100% ; rr5 20:50 BP 145 / 70; Pulse 65; Resp 16; Pulse Ox 99% ; rr5 18:39 Body Mass Index 28.34 (72.57 kg, 160.02 cm) ll1 MDM: 18:46 Patient medically screened. kb 21:36 Data reviewed: vital signs, nurses notes. Data interpreted: Pulse oximetry: on room air kb is 96 %. Interpretation: normal. Counseling: I had a detailed discussion with the patient and/or guardian regarding: the historical points, exam findings, and any diagnostic results supporting the discharge/admit diagnosis, radiology results, the need for outpatient follow up, a family practitioner, to return to the emergency department if symptoms worsen or persist or if there are any questions or concerns that arise at home. 06/27 18:56 Order name: CT Head C Spine; Complete Time: 20:28 kb 06/27 18:56 Order name: CT Pelvis wo Cont; Complete Time: 20:34 kb 06/27 18:56 Order name: Humerus Right XRAY; Complete Time: 19:46 kb Administered Medications: 19:34 CANCELLED (Physician Discretion): traMADol 50 mg PO once; RASS on ADMIN: Combtv4, Very kb Agttd3, Agttd2, Rstlss1, AlertClm0, Drwsy-1, Lt Sdtn-2, Mod Sdtn-3, Dp Sdtn-4, UnArsble-5 19:38 Drug: fentaNYL (PF) 25 mcg {Note: rass 0.} Route: IM; Site: right deltoid; rr5 Disposition: 06/28 20:08 Co-signature as Attending Physician, Ad Angeles MD. ma2 Disposition: 06/27/20 20:38 Discharged to Home. Impression: Fall on same level from slipping, tripping and stumbling, Pain in right hip, Superficial injury of head. - Condition is Stable. - Discharge Instructions: Musculoskeletal Pain, Head Injury, Adult, [id number]. - Prescriptions for Tramadol 50 mg Oral Tablet - take 1 tablet by ORAL route every 8 hours as needed; 12 tablet. - Medication Reconciliation Form, Thank You Letter, Antibiotic Education, Prescription Opioid Use form. - Follow up: Emergency Department; When: As needed; Reason: Worsening of condition. Follow up: Private Physician; When: 2 - 3 days; Reason: Recheck today's complaints, Continuance of care, Re-evaluation by your physician. Signatures: Dispatcher [employer] EDEloisa Hidalgo, NILAMC LUIZ-Ad Canchola MD MD ma2 Bony Luis RN RN rr5 Diony Borrero RN RN ll1 Corrections: (The following items were deleted from the chart) 06/27 19:34 19:33 traMADol 50 mg PO once; RASS on ADMIN: Combtv4, Very Agttd3, Agttd2, Rstlss1, kb AlertClm0, Drwsy-1, Lt Sdtn-2, Mod Sdtn-3, Dp Sdtn-4, UnArsble-5 ordered. kb 20:55 20:38 06/27/2020 20:38 Discharged to Home. Impression: Fall on same level from rr5 slipping, tripping and stumbling; Pain in right hip; Superficial injury of head. Condition is Stable. Forms are Medication Reconciliation Form, Thank You Letter, Antibiotic Education, Prescription Opioid Use. Follow up: Emergency Department; When: As needed; Reason: Worsening of condition. Follow up: Private Physician; When: 2 - 3 days; Reason: Recheck today's complaints, Continuance of care, Re-evaluation by your physician. kb
--- NOTE | 2020-06-27 20:39 | ER ---
Nurse's Notes [facility] Name: Rowan Pompa Age: 89 yrs Sex: Female : 1930 Arrival Date: 06/27/2020 Time: 18:38 Bed 2 Private MD: Diagnosis: Fall on same level from slipping, tripping and stumbling;Pain in right hip;Superficial injury of head Presentation: 06/27 18:39 Chief complaint: Patient states: Slipped after putting groceries in the car. Believes ll1 she slipped on uneven surface. Reports right hip/thigh pain and left knee pain. Denies head trauma/injury. States she has been slightly dizzy since. Coronavirus screen: Client denies travel out of the [place] in the last 14 days. At this time, the client does not indicate any symptoms associated with coronavirus-19. Ebola Screen: Patient denies travel to an Ebola-affected area in the 21 days before illness onset. Initial Sepsis Screen: Does the patient meet any 2 criteria? No. Patient's initial sepsis screen is negative. Does the patient have a suspected source of infection? Yes: Bone or joint infection. Risk Assessment: Do you want to hurt yourself or someone else? Patient reports no desire to harm self or others. Onset of symptoms was June 27, 2020. 18:39 Method Of Arrival: Wheelchair ll1 18:39 Acuity: EUFEMIA 3 ll1 Triage Assessment: 19:10 General: Appears in no apparent distress. uncomfortable. rr5 19:10 General: Behavior is calm, cooperative. Injury Description: fall. rr5 Historical: - Allergies: 18:39 Codeine; ll1 18:39 EUCALYPTUS CONTAINING PRODUCTS; ll1 - PMHx: 18:39 COPD; Hypertension; CVA; Hyperlipidemia; CHF; Atrial Fib; Gout; ll1 - PSHx: 18:39 Cholecystectomy; Knee surgery; Hysterectomy; Tonsillectomy; ll1 - Immunization history:: Flu vaccine status is unknown. - Social history:: Smoking status: Patient denies any tobacco usage or history of. Screenin:08 Abuse screen: Denies threats or abuse. Denies injuries from another. Nutritional ph screening: No deficits noted. Tuberculosis screening: No symptoms or risk factors identified. Fall Risk None identified. Assessment: 18:58 General: Appears in no apparent distress. Behavior is calm, cooperative, appropriate ph for age. Pain: Complains of pain in right hip/thigh and left knee. Neuro: Level of Consciousness is awake, alert, obeys commands, Oriented to person, place, time, situation, Denies dizziness. Cardiovascular: Capillary refill < 3 seconds in bilateral fingers Patient's skin is warm and dry. Respiratory: Airway is patent Respiratory effort is even, unlabored. Derm: Skin is intact, is healthy with good turgor, Skin is pink, warm \T\ dry. Musculoskeletal: Circulation, motion, and sensation intact. 19:45 General: Appears in no apparent distress. uncomfortable, Behavior is calm, cooperative, rr5 appropriate for age. 19:45 Neuro: Level of Consciousness is awake, alert, obeys commands, Oriented to person, rr5 place, time, situation. Cardiovascular: Capillary refill < 3 seconds Patient's skin is warm and dry. Respiratory: Airway is patent Respiratory effort is even, unlabored, Respiratory pattern is regular, symmetrical. GI: No signs and/or symptoms were reported involving the gastrointestinal system. : No signs and/or symptoms were reported regarding the genitourinary system. EENT: No signs and/or symptoms were reported regarding the EENT system. Derm: Skin is intact, is healthy with good turgor, Skin temperature is warm. Musculoskeletal: Capillary refill < 3 seconds, Reports pain in pelvis, right leg and left leg. 20:55 Reassessment: Patient appears in no apparent distress at this time. Patient is alert, rr5 oriented x 3, equal unlabored respirations, skin warm/dry/pink. discharge instruction given and explained without complaints made. Vital Signs: 18:39 BP 94 / 75; Pulse 69; Resp 18; Temp 98.1; Pulse Ox 96% ; Weight 72.57 kg; Height 5 ft. ll1 3 in. (160.02 cm); Pain 10/10; 19:30 BP 115 / 89; Pulse 69; Resp 16; Pulse Ox 100% ; rr5 20:50 BP 145 / 70; Pulse 65; Resp 16; Pulse Ox 99% ; rr5 18:39 Body Mass Index 28.34 (72.57 kg, 160.02 cm) ll1 ED Course: 18:38 Patient arrived in ED. ll1 18:38 Arm band placed on Patient placed in an exam room, on a stretcher. ll1 18:41 Triage completed. ll1 18:44 Eloisa Roger FNP-C is [facility]. kb 18:44 Ad Angeles MD is Attending Physician. kb 19:08 Patient has correct armband on for positive identification. Bed in low position. Call ph light in reach. Side rails up X2. Pulse ox on. NIBP on. Door closed. Noise minimized. Warm blanket given. 19:23 Humerus Right XRAY In Process Unspecified. EDMS 19:34 Bony Luis, RN is Primary Nurse. rr5 19:46 No provider procedures requiring assistance completed. Patient did not have IV access mg2 during this emergency room visit. 19:53 CT Head C Spine In Process Unspecified. EDMS 19:53 CT Pelvis wo Cont In Process Unspecified. EDMS Administered Medications: 19:34 CANCELLED (Physician Discretion): traMADol 50 mg PO once; RASS on ADMIN: Combtv4, Very kb Agttd3, Agttd2, Rstlss1, AlertClm0, Drwsy-1, Lt Sdtn-2, Mod Sdtn-3, Dp Sdtn-4, UnArsble-5 19:38 Drug: fentaNYL (PF) 25 mcg {Note: rass 0.} Route: IM; Site: right deltoid; rr5 Outcome: 20:38 Discharge ordered by . kb 20:50 Discharged to home via wheelchair. rr5 20:50 Condition: stable 20:50 Discharge instructions given to patient, Instructed on discharge instructions, follow up and referral plans. Demonstrated understanding of instructions, follow-up care, medications, Prescriptions given X 1. 20:55 Patient left the ED. rr5 Signatures: Dispatcher [employer] EDMS Eloisa Roger FNP-C FNP-Ckb Hall, Patricia RN RN Martell Guallpa RN KEMAR [facility] Bony Luis, KEMAR RN rr5 Diony Borrero RN RN ll1
[2020-06-27 20:59] VITALS: BP 94/75; TEMP 98.1; O2SAT 96
[2020-06-28] MEDS ORDERED: FAMOTIDINE 20 MG/2 ML VIAL IV ONE (08:55)
== END 2020-06-27 20:55 | disposition home or self-care (01) ==
LOC: ER 18:23
DX: S00.90XA Unspecified superficial injury of unspecified part of head, initial encounter (principal); M25.551 Pain in right hip; W01.0XXA Fall on same level from slipping, tripping and stumbling without subsequent striking against object, initial encounter; Y93.9 Activity, unspecified; Y92.512 Supermarket, store or market as the place of occurrence of the external cause; Z88.5 Allergy status to narcotic agent; Z91.048 Other nonmedicinal substance allergy status; I10 Essential (primary) hypertension
CPT/HCPCS: 70450; 72125; 72192; 73060; 96372; 99284; J3010

== ENCOUNTER 2020-06-29 11:10 | Inpatient (IN) | payer OTHER ==
--- OUTSIDE RECORDS SUMMARY | 2020-06-29 11:17 | XMS REPORT | Clinical Summary ---
:1930 Author Organization [facility] Address [address] [place] [address] Care Team Providers Name Role Phone Zenon [...] Not on file Results Not on fileafter 06/29/2019 Insurance Payer Benefit Plan / Group Subscriber ID Effective Dates Phone Address Type MEDICARE MEDICARE A B [id number] 1996-Present Medicare Advance Directives For more information, please contact: [phone] Code Status Date Activated Date Inactivated Comments Full Code 03/01/2016 5:29 AM 03/06/2016 5:31 PM This code status was determined by: Patient
--- OUTSIDE RECORDS SUMMARY | 2020-06-29 11:19 | XMS REPORT | Continuity of Care Document ---
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/20 [place] [address] [place] [address] SUBDURAL HEMATOMA Active 02/16/[address] ARCELIA BILLING Active 02/16/20 [facility] LFLT #[id number] [place] [address] Atrial Resolved Problem 03/25/2017 [facility] fibrillation [facility] (disorder) [place], OP[facility] [place] 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 (disorder) [facility], [facility] [place] 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 [facility] accident [facility] (disorder) [place], OPID [place] Gout (disorder) Resolved Problem 03/25/2017 [facility], [facility] Hyperlipidemia Resolved Problem 03/25/2017 [place] ([place]order) [facility], OP[place] 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 Melatonin Notes: (Same Inactive [facility] as: Melatonin) 2017 [facility] Albuterol 0.833 Notes: (Same Inactive [place] MG/ML / as: Duoneb) 2017 [facility] Ipratropium Center [place] 0.167 MG/ML Inhalant Solution [DuoNeb] Metoprolol Notes: (Same [place] as: Lopressor) 2017 Medical Push over 2 Center minutes heparin Notes: porcine [place] Longer [place] heparin Active 2017 [facility] Simethicone Notes: (Same No Longer [place] [...] mg oral tablet PO, Bedtime, # 2017 [place] d[place] 30 tab, 1 Center Refill(s) Colchicine 0.6 0.6 mg = 1 cap, No Longer [place] MG Oral Capsule PO, Daily, PRN Active 2016 edical pain, 0 Center Refill(s) levothyroxine 137 microgram = Active [place] 137 mcg (0.137 1 tab, PO, 2017 Medica l mg) oral tablet Daily, # 90 Cent er tab, 0 Refill(s) gabapentin 300 300 mg = 1 cap, Active [place] MG Oral Capsule PO, TID, # 90 2016 Me dical cap, 1 Center Refill(s) Furosemide 20 MG 20 mg = 1 tab, Active [place] Oral Tablet PO, BID, # 90 2016 Medica l tab, 0 Center Refill(s) metoprolol 100 100 mg = 1 tab, Active [place] mg oral tablet, PO, Daily, # 30 2016 Medical extended release tab, 0 Center Refill(s) Levetiracetam Notes: (Same No Longer [place] 500 MG Oral as:Keppra) Active 2016 Medical [...] ___ mg Docusate Notes: (Same No Longer [place] as: Colace) Active 2017 Medical Center Tylenol Notes: Do not No Longer [place] exceed 4 Active 2017 Medical gm/day. (Same Center as: Tylenol) Tylenol Notes: Max Inactive [place] acetaminophen 2017 Medical 4000 mg/day (4 Center gm/day). (Same as: Tylenol Extra Strength) Calcium Notes: (Same No Longer [place] Carbonate 500 MG As: Tums) Active 2017 Medic al Chewable Tablet Calcium Center Carbonate 500 mg = 200 mg elemental calcium Dose = mg calcium carbonate ( mg elemental calcium) Calcium Notes: WASTE: No Longer [place] Gluconate F/P - Sink; E - Active 2016 Medica l [facility] Bin Magnesium Oxide Notes: (Same No Longer [facility] as: Mag-Ox 400) Active 2017 [facility] Magnesium oxide Center [id number] elemental magnesium Dose=____mg magnesium oxide (___mg elemental magnesium) sodium phosphate 45 mmol, 15 mL, No Longer 02/15 [place] Route: IVPB, Active 2016 Medical PRN, Dosing Center Weight 77.273, kg, PRN Abnormal Lab Result, Start date: 02/15/17 16:09:00 CDT, Duration: 30 day, Stop date: 03/17/17 16:08:00 CDT, FOR ICU USE ONLY potassium Notes: (Same No Longer [facility] s phosphate as: K Active 2016 Medical Phosphate.) 1 Center mMol phoshate has 1.47 mEq potassium Infuse over 4 hours Magnesium Notes: WASTE: No Longer [place] Sulfate F/P - Sink; E - Active 2016 Medical [facility] Trash Center Bin potassium Notes: (Same No Longer [facility] phosphate-sodium as: Phos-NaK) Active 2016 edical phosphate 250 Each 1.5 gm pkt Ce nter mg-280 mg-160 mg has 250mg oral powder for phosphorous. reconstitution Mix w/2.5oz water and stir. Potassium Notes: (Same No Longer [facility] s Chloride as: KCL) Active 2016 [...] sodium chloride 1,000 mL, Rate: No Longer [place] 0.9% 1000 ml INJ 75 ml/hr, Active [...] 02/15/17 12:25:00 CDT Fentanyl 50 microgram, Inactive [place] Route: IVP, 2017 Medical ONCE, Dosing Center Weight 77.273, kg, Priority: STAT, Start date: 02/15/17 12:25:00 CDT, Stop date: 02/15/17 12:25:00 CDT Factor 2-7-9-10 Notes: Same as: Inactive [place] Prothrombin Kcentra WASTE: 2016 Medi myles Complex F/P - Red; E Center Concentrate -Red Maximum 2,707 unit + IV dose = 5000 bag 1 ea units; Round down dose to the nearest vial size Hematology clinical pharmacist consult required Factor 2-7-9-10 Notes: Same as: Inactive [facility] Prothrombin Kcentra WASTE: 2016 Medi myles [...] CDT Factor 2-7-9-10 Notes: Same as: Inactive [place] Prothrombin Kcentra WASTE: 2016 Medi myles Complex F/P - Red; E Center Concentrate -Red Maximum 2,700 unit + IV dose = 5000 bag 1 ea units; Round down dose to the nearest vial size Hematology clinical pharmacist consult required Saline Flush Notes: (Same No Longer [place] 0.9% as: BD Active 2016 [facility] Posiflush) Center Allergies, Adverse Reactions, Alerts Substance Category Reaction Severity Reaction Status Date Comments S ource type Reported Codeine Assertion Drug Active OPI D Sulfate allergy [place] eucalyptus Assertion Drug Active [facility] topical allergy [place] Immunizations No Data Provided for This Section Results Order Name Results Value Reference Date Interpretation Comments Sudha rce Range CHEM PANEL Phosphorus 2.6 2.5 - 4.5 02/17 [facility] CHEM PANEL Magnesium Lvl 2.0 1.8 - 2.4 02/17 [place] [facility] ELECTROLYTES AGAP 12.3 10.0 - 02/17 [facility] 20.0 [facility] ELECTROLYTES eGFR 75 02/17 Result Comment: [...] ELECTROLYTES CO2 28 24 - 32 02/[address] [place] [address] ELECTROLYTES Chloride Lvl 107 95 - 109 02/17 [facility] ELECTROLYTES Calcium Lvl 9.3 8.5 - 10.5 02/17 [place] [facility] ELECTROLYTES Potassium Lvl 4.3 3.5 - 5.1 02/[address] [place] [address] ELECTROLYTES Sodium Lvl 143 135 - 145 02/17 [facility] ELECTROLYTES Creatinine 0.74 0.50 - 02/17 [facility] Lvl 1.40 [facility] ELECTROLYTES BUN 10 7 - 22 02/[address] ELECTROLYTES Glucose Lvl 129 70 - 99 02/17 [facility] HEMATOLOGY RDW 16.1 11.5 - 02/17 [facility] 14.5 [facility] HEMATOLOGY Platelet 186 133 - 450 02/17 [facility] HEMATOLOGY MCHC 33.3 32.0 - 02/17 [facility] 36.0 [facility] HEMATOLOGY RBC 4.66 4.20 - 02/17 [place] 5.40 [facility] HEMATOLOGY Hct 38.1 36.0 - 02/17 [place] 48.0 [facility] HEMATOLOGY Hgb 12.7 12.0 - 02/17 16.0 [facility] HEMATOLOGY MCH 27.3 27.0 - 02/17 [place] 31.0 [facility] HEMATOLOGY MCV 81.7 80.0 - 02/17 [place] 98.0 [facility] HEMATOLOGY MPV 10.3 7.4 - 10.4 02/17 [facility] HEMATOLOGY WBC 10.0 3.7 - 10.4 02/17 [facility] HEMATOLOGY Segs 77.7 45.0 - 02/17 [facility] 75.0 [facility] HEMATOLOGY Lymphocytes 14.4 20.0 - 02/17 [place] 40.0 [facility] HEMATOLOGY Monocytes 3.7 2.0 - 12.0 02/17 [facility] [address] [place] [address] HEMATOLOGY Lymphocytes # 1.4 1.0 - 5.5 02/17 [facility] HEMATOLOGY Eosinophils # 0.4 0.0 - 0.5 02/17 [facility] [place] [facility] HEMATOLOGY Monocytes # 0.4 0.0 - 0.8 02/17 s [facility] HEMATOLOGY Eosinophils 3.8 0.0 - 4.0 02/17 [facility] HEMATOLOGY Segs-Bands # 7.8 1.5 - 8.1 02/17 [facility] HEMATOLOGY Basophils 0.4 0.0 - 1.0 02/17 [facility] PARATHYROID Ca Norm WB 1.11 1.05 - 02/17 [place] PROFILE 1. [facility] PARATHYROID Ca Ion WB 1.16 1.05 - 02/17 [facility] PROFILE 1. [facility] CARDIAC Troponin-T <0.010 0.000 - 02/16 [place] ENZYMES 0.100 [facility] CARDIAC Troponin-I <0.02 0.00 - 02/16 [facility] ENZYMES 0.40 [facility] CARDIAC Total CK 47 12 - 191 02/16 [facility] ENZYMES [facility] CARDIAC Total CK 51 12 - 191 02/16 [facility] ENZYMES [facility] CARDIAC Troponin-I <0.02 0.00 - 02/16 [place] ENZYMES 0.40 [facility] CARDIAC Troponin-T <0.010 0.000 - 02/16 [place] ENZYMES 0.100 [facility] CHEM PANEL Lactic Acid 1.1 0.5 - 2.2 02/16 [facility] s Lvl [facility] HEMATOLOGY D-Dimer 2.92 02/16 [facility] HEMATOLOGY PTT 31.7 22.9 - 02/16 [place] 35.8 [facility] HEMATOLOGY INR 1.23 0.85 - 02/16 [place] 1.17 [facility] HEMATOLOGY PT 15.8 12.0 - 02/16 [place] 14.7 [facility] CHEM PANEL Phosphorus 2.9 2.5 - 4.5 02/16 [facility] CHEM PANEL eGFR 73 02/16 [facility] Comment: The Medical eGFR is Center [...] Chloride Lvl 110 95 - 109 02/16 [facility] CHEM PANEL Potassium Lvl 3.4 3.5 - 5.1 02/16 [facility] CHEM PANEL CO2 31 24 - 32 02/[address] CHEM PANEL Calcium Lvl 8.5 8.5 - 10.5 02/16 [facility] CHEM PANEL Glucose Lvl 105 70 - 99 02/[address] CHEM PANEL Sodium Lvl 147 135 - 145 02/[address] CHEM PANEL Creatinine 0.75 0.50 - 02/16 [facility] Lvl 1.40 [facility] CHEM PANEL BUN 15 7 - 22 02/[address] CHEM PANEL AGAP 9.4 10.0 - 02/16 20.0 [facility] CHEM PANEL Magnesium Lvl 1.9 1.8 - 2.4 02/16 [facility] HEMATOLOGY Segs 61.1 45.0 - 02/16 75.0 [facility] HEMATOLOGY Monocytes 4.8 2.0 - 12.0 02/16 2016 [facility] HEMATOLOGY Lymphocytes 28.4 20.0 - 02/16 40.0 [facility] HEMATOLOGY Eosinophils 5.2 0.0 - 4.0 02/16 [facility] HEMATOLOGY Basophils 0.5 0.0 - 1.0 02/[address] HEMATOLOGY Segs-Bands # 2.8 1.5 - 8.1 02/16 [facility] HEMATOLOGY Monocytes # 0.2 0.0 - 0.8 02/16 [facility] HEMATOLOGY Lymphocytes # 1.3 1.0 - 5.5 02/16 [place] [facility] HEMATOLOGY Eosinophils # 0.2 0.0 - 0.5 02/16 [facility] [place] [facility] HEMATOLOGY WBC 4.5 3.7 - 10.4 02/16 [facility] HEMATOLOGY MCV 82.1 80.0 - 02/16 98.0 /2016 [facility] HEMATOLOGY Hct 33.8 36.0 - 02/16 [place] 48.0 /2016 [facility] HEMATOLOGY Hgb 11.1 12.0 - 02/16 [place] 16.0 /2016 [facility] HEMATOLOGY RBC 4.11 4.20 - 02/16 [place] 5.40 /2016 [facility] HEMATOLOGY RDW 15.9 11.5 - 02/16 14.5 [facility] HEMATOLOGY MCHC 32.8 32.0 - 02/16 36.0 /2016 [facility] HEMATOLOGY MCH 26.9 27.0 - 02/16 31.0 [facility] HEMATOLOGY MPV 9.5 7.4 - 10.4 02/16 [facility] HEMATOLOGY Platelet 137 133 - 450 02/16 [facility] CHEM PANEL Magnesium Lvl 1.8 1.8 - 2.4 02/16 [facility] ELECTROLYTES Potassium Lvl 3.2 3.5 - 5.1 02/16 [facility] HEMATOLOGY Anti-Xa Low 1.70 02/16 Result [facility] Comment: Medical Heparin "Significant Center Findings called to miller munoz at 02/15/2017 22:27 by [facility]. Read Back OK." HEMATOLOGY Fibrinogen 341 230 - 510 02/15 [facility] Lvl /2016 [facility] HEMATOLOGY PT 19.2 12.0 - 02/15 [place] 14.7 [facility] HEMATOLOGY INR 1.58 0.85 - 02/15 [place] 1.17 [facility] HEMATOLOGY PTT 34.9 22.9 - 02/15 [place] 35.8 [facility] BACTERIAL - MRSA by PCR Negative 02/15 [facility] s SEROLOGY (02/15/17 4:59 PM) /2016 [facility] DRUG SCREEN UDS Note See Note 02/15 [facility] *NA* /2016 Medical (02/15/17 4:59 PM) [...] Scr Negative Negative 02/15 [place] *NA* [facility] (02/15/17 4:59 PM) [place] URINE AND UA <=1.0 0.1 - 1.0 02/15 [facility] Urobilinogen mg/dL /2016 [facility] URINE AND UA Ketones Negative Negative 02/15 [facility] STOOL mg/dL mg/dL /2016 [facility] URINE AND UA pH 5.5 5.0 - 8.0 02/15 [facility] /[address] [place] [address] URINE AND UA Protein 50 mg/dL Negative 02/15 [facility] STOOL mg/dL /2016 [facility] URINE AND UA Turbidity Marked Clear 02/15 [facility] STOOL *ABN* [facility] (02/15/17 4:59 PM) [place] URINE AND UA Spec Grav 1.020 <=1.030 02/15 [facility] /[address] [place] [address] URINE AND UA Color Yellow Yellow 02/15 [place] STOOL *NA* Medical (02/15/17 4:59 PM) [place] URINE AND UA Mucus Few /LPF None Seen 02/15 [facility] STOOL /LPF /2016 [facility] URINE AND UA Bacteria Moderate None Seen 02/15 [place] ST[place] /HPF /HPF /2016 [facility] URINE AND UA Sq Epi Moderate Few /LPF 02/15 [facility] STOOL /LPF /2016 [facility] URINE AND UA RBC 4 0 - 2 02/15 [facility] URINE AND UA Blood Small Negative 02/15 [facility] STOOL *ABN* /2016 Medical (02/15/17 4:59 PM) Center URINE AND UA Leuk Est Large Negative 02/15 [facility] STOOL *ABN* [facility] (02/15/17 4:59 PM) Center URINE AND UA WBC 58 0 - 5 02/15 [facility] URINE AND UA Glucose Negative Negative 02/15 [facility] STOOL mg/dL mg/dL [facility] URINE AND UA Bili Negative Negative 02/15 [facility] STOOL *NA* /2016 Medical (02/15/17 4:59 PM) [place] URINE AND UA Nitrite Negative Negative 02/15 [facility] (02/15/17 4:59 PM) /2016 [facility] HEMATOLOGY PTT 38.5 22.9 - 02/15 [place] 35.8 [facility] HEMATOLOGY INR 1.71 0.85 - 02/15 [facility] 1.17 [facility] HEMATOLOGY PT 20.4 12.0 - 02/15 [facility] 14.7 [facility] BLOOD BANK ABO/Rh A POS 02/15 [facility] RESULTS /2016 [facility] BLOOD BANK Antibody Scrn Negative 02[facility]15 [facility] RES[facility] (02/15/17 11:10 AM) [facility] CHEM PANEL eGFR 55 02/15 Result Comment: The [facility] eGFR is Center calculated using [...] PANEL CO2 30 24 - 32 02/15 [facility] CHEM PANEL Calcium Lvl 9.2 8.5 - 10.5 09 [facility] CHEM PANEL AGAP 12.9 10.0 - 09 20.0 [facility] CHEM PANEL Creatinine 0.95 0.50 - 09 [place] Lvl 1.40 /2016 [facility] CHEM PANEL Sodium Lvl 143 135 - 145 09 [facility] CHEM PANEL Chloride Lvl 103 95 - 109 02/15 [facility] CHEM PANEL Glucose Lvl 144 70 - 99 09 [facility] CHEM PANEL BUN 16 7 - 22 02/15 [facility] CHEM PANEL Lactic Acid 1.0 0.5 - 2.2 09 [place] Lvl /2016 [facility] HEMATOLOGY Segs-Bands # 5.6 1.5 - 8.1 02/15 [facility] HEMATOLOGY Lymphocytes # 1.4 1.0 - 5.5 02/15 [facility] HEMATOLOGY Monocytes # 0.2 0.0 - 0.8 02/15 [facility] HEMATOLOGY Eosinophils # 0.2 0.0 - 0.5 02/15 [facility] HEMATOLOGY Basophils 0.3 0.0 - 1.0 09 [facility] HEMATOLOGY Eosinophils 2.6 0.0 - 4.0 02/15 [facility] HEMATOLOGY Lymphocytes 18.7 20.0 - 02/15 40.0 [facility] HEMATOLOGY Segs 75.3 45.0 - 02/15 75.0 [facility] HEMATOLOGY Monocytes 3.1 2.0 - 12.0 02/15 [facility] HEMATOLOGY G-value Rapid 12.4 5.0 - 11.6 02/15 [place] [facility] HEMATOLOGY Estimated % 0.0 0.0 - 7.5 02/15 [place] Lysis [facility] HEMATOLOGY Max Amplitude 71 52 - 71 02/15 [place] [facility] HEMATOLOGY Angle Rapid 80 64 - 80 02/15 [facility] HEMATOLOGY K-time Rapid 0.8 0.6 - 2.3 02/15 [facility] HEMATOLOGY [place] 0.6 02/15 [facility] HEMATOLOGY R-time Rapid 0.7 0.4 - 0.7 02/15 [facility] HEMATOLOGY ACT (TEG) 113 86 - 118 02/15 [facility] HEMATOLOGY MCHC 32.1 32.0 - 02/15 [place] 36.0 [facility] HEMATOLOGY RDW 16.3 11.5 - 02/15 [place] 14.5 /2016 [facility] HEMATOLOGY Platelet 178 133 - 450 02/15 [facility] HEMATOLOGY MPV 9.3 7.4 - 10.4 02/15 [facility] HEMATOLOGY RBC 4.62 4.20 - 02/15 [place] 5.40 /2016 [facility] HEMATOLOGY Hgb 12.1 12.0 - 02/15 [facility] 16.0 [facility] HEMATOLOGY Hct 37.6 36.0 - 02/15 [facility] 48.0 [facility] HEMATOLOGY WBC 7.4 3.7 - 10.4 02/15 [facility] HEMATOLOGY MCV 81.5 80.0 - 02/15 [facility] 98.0 [facility] HEMATOLOGY MCH 26.1 27.0 - 02/15 [facility] 31.0 [facility] TOXICOLOGY Etoh (%) <0.003 02/15 [facility] TOXICOLOGY Ethanol Lvl <3 02/15 [facility] Pathology Reports No Data Provided for This Section Diagnostic Reports Report Value Date Source Brain wo contrast CT EXAM: CT BRAIN WITHOUT CONTRAST 03/22/2017 [facility] DATE: 03/22/2017 1:29 PM CDT INDICATION: Subarachnoid [...] CT EXAM: CT BRAIN WITHOUT CONTRAST 03/01/2017 [facility] DATE: 03/01/2017 1046 AM CDT INDICATION: Follow-up [...] BILATERAL UPPER EXTREMITY VENOUS DOPP LER 02/16/2017 [facility] Venous Doppler Viet US EXAM: US BILATERAL LOWER EXTREMITY VENOUS DOPPLER [place] DATE: 02/15/2017 5:09 PM CDT INDICATION: hx [...] EXAM: XR LEFT WRIST 3 VIEWS 02/15/2017 [facility] DATE: 02/15/2017 9:43 PM CDT Cente r [...] EXAM: XR RIGHT WRIST 3 VIEWS 02/15/2017 [facility] DATE: 02/15/2017 9:59 PM CDT Cente r [...] wo contrast CT EXAM: CT BRAIN 02/15/2017 [facility] dical DATE: 02/15/2017 at 14:35 Center CLINICAL [...] EXAM: XR RIGHT ELBOW 3 VIEWS 02/15/2017 [facility] DATE: 02/15/2017 2:14 PM CDT. Cent er [...] EXAM: XR RIGHT HUMERUS 2 VIEWS 02/15/2017 [facility] DATE: 02/15/2017 12:[address] [...] Torso-Outside Consult EXAM: Tor[place]-Outside Consult CT 02/15/2017 [facility] [address] DATE: 02/15/2017 8:50 Center INDICATION: - [...] WITH OUT CONTRAST 2ND OPINION INTERPRETATION 02/15/2017 [facility] [address] DATE: 02/15/2017 12:[address] INDICATION: Trip, fall. COMPARISON: None available TECHNIQUE: Axial images through the cervical spine were obt ained. Sagittal and coronal reformatted images were per formed. Second opinion interpretatio n of CT cervical spine obtained at [facility] 02/15/2017 0850 hours FINDINGS: Atherosclerotic calcificatio ns [...] DX EXAM: XR CHEST 1 VIEW 02/15/2017 [facility] edical DATE: 02/15/2017 11:05 AM CDT. Romario [...] Comments Source Systolic (mm Hg) 147 02/17/2017 [facility] dical [place] Diastolic (mm Hg) 88 02/17/2017 [facility] Respitory Rate 20 02/17/2017 [facility] Heart Rate 105 02/17/2017 [facility] [place] [facility] Systolic (mm Hg) 144 02/17/2017 [facility] dical Center Diastolic (mm Hg) 91 02/17/2017 [facility] Heart Rate 98 02/17/2017 [facility] [place] Respitory Rate 18 02/17/2017 [facility] Systolic (mm Hg) 146 02/17/2017 [facility] dical Center Diastolic (mm Hg) 84 [facility] [place] Respitory Rate 18 02/17/2017 [facility] Heart Rate 111 02/17/2017 [facility] Temperature Oral (F) 98.4 F 02/17/2017 [facility] Temperature Oral (F) 97.7 F 02/17/2017 [facility] Weight 77.273 02/15/2017 [facility] BMI Calculated 30.18 02/15/2017 [facility] Height 160.02 cm 02/15/2017 [facility] Temperature Oral (F) 98.0 F 02/15/2017 [facility] Weight 77.273 02/15/2017 [facility] BMI Calculated 28.35 02/15/2017 [facility] Height 165.1 cm 02/15/2017 [facility] Encounters Location Location Encounter Encounter Reason Attending ADM DC Stat us Source Details Type Number For Provider Date Date Visit [facility] [id number] Familia 02/15 02/17 [facility] [place] 7 [facility] Outpatient [id number] TRAUMA 03/01 [facility] 0 [facility] Outpt Diag [id number] [place] 03/01 03/02 [facility] 0 [facility] [place] Outpatient [id number] TRAUMA 03/22 [facility] Outpt Diag [id number] Familia 03/22 03/23 [facility] Procedures Procedure Code Date Perfomer Comments Source Cholecystostomy [id number] 06/11/2006 [facility] [place] Tonsillectomy [id number] 06/11/1946 [facility] [place] Assessment and Plan No Data Provided for This Section Plan of Care No Data Provided for This Section Social History Social History Date Source Social History TypeResponse 03/22/2017 [facility] Smoking Status Never smoker; Exposure to Tobacco Smoke None; Cigarette Smoking Last 365 Days No; Reg Smoking Cessation Counseling No Social History TypeResponse 02/15/2017 [facility] [place] [facility] Smoking Status Never smoker; Exposure to Tobacco Smoke None; Cigarette Smoking Last 365 Days No; Reg Smoking Cessation Counseling No Family History No Data Provided for This Section Advance Directives No Data Provided for This Section Functional Status No Data Provided for This Section
--- OUTSIDE RECORDS SUMMARY | 2020-06-29 11:20 | XMS REPORT | Continuity of Care Document ---
:1930 Author Organization [facility] t Address [address] [place] [address] Care Team Providers Name Role Phone SAMANTHA [...] 2017-02-15 Memoria SAH 02-15 10:54:00 l 00:00: [place] TRAUMATIC 00 SAH Active 02/15/2017 [facility] [place] SUBDURAL Diagnosis Active 2017-02-23 M emoria HEMATOMA 02-15 14:13:00 l SUBDURAL 00:00: Reinaldo n HEMATOMA 00 Active 02/15/2017 [facility] [place] ARCELIA Diagnosis Active 2017-02-15 Memoria BILLING 02-15 11:00:00 l ONLY LFLT 00:00: Sharif #4420 ARCELIA 00 BILLING ONLY LFLT #4420 Active 02/15/2017 [facility] [place] Cat bite Cat bite Disease [facility] Atrial Problem Resolve 2017-03-25 Erik ioana fibrillati d 00:46:38 l on Atrial [place] (disorder) fibrillati on (disorder) Resolved Problem 03/25/2017 [facility] OPID [place] Congestive Problem Resolve 2017-03-25 Memoria heart d 00:46:38 l failure [place] (disorder) Congestive heart failure (disorder) Resolved Problem 03/25/2017 [facility] OPID [place] Cerebrovas Problem Resolve 2017-03-25 Memoria cular d 00:46:38 l accident [place] (disorder) Cerebrovas cular accident (disorder) Resolved Problem 03/25/2017 [facility] OPID [place] Gout Problem Resolve 2017-03-25 Erik ioana (disorder) d 00:46:38 l Gout [place] (disorder) Resolved Problem 03/25/2017 [facility] OPID [place] Hyperlipid Problem Resolve 2017-03-25 Memoria emia d 00:46:38 l (disorder) Reinaldo n Hyperlipid emia (disorder) Resolved Problem 03/25/2017 [facility] OPID [place] Hypertensi Problem Resolve 2017-03-25 Memoria ve d 00:46:38 l disorder, Sharif systemic Hypertensi arterial ve (disorder) disorder, systemic arterial (disorder) Resolved Problem 03/25/2017 [facility] OPID [place] Simple Problem Active 2017-03-25 Memor ia obesity 00:46:38 l (disorder) Simple Herm william obesity (disorder) Active Problem 03/25/2017 [facility] [place] NONTRAUMAT Diagnosis Active 2017-02-23 Memoria IC 14:13:00 l SUBDURAL [place] HEMORRHAGE NONTRAUMAT , UNSPEC IC SUBDURAL HEMORRHAGE , UNSPEC Active [facility] [place] Allergies, Adverse Reactions, Alerts Allergy Allergy Status Severity Reaction(s) Onset Inactive Treating Comm ents Source Name Type Date Date Clinician Codeine Propensi Active [facility] - adverse 00:00: Medical reaction 00 [place] s Codeine Codeine Active Memoria Sulfate Sulfate l [place] eucalypt eucalypt Active Memori a us l topical topical [place] Family History Family Member Diagnosis Comments Start Date Stop Date Source Natural daughter Asthma [facility] Social History Social Habit Start Date Stop Date Quantity Comments Source Sex Assigned At [facility] Alcohol intake 2016-03-01 2016-03-01 Current [facility] [place] es - 00:00:00 00:00:00 non-drinker of Medical Ce nter alcohol (finding) Smoking Status Start Date Stop Date Source Social History [facility] Medications Ordered Filled Start Stop Current Ordering [...] a 02-17 Take 1 l 14:00: hour [place] 00 before or 2 hours after meal; [...] as: l / 05:44: Duoneb) Ipratropium 00 Rozel 0.167 MG/ML Inhalant Solution [DuoNeb] Metoprolol No [...] tab, PO, l Tablet 03:39: Daily, # [place] [Xarelto] 00 90 tab, 3 Refill(s) simvastatin [...] 02-16 (Same l Oral Tablet 02:00: as:Keppra) [place] [Keppra] 00 Saline No Notes: Memoria Flush [...] Memoria 02-15 (Same as: l 22:04: Colace) [place] Tylenol No Notes: Do Memor ia 02-15 not exceed l 21:31: 4 gm/day. Sharif (Same as: Tylenol) Tylenol No Notes: Max Erik ioana 02-15 acetaminop l 21:30: hen 4000 [place] 00 mg/day (4 gm/day). (Same as: Tylenol Extra Strength) Calcium No Notes: Memoria Carbonate 02-15 (Same As: l 500 MG 21:09: Tums) [place] Chewable 00 Calcium Tablet Carbonate 500 mg = 200 mg elemental calcium Dose = mg calcium carbonate ( mg elemental calcium) Calcium No Notes: Memoria Gluconate 02-15 WASTE: F/P l 21:09: - Sink; E Shar[place] - [facility] Trash Bin Magnesium No Notes: Memori a Oxide 02-15 (Same as: l 21:09: Mag-Ox [place] 00 400) Magnesium oxide 208ns=175y g elemental magnesium Dose=____m g magnesium oxide [...] WASTE: F/P l 21:09: - Sink; E [place] - [facility] Trash Bin potassium No Notes: [...] 02-15 Route: PO, l 17:26: Drug form: [place] 00 TAB, ONCE, Dosing Weight 77.273, kg, [...] MG tablet 15:31: daily. Medica l 54 [place] rivaroxaban Yes 15mg Take [address] [address] (XARELTO) 9-26 by mouth [facility] - 15 mg Tab 15:31: daily with Me dical tablet 54 dinner. Center Immunizations Ordered Immunization Filled Immunization Date Status Commen ts Source Name Name Tdap 2016-03-[address] [facility] 00:[facility]00 [facility] Center Vital Signs Vital Name Observation Time Observation Value Comments Source Systolic (mm Hg) 2017-02-17 17:00:00 Erik rial [place] Diastolic (mm Hg) 2017-02-17 17:00:00 Mem orial [place] Respitory Rate 2017-02-17 17:00:00 Memori al [place] Heart Rate 2017-02-17 17:00:00 [facility] [place] Systolic (mm Hg) 2017-02-17 12:00:00 Erik rial [place] Diastolic (mm Hg) 2017-02-17 12:00:00 Mem orial [place] Heart Rate 2017-02-17 12:00:00 [facility] [place] Respitory Rate 2017-02-17 12:00:00 Memori al [place] Systolic (mm Hg) 2017-02-17 11:28:00 Erik rial [place] Diastolic (mm Hg) 2017-02-17 11:28:00 Mem orial [place] Respitory Rate 2017-02-17 11:28:00 Memori al [place] Heart Rate 2017-02-17 11:28:00 [facility] [place] Temperature Oral (F) 2017-02-17 03:36:00 98.4 F [facility] [place] Temperature Oral (F) 2017-02-17 01:00:00 97.7 F [facility] Weight 2017-02-15 21:11:00 [facility] [place] BMI Calculated 2017-02-15 21:11:00 Memori al [place] Height 2017-02-15 21:11:00 160.02 cm [facility] Temperature Oral (F) 2017-02-15 20:32:00 98.0 F [facility] Weight 2017-02-15 16:10:00 [facility] BMI Calculated 2017-02-15 16:10:00 Memori al [place] Height 2017-02-15 16:10:00 165.1 cm [facility] [place] Procedures Procedure Date / Time Performed Performing Clinician Viridiana riggins Cholecystostomy 2006-06-11 00:00:00 Karno simpson Tonsillectomy 1946[birth year]06[birth year]11 00:00:00 Karon simpson Encounters Start End Encounter Admission Attending Care Care Encounter Source Date/Time Date/Time Type Type Clinicians Facility Department ID 2017-03-22 2017-03-22 Outpatient Yomi SILVIA [facility] [id number] 13:13:00 23:59:00 Familia Taylor 2017-03-01 2017-03-01 Outpatient SHIRA Valenzuela [facility] [id number] 10:26:00 23:59:00 Juan Benoit 2017-02-15 2017-02-17 Outpatient Kenneth [facility] [id number] 10:56:00 13:10:00 Alexandra Lujan Results Test [...] code = MCH) 27.3 pg 27.0-31.0 [facility] TaqciswEMMORMBMII6045-13-43 07:47:0081.7[facility]OLOG[facility] 2017-02-17 07:47:0010.3[facility] XdzthhbCGCMWOGUCQ8543-65-28 07:47:0010.0[facility] ZffdqbhVZYNMJKMVZ7521-62-89 07:47:0077.7[facility] EwntshhDXKOQILVAU1767-99-02 07:47:0014.4[facility] ZfzusxpAQIXVMFSUV7574-23-63 07:47:003.7[facility] UKJLZBQHQI0834-75-04 07:47:001.4[facility] PoehzlmMPUNONNHSC7977-45-71 07:47:000.4 [facility] UyjvsppWLNFRQJWAD4271-69-59 07:47:000.4[facility]annHEMATOLOGY 2017-02-17 07:47:003.8[facility] JpfunupIDUXEPQXAL4571-07-49 07:47:007.8[facility] HlcnjadEDAEZGNOPJ1305-27-31 07:47:000.4[facility] HermannPARATHYROID PROFILE 2017-02-17 07:47:001.11[facility] HermannPARATHYROID IOFYGWE7586-57-01 07:47:00 1.16[facility] HermannCARDIAC IWRWDLV8168-20-30 16:33:00<0.010[facility] CARDIAC EMTKOWT6256-74-13 16:33:00<0.02[facility]annCARDIAC ENZYMES 2017-02-16 16:33:0047[facility]annCARDIAC IRTTKYD2275-75-63 12:49:0051 [facility]annCARD[facility]AC SSLKYOY0565-60-74 12:49:00<0.02[facility] [place] CARDIAC YTLDJLA1526-78-19 12:49:00<0.010[facility] HermannCHEM WUQXH6876-08-72 12:49:001.1[facility] QtysmkaATJUYKWVPF7368-46-43 12:49:002.92[facility] FJFRQOMILA5688-73-57 12:49:00 Test Item Value Reference Range Interpretation Comments PTT (test code = PTT) 31.7 s 22.9-35.8 [facility] PhcxhvhAODPANJIRO9807-78-40 12:49:001.23[facility]annHEMATOLOGY 2017-02-16 12:49:00 Test Item Value Reference Range Interpretation Comments PT (test code = PT) 15.8 s 12.0-14.7 [facility]annCHEM ITBKA7552-96-31 06:25:002.9[facility] HermannCHEM PANEL 2017-02-16 06:25:0073[facility] HermannCHEM WSOQI7272-44-67 06:25:63683Oifmsefy HermannCHEM GSKFW1849-27-57 06:25:003.4[facility] HermannCHEM ANSSD1516-24-27 06:25:0031[facility]annCHEM YCYPN1725-17-39 06:25:008.5[facility]annCHEM ESERM9569-59-00 06:25:40575Idofhsng HermannCHEM REARS0192-69-21 06:25:01741 [facility]annCHEM OCCQE7337-68-77 06:25:000.75[facility]annCHEM PANEL 2017-02-16 06:25:0015[facility] HermannCHEM IXMAD3836-10-70 06:25:009.4[facility]annCHEM CWKMF6937-89-15 06:25:001.9[facility] RhtsaqeIYVPSJDXTK0258-82-98 06:25:0061.1[facility] DhxeyysFJEDCMOGKC8807-14-42 06:25:004.8[facility] [place] NEKZBWOLIK5389-97-24 06:25:0028.4[facility] FymblnrKEGDQTDENC6916-48-13 06:25:00 5.2[facility] XagdwzyWWRYZSKRXD0874-76-10 06:25:000.[facility] HermannHEMATOLOGY 2017-02-16 06:25:002.8[facility] LomtltkETHPNNBNEQ4079-42-65 06:25:000.2[facility] HaxiwybVTSGRBKERE2445-60-07 06:25:001.3[facility] XbzoxkcYWKEECJUHT6105-03-29 06:25:000.2[facility] UrdwhpfVARNHAYYXB7483-77-67 06:25:004.5[facility] [place] GFCVQCUKOU9169-94-92 06:25:0082.1[facility] BgmtjqaGVCEWGKWVI1116-24-69 06:25:00 33.8[facility] ZbelejoAQGQBANCDV9789-55-64 06:25:0011.1[facility] HermannHEMATOLOGY 2017-02-16 06:25:004.11[facility] MfiiypdATWLFSTBCA6236-16-07 06:25:0015.9[facility] UsornalDVYXUWOZEM5987-13-30 06:25:0032.8[facility] QvythauZEWDLDNVLS4688-77-82 06:25:00 Test Item Value Reference Range Interpretation Comments MCH (test code = MCH) 26.9 pg 27.0-31.0 [facility] IwqgaqfLKTLYJYJWY8751-27-32 06:25:009.5[facility] HermannHEMATOLOGY 2017-02-16 06:25:81470Xtwntgzs HermannCHEM WEKLF0321-19-47 02:51:001.8[facility] MhfdrshBTZQZHAIOGEF1414-01-90 02:51:003.2[facility] DxuidtiVEZHSJLEUX7656-45-07 02:51:001.70[facility] KhkpvosPZDOVGVBQQ1197-20-53 23:54:22707Paynawva Sharif UOSCJLDSLD3472-64-50 23:54:00 Test Item Value Reference Range Interpretation Comments PT (test code = PT) 19.2 s 12.0-14.7 [facility] HteffhaKNSCVPMMUQ4232-93-37 23:54:001.58[facility] HermannHEMATOLOGY 2017-02-15 23:54:00 Test Item Value Reference Range Interpretation Comments PTT (test code = PTT) 34.9 s 22.9-35.8 [facility] HermannBACTERIAL - RASMYLHO6199-22-54 21:59:00Negative (02/15/17 4:59 PM) [facility]annDR[facility] HTXMMV0331-11-16 21:59:00See Note *NA*(02/15/17 4:59 PM) [facility] WGJMVY0064-08-03 21:59:00Negative *NA*(02/15/17 4:59 PM) [facility]DR[facility] WUOLKV8778-04-30 21:59:00Negative *NA*(02/15/17 4:59 PM) [facility] ZFVSTD7288-32-08 21:59:00Negative *NA*(02/15/17 4:59 PM) [facility] VQKTCQ3849-51-35 21:59:00Negative *NA*(02/15/17 4:59 PM) [facility] YSHXYZ4893-22-09 21:59:00Negative *NA*(02/15/17 4:59 PM) [facility] UJZRXC8074-73-70 21:59:00Negative *NA*(02/15/17 4:59 PM) [facility] AQWPFR2365-04-85 21:59:00Negative *NA*(02/15/17 4:59 PM) [facility]ann[facility] AND VZEEM4908-17-68 21:59:005.5[facility]annUR[facility] AND DJJOV8231-68-34 21:59:00Marked *ABN*(02/15/17 4:59 PM)[facility]ann[facility] AND BLSWW8231-65-30 21:59:001.020[facility]annUR[facility] AND VYOJY9818-38-95 21:59:00 Yellow *NA*(02/15/17 4:59 PM)[facility] IQIFM2163-37-13 21:59:004 [facility] AND QBMWY6733-80-18 21:59:00Small *ABN*(02/15/17 4:59 PM) [facility] CMJCX4685-63-33 21:59:00Large *ABN*(02/15/17 4:59 PM) [facility] AGTAV4049-61-18 21:59:0058[facility]ann[facility] AND WDQBW0867-12-94 21:59:00Negative *NA*(02/15/17 4:59 PM)[facility] WRYND8881-38-93 21:59:00Negative (02/15/17 4:59 PM)[facility] HermannHEMATOLOGY 2017-02-15 18:40:00 Test Item Value Reference Range Interpretation Comments PTT (test code = PTT) 38.5 s 22.9-35.8 [facility] FnysswoSJKQAGYQDA9981-92-79 18:40:001.71[facility] HermannHEMATOLOGY 2017-02-15 18:40:00 Test Item Value Reference Range Interpretation Comments PT (test code = PT) 20.4 s 12.0-14.7 [facility] BANK OXCORCG4595-85-81 16:10:00Negative (02/15/17 11:10 AM) [facility]annCHEM RNXIN9104-69-90 16:10:0055[facility] HermannCHEM PANEL 2017-02-15 16:10:0030[facility] HermannCHEM NMJBQ0641-84-71 16:10:009.2[facility] HermannCHEM KRBLC1168-84-75 16:10:0012.9[facility] HermannCHEM HZIQT6061-22-66 16:10:000.95[facility] HermannCHEM CRENW6990-43-89 16:10:47895Hrpanmuw HermannCHEM UPXLF8145-31-74 16:10:84840Mgdacbsm HermannCHEM THPTM2163-58-23 16:10:12706 [facility]annCHEM PSUWQ8286-31-11 16:10:0016[facility] HermannCHEM PANEL 2017-02-15 16:10:001.0[facility] BntkiqjILXHTNHHMH0170-53-99 16:10:005.6[facility] LfqjbclDVJZMCGZQQ5612-79-81 16:10:001.4[facility] UwultobZGSOGYUQOT0284-42-58 16:10:000.2[facility] FoqfysdNUENPUFSHB3265-78-05 16:10:000.2[facility] [place] ALKHFRLXLT0722-59-40 16:10:000.3[facility] BktceckTNANBVQBKA4050-85-78 16:10:002.6 [facility] JzixfqbFIOLISDFZR6331-92-91 16:10:0018.7[facility] HermannHEMATOLOGY 2017-02-15 16:10:0075.3[facility] YlkgcgmNOPCEFDMQQ9207-41-22 16:10:003.1[facility] TrprwxfCUVUQCFYYK3496-97-30 16:10:0012.4[facility] ZnlavbcVLFKZVWMEX6624-37-56 16:10:000.0[facility] OstcsrgRRQHYZDIXT1931 16:10:00 Test Item Value Reference Range Interpretation Comments Max Amplitude Rapid (test code = Max 71 mm 52-71 Amplitude Rapid) [facility]enHuhsvxbFDDFFLYMHV4723-50-79 16:10:00 Test Item Value Reference Range Interpretation Comments Angle Rapid (test code = Angle 80 degrees 64-80 Rapid) [facility]enAlidjnkMCXEGTMELX5690-33-08 16:10:00 Test Item Value Reference Range Interpretation Comments K-time Rapid (test code = K-time 0.8 min 0.6-2.3 Rapid) [facility] ChildrenIyqjlvcASNNPOOSLU5851-17-75 16:10:00 Test Item Value Reference Range Interpretation Comments Split Point Rapid (test code = Split 0.6 min Point Rapid) [facility] ChildrenWaoqfwgJCVFZYCCDU3116-86-35 16:10:00 Test Item Value Reference Range Interpretation Comments R-time Rapid (test code = R-time 0.7 min 0.4-0.7 Rapid) [facility] ChildrenOsllyriVDUQLCMCTO7229-06-93 16:10:00 Test Item Value Reference Range Interpretation Comments ACT (TEG) Rapid (test code = ACT (TEG) 113 s 86-118 Rapid) [facility]enIdvkqkxMZFTBFUEPR7892-95-91 16:10:0032.1[facility] HermannHEMATOLOGY 2017-02-15 16:10:0016.3[facility] JmmhhwtFVPGOWSWRX3765-45-88 16:10:31423Ezjtmuku RdjnepuWZCDOZCOMG1383-51-62 16:10:009.3[facility] JuvcshoBUCGGLTNLK8650-90-34 16:10:004.62[facility] RgzqcdjDKFRBKUHGN1875-48-88 16:10:0012.1[facility] PLMAFCBJLD0678-87-56 16:10:0037.6[facility] KzudviuOJGOHIOFSR1707-32-24 16:10:00 7.4[facility] PsmdcapKUCEPGSEUP3706-43-67 16:10:0081.5[facility] HermannHEMATOLOGY 2017-02-15 16:10:00 Test Item Value Reference Range Interpretation Comments MCH (test code = MCH) 26.1 pg 27.0-31.0 [facility] McallenQutjzqtRTUYQAABNU9083-83-97 16:10:00<0.003[facility] HermannTOXICOLOGY 2017-02-15 16:10:00<3[facility] HermannBasic Metabolic Pydqf2173-49-64 20:44:00 Test Item Value Reference Range Interpretation [...] by the [employer],http ://nkd ep.nih.gov Emx-Pgh5636-25-02 20:38:00 Test Item Value Reference Range Interpretation Comments NT ProBnp (test code = PBNP) 775 pg/mL 0-449 H
[2020-06-29 12:15] LABS: Absolute Lymphocytes (CBC) 0.9 K/uL (0.7-4.9); Basophils % 0.8 % (0-1.3); Hematocrit 36.5 % (36.0-45.0); Lymphocytes % 11.3 % (15.3-44.8); MPV 9.9 fL (7.6-11.3); RBC Red Blood Cell Count 4.28 M/uL (3.86-4.86)
[2020-06-29 12:19] LABS: Protime INR 2.05
[2020-06-29] MEDS ORDERED: NA CHLORIDE 0.9% 1,000 ML ONE (12:23)
--- NOTE | 2020-06-29 12:33 | RAD REPORT ---
EXAM DESCRIPTION: [place] Single View06/29/2020 12:06 pm CLINICAL HISTORY: Cough COMPARISON: April 2020 FINDINGS: Mild bilateral pulmonary opacities The heart is moderately enlarged IMPRESSION: Moderate bilateral pulmonary opacities may represent mild pulmonary edema or pneumonia
[2020-06-29 12:41] LABS: Albumin 3.2 g/dL (3.4-5.0); Bilirubin Direct 0.3 mg/dL (0-0.2); Magnesium 2.2 mg/dL (1.8-2.4); Potassium 3.5 mmol/L (3.5-5.1); Protein, Total 7.5 g/dL (6.4-8.2); Thyroid Stimulating Hormone 1.37 uIU/mL (0.360-3.740); Troponin (Emerg Dept Use Only) 0.03 ng/mL (0.0-0.045)
[2020-06-29] MEDS ORDERED: ONDANSETRON 4 MG/2 ML VIAL ONE ×2 (13:30→15:45)
--- NOTE | 2020-06-29 13:39 | EDPHYS ---
Physician Documentation [facility] Name: Rowan Pompa Age: 89 yrs Sex: Female : 1930 Arrival Date: 06/29/2020 Time: 11:16 Bed 14 Private MD: ED Physician Austen Silva HPI: 06/29 13:26 This 89 yrs old Female presents to ER via EMS with complaints of General elda Weakness. 13:26 The patient presents with abdominal pain in the upper abdomen, in the lower abdomen. elda Onset: The symptoms/episode began/occurred 2 day(s) ago. weak, vomiting, syncope. The patient has experienced near-syncope, almost passed out, felt dizzy. Onset: The symptoms/episode began/occurred just prior to arrival, this morning. Duration: This was a single episode, that lasted 30 second(s). Context: the episode(s) was witnessed, by no one. Onset: The symptoms/episode began/occurred yesterday. The symptoms do not radiate. Associated signs and symptoms: Pertinent positives: nausea, vomiting. Historical: - Allergies: 11:24 Codeine; bp 11:24 EUCALYPTUS CONTAINING PRODUCTS; bp - Home Meds: 11:24 Xarelto 15 mg Oral tab daily [Active]; spironolactone 25 mg Oral tab 1 tab once daily bp [Active]; simvastatin 20 mg Oral tab 1 tab once daily [Active]; metoprolol tartrate 100 mg Oral tab 1 tab once daily [Active]; metoprolol succinate 100 mg Oral Tb24 1 tab once daily [Active]; gabapentin 300 mg Oral cap 1 cap twice a day [Active]; levothyroxine 137 mcg tab 1 tab once daily [Active]; furosemide 40 mg Oral tab 1 tab 2 times per day [Active]; colchicine 0.6 mg Oral cap 1 cap once daily [Active]; allopurinol 100 mg Oral tab 1 tab 2 times per day [Active]; acetaminophen 325 mg Oral tab 1 tab every 4-6 hours [Active]; - PMHx: 11:24 Atrial Fib; CHF; COPD; CVA; Gout; Hyperlipidemia; Hypertension; bp - Immunization history:: Adult Immunizations up to date. - Social history:: Smoking status: unknown. - Family history:: not pertinent. ROS: 13:26 Constitutional: Negative for fever, chills, and weight loss, Eyes: Negative for injury, elda pain, redness, and discharge, ENT: Negative for injury, pain, and discharge, Neck: Negative for injury, pain, and swelling, Cardiovascular: Negative for chest pain, palpitations, and edema, Back: Negative for injury and pain, : Negative for injury, bleeding, discharge, and swelling, MS/Extremity: Negative for injury and deformity, Skin: Negative for injury, rash, and discoloration, Neuro: Negative for headache, weakness, numbness, tingling, and seizure, Psych: Negative for depression, anxiety, suicide ideation, homicidal ideation, and hallucinations, Allergy/Immunology: Negative for hives, rash, and allergies, Endocrine: Negative for neck swelling, polydipsia, polyuria, polyphagia, and marked weight changes, Hematologic/Lymphatic: Negative for swollen nodes, abnormal bleeding, and unusual bruising. 13:26 Respiratory: Positive for cough, shortness of breath, at rest. 13:26 Abdomen/GI: Positive for abdominal pain, nausea and vomiting. 13:26 MS/extremity: Positive for pain, of the right hip and right leg. Exam: 13:26 Constitutional: This is a well developed, well nourished patient who is awake, alert, elda and in no acute distress. Head/Face: Normocephalic, atraumatic. Eyes: Pupils equal round and reactive to light, extra-ocular motions intact. Lids and lashes normal. Conjunctiva and sclera are non-icteric and not injected. Cornea within normal limits. Periorbital areas with no swelling, redness, or edema. ENT: Nares patent. No nasal discharge, no septal abnormalities noted. Tympanic membranes are normal and external auditory canals are clear. Oropharynx with no redness, swelling, or masses, exudates, or evidence of obstruction, uvula midline. Mucous membranes moist. Neck: Trachea midline, no thyromegaly or masses palpated, and no cervical lymphadenopathy. Supple, full range of motion without nuchal rigidity, or vertebral point tenderness. No Meningismus. Chest/axilla: Normal chest wall appearance and motion. Nontender with no deformity. No lesions are appreciated. Respiratory: Lungs have equal breath sounds bilaterally, clear to auscultation and percussion. No rales, rhonchi or wheezes noted. No increased work of breathing, no retractions or nasal flaring. Back: No spinal tenderness. No costovertebral tenderness. Full range of motion. Skin: Warm, dry with normal turgor. Normal color with no rashes, no lesions, and no evidence of cellulitis. Neuro: Awake and alert, GCS 15, oriented to person, place, time, and situation. Cranial nerves II-XII grossly intact. Motor strength 5/5 in all extremities. Sensory grossly intact. Cerebellar exam normal. Normal gait. Psych: Awake, alert, with orientation to person, place and time. Behavior, mood, and affect are within normal limits. 13:26 Cardiovascular: Rate: normal, Rhythm: irregularly irregular, Pulses: Pulses are 4+ in bilateral radial, brachial, femoral, popliteal, posterior tibial and and dorsalis pedis arteries.. Heart sounds: normal, JVD: is not appreciated. 13:26 Abdomen/GI: Inspection: abdomen appears normal, Bowel sounds: normal, Palpation: mild abdominal tenderness, in all quadrants, Liver: no appreciated palpable abnormalities, Hernia: not appreciated. 13:38 ECG was reviewed by the Attending Physician. elda Vital Signs: 11:17 BP 144 / 66; Pulse 82; Resp 15; Temp 98; Pulse Ox 100% ; bp 11:24 Weight 54.43 kg (R); Height 5 ft. 5 in. (165.10 cm) (R); Pain 6/10; jd3 12:30 BP 105 / 64; Pulse 73; Resp 17 S; Pulse Ox 97% on 2 lpm NC; jd3 13:21 BP 111 / 59; Pulse 81; Resp 18; Pulse Ox 92% on 2 lpm NC; jd3 15:02 BP 100 / 61; Pulse 75; Resp 17 S; Pulse Ox 99% on 2 lpm NC; jd3 15:22 BP 122 / 61; Pulse 70; Resp 16 S; Pulse Ox 96% on Nebulizer Mask; aa5 15:58 BP 103 / 58; Pulse 84; Resp 17 S; Pulse Ox 98% on 2 lpm NC; jd3 17:03 BP 96 / 57; Pulse 85; Resp 17 S; Pulse Ox 98% on 2 lpm NC; jd3 18:00 BP 97 / 58; Pulse 74; Resp 16 S; Pulse Ox 99% on 2 lpm NC; jd3 11:24 Body Mass Index 19.97 (54.43 kg, 165.10 cm) jd3 MDM: 11:26 Patient medically screened. [facility] 13:34 Differential Diagnosis altered mental status, sepsis. Differential Diagnosis: cardiac elda arrhythmia, cerebrovascular accident, sepsis, vasovagal episode. Differential diagnosis: acute coronary syndrome, bowel obstruction, diverticulitis, non-specific abd pain, pancreatitis, Peptic Ulcer Disease, urinary tract infection. Data reviewed: vital signs, nurses notes, lab test result(s), EKG, radiologic studies, CT scan, plain films. Data interpreted: secured entrance monitor: rate is 81 beats/min, rhythm is atrial fibrillation, Pulse oximetry: on room air is 92 %. Test interpretation: by ED physician or midlevel provider: ECG, plain radiologic studies. Counseling: I had a detailed discussion with the patient and/or guardian regarding: the historical points, exam findings, and any diagnostic results supporting the discharge/admit diagnosis, lab results, radiology results, the need for further work-up and treatment in the hospital. 06/29 11:40 Order name: Basic Metabolic Panel [facility] 06/29 11:40 Order name: CBC with Diff [facility] 06/29 11:40 Order name: LFT's [facility] 06/29 11:40 Order name: Magnesium; Complete Time: 13:18 [facility] 06/29 11:40 Order name: NT PRO-BNP; Complete Time: 13:18 [facility] 06/29 11:40 Order name: PT-INR; Complete Time: 13:18 [facility] 06/29 11:40 Order name: Troponin (emerg Dept Use Only); Complete Time: 13:18 [facility] 06/29 11:40 Order name: Lipase; Complete Time: 13:18 [facility] 06/29 11:40 Order name: TSH; Complete Time: 13:18 [facility] 06/29 11:40 Order name: Lactate; Complete Time: 13:18 [facility] 06/29 11:40 Order name: Blood Culture Adult (2) [facility] 06/29 11:41 Order name: Basic Metabolic Panel; Complete Time: 13:18 [facility] 06/29 11:41 Order name: CBC with Automated Diff; Complete Time: 13: [facility] 06/29 11:41 Order name: Liver (Hepatic) Function; Complete Time: 13:18 [facility] 06/29 11:40 Order name: XRAY Chest (1 view); Complete Time: 13: [facility] 06/29 13:00 Order name: Urine Dipstick--Ancillary (enter results); Complete Time: 14:04 06/29 13:22 Order name: CT Chest Abdomen Pelvis W/O Contrast: no iv and no oral; Complete Time: elda 14:05 06/29 13:22 Order name: Pelvis XRAY [facility] 06/29 13:25 Order name: CT Head Brain wo Cont [facility] 06/29 13:34 Order name: Femur Right XRAY [facility] 06/29 14:55 Order name: SARS-COV-2 RT PCR [facility] 06/29 11:40 Order name: EKG; Complete Time: 11:41 [facility] 06/29 11:40 Order name: Cardiac monitoring; Complete Time: 11:52 [facility] 06/29 11:40 Order name: EKG - Nurse/Tech; Complete Time: 11:52 [facility] 06/29 11:40 Order name: IV Saline Lock; Complete Time: 12:08 [facility] 06/29 11:40 Order name: Labs collected and sent; Complete Time: 12:08 [facility] 06/29 11:40 Order name: O2 Per Protocol; Complete Time: 11:40 [facility] 06/29 11:40 Order name: O2 Sat Monitoring; Complete Time: 11:40 [facility] 06/29 11:40 Order name: Urine Dipstick-Ancillary (obtain specimen); Complete Time: 12:59 [facility] 06/29 12:17 Order name: Straight Cath - Urine; Complete Time: 12:52 jd3 EC:38 Rate is 88 beats/min. Rhythm is irregularly irregular. QRS [place] is Normal. OH interval elda is normal. QRS interval is normal. QT interval is normal. No Q waves. T waves are Normal. No ST changes noted. Clinical impression: Atrial Fibrillation. Interpreted by me. Reviewed by me. Administered Medications: Discontinued: NS 0.9% 1000 ml IV at 125 ml/hr continuous 12:35 Drug: NS 0.9% 1000 ml Route: IV; Rate: 125 ml/hr; Site: right forearm; jd3 18:21 Follow up: Response: No adverse reaction; IV Status: Order to discontinue infusion jd3 13:19 Drug: Zofran (Ondansetron) 4 mg Route: IVP; Site: right forearm; jd3 14:00 Follow up: Response: No adverse reaction jd3 15:09 Drug: Rocephin 1 grams Route: IV; Rate: per protocol; Site: right antecubital; aa5 16:00 Follow up: Response: No adverse reaction; IV Status: Completed infusion jd3 15:12 Drug: Lasix 20 mg Route: IVP; Site: right antecubital; aa5 16:00 Follow up: Response: No adverse reaction jd3 15:20 Drug: Xopenex 1.25 mg Route: Inhalation; aa5 16:00 Follow up: Response: No adverse reaction jd3 15:20 Drug: AtroVENT Aerosol 0.5 mg Route: Inhalation; aa5 16:00 Follow up: Response: No adverse reaction jd3 15:20 Drug: Flagyl 500 mg Volume: 100 ml; Route: IVPB; Rate: 200 ml/hr; Infused Over: 30 aa5 mins; Site: right antecubital; 15:50 Follow up: Response: No adverse reaction; IV Status: Completed infusion jd3 15:25 Drug: Pepcid 20 mg Route: IVP; Site: right antecubital; aa5 16:00 Follow up: Response: No adverse reaction jd3 15:25 Drug: Zofran (Ondansetron) 4 mg Route: IVP; Site: right antecubital; aa5 16:20 Follow up: Response: No adverse reaction jd3 Disposition: 06/29/20 13:38 Hospitalization ordered by Bony Julian for Inpatient Admission. Preliminary diagnosis are Syncope and collapse, Vomiting, Atrial fibrillation and flutter, Unspecified combined systolic (congestive) and diastolic (congestive) heart failure, Cardiomegaly, Hypoxemia, Diverticulitis of large intestine without perforation or abscess without bleeding - sigmoid. - Bed requested for Telemetry/MedSurg (Inpatient). - Status is Inpatient Admission. aa5 - Condition is Fair. - Problem is new. - Symptoms have improved. Signatures: Dispatcher [employer] EDMS Lindsey Hernandez RN RN dw Anderson, Corey, MD MD cha Calderon, Audri RN RN aa5 Alex Rosales RN RN jd3 Peltier, Brian, RN RN bp Corrections: (The following items were deleted from the chart) 13:50 13:23 Femur Right W Compar+RAD.RAD.BRZ ordered. EDMS EDMS 13:57 13:24 CORONAVIRUS+MR.LAB.BRZ ordered. EDMS EDMS 14:07 13:38 Hospitalization Ordered by Bony Julian MD for Inpatient Admission. Preliminary elda diagnosis is Syncope and collapse; Vomiting; Atrial fibrillation and flutter; Unspecified combined systolic (congestive) and diastolic (congestive) heart failure; Cardiomegaly; Hypoxemia. Bed requested for Telemetry/MedSurg (Inpatient). Status is Inpatient Admission. Condition is Fair. Problem is new. Symptoms have improved. elda 15:08 14:07 06/29/2020 13:38 Hospitalization Ordered by Bony Julian MD for Inpatient dw Admission. Preliminary diagnosis is Syncope and collapse; Vomiting; Atrial fibrillation and flutter; Unspecified combined systolic (congestive) and diastolic (congestive) heart failure; Cardiomegaly; Hypoxemia; Diverticulitis of large intestine without perforation or abscess without bleeding - sigmoid. Bed requested for Telemetry/MedSurg (Inpatient). Status is Inpatient Admission. Condition is Fair. Problem is new. Symptoms have improved. elda 18:33 15:08 06/29/2020 13:38 Hospitalization Ordered by Bony Julian MD for Inpatient aa5 Admission. Preliminary diagnosis is Syncope and collapse; Vomiting; Atrial fibrillation and flutter; Unspecified combined systolic (congestive) and diastolic (congestive) heart failure; Cardiomegaly; Hypoxemia; Diverticulitis of large intestine without perforation or abscess without bleeding - sigmoid. Bed requested for Telemetry/MedSurg (Inpatient). Status is Inpatient Admission. Condition is Fair. Problem is new. Symptoms have improved. dw
--- NOTE | 2020-06-29 13:39 | ER ---
Nurse's Notes [facility] Name: Rowan Pompa Age: 89 yrs Sex: Female : 1930 Arrival Date: 06/29/2020 Time: 11:16 Bed 14 Private MD: Diagnosis: Syncope and collapse;Vomiting;Atrial fibrillation and flutter;Unspecified combined systolic (congestive) and diastolic (congestive) heart failure;Cardiomegaly;Hypoxemia;Diverticulitis of large intestine without perforation or abscess without bleeding-sigmoid Presentation: 06/29 11:17 Chief complaint: EMS states: GEN WEAKNESS AND VOMITING SINCE COMMENCING TRAMADOL. bp Coronavirus screen: At this time, the client does not indicate any symptoms associated with coronavirus-19. Ebola Screen: No symptoms or risks identified at this time. Initial Sepsis Screen: Does the patient meet any 2 criteria? No. Patient's initial sepsis screen is negative. Does the patient have a suspected source of infection? No. Patient's initial sepsis screen is negative. Risk Assessment: Do you want to hurt yourself or someone else? Patient reports no desire to harm self or others. Onset of symptoms is unknown. 11:17 Method Of Arrival: EMS: [facility] bp 11:17 Acuity: EUFEMIA 3 bp Historical: - Allergies: 11:24 Codeine; bp 11:24 EUCALYPTUS CONTAINING PRODUCTS; bp - Home Meds: 11:24 Xarelto 15 mg Oral tab daily [Active]; spironolactone 25 mg Oral tab 1 tab once daily bp [Active]; simvastatin 20 mg Oral tab 1 tab once daily [Active]; metoprolol tartrate 100 mg Oral tab 1 tab once daily [Active]; metoprolol succinate 100 mg Oral Tb24 1 tab once daily [Active]; gabapentin 300 mg Oral cap 1 cap twice a day [Active]; levothyroxine 137 mcg tab 1 tab once daily [Active]; furosemide 40 mg Oral tab 1 tab 2 times per day [Active]; colchicine 0.6 mg Oral cap 1 cap once daily [Active]; allopurinol 100 mg Oral tab 1 tab 2 times per day [Active]; acetaminophen 325 mg Oral tab 1 tab every 4-6 hours [Active]; - PMHx: 11:24 Atrial Fib; CHF; COPD; CVA; Gout; Hyperlipidemia; Hypertension; bp - Immunization history:: Adult Immunizations up to date. - Social history:: Smoking status: unknown. - Family history:: not pertinent. Screenin:27 Abuse screen: Denies threats or abuse. Nutritional screening: No deficits noted. jd3 Tuberculosis screening: No symptoms or risk factors identified. Fall Risk Fall in past 12 months (25 points). Ambulatory Aid- None/Bed Rest/Nurse Assist (0 pts). Gait- Normal/Bed Rest/Wheelchair (0 pts) Mental Status- Overestimates/Forgets Limitations (15 pts.). Total Wilson Fall Scale indicates Low Risk Score (25-44 pts). Fall prevention measures have been instituted. Side Rails Up X 2 Placed close to Nursing Station Frequent Obs/Assesments occuring. Assessment: 11:25 General: Appears comfortable, Behavior is calm, cooperative, appropriate for age, jd3 drowsy. Pain: Complains of pain in right hip Quality of pain is described as aching. Neuro: Level of Consciousness is awake, obeys commands, drowsy. Oriented to person, place, situation. Cardiovascular: Heart tones present Capillary refill < 3 seconds Patient's skin is warm and dry. Respiratory: Airway is patent Respiratory effort is even, unlabored, Respiratory pattern is regular, symmetrical, Breath sounds are diminished bilaterally. Denies cough, shortness of breath. GI: Abdomen is round non-distended, Abd is soft and non tender X 4 quads. Reports nausea, vomiting. : No signs and/or symptoms were reported regarding the genitourinary system. EENT: No signs and/or symptoms were reported regarding the EENT system. Derm: Skin is intact, Skin is dry, Skin is normal, Skin temperature is warm. Musculoskeletal: Circulation, motion, and sensation intact. Range of motion: intact in all extremities. 12:31 Reassessment: Patient appears in no apparent distress at this time. No changes from jd3 previously documented assessment. Patient and/or family updated on plan of care and expected duration. Pain level reassessed. pt still drowsy. A\T\O X 3. disoriented to time. straight cath performed to obtain urine sample, even and unlabored respirations. 12:48 Reassessment: spoke with daughter and updated on plan of care. jd3 15:02 Reassessment: Patient appears in no apparent distress at this time. No changes from jd3 previously documented assessment. Patient and/or family updated on plan of care and expected duration. Pain level reassessed. awaiting admission. 15:57 Reassessment: Patient appears in no apparent distress at this time. Patient and/or jd3 family updated on plan of care and expected duration. Pain level reassessed. Patient is alert, oriented x 3, equal unlabored respirations, skin warm/dry/pink. pt reports starting to feel a little better. pt appears less drowsy. Patient states feeling better. 17:03 Reassessment: Patient appears in no apparent distress at this time. No changes from jd3 previously documented assessment. Patient and/or family updated on plan of care and expected duration. Pain level reassessed. Patient is alert, oriented x 3, equal unlabored respirations, skin warm/dry/pink. awaiting admission. 18:00 Reassessment: Patient appears in no apparent distress at this time. Patient and/or jd3 family updated on plan of care and expected duration. Pain level reassessed. Patient is alert, oriented x 3, equal unlabored respirations, skin warm/dry/pink. awaiting admission, no report of pain at this time. Vital Signs: 11:17 BP 144 / 66; Pulse 82; Resp 15; Temp 98; Pulse Ox 100% ; bp 11:24 Weight 54.43 kg (R); Height 5 ft. 5 in. (165.10 cm) (R); Pain 6/10; jd3 12:30 BP 105 / 64; Pulse 73; Resp 17 S; Pulse Ox 97% on 2 lpm NC; jd3 13:21 BP 111 / 59; Pulse 81; Resp 18; Pulse Ox 92% on 2 lpm NC; jd3 15:02 BP 100 / 61; Pulse 75; Resp 17 S; Pulse Ox 99% on 2 lpm NC; jd3 15:22 BP 122 / 61; Pulse 70; Resp 16 S; Pulse Ox 96% on Nebulizer Mask; aa5 15:58 BP 103 / 58; Pulse 84; Resp 17 S; Pulse Ox 98% on 2 lpm NC; jd3 17:03 BP 96 / 57; Pulse 85; Resp 17 S; Pulse Ox 98% on 2 lpm NC; jd3 18:00 BP 97 / 58; Pulse 74; Resp 16 S; Pulse Ox 99% on 2 lpm NC; jd3 11:24 Body Mass Index 19.97 (54.43 kg, 165.10 cm) jd3 ED Course: 11:16 Patient arrived in ED. bp 11:18 Alex Rosales, RN is Primary Nurse. jd3 11:19 Triage completed. bp 11:25 Arm band placed on. jd3 11:26 Austen Silva MD is Attending Physician. elda 11:27 Patient has correct armband on for positive identification. Bed in low position. Call jd3 light in reach. Side rails up X2. Pulse ox on. NIBP on. 11:53 Warm blanket given. mh5 11:53 EKG done, by ED staff, reviewed by Austen Silva MD. mh5 12:06 XRAY Chest (1 view) In Process Unspecified. EDMS 12:11 Inserted saline lock: 20 gauge in right forearm, using aseptic technique. Blood jd3 collected. 12:38 Straight cath inserted, using sterile technique, 16 Fr. Specimen obtained. Patient jd3 tolerated well. 13:37 Garcia Julian MD is Hospitalizing Provider. elda 13:37 Bony Julian MD is Hospitalizing Provider. elda 13:51 CT Chest Abdomen Pelvis W/O Contrast: no iv and no oral In Process Unspecified. EDMS 13:52 CT Head Brain wo Cont In Process Unspecified. EDMS 14:12 Pelvis XRAY In Process Unspecified. EDMS 14:13 Femur Right XRAY In Process Unspecified. EDMS 18:01 No provider procedures requiring assistance completed. Patient admitted, IV remains in jd3 place. Administered Medications: Discontinued: NS 0.9% 1000 ml IV at 125 ml/hr continuous 12:35 Drug: NS 0.9% 1000 ml Route: IV; Rate: 125 ml/hr; Site: right forearm; jd3 18:21 Follow up: Response: No adverse reaction; IV Status: Order to discontinue infusion jd3 13:19 Drug: Zofran (Ondansetron) 4 mg Route: IVP; Site: right forearm; jd3 14:00 Follow up: Response: No adverse reaction jd3 15:09 Drug: Rocephin 1 grams Route: IV; Rate: per protocol; Site: right antecubital; aa5 16:00 Follow up: Response: No adverse reaction; IV Status: Completed infusion jd3 15:12 Drug: Lasix 20 mg Route: IVP; Site: right antecubital; aa5 16:00 Follow up: Response: No adverse reaction jd3 15:20 Drug: Xopenex 1.25 mg Route: Inhalation; aa5 16:00 Follow up: Response: No adverse reaction jd3 15:20 Drug: AtroVENT Aerosol 0.5 mg Route: Inhalation; aa5 16:00 Follow up: Response: No adverse reaction jd3 15:20 Drug: Flagyl 500 mg Volume: 100 ml; Route: IVPB; Rate: 200 ml/hr; Infused Over: 30 aa5 mins; Site: right antecubital; 15:50 Follow up: Response: No adverse reaction; IV Status: Completed infusion jd3 15:25 Drug: Pepcid 20 mg Route: IVP; Site: right antecubital; aa5 16:00 Follow up: Response: No adverse reaction jd3 15:25 Drug: Zofran (Ondansetron) 4 mg Route: IVP; Site: right antecubital; aa5 16:20 Follow up: Response: No adverse reaction jd3 Outcome: 13:38 Decision to Hospitalize by Provider. elda 18:07 Admitted to Med/surg accompanied by tech, via stretcher, room 204, with oxygen, with jd3 chart, Report called to Rosina REINOSO 18:07 Condition: stable 18:07 Instructed on the need for admit, Demonstrated understanding of instructions. 18:33 Patient left the ED. aa5 Signatures: Dispatcher [employer] EDMS Austen Silva MD MD cha Calderon, Audri, RN RN aa5 Hannah Langford Alex Villa RN RN jd3 Peltier, Brian, KEMAR RN bp Corrections: (The following items were deleted from the chart) 11:27 11:27 Fall Risk Ambulatory Aid- None/Bed Rest/Nurse Assist (0 pts). Gait- Normal/Bed jd3 Rest/Wheelchair (0 pts) Mental Status- Oriented to own ability (0 pts). Total Wilson Fall Scale indicates No Risk (0-24 pts). jd3 11:28 11:25 General: Appears uncomfortable, Behavior is calm, cooperative, appropriate for jd3 age, drowsy, jd3 11:28 11:25 Neuro: Level of Consciousness is awake, obeys commands, drowsy. Oriented to jd3 person, place, situation, jd3 18: 12:30 BP 105 / 64; Pulse 73bpm; Resp 17bpm; Spontaneous; Pulse Ox 97% RA; [place] [id number] 18: 13:21 BP 111 / 59; Pulse 81bpm; Resp 18bpm; Pulse Ox 92% RA; [address] [facility] 18: 15:58 BP 103 / 58; Pulse 84bpm; Resp 17bpm; Spontaneous; Pulse Ox 98% RA; [place] [address] 18: 17:03 BP 96 / 57; Pulse 85bpm; Resp 17bpm; Spontaneous; Pulse Ox 98% RA; [place] [address] 18: 18:00 BP 97 / 58; Pulse 74bpm; Resp 16bpm; Spontaneous; Pulse Ox 99% RA; [place] [id number]
[2020-06-29 13:42] LABS: Urine Blood NEGATIVE (NEG); Urine Glucose NEGATIVE (NEG); Urine Protein NEGATIVE (NEG)
--- NOTE | 2020-06-29 14:04 | RAD REPORT ---
EXAM DESCRIPTION: CT - Chest Abd Pelvis Wo Con - 06/29/2020 1:51 pm CLINICAL HISTORY: Cough;Dyspnea;Abdominal distention COMPARISON: Chest Single View dated 06/29/2020 TECHNIQUE: Axial 5 millimeter thick images of the chest, abdomen and pelvis were obtained without IV contrast. Oral contrast was administered. All CT scans are performed using dose optimization technique as appropriate and may include automated exposure control or mA/KV adjustment according to patient size. FINDINGS: No suspicious mass or dense area of consolidation. Interstitial thickening is present prim arily in the lower lung hubbard. Mild endobronchial thickening changes are present. No endobronchial o cclusion or mass. Small infrahilar lymph nodes are identified more so on the left. Trace bilateral pl eural effusions are present. No chest wall mass or abnormal axillary lymphadenopathy seen. Mediastin al and hilar regions show no mass or lymphadenopathy. Cardiomegaly is present. Cardiac valve calcifi cations and coronary artery calcifications are present. No pericardial effusion. The liver has an enlarged left lobe with nodular contour throughout the liver capsule. No focal liver lesion on noncontrast imaging. No splenomegaly or focal splenic finding. No acute pancreatic or connie pancreatic finding. Cholecystectomy clips are present. No biliary tree dilatation. No hydronephrosis or suspicious renal mass. Isodense masses and pyelonephritis cannot be excluded on non contrast imaging. No adrenal abnormalities. Urinary bladder is contracted. Uterus is absent. Ova justina are absent or atrophic. No gastric dilatation or gastric wall thickening. No acute colon finding. No appendicitis findings. F rom cecum through the descending colon no acute finding of the colon. Patient has prominent sigmoid d iverticulosis. In the distal sigmoid colon there is a 4-5 cm segment showing circumferential wall thi ckening. There is trace amount of stranding in the adjacent fat. No extraluminal air or fluid. No abn ormal lymphadenopathy in this region. No free air, free fluid or inflammatory stranding. No hernia, mass or bulky lymphadenopathy. No acute bone finding suspected. There is 50% wedge compression of the T6 body that appears to be old . Prior vertebroplasty changes present in the T12. IMPRESSION: Interstitial thickening seen primarily in the mid and lower lung hubbard suspected to be edema or interstitial pneumonia superimposed on fibrosis. Patient has trace pleural effusion. Suspected mild or early sigmoid diverticulitis. Cardiomegaly is present without pericardial effusion. Cirrhotic appearance to the liver without ascites, focal liver lesion or other associated abnormality . CT abdomen and pelvis imaging shows no significant or suspicious finding.
--- NOTE | 2020-06-29 14:09 | RAD REPORT ---
EXAM DESCRIPTION: CT - Head Brain Wo Cont - 06/29/2020 1:52 pm CLINICAL HISTORY: Dizziness;Syncope COMPARISON: Head Brain Wo Cont dated 11/14/2017; Chest Abd Pelvis Wo Con dated 06/29/2020 TECHNIQUE: Axial 5 mm thick images of the head were obtained without IV contrast. All CT scans are performed using dose optimization technique as appropriate and may include automated exposure control or mA/KV adjustment according to patient size. FINDINGS: No intracranial hemorrhage, mass, edema or shift of mid-line structures. No acute cortical based infarction. No cortical edema or sulcal effacement. Moderate severity baseline atrophy changes are present. Ventricles are in proportion to the volume loss. There is an old moderate-sized infarct ion involving the lateral margin of the left basal ganglia, deep periventricular white matter of the left frontal lobe and the external capsule insular cortex region. Frontal horn left lateral ventricle has enlarged in proportion to this encephalomalacia. No abnormal extra-axial fluid collections. Dens e arterial tree calcifications are present. Mastoid opacification on the right has cleared since November 2017. Bilateral mastoid air cells are sonia lly aerated. Partially visualized paranasal sinuses are clear. No acute bony findings. IMPRESSION: Negative non-contrast CT head examination for acute finding. The atrophy, chronic ischemic change and old left basal ganglia/frontal lobe infarction changes are s table.
--- NOTE | 2020-06-29 14:27 | RAD REPORT ---
EXAM DESCRIPTION: RAD - Pelvis - 06/29/2020 2:12 pm CLINICAL HISTORY: PAIN COMPARISON: Pelvis Wo Cont dated 06/27/2020; Femur Right dated 06/29/2020 TECHNIQUE: AP imaging of the pelvis was obtained. FINDINGS: Lower lumbar degenerative changes are present only partially imaged. No acute fracture of the pelvis identifiable. There degenerative changes at the pubic symphysis without definitive fractur e. Bilateral hip joint degenerative change present without femoral neck fracture seen. No suspicious soft tissue finding. IMPRESSION: Hip joint, SI joint and pubic symphysis degenerative changes are present without identif iable fracture.
--- NOTE | 2020-06-29 14:28 | RAD REPORT ---
EXAM DESCRIPTION: RAD - Femur Right - 06/29/2020 2:17 pm CLINICAL HISTORY: PAIN COMPARISON: No comparisons FINDINGS: No fracture, dislocation or periosteal reaction noted. Hip joint space narrowing present w ithout femoral head AVN seen. Medial and lateral compartment joint space narrowing at the knee. [place] femoral joint space narrowing and marginal spurring changes are present. Trace amount of fluid in the joint space. No pathologic bone process. No air or foreign body in the soft tissues. Arterial tree calcifications are present. IMPRESSION: Hip joint and knee joint degenerative changes are present but no acute femur finding flakita ntified.
--- NOTE | 2020-06-29 15:08 | P.HP ---
Certification for Inpatient Patient admitted to: Inpatient With expected LOS: >2 Midnights Practitioner: I am a practitioner with admitting privileges, knowledge of patient current condition, hospital course, and medical plan of care. Services: Services provided to patient in accordance with Admission requirements found in Title 42 Section 412.3 of the Code of Federal Regulations Patient History Date of Service: 06/29/20 Reason for admission: Syncope, Sigmoid diverticulitis History of Present Illness: 89yo F, PMH: Afib on xarelto, Diastolic CHF, COPD, Gout, HTN who presents to ED after syncopal episode at home. She passed out when walking to her bathroom this morning at 7-8am, witnessed by daughter. She denies hitting her head, denies loss of bowel/bladder function. She reports a recent fall a few days ago as well - walking out of a store. She has had R hip / flank pain since that fall. She reports vomiting episode after waking from syncopal episode this morning. She also reports diarrhea over past ~1-2 days. She also reports h/o orthostasis. She endorses slight prodrome of feeling lightheaded just prior to fall. Daughter reports she slowly lowered the patient down as she felt her legs giving out. Daughter also reports patient took tramadol this morning for ongoing hip pain. elevated Cr: 1.3, BNP 3743, CT head negative. CT abd/pelvis concerning for early/mild sigmoid diverticulitis. Allergies codeine Allergy (Verified 04/27/20 00:54) Nausea/Vomiting EUCALYPTUS CONTAINING Allergy (Uncoded 04/27/20 00:54) Unknown Home Medications: Allopurinol 1 tab PO BID 04/28/20 Furosemide 1 tab PO BID 04/28/20 Gabapentin 1 tab PO BID 04/28/20 Levothyroxine Sodium 137 mcg PO DAILY 04/28/20 Metoprolol Succinate [Toprol Xl] 1 tab PO DAILY 04/28/20 Rivaroxaban [Xarelto*] 1 tab PO DAILY 04/28/20 Simvastatin 20 mg PO DAILY 04/28/20 Spironolactone 1 tab PO DAILY 04/28/20 Tramadol HCl [Ultram] 1 tab PO Q6H PRN 04/28/20 Benzonatate [Tessalon Perle*] 100 mg PO TID PRN cap 04/29/20 Lidocaine 4% Patch [Lidoderm 5% Patch*] 2 patch TOP DAILY patch 05/11/20 Nystatin Powder [Mycostatin (Powder)*] 1 appl TOP BID #1 btl 05/11/20 Triamcinolone 0.1% Crm [Kenalog 0.1% Cream*] 1 appl TOP TID #1 tube 05/11/20 - Past Medical/Surgical History Diabetic: No -: HTN -: Atrial fibrillation on chronic anti coagulation -: History of hemorrhagic CVA -: Diastolic CHF -: Gout -: Hyperlipidemia -: COPD -: hysterectomy -: cholecysectomy -: tonsilectomy -: Rt knee sx Psychosocial/ Personal History: Patient lives at home by herself. Uses walker - Family History Mother -: Heart disease, Hypertension, Diabetes, Cancer - Social History Smoking Status: Never smoker Alcohol use: No CD- Drugs: No Caffeine use: Yes Review of Systems 10-point ROS is otherwise unremarkable Physical Examination - Studies Laboratory Data (last 24 hrs) 06/29/20 12:01: PT 23.8 H, INR 2.05 06/29/20 12:01: WBC 8.0, Hgb 11.6 L, Hct 36.5, Plt Count 177 06/29/20 12:01: Sodium 142, Potassium 3.5, BUN 23 H, Creatinine 1.33 H, Glucose 148 H, Magnesium 2.2, Total Bilirubin 1.0, AST 25, ALT 22, Alkaline Phosphatase 116, Lipase 61 L Assessment and Plan - Advance Directives Does patient have a Living Will: No Does patient have a Durable POA for Healthcare: No Physician Review Additional Text: Physical Exam: Gen: NAD, Alert and oriented x3 HEENT: normal conjunctiva, PERRL CV: irregularly irregular, no murmur Pulm: CTAB, no wheeze/rhonchi Abd: soft, LLQ moderate TTP Ext: trace b/l edema to ankles Skin: no rash Neuro: CNII-XII grossly intact, no focal defecit Problem List: Acute Sigmoid Diverticulitis Syncopal Episode Afib Diastolic CHF HTN Gout HLD h/o hemorrhagic CVA syncopal episode at home while when walking to bathroom possible orthostasis in setting of dehydration pt with slight decreased PO intake over past few days CT Abd/pelvis with likely early/mild sigmoid diverticulitis, pt has had 1-2 days of diarrhea start Rocephin & flagyl, gentle IVF - monitor closely given h/o CHF and small bilateral pleural effusions check orthostatics now monitor on telemetry check Carotid U/S CT head negative PT/OT consulted VTE: xarelto (home dose) Code: full Dispo: anticipate dc home in ~48hrs, PT/OT consult Time Spent Managing Pts Care (In Minutes): 60
[2020-06-29] MEDS ORDERED: FUROSEMIDE 20 MG/ 2ML VIAL ONE (15:22)
[2020-06-29] MEDS ORDERED: IPRATROPIUM BROM 0.5MG/2.5ML ONE (15:22)
[2020-06-29] MEDS ORDERED: METRONIDAZOLE 500mg IVPB 500 MG/100 ML BAG IV ONE (15:23)
[2020-06-29] MEDS ORDERED: CEFTRIAXONE/SWI 1gm 1 GM/10 ML SYR ONE (15:23)
[2020-06-29] MEDS ORDERED: LEVALBUTEROL 1.25 MG/3 ML NEB ONE (15:23)
[2020-06-29] MEDS ORDERED: FAMOTIDINE 20 MG/2 ML VIAL IV ONE (15:45)
[2020-06-29] MEDS: NA CHLORIDE 0.9% 1,000 ML IV SCH (22:17)
[2020-06-30] MEDS: METRONIDAZOLE 500mg IVPB 500 MG/100 ML BAG IV SCH ×3 (00:15→16:51)
[2020-06-30 06:36] LABS: Absolute Lymphocytes (CBC) 1.3 K/uL (0.7-4.9); Albumin 2.7 g/dL (3.4-5.0); Basophils % 0.8 % (0-1.3); Bilirubin Total 0.6 mg/dL (0.2-1.0); Hematocrit 30.2 % (36.0-45.0); Lymphocytes % 21.7 % (15.3-44.8); MPV 10.2 fL (7.6-11.3); Magnesium 2.2 mg/dL (1.8-2.4); Potassium 3.4 mmol/L (3.5-5.1); Protein, Total 6.3 g/dL (6.4-8.2); RBC Red Blood Cell Count 3.54 M/uL (3.86-4.86)
--- NOTE | 2020-06-30 07:57 | RAD REPORT ---
EXAM DESCRIPTION: [place] Single View06/30/2020 7:00 am CLINICAL HISTORY: Shortness of breath COMPARISON: June 29 FINDINGS: No significant change in the bilateral pulmonary opacities and cardiomegaly IMPRESSION: No significant change in bilateral pulmonary opacities which may represent pneumonia or pulmonary edema
[2020-06-30] MEDS ORDERED: POTASSIUM CL SA 10 MEQ TAB PO ONE (09:00)
[2020-06-30] MEDS: CEFTRIAXONE/SWI 2gm 2 GM/20 ML SYR IVP SCH (09:22)
[2020-06-30] MEDS: NA CHLORIDE 0.9% 1,000 ML IV SCH (09:24)
--- NOTE | 2020-06-30 10:46 | RAD REPORT ---
EXAM DESCRIPTION: USCarotid Artery Bilateral06/30/2020 8:04 am CLINICAL HISTORY: syncope COMPARISON: None FINDINGS: The velocity of the right internal carotid artery equals 144 cm/sec. The right ICA/CCA rat io 1.2 The velocity of the left internal carotid artery equals 133 cm/sec. The left ICA/CCA ratio 1. Moderate plaque within the internal carotid arteries The vertebral arteries demonstrate antegrade flow. Thyroid nodules IMPRESSION: Moderate calcified plaque within the internal carotid arteries appears to result in an a pproximately 50- 55% stenosis bilaterally Thyroid nodules. Ultrasound recommended NASCET criteria used. Mild 0-49% stenosis Moderate 50-69% stenosis Severe 70-99% stenosis
--- NOTE | 2020-06-30 11:42 | CON ---
Date of Consultation: 06/30/2020 Reason For Service: Abdominal pain. History Of Present Illness: This is a case of an 89-year-old patient on anticoagulation due to histo ry of AFib, congestive heart failure, COPD, and multiple medical problems, who was admitted to the [facility] after 1 episode of syncope. She stated that she felt syncope when she was going to her bathro om, but her daughter was there and she claimed that she passed out, but her daughter did not let her hit the floor. She held her back and then put her down on the floor carefully. Once again, it is di fficult to get all the information from her and the daughter is not present at bedside right now. Tina riggins was admitted to the hospital complaining of abdominal pain and hip pain. She does not recall her l ast colonoscopy. She does not recall any dysuria, hematuria, hematochezia, or melena or any previous episode of syncope. Allergies: CODEINE, EUCALYPTUS. Medications: Reviewed including allopurinol, tramadol, nystatin powder, Kenalog, levothyroxine, magalis pentin, metoprolol, Xarelto. Past Medical History: As above. Past Surgical History: Includes cholecystectomy, tonsillectomy, hysterectomy, right knee surgery. S he does not recall if she had appendix or not. Family History: Includes hypertension and diabetes. Social History: She does not smoke. She does not drink alcohol. Review of Systems: Ten points otherwise unremarkable, although it has limitations due to the history. We are going to h ave to clarify the review of systems with the patient's daughter when she comes to the hospital. Physical Examination: General: Patient is awake, alert, cooperative, oriented x3. HEENT: Pupils are equal and reactive, anicteric. Neck: Supple. Chest: Clear. Abdomen: Soft. Softly distended. Generalized mild tenderness. No guarding or rebound. Tender on the left side, right side, and suprapubic. Patient has an open gallbladder incision on the right upp er quadrant. She claimed that it was a long time ago and it was a very difficult gallbladder surgery as per patient. Rectal: Deferred. Breasts: Deferred. Pelvic: Deferred. Extremities: Good capillary refill. Laboratory Data: Blood work shows WBC count of 5.9, hemoglobin of 9.7, platelets of 144. Potassium 3.4, total bilirubin of 0.6. INR is 2. Imaging: CAT scan of the abdomen and pelvis interpreted by Dr. Cordova as no gastric dilatation or g astric wall thickening. No appendicitis findings. From the cecum through the descending colon, no a cute findings of the colon. The patient has a prominent diverticulum in the sigmoid, which shows cir cumferential thickening of 4 to 5 cm in the sigmoid region. Assessment: This is an 89-year-old patient, status post syncope. I do not have her family here at t his moment, she claimed that the daughter caught her and she did not hit the floor. Then, she also h as abdominal pain. She has history of Xarelto. The CAT scan shows colitis in part of the sigmoid. Although she has diverticulum, I explained to her that also contusion may cause pain and inflammation of the bowel, although we have no evidence of her hitting anything, but once again because we do not have the whole history. In the meantime, we will treat her as sigmoid diverticulitis, keep the diet on clears until we gather more information about this case. We are trying to get it from the family as to when was her last colonoscopy. We will follow the patient with you and give more recommendati ons as the case develops. She stated that the pain is mainly on movement. She might also have hit t he abdominal wall, although I do not see any bruises at this moment. We are going to be looking also for contusion of the abdominal wall. KIMBERLY/NELLY Voice ID: [id number] Report ID: [id number]
--- NOTE | 2020-06-30 12:13 | EKG ---
Test Date: 2020-06-29 Test Time: 11:47:50 Grain Trader: BURAK MEASUREMENT RESULTS: Intervals: Rate: 88 VA: QRSD: 90 QT: 402 QTc: 486 [place]: P: VA: QRS: 34 T: 243 INTERPRETIVE STATEMENTS: Atrial fibrillation with premature ventricular or aberrantly conducted complexes Septal infarct, age undetermined ST & T wave abnormality, consider inferior ischemia or digitalis effect ST & T wave abnormality, consider anterolateral ischemia or digitalis effect Abnormal ECG Compared to ECG 04/26/2020 17:22:09 Myocardial infarct finding now present ST (T wave) deviation still present Possible ischemia still present Electronically Signed On 06-30-20 12:10:41 MANUFACTURING WEAVER by Armando Villeda
--- NOTE | 2020-06-30 14:56 | RAD REPORT ---
EXAM DESCRIPTION: MRI - Brain Wo Cont - 06/30/2020 2:22 pm CLINICAL HISTORY: syncope, h/o CVA Headache, drowsiness COMPARISON: Head Brain Wo Cont dated 06/29/2020 TECHNIQUE: Multi-sequence, multiplanar MR imaging of the brain was performed without contrast. FINDINGS: No intracranial hemorrhage, hydrocephalus or extra-axial fluid collections.Mild brain atro phy with moderate periventricular deep white matter chronic microvascular ischemic changes. No edema or shift of midline structures. No findings to suspect brain mass. DWI is negative for acute CVA. Midline structures are normally formed. Right mastoid effusion. The paranasal sinuses are clear. IMPRESSION: Negative for acute CVA or other acute intracranial abnormality. Right mastoid effusion.
[2020-06-30] MEDS ORDERED: RIVAROXABAN 15 MG TABLET PO SCH (17:00)
[2020-06-30 18:04] LABS: Urine Appearance CLEAR; Urine Bilirubin NEGATIVE (NEG); Urine Blood NEGATIVE (NEG); Urine Color YELLOW; Urine Glucose NEGATIVE (NEG); Urine Protein NEGATIVE (NEG); Urine Urobilinogen 0.2 mg/dL (0.2-1.0)
[2020-06-30 18:06] LABS: Urine Microscopic Reflex NO UMIC
--- NOTE | 2020-06-30 19:47 | P.PN ---
Subjective Date of Service: 06/30/20 Chief Complaint: Syncope, Sigmoid diverticulitis Subjective: Other (reports overall feeling better this morning, however continues with moderate pain at right hip/flank. States she can't walk due to pain. continues with abdominal pain as well denies SOB, Chest pain.) Review of Systems 10-point ROS is otherwise unremarkable Physical Examination - Vital Signs Temperature: 98.9 F Blood Pressure: 112/78 Pulse: 83 Respirations: 16 Pulse Ox (%): 99 Assessment & Plan Physician Review Additional Text: Physical Exam: Gen: NAD, Alert and oriented x3 HEENT: normal conjunctiva CV: irregularly irregular, no murmur Pulm: CTAB, no wheeze/rhonchi Abd: soft, mild diffuse TTP, moderate in LLQ, and moderate-severe in RLQ / R flank Msk: significant pain at RLQ / R hip with passive and active ROM of R leg Ext: trace b/l edema to ankles Neuro: CNII-XII grossly intact, no focal deficit Problem List: Acute Sigmoid Diverticulitis Syncopal Episode R Hip pain Afib Diastolic CHF HTN Gout HLD h/o hemorrhagic CVA syncopal episode at home while when walking to bathroom; prior fall as well, likely syncopal episode few days prior to admission as well possible orthostasis in setting of dehydration, pt with slight decreased PO intake over past few days CT Abd/pelvis with likely early/mild sigmoid diverticulitis, pt has had 1-2 days of diarrhea continue rocephin & flagyl, received gentle IVF overnight after admission and dc'd orthostatics done after fluid were negative monitor on telemetry Carotid U/S with moderate stenosis: ~50% CT head negative PT/OT consulted briefly discussed with neuro, MRI and EEG ordered Echo ordered as well R hip/flank pain - with significant TTP of RLQ abdomen as well, pt unsure if had appendectomy in past, given severity of pain, will consult general surgery possible contusion, x-rays of hip negative, CT pelvis negative for fracture VTE: xarelto (home dose) Code: full Dispo: anticipate dc home in ~48hrs, PT/OT consult Time Spent Managing Pts Care (In Minutes): 35
[2020-06-30 20:06] LABS: Urine Appearance CLEAR; Urine Bilirubin NEGATIVE (NEG); Urine Blood NEGATIVE (NEG); Urine Color DK YELLOW; Urine Glucose NEGATIVE (NEG); Urine Protein TRACE (NEG); Urine Specific Gravity 1.015 (1.005-1.030); Urine Urobilinogen 0.2 mg/dL (0.2-1.0); Urine pH 5.5 (5.0-7.0)
[2020-06-30 20:10] LABS: Urine Microscopic Reflex ORDER UMIC
[2020-06-30 20:24] LABS: Urine Bacteria <20 /HPF (<20); Urine RBC <5 /HPF (NONE SEEN)
[2020-06-30] MEDS: ENSURE CLEAR 200 ML CAN PO SCH (20:54)
[2020-06-30] MEDS: ACETAMINOPHEN 500 MG TAB PO PRN (20:59)
[2020-06-30] MEDS ORDERED: FENTANYL CITR 100 MCG/2 ML IV ONE (23:00)
[2020-07-01] MEDS: METRONIDAZOLE 500mg IVPB 500 MG/100 ML BAG IV SCH ×3 (01:04→17:12)
[2020-07-01] MEDS ORDERED: HYDROCODONE/APAP 5/325 MG TAB PO ONE (03:22)
[2020-07-01 05:53] LABS: Absolute Lymphocytes (CBC) 1.1 K/uL (0.7-4.9); Basophils % 0.8 % (0-1.3); Hematocrit 31.1 % (36.0-45.0); Lymphocytes % 20.4 % (15.3-44.8); MPV 10.4 fL (7.6-11.3); RBC Red Blood Cell Count 3.65 M/uL (3.86-4.86)
[2020-07-01 06:05] LABS: ALT/SGPT 14 U/L (12-78); AST/SGOT 20 U/L (15-37); Albumin 2.7 g/dL (3.4-5.0); Alkaline Phosphatase 96 U/L (45-117); BUN Blood Urea Nitrogen 17 mg/dL (7-18); Bicarbonate 29 mmol/L (21-32); Bilirubin Total 0.5 mg/dL (0.2-1.0); Glucose Level 111 mg/dL (74-106); Magnesium 2.1 mg/dL (1.8-2.4); NT PRO-BNP 2488 pg/mL (<450); Protein, Total 6.4 g/dL (6.4-8.2); Sodium Level 143 mmol/L (136-145); Troponin I < 0.02 ng/mL (0.0-0.045)
--- NOTE | 2020-07-01 07:28 | RAD REPORT ---
EXAM DESCRIPTION: RAD - Chest Single View - 07/01/2020 6:55 am CLINICAL HISTORY: chest tightness COMPARISON: Portable June 30 TECHNIQUE: AP portable chest image was obtained 07/01/2020 6:55 am . FINDINGS: Lung volumes improved. Interstitial and alveolar opacities are present in both lung hubbard . Lung opacities are not substantially different but favor a very slight improvement. Any interval ch anges minimal. Cardiomediastinal silhouette shows a decrease in cardiac size possibly due to the improved inspirato ry effort. Pulmonary vasculature is prominent but not significantly different. No measurable pleural effusion and no pneumothorax. IMPRESSION: Bilateral lung parenchymal opacification stable or fractionally improved from comparison .
[2020-07-01] MEDS: ACETAMINOPHEN 500 MG TAB PO PRN (08:49)
[2020-07-01] MEDS: METOPROLOL XL 100 MG TAB PO SCH (08:51)
[2020-07-01] MEDS: ENSURE CLEAR 200 ML CAN PO SCH ×2 (08:57→21:15)
[2020-07-01] MEDS ORDERED: METOPROLOL XL 100 MG TAB PO SCH (09:00)
[2020-07-01] MEDS: CEFTRIAXONE/SWI 2gm 2 GM/20 ML SYR IVP SCH (11:02)
[2020-07-01] MEDS: TRAMADOL HCL 50 MG TAB PO PRN (11:52)
[2020-07-01] MEDS ORDERED: LORazepam 2 MG/ML VIAL IV ONE (14:00)
--- NOTE | 2020-07-01 14:09 | ECHO ---
HEIGHT: 5 ft 5 in WEIGHT: 120 lb 0 oz DATE OF STUDY: 07/01/[address]: Bony Julian MD 2-DIMENSIONAL: YES M.MODE: YES DOPPLER: YES COLOR FLOW: YES TDS: NO PORTABLE: NO DEFINITY: NO BUBBLE STUDY: NO DIAGNOSIS: SYNCOPE, EVALUATE VALVES CARDIAC HISTORY: CATHERIZATION: NO SURGERY: NO PROSTHETIC VALVE: NO PACEMAKER: NO MEASUREMENTS (cm) DIASTOLIC (NORMALS) SYSTOLIC (NORMALS) IVSd 0.8 (0.6-1.2) LA Diam 3.7 (1.9-4.0) LVEF 55-60% LVIDd 3.9 (3.5-5.7) LVIDs 3.0 (2.0-3.5) %FS 22% LVPWd 1.2 (0.6-1.2) Ao Diam 2.8 (2.0-3.7) 2 DIMENSIONAL ASSESSMENT: RIGHT ATRIUM: ENLARGED LEFT ATRIUM: ENLARGED RIGHT VENTRICLE: NORMAL LEFT VENTRICLE: NORMAL TRICUSPID VALVE: MILD TRICUSPID REGURGITATION MITRAL VALVE: MITRAL ANNULAR CALCIFICATION, MILD MITRAL REGURGITATION PULMONIC VALVE: NORMAL AORTIC VALVE: NORMAL PERICARDIAL EFFUSION: NONE AORTIC ROOT: NORMAL LEFT VENTRICULAR WALL MOTION: NORMAL. DOPPLER/COLOR FLOW: SEE BELOW. COMMENTS: NORMAL LEFT VENTRICULAR EJECTION FRACTION 55-60% WITH NORMAL WALL MOTION. DIATOLIC DYSFUNCTION. SEVERE PULMONARY HYPERTENSION WITH RIGHT VENTRICULAR SYSTOLIC PRESSURE GREATER THAN 60mmHg. MILD MITRAL REGURGITATION, MITRAL ANNULAR CALCIFICATION. MILD TO MODERATE TRICUSPID REGURGITATION. TECHNOLOGIST: JOSIAS DUMAS
--- NOTE | 2020-07-01 14:31 | PN ---
Date of Progress Note: 07/01/2020 Diagnosis: Colitis. Subjective: The patient feels better. No nausea, no vomiting. No fever. No shortness of breath. No chest pain. Review of Systems: Ten points otherwise unremarkable. She still has some tenderness on the right near the hip area on m ovement only. She has a bowel movement and she is passing flatus. Physical Examination: Chest: Clear. Abdomen: Soft and depressible. No guarding. No rebound. Bowel sounds positive. Extremities: Good capillary refill. Laboratory Data: Blood work reviewed with decreased WBC count. Plan: We are going to advance diet. Discussed the case with her primary doctor. We are going to ge t Orthopedics involved to see if there is anything on that hip that is not only causing the pain, but also contributing to her falls. KIMBERLY/NELLY Voice ID: [id number] Report ID: [id number]
--- NOTE | 2020-07-01 15:33 | P.PN ---
Subjective Date of Service: 07/01/20 Chief Complaint: Syncope, Sigmoid diverticulitis Subjective: Other (reports some congestion, continues with severe R hip / RLQ pain - unable to walk) Review of Systems 10-point ROS is otherwise unremarkable Physical Examination - Vital Signs Temperature: 97.6 F Blood Pressure: 150/67 Pulse: 84 Respirations: 16 Pulse Ox (%): 95 Assessment & Plan Physician Review Additional Text: Physical Exam: Gen: Alert and oriented x3, with intermittent pain HEENT: normal conjunctiva CV: irregularly irregular, no murmur Pulm: CTAB, no wheeze/rhonchi, slight diminished at bases bilaterally Abd: soft, mild diffuse TTP, moderate in LLQ, and severe in RLQ / R flank Msk: significant pain at RLQ / R hip with passive and active ROM of R leg, unable to tolerate beyond 10 degrees hip flexion. R hip pain with passive dorsiflexion of R foot, no pain with active ROM of R foot Ext: trace b/l edema to ankles Neuro: CNII-XII grossly intact, no focal deficit Problem List: Acute Sigmoid Diverticulitis Syncopal Episode R Hip pain Afib Diastolic CHF HTN Gout HLD h/o hemorrhagic CVA syncopal episode at home while when walking to bathroom; prior fall as well, likely syncopal episode few days prior to admission as well possible orthostasis in setting of dehydration and sigmoid diverticulitis, pt with slight decreased PO intake over past few days CT Abd/pelvis with likely early/mild sigmoid diverticulitis, pt has had 1-2 days of diarrhea continue rocephin & flagyl, received gentle IVF overnight after admission and dc'd, orthostatics done after fluid were negative monitor on telemetry; no significant events Carotid U/S with moderate stenosis: ~50% CT head negative, MRI negative; EEG unable to be done due to lack of personnel PT/OT consulted TTE: diastolich CHF, severe pulmonary HTN restart home lasix R hip/flank pain - with significant TTP of RLQ abdomen as well, unclear if occult fracture vs seems more muscular issue, general surgery consulted for RLQ pain Ortho consult today will obtain MRI hip possible contusion, x-rays of hip negative, CT pelvis negative for fracture VTE: xarelto (home dose) Code: full Dispo: anticipate dc home in ~48hrs, PT/OT consult Time Spent Managing Pts Care (In Minutes): 45
--- NOTE | 2020-07-01 16:24 | RAD REPORT ---
EXAM DESCRIPTION: MRI - Hip Right Wo Cont - 07/01/2020 4:08 pm CLINICAL HISTORY: R lateral Hip pain after fall Fall, right hip pain COMPARISON: Femur Right dated 06/29/2020 FINDINGS: Abnormal diminished T1 linear signal is seen in the proximal right femur. This extends fro m the superior trochanter to the lesser trochanter with a significant component extending in a vertic al fashion. Mild surrounding marrow edema is seen. The findings are compatible with an intratrochante federico nondisplaced fracture. Surrounding muscles of the right hip appear edematous. IMPRESSION: Nondisplaced intratrochanteric fracture the proximal right femur.
[2020-07-01] MEDS: FUROSEMIDE 40 MG TABLET PO SCH (17:12)
[2020-07-01] MEDS: ONDANSETRON 4 MG/2 ML VIAL IV PRN (17:12)
[2020-07-01 17:37] LABS: Protime INR 1.79
[2020-07-01] MEDS: GABAPENTIN 100 MG CAP PO SCH (21:14)
[2020-07-02] MEDS: METRONIDAZOLE 500mg IVPB 500 MG/100 ML BAG IV SCH ×3 (00:36→18:01)
[2020-07-02 06:02] LABS: Absolute Lymphocytes (CBC) 1.4 K/uL (0.7-4.9); Basophils % 0.7 % (0-1.3); Hematocrit 34.6 % (36.0-45.0); Lymphocytes % 23.3 % (15.3-44.8); RBC Red Blood Cell Count 4.09 M/uL (3.86-4.86)
[2020-07-02 06:06] LABS: Protime INR 1.48
[2020-07-02 06:15] LABS: Magnesium 2.1 mg/dL (1.8-2.4); Potassium 3.7 mmol/L (3.5-5.1)
[2020-07-02] MEDS ORDERED: KCL 20 MEQ/100 mL IVPB 20 MEQ/100 ML BAG IV SCH (09:00)
[2020-07-02] MEDS: METOPROLOL XL 100 MG TAB PO SCH (09:00)
[2020-07-02] MEDS ORDERED: POTASSIUM CL SA 10 MEQ TAB PO ONE (09:00)
[2020-07-02] MEDS ORDERED: TRANEXAMIC ACID 1,000 MG in NA CHLORIDE 0.9% 50 ML IV SCH (09:00)
[2020-07-02] MEDS: GABAPENTIN 100 MG CAP PO SCH ×2 (09:00→20:58)
[2020-07-02] MEDS: CEFTRIAXONE/SWI 2gm 2 GM/20 ML SYR IVP SCH (09:00)
[2020-07-02] MEDS: FUROSEMIDE 40 MG TABLET PO SCH ×2 (09:00→18:01)
[2020-07-02] MEDS: ENSURE CLEAR 200 ML CAN PO SCH ×2 (09:00→20:58)
[2020-07-02] MEDS: Ringers Lactate 1,000 ML IV ONE ×2 (09:30→10:57)
--- NOTE | 2020-07-02 09:41 | RAD REPORT ---
EXAM DESCRIPTION: RAD - Abdomen W Erect - 07/02/2020 8:03 am CLINICAL HISTORY: colitis Pain COMPARISON: No comparisons FINDINGS: The bowel gas pattern is non-obstructive. No evidence of free air or pneumatosis. No suspi cious calcifications. Cholecystectomy clips Vertebroplasty cement is noted lower thoracic level. IMPRESSION: No acute abnormality discerned.
[2020-07-02] MEDS ORDERED: FENTANYL CITR 100 MCG/2 ML ONE (10:10)
[2020-07-02] MEDS ORDERED: LIDOCAINE 2% MPF 5 ML VIAL ONE (10:10)
[2020-07-02] MEDS ORDERED: propofoL 200 MG/20 ML VIAL IV ONE (10:10)
[2020-07-02] MEDS ORDERED: Phenylephrine HCl 10 MG/ML 1 ML VIAL ONE (10:13)
--- NOTE | 2020-07-02 11:14 | CON ---
Date of Consultation: 07/01/2020 Reason For Consultation: Right hip pain. History Of Present Illness: Ms. Pompa is an 89-year-old female with history of atrial fibrillation, diastolic heart failure, COPD, gout, hypertension, who presented to the ER after a syncopal episode at home. The patient has had recent fall a couple of couple of days prior to this episode and she jenkins d a recent fall 2 days ago. She had no hitting of her head, but did have some right hip pain since t hat fall. She has had some nausea and vomiting associated with the fall as well as feeling lighthead ed. She underwent x-rays and CAT scan in the emergency room, which was negative for any fracture dis location. Given her continued right hip pain, MRI was ordered, which demonstrated a nondisplaced fra cture of the right intertrochanteric femur. The patient reports continued pain in her right hip and inability to bear weight. Allergies: CODEINE AND EUCALYPTUS. Review of Systems: As above, otherwise negative. Past Medical History: Includes hypertension, atrial fibrillation, CHF, gout, hyperlipidemia, COPD. Past Surgical History: Hysterectomy, cholecystectomy, tonsillectomy, and right knee surgery. Medications: Allopurinol, Lasix, gabapentin, levothyroxine, metoprolol, Xarelto, simvastatin, spiron olactone, tramadol, Tessalon Perles, nystatin powder. Social History: Denies active tobacco, alcohol, or drug use. Physical Examination: General: No apparent distress. HEENT: Normocephalic, atraumatic. Neck: Supple. Cardiovascular: Brisk cap refill to all digits. Chest: Nonlabored breathing. Abdomen: Nondistended. Psychiatric: Responsive to exam. Musculoskeletal: Right lower extremity pain with range of motion of the right hip. No ecchymosis or swelling of the right hip noted. Positive firing of EHL, FHL, gastroc soleus complex, tibialis ante rior. Sensation grossly intact to the dorsal and plantar surface of her foot. Range of motion of th e left lower extremity; functional range of motion without pain. No gross deformities. No obvious d islocations. Bilateral upper extremities; functional range of motion without pain. No gross deformi ties. No obvious dislocations. Diagnostic Studies: MRI of the right hip demonstrates a nondisplaced right intertrochanteric femur f racture. Assessment And Plan: Ms. Pompa is an 89-year-old female with a right intertrochanteric femur fractu re. I discussed with the patient and her daughter at length her diagnosis as well as risks and benef its associated with operative and nonoperative treatment. Given the fracture pattern, it is likely t o displace further with prolonged ambulation or possible repeat fall and I recommend stabilization wi th an intramedullary nail. The patient will have to be evaluated by Cardiology preoperatively to be medically optimized for surgery. Given her multiple medical comorbidities she is a high risk surgica l patient. I discussed with the patient and her daughter and they expressed understanding. We will proceed with surgery. CV/MODL Voice ID: [id number] Report ID: [id number]
--- NOTE | 2020-07-02 11:51 | RAD REPORT ---
EXAM DESCRIPTION: RAD - Hip In Or - 07/02/2020 11:46 am CLINICAL HISTORY: RIGHT HIP PINNING COMPARISON: Pelvis dated 06/29/2020 FINDINGS: Fluoroscopy time 0.9 minutes.
[2020-07-02] MEDS ORDERED: BUPIVACAINE 0.25% PF 10 ML VIAL ONE (11:53)
--- NOTE | 2020-07-02 11:59 | P.BOP ---
Preoperative diagnosis: right intertrochanteric femur fracture Postoperative diagnosis: same Primary procedure: cephalomedullary fixation of right intertrochanteric femur fracture Senior Staff Accountant: NONE,NONE Estimated blood loss: 150 cc Specimen: none Findings: see dictation Anesthesia: General Complications: None Drain(s): Urinary catheter Implants: 9x180 mm, 130 degree Biomet Affixus nail; 95 mm lag screw Fluids & blood products: per anesthesia record Transferred to: Recovery Room Condition: Good
[2020-07-02] MEDS: MEPERIDINE HCL 25 MG/ML SYR ONE ×2 (12:05→13:00)
[2020-07-02] MEDS ORDERED: ONDANSETRON 4 MG/2 ML VIAL ONE (12:16)
[2020-07-02] MEDS: MORPHINE 4 MG/ML SYR ONE ×3 (12:17→12:36)
[2020-07-02] MEDS ORDERED: DOCUSATE NA 100 MG CAP PO PRN (12:21)
--- NOTE | 2020-07-02 13:28 | RAD REPORT ---
EXAM DESCRIPTION: RAD - Pelvis - 07/02/2020 1:23 pm CLINICAL HISTORY: postop COMPARISON: Hip In Or dated 07/02/2020; Hip Right 2 View dated 07/02/2020 TECHNIQUE: AP imaging of the pelvis was obtained. FINDINGS: Portable postop examination clips the top of each iliac crest. Imaged portions of the bony pelvis show no acute fracture change. No pathologic or acute bony pelvic finding. Hardware is been p laced into the proximal right femur in good position. No unexpected finding. No suspicious soft tissu e finding. IMPRESSION: Postoperative pelvis examination showing no significant or suspicious finding.
--- NOTE | 2020-07-02 13:30 | RAD REPORT ---
EXAM DESCRIPTION: RAD - Hip Right 2 View - 07/02/2020 1:23 pm CLINICAL HISTORY: postop, hip fracture COMPARISON: Pelvis dated 07/02/2020; Hip Right Wo Cont dated 07/01/2020 FINDINGS: Portable AP and cross-table lateral images were obtained. Fracture fixation hardware has been placed in the proximal femur. Hardware is well positioned with no unexpected findings. [place] bone shows no suspicious or unexpected finding. Skin constantine are seen la terally. No worrisome soft tissue finding. IMPRESSION: Postoperative right hip examination showing no significant or suspicious finding.
[2020-07-02] MEDS: TRAMADOL HCL 50 MG TAB PO PRN (14:23)
[2020-07-02 14:43] LABS: Hematocrit 31.7 % (36.0-45.0)
[2020-07-02] MEDS: RIVAROXABAN 15 MG TABLET PO SCH (18:00)
--- NOTE | 2020-07-02 18:49 | CON ---
Reason For Consultation: Consultation called because of syncope. History Of Present Illness: Ms. Pompa is an 89-year-old patient with multiple medical problems including atrial fibrillation, on Xarelto for anticoagulation; diastolic congestive heart failure; gout; hypertension; dyslipidemia; who comes in after a syncopal episode at home. While walking to her bathroom in the morning of 06/29/2020, she suddenly fell and went down to the ground. She did not have any prodrome or sensation or feeling of what is about to happen. She slumped down, did not hit her head or injure herself. She had no tonic or clonic activity. No loss of bowel or bladder function. Leading up the episode a few days previously, she did have a fall and she was walking out of a store and injured her right hip and flank, that fall resulted in a nondisplaced intertrochanteric fracture in the right femur. She did have significant nausea and vomiting following that and did develop dehydration prior to her syncopal episode and the hospital admission. She at [facility] had no additional syncopal episodes and did receive IV fluids. Blood pressures in the normal range with diastolic in the 110s to 150s over systolics in the 50s to 80s. The patient denies history of seizures, head trauma with loss of consciousness, stroke, or family history of seizures. Past Medical History: Includes gout, COPD. Past Surgical History: Hysterectomy, cholecystectomy, tonsillectomy, right knee surgery. Family History: Positive for heart disease, hypertension, diabetes, cancer in mother. Social History: No alcohol, tobacco, or IV drug use. The patient does use caffeinated beverages. Medications: At home, allopurinol, furosemide, gabapentin, levothyroxine, metoprolol, Xarelto, simvastatin, spironolactone, tramadol, Tessalon Perles, lidocaine pain patch, nystatin powder, and triamcinolone cream. Review of Systems: No recent fevers or chills. Nausea and vomiting as reported. Mild myalgias and arthralgias. No rash. No weight change. No other issues in terms of generalized symptoms, GI tract other than mentioned, and she does have some pain in the hip and is being seen by the Orthopedic service. A hip x-ray done postoperatively after she received surgery showed postoperative right hip with no suspicious findings. She did have surgery by Dr. Strickland earlier and the surgery was a cephalomedullary fixation of the right intertrochanteric femur fracture. Physical Examination: Vital Signs: Blood pressure 124/66, pulse of 84, respiratory rate 16, temperature 97.1. General: Ms. Pompa is resting comfortably in bed. She is in no significant distress. HEENT: She is normocephalic, atraumatic. Sclerae anicteric. Oropharynx is moist and pink. Neck: Supple. Chest: Clear. Heart: Regular. Extremities: No significant edema, cyanosis, or clubbing except in the right lower extremity and she has a postoperative changes there. She will be ambulated with physical therapy and will be considered for inpatient rehabilitation. Laboratory Studies: Her hemoglobin is 10.0 postop and white blood cell count 6.2. Chemistries unremarkable except glucose slightly elevated at 107. Liver function studies are normal. Assessment: Ms. Pompa is an 89-year-old patient with a syncopal episode of unclear etiology. She does have a history of atrial fibrillation and potentially had a cardiac event. No evidence of a stroke on brain MRI. There is moderate brain atrophy, which is chronic. She may benefit from an EEG. Plan: She may do well with inpatient rehabilitation in the hospital floor. She should be monitored for cardiac rhythm changes and may benefit from cardiac consultation. Otherwise, DVT prophylaxis as per primary team, which includes the Xarelto, which will also be used for her atrial fibrillation. Pain may be managed appropriately including tramadol and gabapentin. DICTATION ENDS HERE. ALMA/NELLY Voice ID: [id number] Report ID: [id number]
--- NOTE | 2020-07-02 22:22 | P.PN ---
Subjective Date of Service: 07/02/20 Chief Complaint: Syncope, Sigmoid diverticulitis Subjective: Other (s/p surgical repair of femur fracture. Patient with some mild pain, otherwise feeling ok. continues with LLQ abdominal pain as well. +BM today) Review of Systems 10-point ROS is otherwise unremarkable Physical Examination - Vital Signs Temperature: 97.9 F Blood Pressure: 120/67 Pulse: 101 Respirations: 16 Pulse Ox (%): 94 Assessment & Plan Physician Review Additional Text: Physical Exam: Gen: Alert and oriented x3 HEENT: normal conjunctiva CV: irregularly irregular, no murmur Pulm: CTAB, no wheeze/rhonchi, diminished at bases bilaterally Abd: soft, mild diffuse TTP, moderate in LLQ Msk: s/p surgery, surgical dressing c/d/i, so appreciable hematoma / swelling. moves distal extremity, 2+ pulse, warm and well perfused Ext: trace b/l edema to ankles Problem List: Acute Sigmoid Diverticulitis Syncopal Episode R intertrochanteric femur fracture - s/p repair (07/02) Afib Diastolic CHF HTN Gout HLD h/o hemorrhagic CVA syncope of unclear etiology. possible cardiac event vs orthostatic with sigmoid diverticulitis. CT Abd/pelvis with likely early/mild sigmoid diverticulitis, pt has had 1-2 days of diarrhea. continue rocephin & flagyl. monitor on telemetry; had 12 second pause yesterday afternoon, unclear if "true" or lead was disconnected. pt reported to nurse feeling lightheaded around that time. No other events noted Cardiology consulted Carotid U/S with moderate stenosis: ~50%. CT head negative, MRI negative. TTE: diastolic CHF, severe pulmonary HTN continue home lasix R femur fracture s/p repair, restart xarelto tomorrow VTE: xarelto (home dose) tomorrow Code: full Dispo: possible rehab vs dc home, to work with PT Time Spent Managing Pts Care (In Minutes): 35
[2020-07-03] MEDS: METRONIDAZOLE 500mg IVPB 500 MG/100 ML BAG IV SCH ×3 (00:02→16:20)
[2020-07-03] MEDS ORDERED: METRONIDAZOLE 500mg IVPB 500 MG/100 ML BAG IV SCH (01:00)
[2020-07-03] MEDS: TRAMADOL HCL 50 MG TAB PO PRN ×3 (02:24→16:20)
[2020-07-03 03:23] LABS: Basophils % 0.6 % (0-1.3); Hematocrit 31.1 % (36.0-45.0); Lymphocytes % 14.5 % (15.3-44.8); MPV 9.9 fL (7.6-11.3); RBC Red Blood Cell Count 3.66 M/uL (3.86-4.86)
[2020-07-03 03:39] LABS: Magnesium 1.7 mg/dL (1.8-2.4); Potassium 3.8 mmol/L (3.5-5.1)
[2020-07-03] MEDS: CEFTRIAXONE/SWI 2gm 2 GM/20 ML SYR IVP SCH (08:03)
[2020-07-03] MEDS: METOPROLOL XL 100 MG TAB PO SCH (08:04)
[2020-07-03] MEDS: GABAPENTIN 100 MG CAP PO SCH ×2 (08:04→21:06)
[2020-07-03] MEDS: FUROSEMIDE 40 MG TABLET PO SCH ×2 (08:04→16:19)
[2020-07-03] MEDS ORDERED: POTASSIUM CL SA 10 MEQ TAB PO ONE (09:00)
[2020-07-03] MEDS ORDERED: MAGNESIUM SULFATE 1 gm IVPB 1 GM/100 ML BAG IV ONE (09:00)
[2020-07-03] MEDS: ENSURE CLEAR 200 ML CAN PO SCH ×2 (09:00→21:06)
[2020-07-03] MEDS: ONDANSETRON 4 MG/2 ML VIAL IV PRN (10:05)
--- NOTE | 2020-07-03 13:50 | CON ---
Date of Consultation: 07/02/2020 Reason For Consultation: Preop evaluation before hip surgery. History Of Present Illness: An 89-year-old with history of atrial fibrillation on anticoagulation wi eric Son, who presented after a syncopal episode at home. She says that she was walking in the [facility] hroom, passed out, witnessed by her daughter and sustained hip fracture. I was consulted for preop e valuation. The patient is not very active and unable to get an exercise capacity evaluation on her. However, she is bed-bound due to the hip fracture and the plan for surgery today. Past Medical History: Hypertension, atrial fibrillation, CVA, diastolic heart failure, COPD, dyslipi demia. Past Surgical History: Hysterectomy, cholecystectomy, tonsillectomy, right knee surgery. Medications: Refer to reconciliation sheet for detailed list. Allergies: CODEINE. Family History: No premature coronary artery disease or cancer. Social History: Does not smoke or drink. Does not use drugs. Review of Systems: All systems reviewed and they were negative except for what mentioned in the HPI. Physical Examination: Vital Signs: Temperature is 97.9, pulse is 101, breathing at 16, blood pressure 120/67, saturating 9 4. General: Pleasant, elderly female, in no apparent distress. Head and Neck: Pupils are equal, reactive to light. Intact eye movements. No JVD. No cervical lym phadenopathy. Neck is supple. Thyroid is not enlarged. Lungs: Clear to auscultation bilaterally. No rhonchi, rales, or crackles. No accessory muscle use. Heart: Irregular regular. No extra sounds. Abdomen: Soft, nontender. Bowel sounds positive. No organomegaly. No masses or hernia. No rigidi ty or rebound. Extremities: No clubbing, cyanosis. Intact pulses. Skin: No rashes. Neurologic: Alert, awake, oriented x3. No acute focal deficits appreciated. Investigations: Sodium 142, creatinine 0.8. Troponin less than 0.02. NT-proBNP is 3357. White blo od cell count 6.2, hemoglobin 11.1. On telemetry, she had a very long pause more than 7 seconds once . Assessment And Recommendations: 1.Preoperative evaluation for hip fracture, open reduction and internal fixation. At this point, is patient is at high cardiac risk. However, due to the urgency type of the surgery as patient will be bed-bound, if the surgery is delayed. Recommend to proceed with surgery without further workup fr om a cardiac standpoint. Explained to the patient and the family that delaying the surgery will prob ably have worse outcome. They agreed to the plan. Discussed with the patient's primary hospitalist and we will follow closely for any complications post surgery. 2.Syncope with a long pause on the telemetry. This patient will need a pacemaker implantation and r ecommend an evaluation by EP for possible pacemaker implantation. 3.Recent fall and a syncope. The patient on anticoagulation for atrial fibrillation. She will bene fit from left atrial appendage closure, which we will plan to discuss further in the range as outpati ent. Meanwhile continue anticoagulant. SR/MODL Voice ID: [id number] Report ID: [id number]
--- NOTE | 2020-07-03 15:59 | RAD REPORT ---
EXAM DESCRIPTION: USExtremity Venous Uni Ltd07/03/2020 3:04 pm CLINICAL HISTORY: Right leg pain COMPARISON: None. FINDINGS: Right common femoral, superficial femoral, popliteal and right posterior tibial veins are compressible and demonstrate augmentation. Doppler demonstrates good flow. IMPRESSION: No evidence of deep venous thrombosis involving the right lower extremity.
[2020-07-03] MEDS: RIVAROXABAN 15 MG TABLET PO SCH (16:19)
--- NOTE | 2020-07-03 17:23 | P.PN ---
Subjective Date of Service: 07/03/20 Chief Complaint: Syncope, Sigmoid diverticulitis Subjective: Improving (Continues with pain of right leg, and lateral hip. Also complaining of some pain in her right calf. Feels her breathing is about the same. on 2-3 L NC) Review of Systems 10-point ROS is otherwise unremarkable Physical Examination - Vital Signs Temperature: 98 F Blood Pressure: 111/59 Pulse: 81 Respirations: 18 Pulse Ox (%): 94 Assessment & Plan Physician Review Additional Text: Physical Exam: Gen: Alert and oriented x3, appears uncomfortable HEENT: normal conjunctiva CV: irregularly irregular, no murmur Pulm: diminished at bases bilaterally, on 2L NC Abd: soft, mild diffuse TTP, moderate in LLQ Msk: s/p surgery, surgical dressing c/d/i, no appreciable hematoma / swelling. moves distal extremity, 2+ pulse, warm and well perfused Ext: trace b/l edema to ankles Problem List: Acute Sigmoid Diverticulitis Syncopal Episode 12 second pause on telemetry R intertrochanteric femur fracture - s/p repair (07/02) Afib Diastolic CHF HTN Gout HLD h/o hemorrhagic CVA CT Abd/pelvis with likely early/mild sigmoid diverticulitis, pt has had 1-2 days of diarrhea. continue rocephin & flagyl. syncope of unclear etiology. pt with 12 second cardiac pause on telemetry on 07/01 ~5pm, pt reported lightheadedness at that time. No other events noted. R femur fracture s/p repair Cardiology consulted - discussed today, recommended patient have pacemaker placement prior to discharge home. Patient will need transfer to tertiary care center Carotid U/S with bilateral internal carotid moderate stenosis: ~50%. CT head negative, MRI negative. TTE: diastolic CHF, severe pulmonary HTN continue home lasix hip pain seems to be improving Patient is weight-bearing as tolerated VTE: xarelto Code: full Dispo: Pending transfer to tertiary care center, initiated Time Spent Managing Pts Care (In Minutes): 35
[2020-07-03] MEDS ORDERED: DOCUSATE NA 100 MG CAP PO SCH (18:00)
--- NOTE | 2020-07-03 20:33 | P.DS ---
Admission Date: 06/29/20 Discharge Date: 07/03/20 Reason for Admission: Syncope, Sigmoid diverticulitis Consultations: General Surgery - Dr. Langford - for sigmoid diverticulitis and severe RLQ pain Orthopedic Surgery - Dr. Strickland Cardiology - Dr. Chen Procedures: CXR (06/29): Moderate bilateral pulmonary opacities may represent mild pulmonary edema or pneumonia CT Head (06/29): Negative non-contrast CT head examination for acute finding. The atrophy, chronic ischemic change and old left basal ganglia/frontal lobe infarction changes are stable. CT Chest/Abd/Pelvis (06/29): interstitial thickening seen primarily in mid and lowe rlung hubbard suspected to be edema or insterstitial pneumonia superimposed on fibrosis. trace pleural effusion. Suspected mild or early sigmoid diverti culitis. 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 Femur x-ray (06/29): Hip joint and knee joint degenerative changes are present but no acute femur finding identified. MRI Brain (06/30): Negative for acute CVA or other acute intracranial abnormality. Right mastoid effusion. Carotid U/S (06/30): Moderate calcified plaque within the internal carotid arteries appears to result in an approximately 50- 55% stenosis bilaterally. Thyroid nodules. Ultrasound recommended MRI Hip (07/01): Nondisplaced intratrochanteric fracture the proximal right fe mur. CXR (07/01): bilateral lung parenchymal opacification with slight improvement Hip x-ray (07/02): Postoperative right hip examination showing no significant or suspicious finding. Venous U/S (07/03): no evidence of DVT of RLE TTE (07/01): LV EF: 55-60%. normal wall motion. Diastolic dysfunction. severe pulmonary hypertension with RVSP > 60mmHg. mild MR, mild mitral annular calcification. mild-moderate TR. biatrial enlargement COVID PCR (06/29): negative Problem List: Acute Sigmoid Diverticulitis Syncopal Episode 12 second pause on telemetry R intertrochanteric femur fracture - s/p repair (07/02) Afib Diastolic CHF HTN Gout HLD h/o hemorrhagic CVA Brief History of Present Illness: 89yo F, PMH: Afib on xarelto, HFpEF, COPD, Gout, HTN, h/o diverticulitis presented to ED after syncopal episode at home. Patient passed out walking to bathroom on morning of admission ~7-8am. Daughter was assisting patient and noted she seemed to slowly collapse. Daughter gently lowered her to floor. She denies hitting her head, denies loss of bowel/bladder function. She reports feeling slightly lightheaded just prior to fall and confused when she woke up. She also reports a recent fall a few days prior to admission - she was walking out of a store. Does not recall events - fell on R side and has had pain on R hip/flank since then and worsening. She denies passing out at that time, but unable to describe events and can't recall what caused her to fall. She reports h/o orthostasis. She has been taking Tramadol for her ongoing hip pain. On ROS she reported 2 days of diarrhea and decreased PO intake. She was admitted for further workup/evaluation. Hospital Course: Initial workup in ED revealed negative CT brain, negative femur/pelvic x-rays, and CT abd/pelvis concerning for early / mild sigmoid diverticulitis. Patient was noted to have moderate TTP in LLQ as well as RLQ. She was treated with rocephin & flagyl, and reported history of recurrent bouts of diverticulitus. She continued with moderate abdominal tenderness. She was tolerating regular diet and had improvement of diarrhea. Syncope -2 episodes prior to admission (leaving store a few days prior, and at home walking to bathroom) -BP on arrival to ED was 97/58 and Cr elevated at 1.3. Responded to IVF hydration. Initially thought to be due to orthostasis given her BP on arrival and h/o orthostasis. Likely secondary to 2 days of diarrhea from sigmoid diverticulitis. -CT brain, MRI brain were negative. She was monitored on telemetry and her heart rate was initially 100-120 (afib) since her home metoprolol was missed, but once restarted had afib with HR: 80-90s. She had a 12 second pause on 07/01 ~5pm. -Cardiology was consulted for preoperative clearance for femur fracture. After surgery, it was recommended patient undergo pacemaker placement prior to discharge. She was transferred to [facility]. -Her home regimen of Lasix was initially held given her hypotension, but restarted once patient seemed to be getting slightly overloaded. She uses 2L NC at night, and O2 as needed during the day. R femur fracture -initial imaging was negative for fracture. Patient continued with significant pain and unable to flex at hip beyond 10 degrees. MRI was obtained and revealed fracture. Ortho was consulted and patient underwent repair on 07/02. -Xarelto was held 07/01 and restarted 07/02 evening. Hgb stable and no evidence of hematoma -patient is weight bearing as tolerated, was having some pain control with Tramadol -on 07/03 she reported some pain in R calf - U/S negative for DVT -constantine to be removed in 2 weeks -to f/u with Dr. Strickland in 4-6 weeks -patient was undergoing arrangements to be admitted to inpatient rehab at our facility on Sunday, however will be transferred to [facility] today, can likely be admitted to our inpatient rehab upon discharge. Vital Signs/Physical Exam: Temp Pulse Resp BP Pulse Ox 98 F 81 18 111/59 L 94 07/03/20 17:23 07/03/20 17:23 07/03/20 17:23 07/03/20 17:23 07/03/20 17:23 General: Alert, Mild distress HEENT: Atraumatic, PERRLA, Sclerae nonicteric Neck: Supple Respiratory: Diminished (at bases bilaterally, otherwise clear to auscultation) Cardiovascular: Edema (trace bilaterall to mid-tibia), Irregular heart rate/rhythm (afib, HR: 80s) Gastrointestinal: Soft and benign, Non-distended, Tenderness (mild diffuse tenderness, moderate in LLQ) Musculoskeletal: Tenderness (at surgical site, dressing c/d/i no hematoma / fluid collection palpable. TTP of R calf) Integumentary: No significant lesion Neurological: Normal speech, Normal affect Laboratory Data at Discharge: WBC 7.1 K/uL (4.3-10.9) D 07/03/20 03:03 Hgb 10.1 g/dL (12.0-15.0) L 07/03/20 03:03 Hct 31.1 % (36.0-45.0) L 07/03/20 03:03 Plt Count 181 K/uL (152-406) 07/03/20 03:03 PT 17.3 SECONDS (9.5-12.5) H 07/02/20 05:21 INR 1.48 07/02/20 05:21 APTT 33.0 SECONDS (24.3-36.9) 07/01/20 17:06 Sodium 142 mmol/L (136-145) 07/03/20 03:03 Potassium 3.8 mmol/L (3.5-5.1) 07/03/20 03:03 BUN 14 mg/dL (7-18) 07/03/20 03:03 Creatinine 0.87 mg/dL (0.55-1.3) 07/03/20 03:03 Glucose 122 mg/dL (74-106) H 07/03/20 03:03 Phosphorus 4.3 mg/dL (2.5-4.9) 06/30/20 06:00 Magnesium 1.7 mg/dL (1.8-2.4) L 07/03/20 03:03 Total Bilirubin 0.5 mg/dL (0.2-1.0) 07/01/20 05:25 AST 20 U/L (15-37) 07/01/20 05:25 ALT 14 U/L (12-78) 07/01/20 05:25 Alkaline Phosphatase 96 U/L (45-117) 07/01/20 05:25 Troponin I < 0.02 ng/mL (0.0-0.045) 07/01/20 05:25 Lipase 61 U/L (73-393) L 06/29/20 12:01 Home Medications: Cholecalciferol (Vitamin D3) [Vitamin D3] 1 mg PO DAILY 06/30/20 Furosemide [Lasix] 1 mg PO BID 06/30/20 Gabapentin 1 mg PO BID 06/30/20 Metoprolol Succinate [Toprol Xl] 1 tab PO DAILY 06/30/20 Rivaroxaban [Xarelto*] 1 mg PO DAILY 06/30/20 Simvastatin 1 mg PO BEDTIME 06/30/20 Diet: AHA Activity: Weight bearing as tolerated Followup: NONE,NONE [Primary Care Provider] -
[2020-07-03 20:46] VITALS: BP 95/58; TEMP 97.9
[2020-07-03 23:57] VITALS: O2SAT 96
--- NOTE | 2020-07-06 08:57 | OP ---
nnDate of Procedure: 07/02/2020 Surgeon: Los Strickland MD Preoperative Diagnosis: Right intertrochanteric femur fracture. Postoperative Diagnosis: Right intertrochanteric femur fracture. Procedure Performed: Cephalomedullary fixation of right intertrochanteric femur fracture. Surgeon: Los Strickland MD Anesthesia: General LMA. Fluids: Per anesthesia record. Estimated Blood Loss: 150 cc. Complications: None. Implants: 9 x 180 mm Biomet Affixus nail with a 95 mm lag screw. Indications For Procedure: Rowan is an 89-year-old female, who presented to the ER after sustaining a fall after syncopal episode with subsequent right hip pain. She had x-rays and CT scan, which were negative for any fracture dislocation of the right hip or pelvis. The patient subsequently underwent an MRI of the right hip, which demonstrated a nondisplaced intertrochanteric femur fracture of the right hip. I discussed with the patient and her daughter at length her diagnosis as well as risk and benefits associated with operative and nonoperative treatment. They expressed understanding and elected to proceed with operative treatment. Description Of Procedure: After informed consent was obtained, the patient was identified in the preoperative holding area. The right lower extremity was marked. The patient was then brought back to the operating room and was transferred to the operating table in a supine fashion and placed under general LMA anesthesia. She was then placed on the fracture table with her extremities well padded. The left lower extremity was placed in a gentle flexion and abduction position in the fracture table boot. The right lower extremity was then prepped and draped in usual sterile fashion. Time-out was initiated. Correct patient and procedure were confirmed and identified. The patient did receive preoperative prophylactic antibiotics. Attention was then first taken to approximately a 5 cm longitudinal incision was made just proximal to the greater trochanter. A guide pin was placed at the tip of the greater trochanter and advanced down the femoral conal in an antegrade fashion. Proper positioning of the guide pin was confirmed using fluoroscopy. After that, an anterior reamer was then placed over the guide pin down to the level of the lesser trochanter. This was followed by placement of a long guidewire down the femoral canal distal femur. Fluoroscopy was then again used to ensure proper placement of the guidewire. The femoral canals were then reamed to size 11 mm reamer with some mild chatter. At that point, a 9 mm nail was selected. Preoperative radiograph demonstrated a 130 degree neck shaft angle. A 9 x 180 mm nail with a 130 mm neck angle was selected and placed down the femoral canal with the guide pin. The guidewire was then removed and using the nail jig, a second incision was made over the proximal femur with placement of the lag screw. The guide pin was then placed in a center-center position on the femoral head and neck and a 95 mm lag screw was selected. Over the guide pin, 95 mm was then reamed and a 95 mm lag screw was placed. It was then locked into position. A distal interlocking screw in a static position was then placed in bicortical fashion without complication using the jig. The jig was then removed. We once again irrigated thoroughly with normal saline. Fluoroscopy images were then taken to confirm proper positioning of the hip as well as the hardware. Deep tissues were approximated using a 0 Vicryl, subcutaneous tissue was approximated using a 2-0 Vicryl, skin was approximated using constantine. Sterile dressing was applied. The patient was awakened and transferred to PACU in stable condition. Postoperative Plan: She will be weightbearing as tolerated on the right lower extremity. Physical therapy will be consulted to aid with mobilization. She may follow up. LUZ MARIA/NELLY Voice ID: [id number] Report ID: [id number] EL
== END 2020-07-03 21:30 | disposition short-term general hospital (02) | DRG 981 ==
LOC: ER 11:10 → ERHOLD 15:44 → 2ND 18:14
PROVIDERS: ADMIT Hospitalist; ATTEND Hospitalist
PROC: 0QH636Z Insertion of Intramedullary Internal Fixation Device into Right Upper Femur, Percutaneous Approach (ICD-10-PCS; principal; 2020-07-02 10:00)
DX: K57.32 Diverticulitis of large intestine without perforation or abscess without bleeding (principal); S72.144A Nondisplaced intertrochanteric fracture of right femur, initial encounter for closed fracture; I50.32 Chronic diastolic (congestive) heart failure; I11.0 Hypertensive heart disease with heart failure; E78.5 Hyperlipidemia, unspecified; I48.91 Unspecified atrial fibrillation; G31.9 Degenerative disease of nervous system, unspecified; M10.9 Gout, unspecified; I27.20 Pulmonary hypertension, unspecified; J44.9 Chronic obstructive pulmonary disease, unspecified; W18.30XA Fall on same level, unspecified, initial encounter; Z91.81 History of falling; Z88.5 Allergy status to narcotic agent; Z91.09 Other allergy status, other than to drugs and biological substances; Z79.01 Long term (current) use of anticoagulants; Z79.899 Other long term (current) drug therapy; Z79.890 Hormone replacement therapy; Z86.73 Personal history of transient ischemic attack (TIA), and cerebral infarction without residual deficits; Z90.710 Acquired absence of both cervix and uterus; Z60.2 Problems related to living alone; Z90.49 Acquired absence of other specified parts of digestive tract; Z20.822 Contact with and (suspected) exposure to COVID-19
CPT/HCPCS: 36415; 51702; 70450; 70551; 71045; 71250; 72125; 72170; 72192; 73530; 74019; 74176; 80048; 80053; 80076; 81003; 81015; 83605; 83690; 83735; 83880; 84100; 84132; 84439; 84443; 84484; 85014; 85018; 85025; 85610; 85730; 87040; 93005; 93306; 93880; 93971; 94010; 94760; 96372; 97110; 97161; 97164; 97530; 99284; 99285; J0696; J1940; J2175; J2370; J2405; J2704; J3010; J3475; J3480; J7030; J7120; U0003

== ENCOUNTER 2020-11-30 22:18 | Emergency (ER) | payer OTHER ==
--- OUTSIDE RECORDS SUMMARY | 2020-11-30 22:20 | XMS REPORT | Continuity of Care Document ---
:1930 Author Organization [facility] t Address [address] [place] [address] Care Team Providers Name Role Phone SAMANTHA Primary Care Physician Unavailable SAMANTHA Attending Clinician Unavailable SAMANTHA Admitting Clinician Unavailable Problems Condition Condition Condition Status Onset Resolution Last Treating Co mments Source Name Details Category Date Date Treatment Clinician Date Cat bite [facility] Hyperlipid Hyperlipid Disease Active [facility] Hypertensi Hypertensi Disease Active [facility] Allergies, Adverse Reactions, Alerts Allergy Allergy Status Severity Reaction(s) Onset Inactive Treating Comm ents Source Name Type Date Date Clinician Codeine Propensi Active [facility] - adverse 00:00: Medical reaction 00 [place] Family History Family Member Diagnosis Comments Start Date Stop Date Source Natural daughter Asthma [facility] Social History Social Habit Start Date Stop Date Quantity Comments Source Sex Assigned At [facility] Alcohol intake 2016-03-01 2016-03-01 Current [facility] es - 00:00:00 00:00:00 non-drinker of Medical Ce nter alcohol (finding) Smoking Status Start Date Stop Date Source Never smoker [facility] Medications Ordered Filled Start Stop Current Ordering Indication Dosage Frequency Signature Comments Components Source Medication Medication Date Date Medication? Clinician (SIG) Name Name gabapentin Yes 300mg Q.5D Take [address] (NEURONTIN) 9-26 mg by [facility] - 300 MG 15:31: mouth 2 Medical capsule 54 (two) Center times daily. metoprolol 0 Yes 100mg QD Take [address] (LOPRESSOR) 9-26 mg by [facility] - 100 MG 15:31: mouth Medical tablet 54 daily. Center simvastatin 20160 Yes 20mg QD Take [address] [facility] (ZOCOR) 20 9-26 by mouth [facility] - MG tablet 15:31: nightly. Medi myles 54 Center furosemide 0 Yes 40mg QD Take [address] (LASIX) 40 9-26 by mouth [facility] - MG tablet 15:31: daily. Medica l 54 Center rivaroxaban Yes 15mg Take [address] [facility] [address] (XARELTO) 9- by mouth [facility] - 15 mg Tab 15:31: daily with Me dical tablet 54 dinner. Center Immunizations Ordered Immunization Filled Immunization Date Status Commen ts Source Name Name Jose R 2016-03-[address] [facility] Procedures This patient has no known procedures. Results Test Description Test Time Test Comments Results Result Comments Source Basic Metabolic Panel 2017-01-10 20:44:00 Test Item Value Reference Range Interpretation Comme nts Sodium (test code = NA) 144 mmol/L 135-145 N Potassium (test code = K) 3.8 mmol/L 3.5-5.1 N Chloride (test code = CL) 103 mmol/L 98-105 N Carbon Dioxide (test code = 28 mmol/L 22-29 N CO2) Glucose (test code = GLU) 110 mg/dL 70-115 N Blood Urea Nitrogen (test 19 mg/dL 8-23 N code = BUN) Creatinine (test code = 1.2 mg/dL 0.5-0.9 H CREAT) Calcium (test code = CA) 9.4 mg/dL 8.3-10.5 N BUN/Creatinine Ratio (test 15.8 code = BCRATIO) Anion Gap (test code = 13 mmol/L 7-16 N AGAP) Estimated GFR (test code = 45 mL/min/1.73m2 eGFR (estimated Glomerular GFR) Filtration Rate ) is an estimated value ,calculated from the patien t's serum creatinine usin g the MDRD equation.It is NOT the patient's actua l GFR. The eGFR provides a more clinicallyusefu l measure of kidney disease than serum creatinine gera e.This calculation dougie es sex and race into account, i f the informationis p rovided. If the race is not pro vided, and the patient isAfric an-Mosotho, multiply by 1.2 12. If sex is not provided, a nd thepatient is female, mult iply by 0.742. Results for pat ients <18 years ofage have not been validated by the MDRD zachery dy and should be interpretedw ith caution.eGFR Re sult Interpretation: eGFR > or = 60 is in the Karen l RangeeGFR < 60 may mean kid anamaria diseaseeGFR < 15 may mean k idney failureRange s recommended by the National Kidney Foundation,http ://nkdep.nih.go v [id number] 20:38:00 Test Item Value Reference Range Interpretation Comments NT ProBnp (test code = PBNP) 775 pg/mL 0-449 H
[2020-12-01] MEDS ORDERED: ACETAMINOPHEN 500 MG TAB ONE (00:02)
[2020-12-01 00:25] LABS: Absolute Lymphocytes (CBC) 2.1 K/uL (0.7-4.9); Basophils % 0.8 % (0-1.3); Hematocrit 31.5 % (36.0-45.0); Lymphocytes % 25.3 % (15.3-44.8); MPV 9.9 fL (7.6-11.3); RBC Red Blood Cell Count 4.39 M/uL (3.86-4.86)
[2020-12-01 00:26] LABS: Protime INR 3.17
[2020-12-01 00:34] LABS: Albumin 3.7 g/dL (3.4-5.0); Bilirubin Direct 0.2 mg/dL (0-0.2); Bilirubin Total 0.6 mg/dL (0.2-1.0); Potassium 4.2 mmol/L (3.5-5.1); Protein, Total 7.5 g/dL (6.4-8.2)
[2020-12-01] MEDS ORDERED: CLINDAMYCIN 600MG/D5W 600 MG/50 ML BAG IV ONE (01:14)
--- NOTE | 2020-12-01 01:26 | EDPHYS ---
Physician Documentation [facility] Name: Rowan Pompa Age: 89 yrs Sex: Female : 1930 Arrival Date: 11/30/2020 Time: 22:22 Bed 17 Private MD: ED Physician Ciaran Emmanuel HPI: 11/30 23:36 This 89 yrs old Female presents to ER via Ambulatory with complaints of mh7 Insect Bite, Swelling Foot - Right. 23:36 The patient presents with pain, that is acute, Redness. The complaints affect the right mh7 foot. Context: The problem was sustained at an unknown location, resulted from an unknown cause, Mechanism of Injury: Unknown the patient can fully bear weight, uses a walker. Onset: The symptoms/episode began/occurred 2 day(s) ago. Modifying factors: The symptoms are alleviated by nothing, the symptoms are aggravated by weight bearing. Associated signs and symptoms: Pertinent positives: swelling, Pertinent negatives: calf tenderness, fever, nausea, numbness, rash, tingling, vomiting, warmth, weakness. Severity of symptoms: At their worst the symptoms were moderate, yesterday, in the emergency department the symptoms are unchanged. Historical: - Allergies: 22:39 EUCALYPTUS CONTAINING PRODUCTS; bb 22:39 Codeine; bb - Home Meds: 23:06 allopurinol 100 mg Oral tab 1 tab 2 times per day [Active]; furosemide 40 mg Oral tab 1 ap3 tab 2 times per day [Active]; gabapentin 300 mg Oral cap 1 cap twice a day [Active]; metoprolol succinate 100 mg Oral Tb24 1 tab once daily [Active]; simvastatin 20 mg Oral tab 1 tab once daily [Active]; spironolactone 25 mg Oral tab 1 tab once daily [Active]; Xarelto 15 mg Oral tab daily [Active]; - PMHx: 22:39 Atrial Fib; CHF; COPD; CVA; Gout; Hyperlipidemia; Hypertension; bb - PSHx: 22:39 Cholecystectomy; Hysterectomy; Tonsillectomy; Knee surgery; Pacemaker; Hip surgery; bb - Immunization history:: Adult Immunizations up to date. - Social history:: Smoking status: unknown. ROS: 23:39 Constitutional: Negative for fever, chills, and weight loss, Eyes: Negative for injury, mh7 pain, redness, and discharge, ENT: Negative for injury, pain, and discharge, Neck: Negative for injury, pain, and swelling, Cardiovascular: Negative for chest pain, palpitations, and edema, Respiratory: Negative for shortness of breath, cough, wheezing, and pleuritic chest pain, Abdomen/GI: Negative for abdominal pain, nausea, vomiting, diarrhea, and constipation, Back: Negative for injury and pain, : Negative for injury, bleeding, discharge, and swelling, Neuro: Negative for headache, weakness, numbness, tingling, and seizure, Psych: Negative for depression, anxiety, suicide ideation, homicidal ideation, and hallucinations, Allergy/Immunology: Negative for hives, rash, and allergies, Endocrine: Negative for neck swelling, polydipsia, polyuria, polyphagia, and marked weight changes, Hematologic/Lymphatic: Negative for swollen nodes, abnormal bleeding, and unusual bruising. Exam: 23:40 Constitutional: This is a well developed, well nourished patient who is awake, alert, mh7 and in no acute distress. Head/Face: Normocephalic, atraumatic. Eyes: Pupils equal round and reactive to light, extra-ocular motions intact. Lids and lashes normal. Conjunctiva and sclera are non-icteric and not injected. Cornea within normal limits. Periorbital areas with no swelling, redness, or edema. Neck: Trachea midline, no thyromegaly or masses palpated, and no cervical lymphadenopathy. Supple, full range of motion without nuchal rigidity, or vertebral point tenderness. No Meningismus. Chest/axilla: Normal chest wall appearance and motion. Nontender with no deformity. No lesions are appreciated. Cardiovascular: Regular rate and rhythm with a normal S1 and S2. No gallops, murmurs, or rubs. Normal PMI, no JVD. No pulse deficits. Respiratory: Lungs have equal breath sounds bilaterally, clear to auscultation and percussion. No rales, rhonchi or wheezes noted. No increased work of breathing, no retractions or nasal flaring. Abdomen/GI: Soft, non-tender, with normal bowel sounds. No distension or tympany. No guarding or rebound. No evidence of tenderness throughout. Back: No spinal tenderness. No costovertebral tenderness. Full range of motion. 23:40 Neuro: Awake and alert, GCS 15, oriented to person, place, time, and situation. Cranial nerves II-XII grossly intact. Motor strength 5/5 in all extremities. Sensory grossly intact. Cerebellar exam normal. Normal gait. Psych: Awake, alert, with orientation to person, place and time. Behavior, mood, and affect are within normal limits. 23:40 Musculoskeletal/extremity: Extremities: noted in the dorsum of right foot: ecchymosis, erythema, pain, swelling, tenderness, ROM: intact in all extremities, Circulation is intact in all extremities. Sensation intact. Compartment Syndrome exam of affected extremity: is normal. no numbness, no tingling, no sensation deficit, no palor, no weak pulses, Joints: All joints appear normal with full range of motion. Weight bearing: can bear weight with assistance only, uses walker, Tendon exam: specific tendon testing normal through active and passive range of motion Calves: are non-tender, have equal circumference. 23:40 Skin: erythema, ecchymosis over right dorsal foot. Vital Signs: 22:37 BP 147 / 71; Pulse 84; Resp 18 S; Temp 98.4(O); Pulse Ox 96% on R/A; Weight 73.48 kg bb (R); Height 5 ft. 3 in. (160.02 cm) (R); Pain 9/10; 23:15 BP 128 / 73; Pulse 76; Pulse Ox 96% on R/A; ap3 23:56 BP 120 / 61; Pulse 81; Resp 17; Pulse Ox 100% on R/A; Pain 5/10; ap3 12/01 01:40 BP 114 / 61; Pulse 71; Resp 16; Pulse Ox 95% on R/A; jm8 11/30 22:37 Body Mass Index 28.70 (73.48 kg, 160.02 cm) MDM: 01:24 Differential diagnosis: fracture, sprain, cellulitis. Data reviewed: vital signs, [facility] nurses notes, lab test result(s), CBC, electrolytes, urinalysis, radiologic studies, plain films. Data interpreted: Pulse oximetry: on room air is 100 %. Interpretation: normal. Counseling: I had a detailed discussion with the patient and/or guardian regarding: the historical points, exam findings, and any diagnostic results supporting the discharge/admit diagnosis, lab results, radiology results, the need for outpatient follow up, to return to the emergency department if symptoms worsen or persist or if there are any questions or concerns that arise at home. Response to treatment: the patient's symptoms have markedly improved after treatment. 01:25 Patient medically screened. [facility] 11/30 23:39 Order name: CBC with Diff [facility] 11/30 23:39 Order name: Basic Metabolic Panel [facility] 11/30 23:39 Order name: LFT's [facility] 11/30 23:39 Order name: Blood Culture Adult (2) [facility] 11/30 23:39 Order name: Lactate [facility] 11/30 23:40 Order name: Protime (+inr) [facility] 11/30 23:40 Order name: Ptt, Activated [facility] 12/01 00:31 Order name: CBC with Automated Diff [facility] 12/01 00:32 Order name: Protime (+INR); Complete Time: 00:47 EDMS 12/01 00:32 Order name: PTT, Activated Partial Thromb; Complete Time: 00:47 EDMS 12/01 00:34 Order name: Basic Metabolic Panel; Complete Time: 00:47 EDMS 12/01 00:34 Order name: Liver (Hepatic) Function; Complete Time: 00:47 EDMS 12/01 00:34 Order name: Lactate; Complete Time: 00:47 EDMS 12/01 01:42 Order name: CBC Smear Scan [facility] 11/30 23:23 Order name: Foot Right 3 View XRAY [facility] 11/30 23:39 Order name: Saline Lock; Complete Time: 00:01 [facility] Administered Medications: 11/30 23:53 Drug: Tylenol 1000 mg Route: PO; ap3 12/01 02:01 Follow up: Response: No adverse reaction [facility] 01:22 Drug: Clindamycin 600 mg Route: IVPB; Infused Over: 30 mins; Site: right antecubital; 8 02:01 Follow up: Response: No adverse reaction; IV Status: Completed infusion 8 Disposition: 12/01/20 01:25 Discharged to Home. Impression: Cellulitis, Right Foot. - Condition is Stable. - Discharge Instructions: Cellulitis, Adult, [id number]. - Prescriptions for Keflex 500 mg Oral Capsule - take 1 capsule by ORAL route every 12 hours for 10 days; 20 capsule. - Medication Reconciliation Form, Thank You Letter, Antibiotic Education, Prescription Opioid Use form. - Follow up: Private Physician; When: 1 - 2 days; Reason: Worsening of condition, Recheck today's complaints, Continuance of care, Re-evaluation by your physician. - Problem is new. - Symptoms have improved. Signatures: Dispatcher [employer] EDYumiko Nieto RN RN bb Skylar Byrd RN RN ap3 Ciaran Emmanuel MD MD mh7 Cy Kearney RN RN jm8 Corrections: (The following items were deleted from the chart) 02:02 01:25 12/01/2020 01:25 Discharged to Home. Impression: Cellulitis, Right Foot. jm8 Condition is Stable. Forms are Medication Reconciliation Form, Thank You Letter, Antibiotic Education, Prescription Opioid Use. Follow up: Private Physician; When: 1 - 2 days; Reason: Worsening of condition, Recheck today's complaints, Continuance of care, Re-evaluation by your physician. Problem is new. Symptoms have improved. mh7
--- NOTE | 2020-12-01 01:26 | ER ---
Nurse's Notes [facility] Name: Rowna Pompa Age: 89 yrs Sex: Female : 1930 Arrival Date: 11/30/2020 Time: 22: Bed 17 Private MD: Diagnosis: Cellulitis, Right Foot Presentation: 11/30 22:37 Chief complaint: Patient states: she has pain and redness to her right foot for a bb couple of days does not know what happened. Coronavirus screen: At this time, the client does not indicate any symptoms associated with coronavirus-19. Ebola Screen: No symptoms or risks identified at this time. Initial Sepsis Screen: Does the patient meet any 2 criteria? No. Patient's initial sepsis screen is negative. Does the patient have a suspected source of infection? No. Patient's initial sepsis screen is negative. Risk Assessment: Do you want to hurt yourself or someone else? Patient reports no desire to harm self or others. Onset of symptoms is unknown. 22:37 Method Of Arrival: Ambulatory bb 22:37 Acuity: EUFEMIA 3 bb Historical: - Allergies: 22:39 EUCALYPTUS CONTAINING PRODUCTS; bb 22:39 Codeine; bb - Home Meds: 23:06 allopurinol 100 mg Oral tab 1 tab 2 times per day [Active]; furosemide 40 mg Oral tab 1 ap3 tab 2 times per day [Active]; gabapentin 300 mg Oral cap 1 cap twice a day [Active]; metoprolol succinate 100 mg Oral Tb24 1 tab once daily [Active]; simvastatin 20 mg Oral tab 1 tab once daily [Active]; spironolactone 25 mg Oral tab 1 tab once daily [Active]; Xarelto 15 mg Oral tab daily [Active]; - PMHx: 22:39 Atrial Fib; CHF; COPD; CVA; Gout; Hyperlipidemia; Hypertension; bb - PSHx: 22:39 Cholecystectomy; Hysterectomy; Tonsillectomy; Knee surgery; Pacemaker; Hip surgery; bb - Immunization history:: Adult Immunizations up to date. - Social history:: Smoking status: unknown. Screenin:02 Abuse screen: Denies threats or abuse. Nutritional screening: No deficits noted. ap3 Tuberculosis screening: No symptoms or risk factors identified. Fall Risk No fall in past 12 months (0 pts). Secondary diagnosis (15 points) impaired mobility, No IV (0 pts). Ambulatory Aid- None/Bed Rest/Nurse Assist (0 pts). Gait- Weak (10 pts.). Mental Status- Oriented to own ability (0 pts). Total Wilson Fall Scale indicates Low Risk Score (25-44 pts). Fall prevention measures have been instituted. Placed close to Nursing Station Frequent Obs/Assesments occuring Family Present and informed to notify staff if they need to leave bedside As available Patient and Family Educated on Fall Prevention Program and strategies. Assessment: 23:01 General: Appears in no apparent distress. comfortable, Behavior is calm, cooperative, ap3 appropriate for age. Pain: Complains of pain in dorsum of right foot Pain does not radiate. Pain currently is 4 out of 10 on a pain scale. at worst was 10 out of 10 on a pain scale. Neuro: Level of Consciousness is awake, alert, obeys commands, Oriented to person, place, time, situation, Appropriate for age Speech is normal. Cardiovascular: Capillary refill < 3 seconds. Respiratory: Airway is patent Respiratory effort is even, unlabored, Respiratory pattern is regular, symmetrical. GI: No signs and/or symptoms were reported involving the gastrointestinal system. : No signs and/or symptoms were reported regarding the genitourinary system. EENT: No signs and/or symptoms were reported regarding the EENT system. Derm: Skin is pink. Vital Signs: 22:37 BP 147 / 71; Pulse 84; Resp 18 S; Temp 98.4(O); Pulse Ox 96% on R/A; Weight 73.48 kg bb (R); Height 5 ft. 3 in. (160.02 cm) (R); Pain 9/10; 23:15 BP 128 / 73; Pulse 76; Pulse Ox 96% on R/A; ap3 23:56 BP 120 / 61; Pulse 81; Resp 17; Pulse Ox 100% on R/A; Pain 5/10; ap3 12/01 01:40 BP 114 / 61; Pulse 71; Resp 16; Pulse Ox 95% on R/A; jm8 11/30 22:37 Body Mass Index 28.70 (73.48 kg, 160.02 cm) ED Course: 11/30 22:22 Patient arrived in ED. bp1 22:26 Skylar Byrd, KEMAR is Primary Nurse. ap3 22:29 Ciaran Emmanuel MD is Attending Physician. [facility] 22:38 Triage completed. bb 22:39 Arm band placed on Patient placed in an exam room, on a stretcher, on pulse oximetry. bb Family accompanied patient. 23:03 Patient has correct armband on for positive identification. Bed in low position. Call [facility] light in reach. Side rails up X 1. Adult w/ patient. Pulse ox on. NIBP on. Door closed. Noise minimized. 23:36 xray at bedside Pt visited by daughter. [facility] 12/01 00:02 Inserted saline lock: 20 gauge in right antecubital area, using aseptic technique. [facility] 02:02 No provider procedures requiring assistance completed. IV discontinued, intact. [facility] Administered Medications: 11/30 23:53 Drug: Tylenol 1000 mg Route: PO; [facility] 12/01 02:01 Follow up: Response: No adverse reaction [facility] 01:22 Drug: Clindamycin 600 mg Route: IVPB; Infused Over: 30 mins; Site: right antecubital; [facility] 02:01 Follow up: Response: No adverse reaction; IV Status: Completed infusion [facility] Outcome: 01:25 Discharge ordered by . [facility] 02:02 Discharged to home via wheelchair, with family. [facility] 02:02 Condition: good 02:02 Discharge instructions given to patient, family, Instructed on discharge instructions, follow up and referral plans. medication usage, Demonstrated understanding of instructions, follow-up care, medications, Prescriptions given X 1. 02:02 Patient left the ED. jm8 Signatures: Yumiko Cruz RN RN bb Prokisch, Amanda, RN RN [facility] Lashonda Hearn Maurice, MD MD [facility] Cy Kearney RN RN [facility]
[2020-12-01 01:42] LABS: Anisocytosis 1+; Blood Morphology Comment NOTED (NOT SEEN); Ovalocytes 1+; Platelet Estimate ADEQ; White Blood Cell Scan OK (OK)
[2020-12-01 02:12] VITALS: TEMP 98.4
[2020-12-01 02:17] VITALS: BP 114/61; O2SAT 95
--- NOTE | 2020-12-01 14:30 | RAD REPORT ---
EXAM DESCRIPTION: Foot Right 3 View 12/01/2020 12:20 AM CDT CLINICAL HISTORY: 89 years, Female, Pain;Swelling COMPARISON: None. FINDINGS: 3 X-ray views of the Right foot (Frontal, lateral and oblique views) were performed. The re is diffuse bony osteopenia. No areas of acute bony injuries were demonstrated. There are no gross intraosseous lesions. Vascular ossifications are identified within the anterior tibial artery/dorsali s pedis. There is posterior spur at the level of the calcaneus within the insertion of the plantaris tendon. Minimal degenerative changes are seen within the first metatarsophalangeal joint and midfoot articulation. IMPRESSION: No acute bony injuries were demonstrated. Calcaneal spur. Minimal degenerative changes. Electronically signed by: Arnulfo Keys MD 12/01/2020 12:22 AM CDT Due to temporary technical issues with the PACS/Fluency reporting system, reports are being signed by the in house radiologists without review as a courtesy to insure prompt reporting. The interpreting radiologist is fully responsible for the content of the report.
== END 2020-12-01 02:02 | disposition home or self-care (01) ==
LOC: ER 22:18
DX: L03.115 Cellulitis of right lower limb (principal); I10 Essential (primary) hypertension; I48.91 Unspecified atrial fibrillation; I50.9 Heart failure, unspecified; Z79.01 Long term (current) use of anticoagulants; Z88.5 Allergy status to narcotic agent; Z91.048 Other nonmedicinal substance allergy status
CPT/HCPCS: 36415; 80048; 80076; 83605; 85025; 85610; 85730; 87040; 96365; 99284

== ENCOUNTER 2021-03-15 21:26 | Emergency (ER) | payer OTHER ==
[2021-03-15 23:30] LABS: Protime INR 1.79
[2021-03-15 23:31] LABS: Absolute Lymphocytes (CBC) 1.7 K/uL (0.7-4.9); Basophils % 0.7 % (0-1.3); Hematocrit 30.7 % (36.0-45.0); Lymphocytes % 18.7 % (15.3-44.8); MPV 9.3 fL (7.6-11.3); RBC Red Blood Cell Count 4.15 M/uL (3.86-4.86)
[2021-03-15] MEDS ORDERED: AZITHROMYCIN 500 MG INJ IVPB ONE (23:41)
[2021-03-15] MEDS ORDERED: NA CHLORIDE 0.9% 250 ML ONE (23:41)
[2021-03-15 23:42] LABS: ALT/SGPT 38 U/L (12-78); AST/SGOT 40 U/L (15-37); Albumin 3.6 g/dL (3.4-5.0); Alkaline Phosphatase 167 U/L (45-117); BUN Blood Urea Nitrogen 23 mg/dL (7-18); Bicarbonate 31 mmol/L (21-32); Bilirubin Direct 0.3 mg/dL (0-0.2); Bilirubin Total 0.9 mg/dL (0.2-1.0); Glucose Level 141 mg/dL (74-106); Magnesium 2.1 mg/dL (1.8-2.4); NT PRO-BNP 2458 pg/mL (<450); Potassium 4.1 mmol/L (3.5-5.1); Protein, Total 7.7 g/dL (6.4-8.2); Sodium Level 140 mmol/L (136-145); Troponin (Emerg Dept Use Only) < 0.02 ng/mL (0.0-0.045)
--- NOTE | 2021-03-16 00:18 | ER ---
Nurse's Notes [facility] Name: Rowan Pompa Age: 89 yrs Sex: Female : 1930 Arrival Date: 03/15/2021 Time: 21:30 Bed 19 Private MD: Diagnosis: Acute bronchitis, unspecified Presentation: 03/15 22:14 Chief complaint: Patient states: SOB x 4 days. Coronavirus screen: Vaccine status: df1 Patient reports being unvaccinated. The client is unsure as to whether or not they have had previous COVID-19 testing. Ebola Screen: Patient negative for fever greater than or equal to 101.5 degrees Fahrenheit, and additional compatible Ebola Virus Disease symptoms Patient denies exposure to infectious person. Patient denies travel to an Ebola-affected area in the 21 days before illness onset. Initial Sepsis Screen: Does the patient meet any 2 criteria? No. Patient's initial sepsis screen is negative. Risk Assessment: Do you want to hurt yourself or someone else? Patient reports no desire to harm self or others. Onset of symptoms was March 11, 2021. 22:14 Method Of Arrival: Wheelchair df1 22:14 Acuity: EUFEMIA 3 df1 22:18 Note Pt from home alone SOB, cough, congestion and fever x 4 days. Oxygen PRN at night. df1 88% on RA during triage. 23:50 Initial Sepsis Screen: Does the patient have a suspected source of infection? No. dc2 Patient's initial sepsis screen is negative. Historical: - Allergies: 22:16 Codeine; df1 22:16 EUCALYPTUS CONTAINING PRODUCTS; df1 - PMHx: 22:16 Atrial Fib; COPD; CHF; CVA; Gout; Hyperlipidemia; Hypertension; df1 - PSHx: 22:16 Tonsillectomy; Total abdominal hysterectomy; Cholecystectomy; pacemaker; right pelvic df1 repair; right knee repair; - Immunization history:: Adult Immunizations up to date, Client reports having NOT received the Covid vaccine. - Social history:: Smoking status: Patient denies any tobacco usage or history of. - Family history:: not pertinent. Screenin/06 00:10 Abuse screen: Denies threats or abuse. Nutritional screening: No deficits noted. On no kc4 prescribed diet. Tuberculosis screening: No symptoms or risk factors identified. Never had TB. Possible symptoms: None. Fall Risk None identified. Assessment: 03/15 23:00 EENT: Throat is clear. dc2 03/16 00:10 Reassessment: Patient is alert, oriented x 3, equal unlabored respirations, skin kc4 warm/dry/pink. General: Appears in no apparent distress. uncomfortable, well nourished, Behavior is calm, cooperative, appropriate for age, Reports feeling ill for fatigue for 2-3 days. Pain: Complains of pain in generalized Pain currently is 2 out of 10 on a pain scale. Quality of pain is described as aching, Pain began 2-3 days ago. Is Alleviated by nothing. Neuro: No deficits noted. Respiratory: Airway is patent Respiratory effort is unlabored, Breath sounds with crackles bilaterally. in left posterior upper lobe and right posterior upper lobe Breath sounds are diminished bilaterally. in right middle lobe, left lower lobe, right lower lobe, left posterior lower lobe, right posterior middle lobe and right posterior lower lobe. Vital Signs: 03/15 22:14 BP 114 / 53; Pulse 96; Resp 20; Temp 99.7; Pulse Ox 88% on R/A; Weight 72.57 kg; Height df1 5 ft. 4 in. (162.56 cm); Pain 0/10; 23:20 BP 106 / 66; Pulse 80; Resp 17; Temp 98.6; Pulse Ox 98% ; Pain 0/10; dc2 03/16 00:09 BP 111 / 58; Pulse 70; Resp 18; Pain 4/10; kc4 03/15 22:14 Body Mass Index 27.46 (72.57 kg, 162.56 cm) df1 ED Course: 03/15 21:30 Patient arrived in ED. cf2 22:16 Triage completed. df1 22:24 Ad Angeles MD is Attending Physician. ma2 22:30 No apparent distress. dc2 22:30 Awaiting lab results. dc2 22:30 Bed in low position. Call light in reach. Side rails up X 1. lunchroom monitor on. Pulse dc2 ox on. NIBP on. Door closed. Warm blanket given. 22:51 CXR XRAY In Process Unspecified. EDMS 23:00 Inserted saline lock: 20 gauge in left forearm, using aseptic technique. kc4 23:00 Patient notified of wait time. dc2 23:09 Tyshawn, Nessa, RN is Primary Nurse. dc2 23:09 Blood Culture Adult (2) Sent. dc2 23:09 Group A Streptococcus Rapid Sc Sent. dc2 23:09 Influenza Screen (A Sent. dc2 23:10 Basic Metabolic Panel Sent. dc2 23:10 CBC with Diff Sent. dc2 23:10 LFT's Sent. dc2 23:10 Magnesium Sent. dc2 23:10 NT PRO-BNP Sent. dc2 23:10 PT-INR Sent. dc2 23:10 Troponin (emerg Dept Use Only) Sent. dc2 23:10 Flu Sent. dc2 23:10 Strep Sent. dc2 23:15 lunchroom monitor on. Pulse ox on. NIBP on. dc2 03/16 00:08 Lactate Sent. kc4 00:08 SARS-COV-2 RT PCR Sent. kc4 00:08 Blood Culture Adult (2) Sent. kc4 00:08 Group A Streptococcus Rapid Sc Sent. kc4 00:08 Influenza Screen (A Sent. kc4 00:10 No provider procedures requiring assistance completed. kc4 00:10 Patient has correct armband on for positive identification. Bed in low position. Call kc4 light in reach. Side rails up X 1. Adult w/ patient. 00:39 IV discontinued, intact, bleeding controlled, No redness/swelling at site. Pressure dc2 dressing applied. 03:19 Bed in low position. Call light in reach. Side rails up X 1. dc2 Administered Medications: 03/15 23:40 Drug: AZITHromycin 500 mg Route: IVPB; Infused Over: 1 hrs; Site: right antecubital; dc2 03/16 00:35 Follow up: IV Status: Completed infusion; IV Intake: 1000ml dc2 00:39 Follow up: IV Status: Completed infusion; IV Intake: 250ml dc2 Intake: 00:35 IV: 1000ml; Total: 1000ml. dc2 00:39 IV: 250ml; Total: 1250ml. dc2 Outcome: 00:17 Discharge ordered by . ma2 00:38 Discharged to home via wheelchair, with family. dc2 00:38 Condition: stable 00:38 Discharge instructions given to patient, Instructed on discharge instructions, follow up and referral plans. medication usage, Demonstrated understanding of instructions, follow-up care, medications, Prescriptions given X 2. 00:42 Patient left the ED. dc2 Signatures: Dispatcher [employer] EDMS Ad Angeles MD MD ma2 Roque Munoz 2 Mariya Michele4 Ginger Rae df1 Nessa Villagran RN RN dc2 Corrections: (The following items were deleted from the chart) 03/15 23:14 23:10 CORONAVIRUS+MR.LAB.BRZ drawn and sent. dc2 EDMS
--- NOTE | 2021-03-16 00:18 | EDPHYS ---
Physician Documentation [facility] Name: Rowan Pompa Age: 89 yrs Sex: Female : 1930 Arrival Date: 03/15/2021 Time: 21:30 Bed 19 Private MD: ED Physician Ad Angeles HPI: 03/15 23:27 This 89 yrs old Female presents to ER via Wheelchair with complaints of Sore ma2 Throat, Cough, Congestion, Fever. 23:27 The patient presents with sore throat. Onset: The symptoms/episode began/occurred ma2 gradually, 2 day(s) ago. Severity of symptoms: At their worst the symptoms were moderate, in the emergency department the symptoms are unchanged. Associated signs and symptoms: Pertinent negatives cough, earache, flu-like symptoms, nausea. The patient has not experienced similar symptoms in the past, The patient has experienced a previous episode. Historical: - Allergies: 22:16 Codeine; df1 22:16 EUCALYPTUS CONTAINING PRODUCTS; df1 - PMHx: 22:16 Atrial Fib; COPD; CHF; CVA; Gout; Hyperlipidemia; Hypertension; df1 - PSHx: 22:16 Tonsillectomy; Total abdominal hysterectomy; Cholecystectomy; pacemaker; right pelvic df1 repair; right knee repair; - Immunization history:: Adult Immunizations up to date, Client reports having NOT received the Covid vaccine. - Social history:: Smoking status: Patient denies any tobacco usage or history of. - Family history:: not pertinent. ROS: 23:27 Constitutional: Negative for fever, chills, and weight loss. ma2 23:27 All other systems are negative. Exam: 23:27 Constitutional: This is a well developed, well nourished patient who is awake, alert, ma2 and in no acute distress. Head/Face: Normocephalic, atraumatic. Eyes: Pupils equal round and reactive to light, extra-ocular motions intact. Lids and lashes normal. Conjunctiva and sclera are non-icteric and not injected. Cornea within normal limits. Periorbital areas with no swelling, redness, or edema. ENT: Nares patent. No nasal discharge, no septal abnormalities noted. Tympanic membranes are normal and external auditory canals are clear. Oropharynx with no redness, swelling, or masses, exudates, or evidence of obstruction, uvula midline. Mucous membranes moist. Neck: Trachea midline, no thyromegaly or masses palpated, and no cervical lymphadenopathy. Supple, full range of motion without nuchal rigidity, or vertebral point tenderness. No Meningismus. Chest/axilla: Normal chest wall appearance and motion. Nontender with no deformity. No lesions are appreciated. Cardiovascular: Regular rate and rhythm with a normal S1 and S2. No gallops, murmurs, or rubs. Normal PMI, no JVD. No pulse deficits. Respiratory: Lungs have equal breath sounds bilaterally, clear to auscultation and percussion. No rales, rhonchi or wheezes noted. No increased work of breathing, no retractions or nasal flaring. Abdomen/GI: Soft, non-tender, with normal bowel sounds. No distension or tympany. No guarding or rebound. No evidence of tenderness throughout. Back: No spinal tenderness. No costovertebral tenderness. Full range of motion. Skin: Warm, dry with normal turgor. Normal color with no rashes, no lesions, and no evidence of cellulitis. MS/ Extremity: Pulses equal, no cyanosis. Neurovascular intact. Full, normal range of motion. Neuro: Awake and alert, GCS 15, oriented to person, place, time, and situation. Cranial nerves II-XII grossly intact. Motor strength 5/5 in all extremities. Sensory grossly intact. Cerebellar exam normal. Normal gait. Vital Signs: 22:14 BP 114 / 53; Pulse 96; Resp 20; Temp 99.7; Pulse Ox 88% on R/A; Weight 72.57 kg; Height df1 5 ft. 4 in. (162.56 cm); Pain 0/10; 23:20 BP 106 / 66; Pulse 80; Resp 17; Temp 98.6; Pulse Ox 98% ; Pain 0/10; dc2 03/16 00:09 BP 111 / 58; Pulse 70; Resp 18; Pain 4/10; kc4 03/15 22:14 Body Mass Index 27.46 (72.57 kg, 162.56 cm) df1 MDM: 03/15 23:01 Patient medically screened. ma2 23:29 Differential diagnosis: Allergic rhinitis, gastroesophageal reflux disease, influenza, ma2 laryngitis, pharyngitis. 23:47 ED course: Derrek is on home oxygen 2 L, at this time she is on 1.5 L oxygen via nasal ma2 cannula and her saturation is 97. 03/16 00:16 Data reviewed: vital signs, nurses notes. Counseling: I had a detailed discussion with [facility] the patient and/or guardian regarding: the historical points, exam findings, and any diagnostic results supporting the discharge/admit diagnosis, the presence of at least one elevated blood pressure reading (>120/80) during this emergency department visit, the need for outpatient follow up. Response to treatment: the patient's symptoms have markedly improved after treatment. 03/15 22:25 Order name: Flu [facility] 03/15 22:25 Order name: Strep [facility] 03/15 22:25 Order name: Basic Metabolic Panel; Complete Time: 23:47 [facility] 03/15 22:25 Order name: CBC with Diff; Complete Time: 23:47 [facility] 03/15 22:25 Order name: LFT's; Complete Time: 23:47 [facility] 03/15 22:25 Order name: Magnesium; Complete Time: 23:47 [facility] 03/15 22:25 Order name: NT PRO-BNP; Complete Time: 23:47 [facility] 03/15 22:25 Order name: PT-INR; Complete Time: 23:47 [facility] 03/15 22:25 Order name: Troponin (emerg Dept Use Only); Complete Time: 23:47 [facility] 03/15 22:25 Order name: Influenza Screen (A [facility] 03/15 22:25 Order name: Group A Streptococcus Rapid Sc [facility] 03/15 23:06 Order name: Blood Culture Adult (2) [facility] 03/15 23:14 Order name: SARS-COV-[address] [facility] 03/15 22:25 Order name: CXR XRAY [facility] 03/15 22:25 Order name: Droplet/Contact Precautions; Complete Time: 23:10 [facility] 03/15 22:25 Order name: Labs collected and sent; Complete Time: 23:10 [facility] 03/15 22:25 Order name: O2 Per Protocol [facility] 03/15 22:25 Order name: EKG; Complete Time: 22:26 [facility] 03/15 22:25 Order name: Cardiac monitoring [facility] 03/15 22:25 Order name: EKG - Nurse/Tech [facility] 03/15 22:25 Order name: IV Saline Lock; Complete Time: 23:10 ma2 03/15 22:25 Order name: O2 Sat Monitoring; Complete Time: 23:10 ma2 03/15 23:22 Order name: Lactate em 03/15 23:23 Order name: Lactate; Complete Time: 23:47 EDMS 03/16 00:31 Order name: Throat Culture EDMS Administered Medications: 03/15 23:40 Drug: AZITHromycin 500 mg Route: IVPB; Infused Over: 1 hrs; Site: right antecubital; dc2 03/16 00:35 Follow up: IV Status: Completed infusion; IV Intake: 1000ml dc2 00:39 Follow up: IV Status: Completed infusion; IV Intake: 250ml dc2 Disposition Summary: 03/16/21 00:17 Discharge Ordered Location: Home ma2 Condition: Stable ma2 Diagnosis - Acute bronchitis, unspecified ma2 Followup: ma2 - With: Private Physician - When: Tomorrow - Reason: Continuance of care Discharge Instructions: - Discharge Summary Sheet ma2 - Acute Bronchitis, Adult ma2 Forms: - Medication Reconciliation Form ma2 - Thank You Letter ma2 - Antibiotic Education ma2 - Prescription Opioid Use ma2 Prescriptions: - Zithromax Z-Ant 250 mg Oral Tablet - take 1 tablet by ORAL route as directed for 5 days Day 1 - take two (2) tablets ma2 one time. Day 2, 3, 4 , 5 take one (1) tablet once daily.; 6 tablet; Refills: 0, Product Selection Permitted - Medrol (Ant) 4 mg Oral Tablets, Dose Pack - take 1 tablet by ORAL route as directed - follow package instructions; 1 ma2 packet; Refills: 0, Product Selection Permitted Signatures: Dispatcher [employer] EDMS Ad Angeles MD MD ma2 Ginger Rae df1 Nessa Villagran RN RN dc2 Corrections: (The following items were deleted from the chart) 03/15 23:14 22:26 CORONAVIRUS+ ordered. EDMO EDMS
[2021-03-16 00:46] VITALS: TEMP 99.7; O2SAT 88
[2021-03-16 00:48] VITALS: BP 111/58
--- NOTE | 2021-03-16 07:25 | RAD REPORT ---
EXAM DESCRIPTION: RAD - Chest Single View - 03/15/2021 10:51 pm CLINICAL HISTORY: CONGESTION COMPARISON: June 2020 examination is TECHNIQUE: AP portable chest image was obtained 03/15/2021 10:51 pm . FINDINGS: No focal consolidation. Patient is diffusely prominent interstitial pattern. This is not s ubstantially different from comparison. Severity of chronic disease could easily mask superimposed in terstitial edema or infiltrate. Cardiomegaly is still present. Pacemaker has been placed since the pr ior examination. No measurable pleural effusion and no pneumothorax. No acute bony abnormality seen. No acute aortic findings suspected. IMPRESSION: Cardiomegaly similar to prior imaging. Pacemaker has been placed since prior study. Diffusely prominent interstitial pattern not substantially different from comparison. Severity of chr onic disease can mask acute edema or infiltrate.
--- NOTE | 2021-03-16 16:43 | EKG ---
Test Date: 2021-03-16 Test Time: 00:19:15 Television Repair Teacher: NARINDER MEASUREMENT RESULTS: Intervals: Rate: 80 [place]: QRSD: 78 QT: 402 QTc: 463 [place]: P: NH: QRS: 28 T: -23 INTERPRETIVE STATEMENTS: Demand pacemaker, interpretation is based on intrinsic rhythm Undetermined rhythm Septal infarct, age undetermined ST & T wave abnormality, consider lateral ischemia Abnormal ECG Compared to ECG 07/01/2020 17:45:17 Myocardial infarct finding now present ST (T wave) deviation now present Atrial fibrillation no longer present T-wave abnormality no longer present Possible ischemia still present Electronically Signed On 03-16-21 16:42:41 CDT by Armando Villeda
== END 2021-03-16 00:42 | disposition home or self-care (01) ==
LOC: ER 21:26
DX: J20.9 Acute bronchitis, unspecified (principal); I10 Essential (primary) hypertension; Z95.0 Presence of cardiac pacemaker; Z88.5 Allergy status to narcotic agent; Z91.048 Other nonmedicinal substance allergy status; Z20.822 Contact with and (suspected) exposure to COVID-19
CPT/HCPCS: 96365; 93005; 87040 ×2; 87070; 85025; 80048; 36415; 83735; 85610; 80076; 87081; 83605; 84484; 83880; 87804 ×2; 71045; 99284; U0003; J0456; J7050

== ENCOUNTER 2021-04-14 11:00 | Day surgery (SDC) | payer OTHER ==
--- NOTE | 2021-04-12 14:38 | RAD REPORT ---
EXAM DESCRIPTION: RAD - Chest Pa And Lat (2 Views) - 04/12/2021 1:57 pm CLINICAL HISTORY: pre-op cath procedure Chest pain. COMPARISON: Chest Single View dated 03/15/2021; Chest Single View dated 07/01/2020; Chest Single View dated 06/30/2020; Chest Single View dated 06/29/2020 FINDINGS: Mild interstitial pulmonary edema. The heart is moderately enlarged in size with a dual le ad pacer device present. No displaced fractures. Vertebroplasty cement is seen in a lower thoracic ve rtebra. The bones are diffusely demineralized. IMPRESSION: Mild CHF.
[2021-04-12 14:58] LABS: Absolute Lymphocytes (CBC) 2.1 K/uL (0.7-4.9); Basophils % 0.6 % (0-1.3); Hematocrit 32.9 % (36.0-45.0); Lymphocytes % 34.4 % (15.3-44.8); MPV 9.2 fL (7.6-11.3); RBC Red Blood Cell Count 4.53 M/uL (3.86-4.86)
[2021-04-12 15:03] LABS: Protime INR 1.98
[2021-04-12 15:17] LABS: Potassium 4.5 mmol/L (3.5-5.1)
--- NOTE | 2021-04-13 13:14 | EKG ---
Test Date: 2021-04-12 Test Time: 12:38:19 Concrete Pipe Maker: LOPEZ MEASUREMENT RESULTS: Intervals: Rate: 76 [place]: QRSD: 94 QT: 396 QTc: 445 [place]: P: [place]: QRS: 29 T: 269 INTERPRETIVE STATEMENTS: Demand pacemaker, interpretation is based on intrinsic rhythm Atrial fibrillation with premature ventricular or aberrantly conducted complexes Septal infarct, age undetermined ST & T wave abnormality, consider inferolateral ischemia or digitalis effect Abnormal ECG Compared to ECG 04/12/2021 12:37:20 No significant changes Electronically Signed On 04-13-21 13:10:38 CDT by Armando Villeda
--- NOTE | 2021-04-13 13:14 | EKG ---
Test Date: 2021-04-12 Test Time: 12:37:20 Cardiovascular Radiologic Technologist: LOPEZ MEASUREMENT RESULTS: Intervals: Rate: 88 [place]: QRSD: 80 QT: 356 QTc: 430 [place]: P: [place]: QRS: 35 T: 238 INTERPRETIVE STATEMENTS: Demand pacemaker, interpretation is based on intrinsic rhythm Atrial fibrillation with premature ventricular or aberrantly conducted complexes Septal infarct, age undetermined ST & T wave abnormality, consider inferior ischemia or digitalis effect ST & T wave abnormality, consider anterolateral ischemia or digitalis effect Abnormal ECG Compared to ECG 03/16/2021 00:19:15 Ventricular premature complex(es) now present Myocardial infarct finding still present ST (T wave) deviation still present Possible ischemia still present Electronically Signed On 04-13-21 13:10:39 CDT by Armando Villeda
[2021-04-14] MEDS ORDERED: NA CHLORIDE 0.9% 500 ML ONE (11:27)
[2021-04-14] MEDS ORDERED: HEPA 1000U/500MLS 2,000 UNIT/1,000 ML BAG IV ONE (11:48)
[2021-04-14] MEDS ORDERED: MIDAZOLAM HCL 2 MG/2 ML INJ ONE (12:12)
[2021-04-14] MEDS ORDERED: NITROGLYCERIN 100 MCG/ML SYR (for cath lab use only) IV ONE (12:12)
[2021-04-14] MEDS ORDERED: ATROPINE SULF 1 MG/10 ML SYR IV ONE (12:12)
[2021-04-14] MEDS ORDERED: HEPARIN 5000 UNIT/ML 1 ML VIAL ONE (12:12)
[2021-04-14] MEDS ORDERED: VERAPAMIL HCL 10 MG/4 ML VIAL IV ONE (12:12)
[2021-04-14] MEDS ORDERED: FENTANYL CITR 100 MCG/2 ML ONE (12:12)
[2021-04-14] MEDS ORDERED: NITROGLYCERIN/D5W 25 MG/250 ML BTL IV ONE (12:13)
[2021-04-14 12:44] VITALS: TEMP 98.4
[2021-04-14 15:31] VITALS: BP 107/53; O2SAT 98
--- NOTE | 2021-04-14 23:16 | OP ---
Date of Procedure: 04/14/2021 Surgeon: ANASTASIA ZARATE Procedure Performed: 1.Selective coronary angiogram. 2.Left heart catheterization. 3.Right heart catheterization. Access: 1.Right IJ 7-Yemeni closed with manual pressure. 2.Right radial artery 6-Yemeni closed with TR band. Complications: None. Total Sedation Time: 45 minutes. Description Of Procedure: After risks, benefits, alternatives were explained, the patient agreed to proceed and signed informed consent. Using pediatric micropuncture kit, I accessed right radial cecil ry and placed a 6-Yemeni slender sheath. Then using micropuncture kit and ultrasound guidance, I acc essed the right IJ vein and placed 7-Yemeni [place] sheath and took a 7-Yemeni balloon tipped [place] c atheter through the IJ into the right atrium, right ventricle, PA, and wedge. Recorded waveform and pressure and cardiac output was obtained using thermodilution method. I removed the [place] and then to ok a 5-Yemeni [place] 4.0 catheter into the aortic root through the radial access of a J-wire and engag ed the left main and left coronary artery, took standard views and the catheter was advanced over the wire into the LV, took the LVEDP and pullback did not record any gradient. Then, we removed the cat heter and sheath, placed TR band with good hemostasis. Findings: 1.Left main: Normal. 2.LAD: Normal with some luminal irregularities at the mid distal and distal section. 3.Left circumflex: Large and normal. 4.RCA: Large and normal. 5.LVEDP was normal at 6 mmHg. Right heart catheterization numbers: RA pressure was 9. RV pressure was 45/8, mean of 12. PA press ure was 53/16, mean of 31. Pulmonary wedge pressure was 19. Cardiac output was 5 L/minute. Conclusions: 1.Elevated filling pressures. 2.Normal coronary arteries. Plan: Diuretics. SR/MODL Voice ID: [id number] Report ID: [id number]
== END 2021-04-14 18:00 | disposition home or self-care (01) ==
LOC: CCL 11:00
PROVIDERS: ATTEND Internal Medicine
PROC: 4A023N8 Measurement of Cardiac Sampling and Pressure, Bilateral, Percutaneous Approach (ICD-10-PCS; principal; 2021-04-14)
PROC: B201YZZ Plain Radiography of Multiple Coronary Arteries using Other Contrast (ICD-10-PCS; 2021-04-14)
PROC: B205YZZ Plain Radiography of Left Heart using Other Contrast (ICD-10-PCS; 2021-04-14)
DX: I27.20 Pulmonary hypertension, unspecified (principal); I48.91 Unspecified atrial fibrillation; I10 Essential (primary) hypertension; E78.5 Hyperlipidemia, unspecified; J44.9 Chronic obstructive pulmonary disease, unspecified; J45.909 Unspecified asthma, uncomplicated; Z79.01 Long term (current) use of anticoagulants; Z88.6 Allergy status to analgesic agent; Z91.09 Other allergy status, other than to drugs and biological substances; Z20.822 Contact with and (suspected) exposure to COVID-19; Z82.49 Family history of ischemic heart disease and other diseases of the circulatory system
CPT/HCPCS: 93005 ×2; 85025; 80048; 36415; 85610; 85730; 71046; 93460; U0003; J1644 ×2; J2250; J3010; J7040

== ENCOUNTER 2021-06-02 12:18 | Emergency (ER) | payer OTHER ==
[2021-06-02] MEDS ORDERED: ONDANSETRON 4 MG/2 ML VIAL ONE (13:00)
[2021-06-02] MEDS ORDERED: FAMOTIDINE 20 MG/2 ML VIAL IV ONE (13:00)
[2021-06-02] MEDS ORDERED: MORPHINE 4 MG/ML SYR ONE ×2 (13:00→16:25)
--- NOTE | 2021-06-02 13:14 | EDPHYS ---
Physician Documentation [facility] Name: Rowan Pompa Age: 89 yrs Sex: Female : 1930 Arrival Date: 06/02/2021 Time: 12:20 Bed 20 Private MD: ED Physician Ced Cerrato HPI: 06/02 14:02 This 89 yrs old Female presents to ER via EMS with complaints of Fall Injury. kdr 14:02 Details of fall: The patient fell from an upright position, while standing, Bending kdr over. Onset: The symptoms/episode began/occurred suddenly, just prior to arrival. Associated injuries: The patient sustained Left hip. Severity of symptoms: At their worst the symptoms were moderate, incapacitating, in the emergency department the symptoms are unchanged. The patient has not experienced similar symptoms in the past. The patient has not recently seen a physician. Patient was working outside and doing some gardening when she bent over and fell forward. She landed on her left hip and was unable to get up off the ground after that. She denies head injury or loss of consciousness. Her only complaint is the left hip pain. Historical: - Allergies: 12:36 Codeine; jl7 12:36 EUCALYPTUS CONTAINING PRODUCTS; jl7 - PMHx: 12:36 Atrial Fib; CHF; COPD; CVA; Gout; Hyperlipidemia; Hypertension; jl7 - PSHx: 12:36 Cholecystectomy; pacemaker; right knee repair; right pelvic repair; Tonsillectomy; jl7 Total abdominal hysterectomy; - Immunization history: Last tetanus immunization: unknown. - Social history:: Smoking status: Patient denies any tobacco usage or history of. ROS: 14:02 Constitutional: Negative for fever, chills, and weight loss, Eyes: Negative for injury, kdr pain, redness, and discharge, ENT: Negative for injury, pain, and discharge, Neck: Negative for injury, pain, and swelling, Cardiovascular: Negative for chest pain, palpitations, and edema, Respiratory: Negative for shortness of breath, cough, wheezing, and pleuritic chest pain, Abdomen/GI: Negative for abdominal pain, nausea, vomiting, diarrhea, and constipation, Back: Negative for injury and pain, : Negative for injury, bleeding, discharge, and swelling, Skin: Negative for injury, rash, and discoloration, Neuro: Negative for headache, weakness, numbness, tingling, and seizure activity. Psych: Negative for depression, anxiety, suicide ideation, homicidal ideation, and hallucinations, Allergy/Immunology: Negative for hives, rash, and allergies, Endocrine: Negative for neck swelling, polydipsia, polyuria, polyphagia, and marked weight changes, Hematologic/Lymphatic: Negative for swollen nodes, abnormal bleeding, and unusual bruising. 14:02 MS/extremity: Positive for injury or acute deformity, decreased range of motion, pain, tenderness, of the left femoral area and left hip. Exam: 14:04 Constitutional: This is a well developed, well nourished patient who is awake, alert, kdr and in no acute distress. Head/Face: Normocephalic, atraumatic. Eyes: Pupils equal round and reactive to light, extra-ocular motions intact. Lids and lashes normal. Conjunctiva and sclera are non-icteric and not injected. Cornea within normal limits. Periorbital areas with no swelling, redness, or edema. Neck: Trachea midline, no thyromegaly or masses palpated, and no cervical lymphadenopathy. Supple, full range of motion without nuchal rigidity, or vertebral point tenderness. No Meningismus. Chest/axilla: Normal chest wall appearance and motion. Nontender with no deformity. No lesions are appreciated. Cardiovascular: Regular rate and rhythm with a normal S1 and S2. No gallops, murmurs, or rubs. Normal PMI, no JVD. No pulse deficits. Respiratory: Lungs have equal breath sounds bilaterally, clear to auscultation and percussion. No rales, rhonchi or wheezes noted. No increased work of breathing, no retractions or nasal flaring. Abdomen/GI: Soft, non-tender, with normal bowel sounds. No distension or tympany. No guarding or rebound. No evidence of tenderness throughout. Back: No spinal tenderness. No costovertebral tenderness. Full range of motion. Skin: Warm, dry with normal turgor. Normal color with no rashes, no lesions, and no evidence of cellulitis. Neuro: Awake and alert, GCS 15, oriented to person, place, time, and situation. Cranial nerves II-XII grossly intact. Motor strength 5/5 in all extremities. Sensory grossly intact. Cerebellar exam normal. Normal gait. Psych: Awake, alert, with orientation to person, place and time. Behavior, mood, and affect are within normal limits. 14:04 Musculoskeletal/extremity: Extremities: grossly normal except: noted in the left hip: ROM: limited active range of motion, limited passive range of motion, Circulation is intact in all extremities. Pulses: are normal with no appreciated deficits. Vital Signs: 12:27 BP 143 / 75; Pulse 75; Resp 19; Temp 97; Pulse Ox 93% on R/A; Weight 72.57 kg; Height 5 jl7 ft. 3 in. (160.02 cm); Pain 10/10; 13:43 BP 129 / 63; Pulse 78; Resp 22; Pulse Ox 99% on 2 lpm NC; tw2 14:45 BP 111 / 56; Pulse 72; Resp 15; Pulse Ox 99% on 1.5 lpm NC; tw2 15:36 BP 135 / 47; Pulse 71; Resp 17; Pulse Ox 99% on 1.5 lpm NC; tw2 16:39 BP 113 / 57; Pulse 76; Resp 19; Pulse Ox 98% on 1.5 lpm NC; tw2 12:27 Body Mass Index 28.34 (72.57 kg, 160.02 cm) jl7 Annalee Coma Score: 12:27 Eye Response: spontaneous(4). Verbal Response: oriented(5). Motor Response: obeys jl7 commands(6). Total: 15. Trauma Score (Adult): 12:27 Eye Response: spontaneous(1); Verbal Response: oriented(1); Motor Response: obeys jl7 commands(2); Systolic BP: > 89 mm Hg(4); Respiratory Rate: 10 to 29 per min(4); Annalee Score: 15; Trauma Score: 12 MDM: 13:14 Patient medically screened. kdr 14:04 Data reviewed: vital signs, nurses notes, lab test result(s), radiologic studies. kdr Counseling: I had a detailed discussion with the patient and/or guardian regarding: the historical points, exam findings, and any diagnostic results supporting the discharge/admit diagnosis, lab results, radiology results, the need to transfer to another facility. 06/02 12:46 Order name: CBC with Diff; Complete Time: 13:58 kdr 06/02 12:46 Order name: Basic Metabolic Panel; Complete Time: 13:58 kdr 06/02 12:46 Order name: Hepatic Function; Complete Time: 13:58 kdr 06/02 12:46 Order name: PT-INR; Complete Time: 13:58 kdr 06/02 13:11 Order name: COVID-19 SARS RT PCR (Document "Date of Onset" if Symptomatic) eb 06/02 13:12 Order name: SARS-COV-2 RT PCR; Complete Time: 14:34 EDMS 06/02 12:44 Order name: Pelvis XRAY; Complete Time: 14:34 kdr 06/02 12:45 Order name: Hip Left 2 View XRAY; Complete Time: 14:34 kdr 06/02 13:52 Order name: CBC Smear Scan; Complete Time: 13:58 EDMS 06/02 12:46 Order name: IV Saline Lock; Complete Time: 13:20 kdr 06/02 12:46 Order name: Labs collected and sent; Complete Time: 13:20 kdr 06/02 12:54 Order name: [place]; Complete Time: 13:31 tw2 Administered Medications: 13:13 Drug: Zofran (Ondansetron) 4 mg Route: IVP; Site: right antecubital; tw2 13:15 Drug: morphine 4 mg {Note: RASS 0.} Route: IVP; Site: right antecubital; tw2 13:20 Drug: Pepcid (famotidine) 20 mg Route: IVP; Site: right antecubital; tw2 14:33 Drug: NS 0.9% 500 ml Route: IV; Rate: bolus; Site: right antecubital; tw2 15:15 Follow up: Response: No adverse reaction; IV Status: Completed infusion; IV Intake: tw2 500ml 15:15 Drug: NS 0.9% 1000 ml Route: IV; Rate: 75 ml/hr; Site: right antecubital; tw2 16:32 Follow up: IV Status: Infusion continued upon admission tw2 16:30 Drug: morphine 4 mg {Note: rass 0.} Route: IVP; Site: right antecubital; tw2 16:38 Follow up: Response: No adverse reaction; Pain is decreased; RASS: Alert and Calm (0) tw2 Disposition Summary: 06/02/21 13:14 Transfer Ordered Transfer Location: [facility] kdr Reason: Higher level of care kdr Condition: Fair kdr Problem: new kdr Symptoms: have improved kdr Accepting Physician: sasha(06/02/21 16:38) tw2 Diagnosis - Displaced intertrochanteric fracture of left femur, initial encounter for closed kdr fracture Forms: - Medication Reconciliation Form kdr - SBAR form kdr Signatures: Dispatcher [employer] Ced Baxter MD MD kdr Elizabeth Dunbar RN RN tw2 Greg Cazares RN RN jl7 Corrections: (The following items were deleted from the chart) 16:38 13:14 sasha kdr tw2
--- NOTE | 2021-06-02 13:14 | ER ---
Nurse's Notes [facility] Name: Rowan Pompa Age: 89 yrs Sex: Female : 1930 Arrival Date: 06/02/2021 Time: 12:20 Bed 20 Private MD: Diagnosis: Displaced intertrochanteric fracture of left femur, initial encounter for closed fracture Presentation: 06/02 12:27 Chief complaint: EMS states: She was putting soil in planting pot, bent over and kept jl7 going, c/o left hip pain, shortening and external rotation noted. Pt A\T\Ox4, did not hit head, does take blood thinners, unsure which one. Care prior to arrival: None. Mechanism of Injury: Fall from standing position. Trauma event details: Injury occurred in the [facility], Injury occurred: at home. Injury occurred: June 02, 2021 Injury occurred at: 11:45. 12:27 Acuity: EUFEMIA 2 jl7 12:27 Method Of Arrival: EMS: [facility] jl7 12:36 Coronavirus screen: At this time, the client does not indicate any symptoms associated jl7 with coronavirus-19. Ebola Screen: No symptoms or risks identified at this time. Initial Sepsis Screen: Does the patient meet any 2 criteria? No. Patient's initial sepsis screen is negative. Does the patient have a suspected source of infection? No. Patient's initial sepsis screen is negative. Risk Assessment: Do you want to hurt yourself or someone else? Patient reports no desire to harm self or others. Onset of symptoms was June 02, 2021. Trauma Activation: Alert Physician: ED Physician; Name: ; Notified At: ; Arrived At: Physician: General Surgeon; Name: ; Notified At: ; Arrived At: Physician: Radiology; Name: ; Notified At: ; Arrived At: Physician: Respiratory; Name: ; Notified At: ; Arrived At: Physician: Lab; Name: ; Notified At: ; Arrived At: Historical: - Allergies: 12:36 Codeine; jl7 12:36 EUCALYPTUS CONTAINING PRODUCTS; jl7 - PMHx: 12:36 Atrial Fib; CHF; COPD; CVA; Gout; Hyperlipidemia; Hypertension; jl7 - PSHx: 12:36 Cholecystectomy; pacemaker; right knee repair; right pelvic repair; Tonsillectomy; jl7 Total abdominal hysterectomy; - Immunization history: Last tetanus immunization: unknown. - Social history:: Smoking status: Patient denies any tobacco usage or history of. Screenin:27 Abuse screen: Denies threats or abuse. Nutritional screening: No deficits noted. tw2 Tuberculosis screening: No symptoms or risk factors identified. Fall Risk Secondary diagnosis (15 points) impaired mobility. Primary Survey: 12:26 NO uncontrolled hemorrhage observed. A: The patient is alert. Breathing/Chest: tw2 Respiratory pattern: regular, Respiratory effort: spontaneous, unlabored, Chest inspection: symmetrical rise and fall of the chest. Circulation: Skin temperature: warm, dry. Disability Alert. Exposure/Environment: All clothing and personal items were removed. Forensic evidence collection is not deemed to be indicated at this time. Items placed in patient belonging bag. There is no evidence of uncontrolled external bleeding. Obvious injury(ies) are noted at this time: external rotation of the LEFT leg A warming method has been applied: A warm blanket has been provided to the patient. 12:44 Reassessment Airway Airway Patent Breathing/Chest Respiratory pattern Regular tw2 Respiratory effort Spontaneous Unlabored Breath sounds Clear Chest inspection Symmetrical Circulation Heart tones Temperature Warm Dry. Assessment: 12:27 General: Appears in no apparent distress. uncomfortable, Behavior is cooperative, jl7 appropriate for age, anxious. Pain: Complains of pain in left hip Pain currently is 10 out of 10 on a pain scale. Neuro: Level of Consciousness is awake, alert, obeys commands, Oriented to person, place, time, situation. Cardiovascular: Patient's skin is warm and dry. Respiratory: Airway is patent Respiratory effort is even, unlabored, Respiratory pattern is regular, symmetrical. Derm: Skin is pink, warm \T\ dry. Musculoskeletal: Left leg noted to be shortened and externally rotated. 12:37 Reassessment: xray at bedside at this time. tw2 12:44 Reassessment: provider notified of pts pain at this time. tw2 12:49 Reassessment: provider at bedside at this time. tw2 13:18 Reassessment: pt o2 dropped to 88% on RA after morphine. pt placed on 3L nc at this tw2 time. will continue to monitor. 13:43 Reassessment: Patient appears in no apparent distress at this time. Patient and/or tw2 family updated on plan of care and expected duration. Pain level reassessed. pt states she uses o2 at 2L nc at night. Vital Signs: 12:27 BP 143 / 75; Pulse 75; Resp 19; Temp 97; Pulse Ox 93% on R/A; Weight 72.57 kg; Height 5 jl7 ft. 3 in. (160.02 cm); Pain 10/10; 13:43 BP 129 / 63; Pulse 78; Resp 22; Pulse Ox 99% on 2 lpm NC; tw2 14:45 BP 111 / 56; Pulse 72; Resp 15; Pulse Ox 99% on 1.5 lpm NC; tw2 15:36 BP 135 / 47; Pulse 71; Resp 17; Pulse Ox 99% on 1.5 lpm NC; tw2 16:39 BP 113 / 57; Pulse 76; Resp 19; Pulse Ox 98% on 1.5 lpm NC; tw2 12:27 Body Mass Index 28.34 (72.57 kg, 160.02 cm) jl7 [place] Coma Score: 12:27 Eye Response: spontaneous(4). Verbal Response: oriented(5). Motor Response: obeys jl7 commands(6). Total: 15. Trauma Score (Adult): 12:27 Eye Response: spontaneous(1); Verbal Response: oriented(1); Motor Response: obeys jl7 commands(2); Systolic BP: > 89 mm Hg(4); Respiratory Rate: 10 to 29 per min(4); Annalee Score: 15; Trauma Score: 12 ED Course: 12:20 Patient arrived in ED. eb 12:26 Patient maintains SpO2 saturation greater than 95% on room air. Thermoregulation: warm tw2 blanket given to patient. 12:27 Elizabeth Dunbar, RN is Primary Nurse. tw2 12:27 Patient has correct armband on for positive identification. Bed in low position. Call jl7 light in reach. Side rails up X2. 12:34 Triage completed. jl7 12:36 Arm band placed on right wrist. jl7 12:43 Ced Cerrato MD is Attending Physician. kdr 12:54 Pelvis XRAY In Process Unspecified. EDMS 12:54 Hip Left 2 View XRAY In Process Unspecified. EDMS 13:16 initiated a transfer with Shell from the [facility]. eb 13:24 Inserted saline lock: 18 gauge in right antecubital area, using aseptic technique. kv1 Missed attempt(s): 20 gauge in right antecubital area. 13:25 Initial lab(s) drawn, by me, sent to lab. kv1 13:30 Porras cath inserted, using sterile technique, 18 Fr., by me, balloon inflated, to tw2 gravity drainage, returned beverley urine. Patient tolerated well. pts daughter at bedside at this time. 14:[address] Freire the orthopedic personal lines account manager for [facility] with Dr. Cerrato for patient transfer consultation. 14:[address] Koroma the hospitalist personal lines account manager for [facility] with Dr. Cerrato for patient transfer consultation. 15:08 administrative approval given by Cas Dawn Rn/ patient has been accepted to [facility] [address] [address]27/ Dr. Dunia Koroma has accepted the patient in transfer/ report to be called to the transfer center at [phone]. Administered Medications: 13:13 Drug: Zofran (Ondansetron) 4 mg Route: IVP; Site: right antecubital; tw2 13:15 Drug: morphine 4 mg {Note: RASS 0.} Route: IVP; Site: right antecubital; tw2 13:20 Drug: Pepcid (famotidine) 20 mg Route: IVP; Site: right antecubital; tw2 14:33 Drug: NS 0.9% 500 ml Route: IV; Rate: bolus; Site: right antecubital; tw2 15:15 Follow up: Response: No adverse reaction; IV Status: Completed infusion; IV Intake: tw2 500ml 15:15 Drug: NS 0.9% 1000 ml Route: IV; Rate: 75 ml/hr; Site: right antecubital; tw2 16:32 Follow up: IV Status: Infusion continued upon admission tw2 16:30 Drug: morphine 4 mg {Note: rass 0.} Route: IVP; Site: right antecubital; tw2 16:38 Follow up: Response: No adverse reaction; Pain is decreased; RASS: Alert and Calm (0) tw2 Intake: 15:15 IV: 500ml; Total: 500ml. tw2 Output: 15:54 Urine: 600ml (Porras); Total: 600ml. tw2 16:32 Urine: 200ml (Porras); Total: 800ml. tw2 Outcome: 13:14 ER care complete, transfer ordered by . kdr 16:38 Patient left the ED. tw2 Signatures: Dispatcher [employer] EDCed Alvarez MD MD kdr Elizabeth Dunbar RN RN tw2 Greg Cazares RN RN jl7 Rupa Holman Kristopher kv1
[2021-06-02 13:22] LABS: Absolute Lymphocytes (CBC) 1.7 K/uL (0.7-4.9); Basophils % 0.4 % (0-1.3); Hematocrit 33.8 % (36.0-45.0); MPV 8.7 fL (7.6-11.3); RBC Red Blood Cell Count 4.83 M/uL (3.86-4.86)
[2021-06-02 13:32] LABS: Protime INR 2.17
[2021-06-02 13:39] LABS: Albumin 3.7 g/dL (3.4-5.0); Bilirubin Direct 0.2 mg/dL (0-0.2); Bilirubin Total 0.6 mg/dL (0.2-1.0); Potassium 4.2 mmol/L (3.5-5.1); Protein, Total 8.1 g/dL (6.4-8.2)
[2021-06-02 13:51] LABS: White Blood Cell Scan OK (OK)
[2021-06-02 13:52] LABS: Blood Morphology Comment NOT SEEN (NOT SEEN); Platelet Estimate ADEQ
--- NOTE | 2021-06-02 14:17 | RAD REPORT ---
EXAM DESCRIPTION: RAD - Hip Left 2 View - 06/02/2021 12:54 pm CLINICAL HISTORY: Left hip pain status post injury FINDINGS: A mildly displaced intertrochanteric fracture left femur. Fracture extends into the lesser and greater trochanters. No dislocation
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
[2021-06-02] MEDS ORDERED: NA CHLORIDE 0.9% 1,000 ML ONE (14:29)
[2021-06-02 16:49] VITALS: TEMP 97
[2021-06-02 16:55] VITALS: BP 113/57; O2SAT 98
== END 2021-06-02 16:38 | disposition short-term general hospital (02) ==
LOC: ER 12:18
DX: S72.142A Displaced intertrochanteric fracture of left femur, initial encounter for closed fracture (principal); W18.39XA Other fall on same level, initial encounter; Y93.H2 Activity, gardening and landscaping; Y92.89 Other specified places as the place of occurrence of the external cause; Z95.0 Presence of cardiac pacemaker; Z88.5 Allergy status to narcotic agent; Z20.822 Contact with and (suspected) exposure to COVID-19; Z91.048 Other nonmedicinal substance allergy status
CPT/HCPCS: 96361; 85025; 80048; 36415; 85610; 80076; 72170; 73502; 51702; 96375; 96374; 99285; U0003; J7030; J2405